=== PATIENT | male | born 1940 | race Caucasian/White ===

== ENCOUNTER 2020-03-23 13:35 | Outpatient (CLI) | payer MEDICARE, SELFPAY ==
[2020-03-23 14:13] LABS: Blood Urea Nitrogen 30 mg/dL (9-20); Calcium 8.8 mg/dL (8.4-10.2); Carbon Dioxide 27 mmol/L (22-30); Chloride 105 mmol/L (98-107); Estimated Glomerular Filt Rate 29; Glucose 169 mg/dL (75-110); Potassium 4.4 mmol/L (3.4-5.0); Sodium 139 mmol/L (137-145)
== END 2020-03-23 13:36 | disposition home or self-care (01) ==
PROVIDERS: PCP Family Medicine; Visit Provider Family Medicine
DX: N28.9 Disorder of kidney and ureter, unspecified (principal)
CPT/HCPCS: 36415; 80048

== ENCOUNTER 2020-04-15 12:14 | Outpatient (CLI) | payer MEDICARE, SELFPAY ==
[2020-04-15 12:37] LABS: Hematocrit 45.4 % (42.0-52.0); Mean Corpuscular Hemoglobin 27.4 pg (26-34); Mean Platelet Volume 9.3 fl (7.4-10.4); Platelet Count Result 222 k/mm3 (150-375); Red Blood Count 5.47 M/mm3 (4.6-6.20); Red Cell Distribution Width 13.9 % (11.5-14.5); White Blood Count 9.2 K/mm3 (4.5-10.0)
[2020-04-15 12:47] LABS: Albumin Level 4.2 g/dL (3.5-5.1); Blood Urea Nitrogen 33 mg/dL (9-20); Calcium 9.4 mg/dL (8.4-10.2); Carbon Dioxide 29 mmol/L (22-30); Chloride 103 mmol/L (98-107); Estimated Glomerular Filt Rate 28; Glucose 186 mg/dL (75-110); Phosphorus 3.2 mg/dL (2.5-4.5); Potassium 3.9 mmol/L (3.4-5.0); Sodium 139 mmol/L (137-145)
[2020-04-15 12:59] LABS: Parathyroid Intact 45.5 pg/mL (7.5-53.5)
[2020-04-15 14:11] LABS: Vitamin D 25 Hydroxy 46.6 ng/mL
[2020-04-15 18:57] LABS: Creatinine Urine > 346.5 mg/dL; Total Protein Urine Random 34 mg/dL
== END 2020-04-15 12:15 | disposition home or self-care (01) ==
PROVIDERS: PCP Family Medicine; Referring Provider Family Medicine; Visit Provider Internal Medicine Nephrology
DX: N18.4 Chronic kidney disease, stage 4 (severe) (principal)
CPT/HCPCS: 36415; 80069; 82306; 82570; 83970; 84156; 85027

== ENCOUNTER 2020-08-21 11:07 | Outpatient (CLI) | payer MEDICARE, SELFPAY ==
[2020-08-21 11:54] LABS: Hematocrit 40.6 % (42.0-52.0); Hemoglobin 13.9 g/dL (14.0-18.0); Mean Corpuscular HGB Conc 34.2 g/dl (32-36); Mean Corpuscular Hemoglobin 27.5 pg (26-34); Mean Corpuscular Volume 80.2 fl (80-100); Mean Platelet Volume 9.3 fl (7.4-10.4); Platelet Count Result 233 k/mm3 (150-375); Red Blood Count 5.06 M/mm3 (4.6-6.20); Red Cell Distribution Width 13.4 % (11.5-14.5); White Blood Count 10.6 K/mm3 (4.5-10.0)
[2020-08-21 12:08] LABS: Albumin Level 4.1 g/dL (3.5-5.1); Anion Gap 9 mmol/L (8-16); Blood Urea Nitrogen 22 mg/dL (9-20); Calcium 9.2 mg/dL (8.4-10.2); Carbon Dioxide 25 mmol/L (22-30); Chloride 104 mmol/L (98-107); Estimated Glomerular Filt Rate 29; Glucose 126 mg/dL (75-110); Phosphorus 3.2 mg/dL (2.5-4.5); Potassium 3.9 mmol/L (3.4-5.0); Sodium 138 mmol/L (137-145)
[2020-08-21 12:19] LABS: Total Protein Urine Random 31 mg/dL
[2020-08-21 12:24] LABS: Parathyroid Intact 80.5 pg/mL (7.5-53.5)
[2020-08-21 13:00] LABS: Vitamin D 25 Hydroxy 48.3 ng/mL
[2020-08-21 13:14] LABS: Hepatitis B Surface Anti Res Negative
== END 2020-08-21 11:08 | disposition home or self-care (01) ==
PROVIDERS: PCP Family Medicine; Visit Provider Internal Medicine Nephrology
DX: N18.4 Chronic kidney disease, stage 4 (severe) (principal)
CPT/HCPCS: 36415; 80069; 82306; 82570; 83970; 84156; 85027; 86706

== ENCOUNTER 2020-11-22 16:16 | Outpatient (CLI) | payer MEDICARE, SELFPAY ==
[2020-11-22 16:48] LABS: Hematocrit 42.8 % (42.0-52.0); Hemoglobin 13.9 g/dL (14.0-18.0); Mean Corpuscular HGB Conc 32.5 g/dl (32-36); Mean Corpuscular Hemoglobin 27.4 pg (26-34); Mean Corpuscular Volume 84.4 fl (80-100); Mean Platelet Volume 9.6 fl (7.4-10.4); Platelet Count Result 210 k/mm3 (150-375); Red Blood Count 5.07 M/mm3 (4.6-6.20); White Blood Count 9.7 K/mm3 (4.5-10.0)
[2020-11-22 17:03] LABS: Albumin Level 3.8 g/dL (3.5-5.1); Anion Gap 6 mmol/L (8-16); Blood Urea Nitrogen 23 mg/dL (9-20); Calcium 8.8 mg/dL (8.4-10.2); Carbon Dioxide 30 mmol/L (22-30); Chloride 103 mmol/L (98-107); Estimated Glomerular Filt Rate 24; Glucose 195 mg/dL (75-110); Sodium 139 mmol/L (137-145)
[2020-11-22 17:15] LABS: Parathyroid Intact 90.3 pg/mL (7.5-53.5)
[2020-11-22 17:23] LABS: Creatinine Urine 205.7 mg/dL; Total Protein Urine Random 26 mg/dL; Ur Ttl Prot Creatinine Ratio 0.13 mg/mg (0-0.20)
== END 2020-11-22 16:17 | disposition home or self-care (01) ==
LOC: ANHLAB 16:20
PROVIDERS: PCP Family Medicine; Visit Provider Internal Medicine Nephrology
DX: N18.4 Chronic kidney disease, stage 4 (severe) (principal)
CPT/HCPCS: 36415; 80069; 82570; 83970; 84156; 85027

== ENCOUNTER 2021-04-05 12:30 | Outpatient (CLI) | payer MEDICARE, SELFPAY ==
[2021-04-05 12:55] LABS: Hematocrit 41.6 % (42.0-52.0); Hemoglobin 13.4 g/dL (14.0-18.0); Mean Corpuscular HGB Conc 32.2 g/dl (32-36); Mean Corpuscular Hemoglobin 26.5 pg (26-34); Mean Corpuscular Volume 82.4 fl (80-100); Mean Platelet Volume 9.6 fl (7.4-10.4); Platelet Count Result 205 k/mm3 (150-375); Red Blood Count 5.05 M/mm3 (4.6-6.20); Red Cell Distribution Width 14.6 % (11.5-14.5); White Blood Count 9.1 K/mm3 (4.5-10.0)
[2021-04-05 13:08] LABS: Alanine Aminotransferase 22 U/L (4-50); Albumin Level 3.8 g/dL (3.5-5.1); Anion Gap 7 mmol/L (8-16); Blood Urea Nitrogen 34 mg/dL (9-20); Calcium 8.7 mg/dL (8.4-10.2); Carbon Dioxide 25 mmol/L (22-30); Chloride 108 mmol/L (98-107); Cholesterol 123 mg/dL (0-200); Estimated Glomerular Filt Rate 24; Glucose 169 mg/dL (75-110); HDL Direct 38 mg/dL; Phosphorus 2.8 mg/dL (2.5-4.5); Sodium 140 mmol/L (137-145); Triglycerides 119 mg/dL (<150)
[2021-04-05 13:17] LABS: Parathyroid Intact 108.4 pg/mL (7.5-53.5)
[2021-04-05 13:19] LABS: LDL Cholesterol Direct 64 mg/dL
[2021-04-05 13:24] LABS: Creatinine Urine 175.7 mg/dL; Total Protein Urine Random 34 mg/dL; Ur Ttl Prot Creatinine Ratio 0.19 mg/mg (0-0.20)
== END 2021-04-05 12:31 | disposition home or self-care (01) ==
PROVIDERS: PCP Family Medicine; Visit Provider Internal Medicine Nephrology
DX: N18.4 Chronic kidney disease, stage 4 (severe) (principal)
CPT/HCPCS: 36415; 80061; 80069; 82570; 83970; 84156; 84460; 85027

== ENCOUNTER 2021-08-23 11:25 | Outpatient (CLI) | payer MEDICARE, SELFPAY ==
[2021-08-23 12:29] LABS: Hematocrit 39.9 % (42.0-52.0); Hemoglobin 12.9 g/dL (14.0-18.0); Mean Corpuscular HGB Conc 32.3 g/dl (32-36); Mean Corpuscular Volume 83.5 fl (80-100); Platelet Count Result 181 k/mm3 (150-375); Red Blood Count 4.78 M/mm3 (4.6-6.20); Red Cell Distribution Width 15.3 % (11.5-14.5); White Blood Count 7.8 K/mm3 (4.5-10.0)
[2021-08-23 12:49] LABS: Albumin Level 3.6 g/dL (3.5-5.1); Anion Gap 8 mmol/L (8-16); Blood Urea Nitrogen 26 mg/dL (9-20); Calcium 9.1 mg/dL (8.4-10.2); Carbon Dioxide 26 mmol/L (22-30); Chloride 108 mmol/L (98-107); Estimated Glomerular Filt Rate 28; Glucose 138 mg/dL (65-110); Potassium 3.6 mmol/L (3.4-5.0); Sodium 142 mmol/L (137-145)
[2021-08-23 12:54] LABS: Parathyroid Intact 61.8 pg/mL (7.5-53.5)
[2021-08-23 13:09] LABS: Creatinine Urine 226.2 mg/dL; Total Protein Urine Random 44 mg/dL; Ur Ttl Prot Creatinine Ratio 0.19 mg/mg (0-0.20)
== END 2021-08-23 11:26 | disposition home or self-care (01) ==
LOC: ANHLAB 11:31
PROVIDERS: PCP Family Medicine; Visit Provider Internal Medicine Nephrology
DX: N18.4 Chronic kidney disease, stage 4 (severe) (principal)
CPT/HCPCS: 36415; 80069; 82570; 83970; 84156; 85027

== ENCOUNTER 2021-10-19 13:45 | Outpatient (CLI) | payer MEDICARE, SELFPAY ==
[2021-10-19 17:33] LABS: Prostate Specific Antigen 2.1 ng/mL (< OR = 4.0)
== END 2021-10-19 13:46 | disposition home or self-care (01) ==
PROVIDERS: PCP Family Medicine; Visit Provider Urology
DX: N40.1 Benign prostatic hyperplasia with lower urinary tract symptoms (principal)
CPT/HCPCS: 36415; 84153

== ENCOUNTER 2022-01-07 13:46 | Outpatient (CLI) | payer MEDICARE, SELFPAY ==
[2022-01-07 14:22] LABS: Hematocrit 42.7 % (42.0-52.0); Hemoglobin 13.5 g/dL (14.0-18.0); Mean Corpuscular HGB Conc 31.6 g/dl (32-36); Mean Corpuscular Hemoglobin 26.2 pg (26-34); Mean Corpuscular Volume 82.9 fl (80-100); Mean Platelet Volume 9.1 fl (7.4-10.4); Platelet Count Result 191 k/mm3 (150-375); Red Blood Count 5.15 M/mm3 (4.6-6.20); Red Cell Distribution Width 14.9 % (11.5-14.5); White Blood Count 8.6 K/mm3 (4.5-10.0)
[2022-01-07 14:32] LABS: Albumin Level 3.7 g/dL (3.5-5.1); Anion Gap 6 mmol/L (8-16); Blood Urea Nitrogen 29 mg/dL (9-20); Calcium 8.7 mg/dL (8.4-10.2); Carbon Dioxide 28 mmol/L (22-30); Chloride 105 mmol/L (98-107); Estimated Glomerular Filt Rate 26; Glucose 182 mg/dL (65-110); Sodium 139 mmol/L (137-145)
[2022-01-07 14:44] LABS: Parathyroid Intact 73.7 pg/mL (7.5-53.5)
== END 2022-01-07 13:47 | disposition home or self-care (01) ==
PROVIDERS: PCP Family Medicine; Visit Provider Internal Medicine Nephrology
DX: N18.4 Chronic kidney disease, stage 4 (severe) (principal)
CPT/HCPCS: 36415; 80069; 83970; 85027

== ENCOUNTER 2022-01-09 16:19 | Outpatient (NON) | payer MEDICARE, SELFPAY ==
[2022-01-10 08:21] LABS: Creatinine Urine 166.2 mg/dL; Total Protein Urine Random 24 mg/dL; Ur Ttl Prot Creatinine Ratio 0.14 mg/mg (0-0.20)
== END 2022-01-09 16:20 | disposition home or self-care (01) ==
PROVIDERS: PCP Family Medicine; Visit Provider Internal Medicine Nephrology
DX: N18.4 Chronic kidney disease, stage 4 (severe) (principal)
CPT/HCPCS: 82570; 84156

== ENCOUNTER 2022-04-02 12:38 | Inpatient (IN) | payer MEDICARE, SELFPAY ==
[2022-04-02] VITALS (22 sets, daily range): BP systolic 81–152; BP diastolic 54–99; PULSE 55–89; RESP 14–23; TEMP 36.4–36.7; O2SAT 95–100; BMI 25.6
--- NOTE | ~2022-04-02 | CT_ITS ---
EXAMINATION: CT brain wo con DATE: 04/02/2022 14:33 INDICATION: dizziness . TECHNIQUE: Computed tomography (CT) of the head was performed without intravenous contrast. The mA wa s adjusted according to patient size. Iterative reconstruction technique was employed. The dose-lengt h product was 605.33 mGy-cm. COMPARISON: None FINDINGS: No acute intracranial hemorrhage or extra-axial fluid collection. No hydrocephalus, mass, or herniation. No acute ischemic infarct. Unremarkable dural venous sinus attenuation. No acute osseous abnormality. The aerated spaces are clear. Moderate atrophy and chronic white matter change. Left basal ganglia calcification. Atherosclerotic i ntracranial calcifications. Bilateral lens replacements. IMPRESSION: No acute intracranial process. Reviewed, dictated and finalized at location K.
--- NOTE | ~2022-04-02 | XR_ITS ---
MODIFIED ESOPHAGRAM HISTORY: Dysphagia. TECHNIQUE: Modified barium esophagram was performed on 04/05/2022. I administered fluoroscopy and perfo rmed the exam with speech pathologist. Patient was seated for lateral fluoroscopic imaging for inges tion of thin liquids, pudding, solids and quantified amounts, followed by thin liquids in uncontrolle d amounts. This was recorded on tape. A single fluoroscopic spot image was also recorded. The DAP for this procedure was 2.507 Gycm2. The amount of fluoroscopy time used during this procedure was 3.8 mi nutes. FINDINGS: Oral stage: Adequate function. Pharyngeal stage: Pharyngeal dysphagia with reduced laryngeal elevation and adduction and reduced ton sonal base retraction. There is vallecular residue. Laryngeal penetration with thin and nectar thick li quids and aspiration of a small amount of thin liquids. Cervical/esophageal stage: Adequate function. IMPRESSION: Residual dysphagia with recurrent laryngeal penetration and small amount of aspiration. Please correlate with speech pathologist findings and specific feeding recommendations. Reviewed, dictated and finalized at location A. IMPRESSION: Residual dysphagia with recurrent laryngeal penetration and small a mount of aspiration. Please correlate with speech pathologist findings and [facility] feeding recommendations.
--- NOTE | ~2022-04-02 | XR_ITS ---
XR chest 1V portable DATE: 04/02/2022 13:44 INDICATION: Altered mental status. Weakness. TECHNIQUE: Portable AP chest on 04/02/2022 at 1341 hours COMPARISON: CT chest two-view chest FINDINGS: There is prominent patchy consolidation throughout the right lung, most prominent in the mi d and lower lung zones, likely due to extensive right lung pneumonia. Minimal infiltrate or atelectasis in the left lower lobe. The left lung otherwise appears clear. No pleural effusion or pulmonary vascular congestion or pneumothorax. Heart size appears within normal limits there is aortic arch calcification and mild aortic unfolding. Diffuse osteopenia. Degenerative spurring of the thoracic spine. Rotator cuff atrophy is suggested bi laterally. IMPRESSION: Extensive patchy consolidation of the right lung suggesting pneumonia Mild infiltrate or atelectasis in the left lower lung Reviewed, dictated and finalized at location A. IMPRESSION: Extensive patchy consolidation of the right lung suggesting pneumon ia Mild infiltrate or atelectasis in the left lower lung
--- NOTE | 2022-04-02 12:56 | ECG_ITS ---
Measurements Intervals [place] Rate: 78 P: ID: 0 QRS: 46 QRSD: 79 T: 50 QT: 412 QTc: 472 Interpretive Statements ATRIAL FIBRILLATION BORDERLINE ST-T WAVE ABNORMALITY- DIFFUSE LEADS BASELINE ARTIFACT- I, II, III, AVR, AVL, AVF, V1-V3 ABNORMAL ECG Electronically Signed On 04-02-2022 17:19:51 CDT by Jose Dawn D.O.
--- NOTE | 2022-04-02 13:00 | ED.NEUROSD ---
HPI - Neuro Symptoms/Deficit General Chief Complaint: Neuro Symptoms/Deficit Stated Complaint: neuro s/sx Time Seen by Provider: 04/02/22 12:49 History of Present Illness HPI Narrative: pt last known well last evening seen by family then today family came to see him at noon and found him laying on end of his bed with legs off the bed they helped him up and he said he was dizzy and weaker then normal. pt also incontinent 2x this week, pt has severe dementia so unclear if took his clothes off last night for bed or got up when today and put them on. so last known well last evening. pt on eliquis for his heart. pt stronger since being here. able to push himself up in the bed denies any injury akhtar/f/uri/nv/d/cp/sob/abd pain and no lt headedness or dizziness now when I ask him on arrival to room Related Data Home Medications Medication Instructions Recorded Confirmed apixaban 2.5 mg tablet (Eliquis) 2.5 mg PO BID 11/11/19 12/20/21 nitroglycerin 0.4 mg sublingual 0.4 mg sublingual Q5M PRN chest 11/11/19 12/20/21 tablet pain tamsulosin 0.4 mg capsule (Flomax) 0.4 mg PO DAILY 11/11/19 12/20/21 Allergies Allergy/AdvReac Type Severity Reaction Status Date / Time levofloxacin Allergy Unknown Rash Verified 04/02/22 13:03 Review of Systems Constitutional: Comments: CONSTITUTIONAL: Denies fever, chills, or sweats. EYES: Denies visual changes, redness, or discharge. ENT: Denies rhinorrhea, congestion, sore throat, or otalgia. CARDIOVASCULAR: Denies chest pain, palpitations, or edema. RESPIRATORY: Denies cough or dyspnea. GASTROINTESTINAL: Denies abdominal pain, nausea, vomiting, or diarrhea. GENITOURINARY: Denies dysuria or hematuria. SKIN: Denies rash or itching. MUSCULOSKELETAL: Denies back pain, joint pain, or myalgia. NEUROLOGIC: Denies headache, numbness, or weakness. has dizziness PSYCHIATRIC: Denies anxiety or depression. [facility] Past Medical History Medical History BMI 27.0-27.9,adult BMI 28.0-28.9,adult Dementia, unspecified, without behavioral disturbance Essential (primary) hypertension Low kidney function Mixed hyperlipidemia Paroxysmal atrial fibrillation Spondylosis of cervical joint with myelopathy Type 2 diabetes mellitus without complications Family History Family History Mother Hypertension Family history of malignant neoplasm Father Cerebrovascular accident Family history of diabetes mellitus in first degree relative Diabetes mellitus Social History Social History Tobacco type: cigarettes Smoking end date: 10/01/11 Alcohol intake: current Exam Const: Other: APPEARANCE: Well appearing, no pain in distress, well-nourished. Head normocephalic atraumtaic. EYES: PERRLA/EOMI, conjunctivae very clear. NOSE: Normal no drainage EARS:TMS clear Bennie Marquez, with good light reflex. THROAT: Pharynx clear, no exudate. NECK: Supple. No adenopathy, no masses. RESPIRATORY: Airway patent, repsirations nonlabored. Clear to auscultation bilaterally, no rales, rhonchi, wheezing. CARDIOVASCULAR: Regular rate and rhythm without murmurs rubs or gallops. ABDOMINAL: Soft, nontender, nondistended, no hepatosplenomegally MUSCULOSKELETAl: Moves all extremities. Strenght/ROM intact, No edema, No calf tenderness. NEURO: Alert to self only at baseline. Cranial nerves II through XII intact. no facial droop speech issues no pronator drift and 5/5 strength sensation and pushing self up in bed no difficulties SKIN:: Warm, dry. Normal Color PSYCHIATRIC: Normal affect/mood, normal interaction with parents. Course Course Emergency Course: family updated good with plan, pt doing better more alert with fluids, hospitaltist aware accepts admissiont at 1554 Vital Signs Vital signs: Vital Signs Temperature 36.7 C 04/02/22 12:40 Pulse Rate 87 04/02/22 12:40 Respirat
[2022-04-02 13:17] LABS: Glucose Point of Care 200 mg/dl (65-105)
[2022-04-02 13:32] LABS: Alveolar/Arterial O2 Gradient 40.2 mmHg; Base Excess ABG -3.8 mEq/l (+/-2.0); Carboxyhemoglobin 1.2 % THb (0-2.0); Fractional Inspired Oxygen 21 %; HCO3 ABG 19.3 mEq/l (22.0-26.0); Methemoglobin ABG 0.4 %THb (0-1.5); Oxygen Content ABG 19.1 %vol (16.0-22.0); Oxygen Saturation ABG 95.3 % (95.0-100.0); Oxyhemoglobin 94.2 % THb (90.0-100.0); PCO2 ABG 30.1 mmHg (35.0-45.0); PO2 ABG 73.5 mmHg (80.0-100.0); Reduced Hemoglobin 4.2 %THb (0-5.0); Total Hemoglobin 14.4 g/dL (12.0-18.0); pH ABG 7.425 (7.350-7.450)
[2022-04-02 13:33] LABS: Device ROOM AIR; Modified Allen's Test Pass; Site Drawn RIGHT RADIAL
[2022-04-02] MEDS: SODIUM CHLORIDE 0.9% IV 1,000 ML 999 ML IV CONT (13:33)
[2022-04-02 13:40] LABS: Basophils Absolute Auto 0.1 K/mm3 (0.0-0.1); Basophils Percent Auto 0.3 % (0.2-1.2); Hematocrit 44.2 % (42.0-52.0); Hemoglobin 14.3 g/dL (14.0-18.0); Immature Granulocyte Absolute 0.22 K/mm3 (0.00-0.031); Immature Granulocyte Percent A 0.9 % (0-0.5); Immature Platelet Fraction Pct 2.4 % (0.9-11.2); Lymphocytes Absolute Auto 0.99 K/mm3 (0.9-3.2); Lymphocytes Percent Auto 3.8 % (18.3-44.2); Mean Corpuscular HGB Conc 32.4 g/dl (32-36); Mean Corpuscular Hemoglobin 26.4 pg (26-34); Mean Corpuscular Volume 81.5 fl (80-100); Mean Platelet Volume 9.8 fl (7.4-10.4); Monocytes Absolute Auto 1.2 K/mm3 (0.1-0.6); Monocytes Percent Auto 4.5 % (2.6-8.5); Neutrophils Absolute Auto 23.4 K/mm3 (1.3-6.7); Neutrophils Percent Auto 90.5 % (45.5-73.1); Platelet Count Result 232 k/mm3 (150-375); Red Blood Count 5.42 M/mm3 (4.6-6.20); Red Cell Distribution Width 14.4 % (11.5-14.5); White Blood Count 25.8 K/mm3 (4.5-10.0)
[2022-04-02 13:44] LABS: Appearance Urine Clear (Clear); Bacteria Urine Trace /hpf; Bilirubin Urine 2+ (Negative); Blood Urine 1+ (Negative); Calcium Oxalate Crystals Urine Present /hpf; Color Urine Amber (Yellow); Glucose Urine UA Trace mg/dL (Negative); Ketones Urine 1+ mg/dL (Negative); Leukocyte Esterase Ur Negative LEU/UL (Negative); Mucus Urine Few /lpf; Nitrate Urine Negative (Negative); Protein Urine 2+ mg/dL (Negative); Specific Grav Ur >= 1.030 (1.001-1.035); Squamous Epithelial Cell Urine Occasional /hpf (Few)
[2022-04-02 13:45] LABS: Add Urine Microscopic? YES
[2022-04-02 13:46] LABS: INR 1.5; Partial Thromboplastin Time 30.3 SECONDS (22.3-36.8); Prothrombin Time 17.1 Seconds (11.1-14.7)
[2022-04-02 13:47] LABS: Ethanol < 10 mg/dL (<10); Lactic Acid Reflex 3.1 mmol/L (0.7-2.0)
[2022-04-02 13:49] LABS: Alanine Aminotransferase 16 U/L (6-50); Albumin Level 2.7 g/dL (3.5-5.1); Alkaline Phosphatase 72 U/L (38-126); Anion Gap 5 mmol/L (8-16); Aspartate Amino Transferase 17 U/L (17-59); Bilirubin,Total 1.8 mg/dL (0.2-1.3); Blood Urea Nitrogen 27 mg/dL (9-20); CRP 2.1 mg/dL (<1.0); Calcium 7.2 mg/dL (8.4-10.2); Carbon Dioxide 22 mmol/L (22-30); Chloride 111 mmol/L (98-107); Estimated CRCL calculation 22 ml/min; Estimated Glomerular Filt Rate 29; Glucose 158 mg/dL (65-110); Magnesium 1.4 mg/dL (1.6-2.3); Potassium 3.5 mmol/L (3.4-5.0); Sodium 138 mmol/L (137-145)
[2022-04-02 14:00] LABS: Amphetamine Screen Urine Negative (Negative); Barbiturate Screen Urine Negative (Negative); Benzodiazepines Screen Urine Negative (Negative); Cannabinoid Screen Urine Negative (Negative); Cocaine Screen Urine Negative (Negative); Methadone Screen Urine Negative (Negative); Opiate Screen Urine Negative (Negative); Phencyclidine Screen Urine Negative (Negative)
[2022-04-02 14:10] LABS: SARS-CoV-2 RNA PCR Negative
[2022-04-02 14:10] LABS: Troponin I 0.012 ng/mL (0.000-0.034)
[2022-04-02] MEDS: MAGNESIUM SULF 2 GM/WATER 50ML 2 GM/50 ML BAG IVPB (14:46)
[2022-04-02] MEDS: cefTRIAXone 2 GM in SODIUM CHLORIDE 0.9% IV 100 ML 200 ML IVPB (15:37)
--- NOTE | 2022-04-02 15:44 | PM.IMHP ---
H&P: HPI History of Present Illness Date/Time: Patient was placed observation status for expected length of stay less than 23 hours for management, will plan to re-evaluate tomorrow for improvement. 04/02/22 15:44 Chief Complaint: Altered Narrative: Mr. Ortiz is a 81-year-old gentleman who was brought to emergency room after being found on his bed more altered than normal. Patient does have underlying dementia but does live at home with his grandson is able to perform most ADLs without any difficulty. Patient's family states they saw him last evening and he was doing well. Patient's daughter states that she went to eat lunch with the patient today and he was noted to be laying on the foot of his bed. Upon initial evaluation emergency room patient was noted to be alert oriented x1 only. Patient was noted to have a significantly elevated white blood cell count and a pneumonia on chest x-ray. Patient was given IV fluids and antibiotics were started and patient's mental status significantly improved. Per patient's family who is at bedside patient had not been complaining of any cough or shortness of breath recently. Patient has not had any fever. Patient had been eating and drinking without any difficulty up until this morning. Patient has a known history Alzheimer's dementia, atrial fibrillation, diabetes mellitus, hypertension, and chronic kidney disease. Patient's baseline creatinine is 2.2-2.3 Review of Systems Review of Systems: I am unable to obtain a full review of systems secondary to patient's clinical condition. [facility] Past Medical History Medical History (Updated 04/02/22 @ 20:58 by Awilda Chacon APRN) BMI 27.0-27.9,adult BMI 28.0-28.9,adult Chronic atrial fibrillation Dementia, unspecified, without behavioral disturbance Essential (primary) hypertension Low kidney function Mixed hyperlipidemia Spondylosis of cervical joint with myelopathy Type 2 diabetes mellitus without complications Family History Family History Mother Hypertension Family history of malignant neoplasm Father Cerebrovascular accident Family history of diabetes mellitus in first degree relative Diabetes mellitus Social History Social History Smoking status: Former smoker Tobacco type: cigarettes Smoking end date: 10/01/11 Alcohol intake: former Substance use: former Substance use type: does not use Spiritual care concerns: No Meds Home Medications and Allergies Home Medications Medication Instructions Recorded Confirmed Type apixaban 2.5 mg tablet (Eliquis) 2.5 mg PO BID 11/11/19 04/02/22 History tamsulosin 0.4 mg capsule (Flomax) 0.4 mg PO DAILY 11/11/19 04/02/22 History metoprolol tartrate 25 mg tablet 25 mg PO DAILY #90 tabs 08/15/21 04/02/22 Rx donepezil 10 mg tablet 10 mg PO DAILY 04/02/22 04/02/22 History memantine 10 mg tablet 1 tablet PO BID 04/02/22 04/02/22 History pantoprazole 40 mg tablet,delayed 40 mg PO DAILY 04/02/22 04/02/22 History release Allergies Allergy/AdvReac Type Severity Reaction Status Date / Time levofloxacin Allergy Unknown Rash Verified 04/02/22 13:03 Vital Signs Vital Signs - 24 hr 04/02/22 12:40 04/02/22 12:54 04/02/22 13:16 Temperature 36.7 C Pulse Rate 87 71 77 Respiratory Rate 16 18 23 H Blood Pressure 105/75 81/54 L Pulse Oximetry 96 95 95 Oxygen Delivery Room Air Room Air 04/02/22 13:31 04/02/22 13:46 04/02/22 14:01 Temperature Pulse Rate 82 76 82 Respiratory Rate 19 20 17 Blood Pressure 104/70 119/76 111/79 Pulse Oximetry 97 100 98 Oxygen Delivery Exam Narrative: Constitutional: Patient is well-nourished in no acute distress. Patient is alert and oriented x1-2 HEENT: Moist mucous membranes. No scleral icterus. No lymphadenopathy. Neck: No carotid bruits noted no JVD noted Lungs: Lung sounds are clear to auscu
[2022-04-02 16:30] LABS: Reflex Lactic Acid Yes or No Add Lactic
--- NOTE | 2022-04-02 17:15 | ADMGEN ---
This patient, Marko Ortiz, was admitted to IMU Room 203-01 at 1714. Patient/family oriented to hospital policies and general routines including ID bracelet, bed and alarms, visiting hours, pain management, procedures, bathroom and other care routines, personal items, smoking policy, room service/diet, and visiting hours. Information on how to activate the Rapid Response Team has been discussed. Patient/Family are encouraged to report perceived risks to care and to ask questions if they do not understand what they are told or what they should do.
[2022-04-02] MEDS: SODIUM CHLORIDE 0.9% IV 1,000 ML 100 ML IV CONT (20:20)
[2022-04-02 20:41] LABS: Magnesium 2.4 mg/dL (1.6-2.3)
[2022-04-02 20:42] LABS: Lactic Acid Reflex 4.2 mmol/L (0.7-2.0)
[2022-04-02] MEDS: SODIUM CHLORIDE 0.9% IV 500 ML IV CONT (21:48)
[2022-04-03] VITALS (14 sets, daily range): BP systolic 105–177; BP diastolic 58–81; PULSE 46–97; RESP 15–18; TEMP 36.3–36.8; O2SAT 96–100
[2022-04-03] MEDS: SODIUM CHLORIDE 0.9% IV 1,000 ML 100 ML IV CONT ×2 (06:27→16:54)
[2022-04-03] MEDS: TAMSULOSIN HCL 0.4 MG CAPSULE PO (08:01)
[2022-04-03] MEDS: PANTOPRAZOLE 40 MG TABLET PO (08:01)
[2022-04-03] MEDS: MEMANTINE 10 MG TABLET PO ×2 (08:01→16:52)
[2022-04-03] MEDS: DONEPEZIL HCL 10 MG TABLET PO (08:01)
[2022-04-03] MEDS: APIXABAN 2.5 MG TABLET PO ×2 (08:01→16:52)
[2022-04-03] MEDS: METOPROLOL TARTRATE 25 MG TABLET PO (08:02)
[2022-04-03 09:55] LABS: Basophils Percent Auto 0.2 % (0.2-1.2); Eosinophils Absolute Auto 0.1 K/mm3 (0-0.3); Eosinophils Percent Auto 0.5 % (0-4.4); Hematocrit 38.2 % (42.0-52.0); Hemoglobin 12.8 g/dL (14.0-18.0); Immature Granulocyte Absolute 0.11 K/mm3 (0.00-0.031); Immature Granulocyte Percent A 0.6 % (0-0.5); Lymphocytes Absolute Auto 1.45 K/mm3 (0.9-3.2); Mean Corpuscular HGB Conc 33.5 g/dl (32-36); Mean Corpuscular Hemoglobin 27.2 pg (26-34); Mean Corpuscular Volume 81.1 fl (80-100); Mean Platelet Volume 9.6 fl (7.4-10.4); Monocytes Percent Auto 5.3 % (2.6-8.5); Neutrophils Absolute Auto 15.5 K/mm3 (1.3-6.7); Neutrophils Percent Auto 85.4 % (45.5-73.1); Platelet Count Result 171 k/mm3 (150-375); Red Blood Count 4.71 M/mm3 (4.6-6.20); Red Cell Distribution Width 14.5 % (11.5-14.5); White Blood Count 18.2 K/mm3 (4.5-10.0)
[2022-04-03 10:06] LABS: Anion Gap 5 mmol/L (8-16); Blood Urea Nitrogen 31 mg/dL (9-20); Carbon Dioxide 22 mmol/L (22-30); Chloride 110 mmol/L (98-107); Estimated CRCL calculation 23 ml/min; Estimated Glomerular Filt Rate 31; Glucose 117 mg/dL (65-110); Magnesium 2.2 mg/dL (1.6-2.3); Potassium 3.6 mmol/L (3.4-5.0); Sodium 137 mmol/L (137-145)
--- NOTE | 2022-04-03 12:56 | PM.IMPN ---
Progress Note: A&P Assessment and Plan (1) Pneumonia: Code(s): J18.9 - Pneumonia, unspecified organism Status: Acute Assessment and Plan: Patient received azithromycin as well as Rocephin emergency room. Patient also received IV fluid bolus. Patient has significantly improved and is mentating at baseline. This point time will continue with current antibiotic regimen and gently hydrate patient. (2) Sepsis: Code(s): A41.9 - Sepsis, unspecified organism Status: Acute Assessment and Plan: Patient did meet sepsis criteria. Blood cultures have been drawn and will await results to see if there is any growth. Will continue with current antibiotic regimen for pneumonia. (3) Hypomagnesemia: Code(s): E83.42 - Hypomagnesemia Status: Acute Assessment and Plan: Patient received 2 g of magnesium IV in the emergency room and repeat magnesium is stable. Will check another magnesium level morning. (4) Chronic atrial fibrillation: Code(s): I48.20 - Chronic atrial fibrillation, unspecified Status: Acute Assessment and Plan: Patient's ventricular rate is well controlled and patient does take Eliquis 2.5 mg b.i.d. at home. Will continue with current regimen. Plan Altered mental status CT head done was negative. Chest x-ray with extensive patchy consolidation of the right lung suggesting pneumonia with mild infiltrate or atelectasis in the left lower lung. Urine with few wbc's as well. UDS is negative. Alcohol level is less than 10. COVID negative Alzheimer dementia Pneumonia admission leukocytosis of 25,000. Chest x-ray with extensive patchy consolidation of the right lung suggestive of pneumonia with mild infiltrate or atelectasis in the left lower lung. Not hypoxic. ABG okay 7.42/30/73/19. Started on azithromycin and Rocephin for community-acquired pneumonia. WBC count improved down to 18,000 today. COVID negative. Clinically improving. No obvious concern for aspiration. Will have speech see for bedside swallow. Sepsis likely related to pneumonia. Pancultured follow cultures Lactic acidosis worsened last night to 4.2 from initial lactic acid of 3. Will recheck again today if lactic acid improved will slow down his IV fluids Hypo magnesemia replace and monitor Chronic Atrial fibrillation rate controlled chronically anticoagulated with Eliquis 2.5 mg b.i.d. Diabetes mellitus Hypertension Chronic kidney disease stage 3 baseline creatinine 2.2-2.3 DVT prophylaxis on Eliquis Code status do not resuscitate Subjective Date/time seen: 04/03/22 12:56 Interval history: HPI:Mr. Ortiz is a 81-year-old gentleman who was brought to emergency room after being found on his bed more altered than normal.? Patient does have underlying dementia but does live at home with his grandson is able to perform most ADLs without any difficulty.? Patient's family states they saw him last evening and he was doing well.? Patient's daughter states that she went to eat lunch with the patient today and he was noted to be laying on the foot of his bed.? Upon initial evaluation emergency room patient was noted to be alert oriented x1 only.? Patient was noted to have a significantly elevated white blood cell count and a pneumonia on chest x-ray.? Patient was given IV fluids and antibiotics were started and patient's mental status significantly improved.? Per patient's family who is at bedside patient had not been complaining of any cough or shortness of breath recently.? Patient has not had any fever.? Patient had been eating and drinking without any difficulty up until this morning. Patient has a known history Alzheimer's dementia, atrial fibrillation, diabetes mellitus, hypertension, and chronic kidney disease.? Patient's baseline creatinine is 2.2-2.3 04/03/2022 no overnight events. Family at bedside. He is a whole lot better today. His more awake and alert and back to his baseline level. Intermitte
[2022-04-03 13:40] LABS: Lactic Acid Reflex 1.4 mmol/L (0.7-2.0)
[2022-04-03] MEDS: cefTRIAXone 1 GM in DEXTROSE 5% IN WATER 50 ML 100 ML IVPB (13:40)
--- NOTE | 2022-04-03 18:46 | PC.NURSE ---
This patient, Marko Ortiz, was transferred to [[id number] ] on 04/03/22 at 1846. Personal belongings sent with patient. Report given to [ KRISTOFER Ramos @ [phone]]. Appropriate documentation sent with patient.
[2022-04-04] VITALS (9 sets, daily range): BP systolic 151–176; BP diastolic 49–89; PULSE 49–81; RESP 16–20; TEMP 36.1–36.6; O2SAT 98–100
--- NOTE | 2022-04-04 05:52 | PC.NURSE ---
PT HAS BEEN RESTLESS ALL NIGHT. 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 HE HAS ALSO PULLED OUT MULTIPLE IVS AND HIS PT ID [email or web address]. PT IS VERY FIDGETY AND FORGETS WHY HE NEEDS THESE ITEMS.
[2022-04-04 06:31] LABS: Basophils Percent Auto 0.2 % (0.2-1.2); Eosinophils Absolute Auto 0.1 K/mm3 (0-0.3); Eosinophils Percent Auto 0.8 % (0-4.4); Hematocrit 40.8 % (42.0-52.0); Hemoglobin 12.9 g/dL (14.0-18.0); Immature Granulocyte Absolute 0.09 K/mm3 (0.00-0.031); Immature Granulocyte Percent A 0.7 % (0-0.5); Lymphocytes Absolute Auto 0.95 K/mm3 (0.9-3.2); Lymphocytes Percent Auto 7.3 % (18.3-44.2); Mean Corpuscular HGB Conc 31.6 g/dl (32-36); Mean Corpuscular Hemoglobin 26.3 pg (26-34); Mean Corpuscular Volume 83.3 fl (80-100); Mean Platelet Volume 9.5 fl (7.4-10.4); Monocytes Absolute Auto 0.8 K/mm3 (0.1-0.6); Monocytes Percent Auto 5.8 % (2.6-8.5); Neutrophils Absolute Auto 11.2 K/mm3 (1.3-6.7); Neutrophils Percent Auto 85.2 % (45.5-73.1); Platelet Count Result 164 k/mm3 (150-375); Red Cell Distribution Width 14.5 % (11.5-14.5); White Blood Count 13.1 K/mm3 (4.5-10.0)
[2022-04-04 06:50] LABS: Alanine Aminotransferase 12 U/L (6-50); Albumin Level 3.2 g/dL (3.5-5.1); Alkaline Phosphatase 71 U/L (38-126); Anion Gap 5 mmol/L (8-16); Aspartate Amino Transferase 17 U/L (17-59); Bilirubin,Total 1.1 mg/dL (0.2-1.3); Blood Urea Nitrogen 32 mg/dL (9-20); Calcium 8.1 mg/dL (8.4-10.2); Carbon Dioxide 22 mmol/L (22-30); Chloride 107 mmol/L (98-107); Estimated CRCL calculation 21 ml/min; Estimated Glomerular Filt Rate 28; Glucose 106 mg/dL (65-110); Magnesium 2.1 mg/dL (1.6-2.3); Potassium 3.7 mmol/L (3.4-5.0); Sodium 134 mmol/L (137-145)
[2022-04-04] MEDS: APIXABAN 2.5 MG TABLET PO ×2 (08:03→16:09)
[2022-04-04] MEDS: MEMANTINE 10 MG TABLET PO ×2 (08:04→16:09)
[2022-04-04] MEDS: PANTOPRAZOLE 40 MG TABLET PO (08:04)
[2022-04-04] MEDS: DONEPEZIL HCL 10 MG TABLET PO (08:04)
[2022-04-04] MEDS: METOPROLOL TARTRATE 25 MG TABLET PO (08:05)
[2022-04-04] MEDS: TAMSULOSIN HCL 0.4 MG CAPSULE PO (08:05)
--- NOTE | 2022-04-04 12:30 | PCSTNOTE ---
Please refer to the Bedside Swallow Evaluation in the EMR. Please note, silent aspiration cannot be ruled out at bedside.
--- NOTE | 2022-04-04 14:33 | PM.IMPN ---
Progress Note: A&P Assessment and Plan (1) Pneumonia: Code(s): J18.9 - Pneumonia, unspecified organism Status: Acute (2) Sepsis: Code(s): A41.9 - Sepsis, unspecified organism Status: Acute (3) Hypomagnesemia: Code(s): E83.42 - Hypomagnesemia Status: Acute (4) Chronic atrial fibrillation: Code(s): I48.20 - Chronic atrial fibrillation, unspecified Status: Acute Plan #Altered mental status CT head done was negative. Chest x-ray with extensive patchy consolidation of the right lung suggesting pneumonia with mild infiltrate or atelectasis in the left lower lung. Urine with few wbc's as well. UDS is negative. Alcohol level is less than 10. COVID negative #Alzheimer dementia #Pneumonia admission leukocytosis of 25,000. Chest x-ray with extensive patchy consolidation of the right lung suggestive of pneumonia with mild infiltrate or atelectasis in the left lower lung. Not hypoxic. ABG okay 7.42/30/73/19. Started on azithromycin and Rocephin for community-acquired pneumonia. WBC count improved down to 18,000 with treatment and continue to improve. COVID negative. Clinically improving. No obvious concern for aspiration. Will have speech see for bedside swallow. #Sepsis likely related to pneumonia. Pancultured follow cultures #Lactic acidosis worsened last night to 4.2 from initial lactic acid of 3. recheck with improvement. Will stop fluids today #Hypo magnesemia replace and monitor #Chronic Atrial fibrillation rate controlled chronically anticoagulated with Eliquis 2.5 mg b.i.d. #Diabetes mellitus #Hypertension #Chronic kidney disease stage 3 baseline creatinine 2.2-2.3. Remains baseline continue to monitor #DVT prophylaxis on Eliquis #Code status do not resuscitate Remove Obrien catheter today Subjective Date/time seen: 04/04/22 14:33 Interval history: HPI:Mr. Ortiz is a 81-year-old gentleman who was brought to emergency room after being found on his bed more altered than normal.? Patient does have underlying dementia but does live at home with his grandson is able to perform most ADLs without any difficulty.? Patient's family states they saw him last evening and he was doing well.? Patient's daughter states that she went to eat lunch with the patient today and he was noted to be laying on the foot of his bed.? Upon initial evaluation emergency room patient was noted to be alert oriented x1 only.? Patient was noted to have a significantly elevated white blood cell count and a pneumonia on chest x-ray.? Patient was given IV fluids and antibiotics were started and patient's mental status significantly improved.? Per patient's family who is at bedside patient had not been complaining of any cough or shortness of breath recently.? Patient has not had any fever.? Patient had been eating and drinking without any difficulty up until this morning. Patient has a known history Alzheimer's dementia, atrial fibrillation, diabetes mellitus, hypertension, and chronic kidney disease.? Patient's baseline creatinine is 2.2-2.3 04/03/2022 no overnight events. Family at bedside. He is a whole lot better today. His more awake and alert and back to his baseline level. Intermittent cough denies any shortness of breath or chest pain 04/04/2022 no overnight events. He feels all right. Denies any shortness of breath. No chest pain intermittent cough Review of Systems Review of Systems: All systems reviewed & are unremarkable except as noted in HPI and below Exam Narrative: Constitutional: Patient is well-nourished in no acute distress. Patient is alert and oriented x3 HEENT: Moist mucous membranes. No scleral icterus. No lymphadenopathy. Neck: No carotid bruits noted no JVD noted Lungs: Lung sounds are clear to auscultation bilaterally. No accessory muscle use. No rhonchi, rales, or wheezes noted. Cardiovascular: Apical pulse is irregularly irregular, S1 variable S2, no S3-S4.
[2022-04-04] MEDS: cefTRIAXone 1 GM in DEXTROSE 5% IN WATER 50 ML 100 ML IVPB (15:14)
--- NOTE | 2022-04-04 22:07 | PC.NURSE ---
PT PULLED OUT IV ACCESS IN HIS LEFT HAND AND RIGHT WRIST/FOREARM. HE WILL ALSO NOT LEAVE MED ASST OR STICKERS ON. PT CONTINUES TO BE RESTLESS AND CONFUSED
[2022-04-05] VITALS (7 sets, daily range): BP systolic 159–160; BP diastolic 72–75; PULSE 51–89; RESP 16–20; TEMP 37.2–37.3; O2SAT 99–100
[2022-04-05 06:17] LABS: Basophils Percent Auto 0.2 % (0.2-1.2); Eosinophils Absolute Auto 0.2 K/mm3 (0-0.3); Eosinophils Percent Auto 1.7 % (0-4.4); Hematocrit 34.3 % (42.0-52.0); Hemoglobin 11.2 g/dL (14.0-18.0); Immature Granulocyte Absolute 0.04 K/mm3 (0.00-0.031); Immature Granulocyte Percent A 0.5 % (0-0.5); Lymphocytes Absolute Auto 1.19 K/mm3 (0.9-3.2); Lymphocytes Percent Auto 13.6 % (18.3-44.2); Mean Corpuscular HGB Conc 32.7 g/dl (32-36); Mean Corpuscular Hemoglobin 26.7 pg (26-34); Mean Corpuscular Volume 81.7 fl (80-100); Mean Platelet Volume 9.7 fl (7.4-10.4); Monocytes Absolute Auto 0.7 K/mm3 (0.1-0.6); Monocytes Percent Auto 7.7 % (2.6-8.5); Neutrophils Absolute Auto 6.7 K/mm3 (1.3-6.7); Neutrophils Percent Auto 76.3 % (45.5-73.1); Platelet Count Result 169 k/mm3 (150-375); Red Cell Distribution Width 14.4 % (11.5-14.5); White Blood Count 8.8 K/mm3 (4.5-10.0)
[2022-04-05 06:38] LABS: Alanine Aminotransferase 12 U/L (6-50); Albumin Level 2.7 g/dL (3.5-5.1); Alkaline Phosphatase 66 U/L (38-126); Anion Gap 6 mmol/L (8-16); Aspartate Amino Transferase 17 U/L (17-59); Bilirubin,Total 1.1 mg/dL (0.2-1.3); Blood Urea Nitrogen 29 mg/dL (9-20); Calcium 7.9 mg/dL (8.4-10.2); Carbon Dioxide 23 mmol/L (22-30); Chloride 107 mmol/L (98-107); Estimated CRCL calculation 25 ml/min; Estimated Glomerular Filt Rate 32; Glucose 107 mg/dL (65-110); Potassium 3.4 mmol/L (3.4-5.0); Sodium 136 mmol/L (137-145)
--- NOTE | 2022-04-05 08:52 | PCOTNOTE ---
Attempted to see patient for OT treatment this AM. Patient off floor for testing. Will continue to attempt.
[2022-04-05] MEDS: TAMSULOSIN HCL 0.4 MG CAPSULE PO (09:43)
[2022-04-05] MEDS: DONEPEZIL HCL 10 MG TABLET PO (09:43)
[2022-04-05] MEDS: APIXABAN 2.5 MG TABLET PO ×2 (09:43→16:35)
[2022-04-05] MEDS: METOPROLOL TARTRATE 25 MG TABLET PO (09:43)
[2022-04-05] MEDS: PANTOPRAZOLE 40 MG TABLET PO (09:43)
[2022-04-05] MEDS: MEMANTINE 10 MG TABLET PO ×2 (09:43→16:35)
--- NOTE | 2022-04-05 09:54 | PCSTNOTE ---
Please refer to the Modified Barium Swallow Evaluation in the EMR.
[2022-04-05] MEDS: cefTRIAXone 1 GM in DEXTROSE 5% IN WATER 50 ML 100 ML IVPB (13:22)
--- NOTE | 2022-04-05 16:35 | PM.IMPN ---
Progress Note: A&P Assessment and Plan (1) Pneumonia: Code(s): J18.9 - Pneumonia, unspecified organism Status: Acute (2) Sepsis: Code(s): A41.9 - Sepsis, unspecified organism Status: Acute (3) Hypomagnesemia: Code(s): E83.42 - Hypomagnesemia Status: Acute (4) Chronic atrial fibrillation: Code(s): I48.20 - Chronic atrial fibrillation, unspecified Status: Acute Assessment and Plan: Chronic kidney disease stage 3 with baseline creatinine 2.2-2.3. Cr remains at baseline. Continue to monitor Plan DVT prophylaxis: on Eliquis Code status: DNA Subjective Date/time seen: 04/05/22 16:35 Interval history: 81yo male with dementia here for AMS. Assuming care. Chart reviewed. He denies any shortness of breath. No chest pain or abdominal pain. No nausea or vomiting. Exam Narrative: AF 98.9 159/72 58 16 99% ra Gen - NARD sitting up in a chair Chest -bibasilar inspiratory crackles. CV -irregular irregular. Abd - Soft, NT/ND, Positive BS Ext -trace pretibial pedal edema Psych - Nml mood and affect Skin - Warm and dry Objective Data Vital Signs Vital Signs: Vital Signs - 24 hr 04/04/22 20:00 04/04/22 20:00 04/04/22 20:00 Temperature 97.7 F Pulse Rate 56 L 56 L 72 Respiratory Rate 20 20 Blood Pressure 156/52 H Pulse Oximetry 99 99 Oxygen Delivery Room Air 04/05/22 00:00 04/05/22 03:37 04/05/22 04:00 Temperature 99.1 F 98.9 F Pulse Rate 67 67 70 Respiratory Rate 20 16 Blood Pressure 160/75 H 159/72 H Pulse Oximetry 100 99 Oxygen Delivery 04/05/22 09:43 04/05/22 09:45 04/05/22 08:00 Temperature Pulse Rate 76 89 Respiratory Rate Blood Pressure Pulse Oximetry Oxygen Delivery Room Air 04/05/22 12:00 04/05/22 16:00 Temperature Pulse Rate 51 L 58 L Respiratory Rate Blood Pressure Pulse Oximetry Oxygen Delivery Intake/Output Intake/Output: Intake & Output 04/02/22 04/03/22 04/04/22 04/05/22 23:59 23:59 23:59 23:59 Intake Total 1900 3530 1140 760 Output Total 675 1500 1300 Balance 1900 2855 -360 -540 Meds/Results Medications: Active Medications Generic Name Dose Route Start Last Admin Trade Name Freq PRN Reason Stop Dose Admin Acetaminophen 650 mg 04/02/22 18:48 Acetaminophen 325 Mg Tablet PO Q6H PRN Mild Pain (1-3) or Fever Apixaban 2.5 mg 04/03/22 09:00 04/05/22 09:43 Apixaban 2.5 Mg Tablet PO 2.5 mg BID SANDRA Administration Donepezil HCl 10 mg 04/03/22 09:00 04/05/22 09:43 Donepezil Hcl 10 Mg Tablet PO 10 mg DAILY SANDRA Administration Azithromycin 500 mg in 250 mls @ 250 mls/hr 04/03/22 14:00 04/05/22 15:01 Zithromax IVPB Infused Q24H SANDRA Infusion Ceftriaxone Sodium 1 gm/ 50 mls @ 100 mls/hr 04/03/22 14:00 04/05/22 13:55 Dextrose IVPB Infused Q24H SANDRA Infusion Memantine 10 mg 04/03/22 09:00 04/05/22 09:43 Memantine 10 Mg Tablet PO 10 mg BID SANDRA Administration Metoprolol Tartrate 25 mg 04/03/22 09:00 04/05/22 09:43 Metoprolol Tartrate 25 Mg Tablet PO 25 mg DAILY SANDRA Administration Ondansetron HCl 4 mg 04/02/22 18:48 Ondansetron Inj 4 Mg/2 Ml Vial IV PUSH Q6H PRN Nausea And Vomiting Pantoprazole Sodium 40 mg 04/03/22 09:00 04/05/22 09:43 Pantoprazole 40 Mg Tablet PO 40 mg DAILY SANDRA Administration Tamsulosin HCl 0.4 mg 04/03/22 09:00 04/05/22 09:43 Tamsulosin Hcl 0.4 Mg Capsule PO 0.4 mg DAILY SANDRA Administration Radiology Results: ITS Impressions Chest X-Ray 04/02/22 14:15 IMPRESSION: Extensive patchy consolidation of the right lung suggesting pneumonia Mild infiltrate or atelectasis in the left lower lung Head CT 04/02/22 14:34 IMPRESSION: No acute intracranial process. Modified Barium Swallow 04/05/22 11:02 IMPRESSION: Residual dysphagia with recurrent laryngeal penetration and small amount
--- NOTE | 2022-04-05 16:43 | PM.DS ---
DS: Admitting Diagnosis Discharge Date 04/05/22 Admitting Diagnosis Altered mental status DS: Discharge Diagnosis Discharge Diagnosis (1) Pneumonia: Code(s): J18.9 - Pneumonia, unspecified organism Status: Acute (2) Sepsis: Code(s): A41.9 - Sepsis, unspecified organism Status: Acute (3) Hypomagnesemia: Code(s): E83.42 - Hypomagnesemia Status: Acute (4) Chronic atrial fibrillation: Code(s): I48.20 - Chronic atrial fibrillation, unspecified Status: Acute DS: Summary Hospital Course Reason for hospitalization: 81yo male with dementia here for AMS. Please see H&P for details Hospital Course: Patient has underlying dementia. He was brought to the emergency room because of altered mental status. It was felt he had sepsis on admission with elevated white count and elevated lactic acid. CT of the brain showed no acute findings. Chest x-ray showed extensive patchy consolidation right lung with mild infiltrate or atelectasis in left lower lung. Urine drug screen was negative. Alcohol level less than 10. COVID negative. [place] count [place] [address]. ABG 7.4 on room air. He was started on Rocephin and azithromycin. His white count normalized. Urine culture negative. Blood cultures are no growth to date. Speech therapy did see the patient for bedside swallow evaluation. Patient did cough with food and a modified barium swallow was recommended. Modified barium swallow recommended regular consistency diet with mildly thickened level 2 liquids. Creatinine remained stable within his baseline and at time of discharge creatinine was 2.0. Patient worked with therapy. He has been ambulating with steps and in the room. Spoke with family who felt comfortable taking the patient home. Family states there are multiple family members to assist the patient and did not have any concerns about bringing patient home today. Patient overall did well and was able to be discharged home on 04/05/2022. Status at Discharge Cognitive/behavioral status at discharge: Stable Time Spent with Patient Time attestation: Total time spent providing and/or coordinating discharge services: 34 minutes Time spent: Greater than 30 minutes Exam Narrative: AF ? 98.9 159/72 58 16 99% ra Gen - NARD sitting up in a chair Chest -bibasilar inspiratory crackles. CV -irregular irregular. Abd - Soft, NT/ND, Positive BS Ext -trace pretibial pedal edema Psych - Nml mood and affect Skin - Warm and dry DS: Data Data Completed and Pending Labs on day of discharge: Labs from last 24 hours 04/05/22 04/05/22 05:38 05:38 WBC 8.8 RBC 4.20 L Hgb 11.2 L Hct 34.3 L MCV 81.7 MCH 26.7 MCHC 32.7 RDW 14.4 Plt Count 169 MPV 9.7 Immature Gran % (Auto) 0.5 Neut % (Auto) 76.3 H Lymph % (Auto) 13.6 L [place] % (Auto) 7.7 Eos % (Auto) 1.7 Baso % (Auto) 0.2 Lymph # (Auto) 1.19 [place] # (Auto) 0.7 H Eos # (Auto) 0.2 Baso # (Auto) 0.0 Abs Immat Gran (auto) 0.04 H Absolute Neuts (auto) 6.7 Absolute Nucleated RBC 0.0 Nucleated RBC % 0.0 Sodium 136 L Potassium 3.4 Chloride 107 Carbon Dioxide 23 Anion Gap 6 L BUN 29 H Creatinine 2.00 H Estim Creat Clear Calc 25 Estimated GFR 32 L Glucose 107 Calcium 7.9 L Magnesium 2.0 Total Bilirubin 1.1 AST 17 ALT 12 Alkaline Phosphatase 66 Total Protein 5.0 L Albumin 2.7 L Preliminary micro results at discharge 04/02/22 13:20 Blood Culture - Preliminary Blood 04/02/22 13:20 Blood Culture - Preliminary Blood Discharge Plan Discharge Attending physician on discharge: Jonatan Jaffe Discharging Clinician: Jonatan Jaffe Anticipated Discharge Date/Time: 04/05/22 16:52 Patient Disposition: Home, Self-Care Activity: as tolerated Diet: other - see discharge instructions Discharge Instructions: Continue heart healthy diet with le
--- NOTE | 2022-04-10 10:46 | PC.NURSE ---
blood cx are negative. Dr. Alannah colon.
== END 2022-04-05 18:00 | disposition home or self-care (01) | DRG 871 ==
LOC: ANHED 15:55 → ANHIMU 17:17 → ANH2MED 04-05 16:54 → ANHIMU 04-06 13:49
PROVIDERS: Internal Medicine; Nurse Practitioner Adult Health; Admitting Provider Internal Medicine; Emergency Provider Emergency Medicine; PCP Family Medicine; Visit Provider Internal Medicine
DX: A41.9 Sepsis, unspecified organism (principal); J18.9 Pneumonia, unspecified organism; I48.20 Chronic atrial fibrillation, unspecified; E87.2 Acidosis; E83.42 Hypomagnesemia; Z20.822 Contact with and (suspected) exposure to COVID-19; E78.2 Mixed hyperlipidemia; I12.9 Hypertensive chronic kidney disease with stage 1 through stage 4 chronic kidney disease, or unspecified chronic kidney disease; E11.22 Type 2 diabetes mellitus with diabetic chronic kidney disease; N18.30 Chronic kidney disease, stage 3 unspecified; M47.892 Other spondylosis, cervical region; E86.0 Dehydration; G30.9 Alzheimer's disease, unspecified; F02.80 Dementia in other diseases classified elsewhere, unspecified severity, without behavioral disturbance, psychotic disturbance, mood disturbance, and anxiety; Z87.891 Personal history of nicotine dependence
CPT/HCPCS: 36415; 36600; 51702; 70450; 71045; 80048; 80053; 80307; 81001; 82375; 82805; 82948; 83050; 83605; 83735; 84443; 84484; 85025; 85055; 85610; 85730; 86140; 87040; 87086; 92610; 92611; 93005; 96361; 96365; 96366; 96367; 96368; 97110; 97116; 97161; 97165; 99285; A9270; C9803; G0378; J0456; J0696; J3475; J7030; J7040; U0003; U0005

== ENCOUNTER 2022-04-10 17:53 | Outpatient (CLI) | payer MEDICARE, SELFPAY ==
--- NOTE | ~2022-04-10 | XR_ITS ---
XR abdomen/kub 1V 04/10/2022 18:12 INDICATION: Abdominal pain TECHNIQUE: KUB COMPARISON: None FINDINGS: Bowel gas pattern is normal. There is retained barium from recent barium swallow examinatio n. Multiple colonic diverticula noted. There are cholecystectomy clips. There is no evidence of free air, mass, organomegaly, ascites or obstruction. No abnormal calculi are seen. The bones appear int act. IMPRESSION: 1: No acute abdominal abnormality identified. Reviewed, dictated and finalized at location A.
== END 2022-04-10 17:54 | disposition home or self-care (01) ==
PROVIDERS: PCP Family Medicine; Visit Provider Nurse Practitioner Family
DX: M54.9 Dorsalgia, unspecified (principal); R31.9 Hematuria, unspecified
CPT/HCPCS: 74018

== ENCOUNTER 2022-04-27 15:05 | Outpatient (CLI) | payer MEDICARE, SELFPAY ==
--- NOTE | ~2022-04-27 | XR_ITS ---
XR chest 2V 04/27/2022 15:28 Indication: Follow-up pneumonia. Type 2 diabetes. Procedure: PA and lateral views of the chest Comparison: 04/02/2022 Findings: There is improvement of asymmetric right-sided airspace disease, consistent with resolving pneumonia. Heart size normal. Left lung clear. No pleural effusion or pneumothorax. No acute osseous abnormality. Impression: 1: Improving right-sided pneumonia. Reviewed, dictated and finalized at location A. Impression: 1: Improving right-sided pneumonia.
== END 2022-04-27 15:06 | disposition home or self-care (01) ==
PROVIDERS: PCP Family Medicine; Visit Provider Family Medicine
DX: J18.9 Pneumonia, unspecified organism (principal)
CPT/HCPCS: 71046

== ENCOUNTER 2022-08-11 12:02 | Outpatient (CLI) | payer MEDICARE, SELFPAY ==
[2022-08-11 12:44] LABS: Hematocrit 41.2 % (42.0-52.0); Hemoglobin 12.9 g/dL (14.0-18.0); Mean Corpuscular HGB Conc 31.3 g/dl (32-36); Mean Corpuscular Hemoglobin 26.6 pg (26-34); Mean Corpuscular Volume 84.9 fl (80-100); Platelet Count Result 183 k/mm3 (150-375); Red Blood Count 4.85 M/mm3 (4.6-6.20); Red Cell Distribution Width 16.1 % (11.5-14.5); White Blood Count 7.7 K/mm3 (4.5-10.0)
[2022-08-11 12:55] LABS: Creatinine Urine 163.8 mg/dL; Total Protein Urine Random 27 mg/dL; Ur Ttl Prot Creatinine Ratio 0.16 mg/mg (0-0.20)
[2022-08-11 12:58] LABS: Albumin Level 3.9 g/dL (3.5-5.1); Anion Gap 14 mmol/L (8-16); Blood Urea Nitrogen 25 mg/dL (9-20); Calcium 8.7 mg/dL (8.4-10.2); Carbon Dioxide 26 mmol/L (22-30); Chloride 102 mmol/L (98-107); Estimated Glomerular Filt Rate 25; Glucose 109 mg/dL (65-110); Phosphorus 3.1 mg/dL (2.5-4.5); Potassium 3.8 mmol/L (3.4-5.0); Sodium 142 mmol/L (137-145)
[2022-08-11 13:06] LABS: Parathyroid Intact 72.1 pg/mL (7.5-53.5)
[2022-08-11 13:38] LABS: Vitamin D 25 Hydroxy 54.3 ng/mL
== END 2022-08-11 12:03 | disposition home or self-care (01) ==
LOC: ANHLAB 12:05
PROVIDERS: PCP Family Medicine; Visit Provider Internal Medicine Nephrology
DX: N18.4 Chronic kidney disease, stage 4 (severe) (principal); E21.1 Secondary hyperparathyroidism, not elsewhere classified
CPT/HCPCS: 36415; 80069; 82306; 82570; 83970; 84156; 85027

== ENCOUNTER 2022-12-06 13:41 | Outpatient (CLI) | payer MEDICARE, SELFPAY ==
[2022-12-06 14:40] LABS: Hematocrit 40.8 % (42.0-52.0); Hemoglobin 12.7 g/dL (14.0-18.0); Mean Corpuscular HGB Conc 31.1 g/dl (32-36); Mean Corpuscular Hemoglobin 25.4 pg (26-34); Mean Corpuscular Volume 81.6 fl (80-100); Mean Platelet Volume 9.7 fl (7.4-10.4); Platelet Count Result 173 k/mm3 (150-375); Red Cell Distribution Width 15.3 % (11.5-14.5); White Blood Count 7.6 K/mm3 (4.5-10.0)
[2022-12-06 14:51] LABS: Albumin Level 3.7 g/dL (3.5-5.1); Anion Gap 7 mmol/L (8-16); Blood Urea Nitrogen 30 mg/dL (9-20); Calcium 8.5 mg/dL (8.4-10.2); Carbon Dioxide 25 mmol/L (22-30); Chloride 106 mmol/L (98-107); Estimated Glomerular Filt Rate 27; Glucose 141 mg/dL (65-110); Phosphorus 2.9 mg/dL (2.5-4.5); Potassium 4.2 mmol/L (3.4-5.0); Sodium 138 mmol/L (137-145)
[2022-12-06 15:00] LABS: Parathyroid Intact 95.9 pg/mL (7.5-53.5)
[2022-12-06 15:01] LABS: Total Protein Urine Random 20 mg/dL; Ur Ttl Prot Creatinine Ratio 0.19 mg/mg (0-0.20)
== END 2022-12-06 13:42 | disposition home or self-care (01) ==
LOC: ANHLAB 13:44
PROVIDERS: PCP Family Medicine; Visit Provider Internal Medicine Nephrology
DX: N18.4 Chronic kidney disease, stage 4 (severe) (principal)
CPT/HCPCS: 36415; 80069; 82570; 83970; 84156; 85027

== ENCOUNTER 2023-06-09 10:44 | Outpatient (CLI) | payer MEDICARE, SELFPAY ==
[2023-06-09 11:27] LABS: Hematocrit 45.6 % (42.0-52.0); Hemoglobin 14.8 g/dL (14.0-18.0); Mean Corpuscular HGB Conc 32.5 g/dl (32-36); Mean Corpuscular Hemoglobin 27.3 pg (26-34); Mean Corpuscular Volume 84.1 fl (80-100); Mean Platelet Volume 9.6 fl (7.4-10.4); Platelet Count Result 183 k/mm3 (150-375); Red Blood Count 5.42 M/mm3 (4.6-6.20); White Blood Count 9.4 K/mm3 (4.5-10.0)
[2023-06-09 11:44] LABS: Anion Gap 5 mmol/L (8-16); Blood Urea Nitrogen 29 mg/dL (9-20); Calcium 8.8 mg/dL (8.4-10.2); Carbon Dioxide 31 mmol/L (22-30); Chloride 105 mmol/L (98-107); Estimated Glomerular Filt Rate 26; Glucose 106 mg/dL (65-110); Potassium 3.7 mmol/L (3.4-5.0); Sodium 141 mmol/L (137-145)
[2023-06-09 12:41] LABS: Hemoglobin A1C 6.2 % (<5.7)
== END 2023-06-09 10:45 | disposition home or self-care (01) ==
PROVIDERS: PCP Family Medicine; Visit Provider Family Medicine
DX: N28.9 Disorder of kidney and ureter, unspecified (principal); E11.9 Type 2 diabetes mellitus without complications
CPT/HCPCS: 36415; 80048; 83036; 85027

== ENCOUNTER 2024-01-14 13:28 | Outpatient (CLI) | payer MEDICARE, SELFPAY ==
[2024-01-14 14:57] LABS: Hematocrit 41.7 % (42.0-52.0); Hemoglobin 12.4 g/dL (14.0-18.0); Mean Corpuscular HGB Conc 29.7 g/dl (32-36); Mean Corpuscular Hemoglobin 23.7 pg (26-34); Mean Corpuscular Volume 79.6 fl (80-100); Mean Platelet Volume 9.7 fl (7.4-10.4); Platelet Count Result 229 k/mm3 (150-375); Red Blood Count 5.24 M/mm3 (4.6-6.20); Red Cell Distribution Width 15.9 % (11.5-14.5); White Blood Count 8.1 K/mm3 (4.5-10.0)
[2024-01-14 15:40] LABS: Alanine Aminotransferase 15 U/L (6-50); Alkaline Phosphatase 99 U/L (38-126); Anion Gap 7 mmol/L (4-12); Aspartate Amino Transferase 19 U/L (17-59); Bilirubin,Total 1.2 mg/dL (0.2-1.3); Blood Urea Nitrogen 35 mg/dL (9-20); Calcium 9.4 mg/dL (8.4-10.2); Carbon Dioxide 26 mmol/L (22-30); Chloride 107 mmol/L (98-107); Estimated Glomerular Filt Rate 26; Glucose 183 mg/dL (65-110); Magnesium 2.2 mg/dL (1.6-2.3); Potassium 4.1 mmol/L (3.4-5.0); Sodium 140 mmol/L (137-145)
[2024-01-14 16:06] LABS: Hemoglobin A1C 7.2 % (<5.7)
== END 2024-01-14 13:29 | disposition home or self-care (01) ==
LOC: ANHLAB 13:37
PROVIDERS: PCP Family Medicine; Visit Provider Family Medicine
DX: E11.9 Type 2 diabetes mellitus without complications (principal); E83.42 Hypomagnesemia; E78.2 Mixed hyperlipidemia; I12.9 Hypertensive chronic kidney disease with stage 1 through stage 4 chronic kidney disease, or unspecified chronic kidney disease; N18.4 Chronic kidney disease, stage 4 (severe)
CPT/HCPCS: 36415; 80048; 80076; 83036; 83735; 84443; 85027

== ENCOUNTER 2024-07-17 16:51 | Inpatient (IN) | payer MEDICARE, SELFPAY ==
--- NOTE | ~2024-07-17 | XR_ITS ---
XR chest 2V 07/18/2024 10:27 Indication: Shortness of breath Procedure: 2 view chest Comparison: Comparison to multiple prior studies sequentially, with oldest reviewed study dated 04/27. Findings: Cardiomegaly. Bibasilar atelectasis. Small pleural effusions. No focal pneumonia or edema. No pneumothorax. There are cholecystectomy clips. Impression: 1: Small pleural effusions with bibasilar atelectasis. Reviewed, dictated and finalized at location B. Impression: 1: Small pleural effusions with bibasilar atelectasis.
--- NOTE | ~2024-07-17 | XR_ITS ---
EXAMINATION: XR chest 2V DATE: 07/17/2024 17:25 INDICATION: Shortness of breath and wheezing. TECHNIQUE: Frontal and lateral views of the chest were obtained. COMPARISON: Chest 2 view 04/27/2022 FINDINGS: There are small pleural effusions. There is mild atelectasis at the lung bases. No pneumoth orax. Cardiomegaly is noted. There is mild chronic anterior wedging of T11 and T12 vertebral bodies. IMPRESSION: 1. Small pleural effusions. 2. Cardiomegaly. Reviewed, dictated and finalized at location A.
[2024-07-17 16:57] VITALS: BP 134/94; PULSE 77; RESP 19; TEMP 36.4; O2SAT 98
--- NOTE | 2024-07-17 16:57 | ECG_ITS ---
Test Date: 2024-07-17 17:00:33 Measurements Intervals [place] Rate: 70 P: 0 DE: 0 QRS: 59 QRSD: 82 T: 71 QT: 390 QTc: 423 Interpretive Statements ATRIAL FIBRILLATION MODERATE ST DEPRESSION [0.05+ mV ST DEPRESSION] No previous ECG available for comparison Electronically Signed On 07-18-2024 13:31:49 CDT by Marya Dhillon M.D.
[2024-07-17 17:58] LABS: Influenza A QL RT-PCR Negative (Negative); Influenza B QL RT-PCR Negative (Negative); RSV RNA, RT-PCR Negative (Negative); SARS-CoV-2 RNA PCR Negative (Negative)
[2024-07-17 18:00] LABS: Basophils Percent Auto 0.3 % (0.2-1.2); Eosinophils Absolute Auto 0.1 K/mm3 (0-0.3); Eosinophils Percent Auto 1.3 % (0-4.4); Hematocrit 25.7 % (42.0-52.0); Hemoglobin 7.4 g/dL (14.0-18.0); Immature Granulocyte Absolute 0.03 K/mm3 (0.00-0.031); Immature Granulocyte Percent A 0.3 % (0-0.5); Lymphocytes Absolute Auto 1.26 K/mm3 (0.9-3.2); Lymphocytes Percent Auto 12.7 % (18.3-44.2); Mean Corpuscular HGB Conc 28.8 g/dl (32-36); Mean Corpuscular Hemoglobin 21.9 pg (26-34); Mean Platelet Volume 9.5 fl (7.4-10.4); Monocytes Absolute Auto 0.7 K/mm3 (0.1-0.6); Monocytes Percent Auto 6.6 % (2.6-8.5); Neutrophils Absolute Auto 7.8 K/mm3 (1.3-6.7); Neutrophils Percent Auto 78.8 % (45.5-73.1); Platelet Count Result 240 k/mm3 (150-375); Red Blood Count 3.38 M/mm3 (4.6-6.20); Red Cell Distribution Width 16.8 % (11.5-14.5); White Blood Count 9.9 K/mm3 (4.5-10.0)
[2024-07-17 18:09] LABS: Alanine Aminotransferase 12 U/L (6-50); Albumin Level 3.8 g/dL (3.5-5.1); Alkaline Phosphatase 85 U/L (38-126); Anion Gap 13 mmol/L (4-12); Aspartate Amino Transferase 20 U/L (17-59); Bilirubin,Total 1.1 mg/dL (0.2-1.3); Blood Urea Nitrogen 40 mg/dL (9-20); Calcium 8.8 mg/dL (8.4-10.2); Carbon Dioxide 21 mmol/L (22-30); Chloride 109 mmol/L (98-107); Estimated Glomerular Filt Rate 21; Glucose 155 mg/dL (65-110); Sodium 143 mmol/L (137-145)
[2024-07-17 18:32] VITALS: BP 153/95; PULSE 75; RESP 14; O2SAT 98
[2024-07-17 18:32] LABS: Hypochromasia 1+; Ovalocytes 1+; Platelet Estimate Adequate (Adequate); Schistocytes None Seen
[2024-07-17 19:01] VITALS: BP 148/95; PULSE 73; RESP 18; O2SAT 96
[2024-07-17 20:01] VITALS: BP 136/120; PULSE 77; RESP 25; O2SAT 97
[2024-07-17 20:17] VITALS: BP 142/96; PULSE 75; RESP 17; O2SAT 99
--- NOTE | 2024-07-17 20:20 | ED.SOB ---
HPI - SOB/Dyspnea General Chief Complaint: Shortness of Breath/Dyspnea Stated Complaint: dyspnea Time Seen by Provider: 07/17/24 19:06 History of Present Illness HPI Narrative: Patient is an 84-year-old male who presents ER with shortness of breath. He has dementia and cannot provide a history so his family is providing it for him. He has had mild cough. No fevers or chills. He has had poor appetite over the last few months. He is on a blood thinner but no reports of dark black stools. He does not see a senior business development manager and is managed by his PCP. He has not had with repeat injections. Related Data Home Medications Medication Instructions Recorded Confirmed cholecalciferol (vitamin D3) 25 25 mcg PO DAILY 11/07/23 07/18/24 mcg (1,000 unit) capsule tamsulosin 0.4 mg capsule 0.4 mg PO HS 06/12/24 07/18/24 memantine 10 mg tablet 10 mg PO BID 07/18/24 07/18/24 Allergies Allergy/AdvReac Type Severity Reaction Status Date / Time No Known Allergies Allergy Verified 07/17/24 16:54 Review of Systems Review of Systems: ROS unobtainable: Yes unobtainable due to mental status PMFSH Past Medical History Medical History (Updated 07/18/24 @ 00:59 by Jorje Beasley MD) Cataract Chronic atrial fibrillation Dementia, unspecified, without behavioral disturbance Dysphagia Essential (primary) hypertension Low kidney function Mixed hyperlipidemia 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 Type 2 diabetes mellitus without complications Surgical History Surgical History H/O hernia repair Hx of cholecystectomy Family History Family History Mother Hypertension Family history of malignant neoplasm Arthritis H/O gallbladder cancer Father Cerebrovascular accident Family history of diabetes mellitus in first degree relative Diabetes mellitus Arthritis Pacemaker Sibling Arthritis Sibling Arthritis Social History Social History Smoking status: Former smoker Tobacco type: cigarettes Second hand tobacco smoke exposure: No Smoking end date: 10/01/11 Alcohol intake: never Substance use: never Substance use type: does not use Do You Feel Safe in your Home?: Yes Lack of Transportation: No Lack of Food: Never True Current Housing: I Have Housing Concerned About Future Housing: No Difficulty Paying Gas/Electric Bills: No Difficulty Paying for Meds: No Currently Unemployed: No Education: Grade School Difficulty w/ Childcare or Family Care: No Living arrangements: with family Additional living arrangements comments: grandson Occupation/Education: retired 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 HEAD: Normocephalic, atraumatic. ENT: Mucous membranes moist. NECK: Supple. CHEST: Clear to auscultation. No respiratory distress. HEART: irregularly irregular rate and rhythm. Normal peripheral pulses. ABDOMEN: Soft, nontender, nondistended. Pale stool that is Hemoccult negative. EXTREMITIES: Normal range of motion. No edema. SKIN: Warm, dry, no rash. NEURO: Alert and oriented x1. PSYCH: Normal mood and affect. Course Course Emergency Course: No evidence of bleeding. Admit for transfusion and possible iron infusion. Accepted by the hospitalist service. Family where treatment plan and diagnosis. Vital Signs Vital signs: Vital Signs Temperature 97.6 F 07/17/24 16:57 Pulse Rate 77 07/17/24 16:57 Respiratory Rate 19 07/17/24 16:57 Blood Pressure 134/94 H 07/17/24 16:57 Pulse Oximetry 98 07/17/24 16:57 Temperature 98.5 F 07/18/24 00:19 Pulse
[2024-07-17 20:29] LABS: Iron 25 ug/dL (49-181)
[2024-07-17 20:39] LABS: Percent Iron Saturation 6 % (20-50)
[2024-07-17 20:42] LABS: Transferrin 280 mg/dL (206-381)
[2024-07-17 21:01] VITALS: BP 158/95; PULSE 73; RESP 16
--- NOTE | 2024-07-17 21:38 | PM.IMHP ---
H&P: HPI History of Present Illness Date/Time: 07/17/24 21:38 Chief Complaint: sob Narrative: This is an 84-year-old male with past medical history significant for advanced dementia, was brought to the emergency room due to shortness of breath. Preliminary workup was significant for CBC with a hemoglobin of 7. history has been obtained mainly from daughter who is at bedside as patient has advanced dementia unable to give any history. The chest x-ray showed small pleural effusions. Patient has been placed in observation. EXAMINATION: XR chest 2V DATE: 07/17/2024 17:25 INDICATION: Shortness of breath and wheezing. TECHNIQUE: Frontal and lateral views of the chest were obtained. COMPARISON: Chest 2 view 04/27/2022 FINDINGS: There are small pleural effusions. There is mild atelectasis at the lung bases. No pneumothorax. Cardiomegaly is noted. There is mild chronic anterior wedging of T11 and T12 vertebral bodies. IMPRESSION: 1. Small pleural effusions. 2. Cardiomegaly. 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 Type 2 diabetes mellitus without complications Surgical History Surgical History H/O hernia repair Hx of cholecystectomy Family History Family History Mother Hypertension Family history of malignant neoplasm Arthritis H/O gallbladder cancer Father Cerebrovascular accident Family history of diabetes mellitus in first degree relative Diabetes mellitus Arthritis Pacemaker Sibling Arthritis Sibling Arthritis Social History Social History Smoking status: Former smoker Tobacco type: cigarettes Second hand tobacco smoke exposure: No Smoking end date: 10/01/11 Alcohol intake: never Substance use: never Substance use type: does not use Do You Feel Safe in your Home?: Yes Lack of Transportation: No Lack of Food: Never True Current Housing: I Have Housing Concerned About Future Housing: No Difficulty Paying Gas/Electric Bills: No Difficulty Paying for Meds: No Currently Unemployed: No Education: Grade School Difficulty w/ Childcare or Family Care: No Living arrangements: with family Additional living arrangements comments: grandson Occupation/Education: retired 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 Gender identity (if verbalized by the patient): Male Spiritual care concerns: No Meds Home Medications and Allergies Home Medications Medication Instructions Recorded Confirmed Type cholecalciferol (vitamin D3) 25 25 mcg PO DAILY 11/07/23 07/18/24 History mcg (1,000 unit) capsule rivaroxaban 20 mg tablet (Xarelto) 20 mg PO DAILY #90 tabs 01/01/24 07/18/24 Rx pantoprazole 40 mg tablet,delayed 40 mg PO DAILY #90 tabs 04/21/24 07/18/24 Rx release tamsulosin 0.4 mg capsule 0.4 mg PO HS 06/12/24 07/18/24 History memantine 10 mg tablet 10 mg PO BID 07/18/24 07/18/24 History Allergies Allergy/AdvReac Type Severity Reaction Status Date / Time No Known Allergies Allergy Verified 07/18/24 07:43 Vital Signs Vital Signs - 24 hr 07/17/24 16:57 Temperature 97.6 F Pulse Rate 77 Respiratory Rate 19 Blood Pressure 134/94 H Pulse Oximetry 98 Exam Narrative: Patient laying in a stretcher Const: General: comfortable, no acute distress, well developed, alert, awake and average body habitus Nutritional Appea
[2024-07-17 21:42] LABS: Folic Acid 11.9 ng/mL (2.76->20)
--- NOTE | 2024-07-17 23:08 | PC.NURSE ---
PT. orientation is only to person, moved to room 330 to be closer to the nursing station.
[2024-07-18] VITALS (8 sets, daily range): BP systolic 144–180; BP diastolic 67–105; PULSE 60–100; RESP 18–20; TEMP 36.3–37.1; O2SAT 91–100; BMI 27.3
--- NOTE | 2024-07-18 | ECHO_ITS ---
Patient Info Name: Marko Ortiz Age: 84 years : 1940 Gender: Male Ht: 66 in Wt: 169 lbs BSA: 1.91 m2 HR: 100 bpm BP: 148 / 105 mmHg Heart Rhythm: Indeterminant Exam Date: 07/18/2024 3:13 PM Exam Location: Echo Lab Patient Status: Outpatient Admit Date: 07/17/2024 Staff Ordering Physician: Gem Serrano APRN Wood Getter: Mago Phelps RDCS Attending Provider: Ruth Holguin MD Referring Physician: Maggie VANG; Exam Type: CA echo doppler color flow Study Info Indications - sob, chf Complete two-dimensional, color flow and Doppler transthoracic echocardiogram is performed. Summary 1. Complete two-dimensional, color flow and Doppler transthoracic echocardiogram is performed. 2. Left ventricular chamber dimension is normal. 3. Left ventricular systolic function is normal, estimated at 55-60%. 4. There is mildly increased left ventricular wall thickness. 5. The basal inferior wall, mid inferior wall, basal anteroseptal, and mid anteroseptal are hypokinetic. 6. The left ventricular diastolic function is indeterminate. 7. Right ventricular chamber dimension is mildly enlarged. 8. Left atrial chamber dimension is severely enlarged. 9. Right atrial chamber dimension is severely enlarged. 10. There is mild to moderate aortic valve regurgitation. 11. The mitral valve has thickened leaflets and anterior prolapse. 12. There is severe mitral valve regurgitation. 13. Severe pulmonary hypertension, estimated pulmonary arterial systolic pressure is 81 mmHg. 14. There is moderate to severe tricuspid valve regurgitation. 15. There is mild pulmonic regurgitation. Left Ventricle Left ventricular chamber dimension is normal. Left ventricular systolic function is normal, estimated at 55-60%. There is mildly increased left ventricular wall thickness. The left ventricular diastolic function is indeterminate. The basal inferior wall, mid inferior wall, basal anteroseptal, and mid anteroseptal are hypokinetic. All other forman appear normal. Right Ventricle Right ventricular chamber dimension is mildly enlarged. Right ventricular systolic function is normal. Left Atria Left atrial chamber dimension is severely enlarged. Right Atria Right atrial chamber dimension is severely enlarged. Atrial Septum Intact interatrial septum visualized by color flow imaging. Aortic Valve The aortic valve is trileaflet. There is mild aortic valve sclerosis. There is no aortic valve stenosis. There is mild to moderate aortic valve regurgitation. Pulmonic Valve The pulmonic valve is normal. There is no pulmonic valve stenosis. There is mild pulmonic regurgitation. Mitral Valve The mitral valve has thickened leaflets and anterior prolapse. There is no mitral valve stenosis. There is severe mitral valve regurgitation. Tricuspid Valve The tricuspid valve leaflets are normal. There is no significant tricuspid valve stenosis. There is moderate to severe tricuspid valve regurgitation. Severe pulmonary hypertension, estimated pulmonary arterial systolic pressure is 81 mmHg. Pericardium/Pleural The pericardium appears normal. There is trivial pericardial effusion. Inferior Vena Cava Dilated inferior vena cava with <50% collapse upon inspiration consistent with elevated right atrial pressure, 10 mmHg. Aorta The aortic root size at the sinus of Valsalva is normal. Left Ventricular Outflow Tract Name Value Normal
--- NOTE | 2024-07-18 00:09 | ADMGEN ---
This patient, Marko Ortiz, was admitted to [facility] Surg Room 330-01. Patient/family oriented to hospital policies and general routines including ID bracelet, bed and alarms, visiting hours, pain management, procedures, bathroom and other care routines, personal items, smoking policy, room service/diet, and visiting hours. Information on how to activate the Rapid Response Team has been discussed. Patient/Family are encouraged to report perceived risks to care and to ask questions if they do not understand what they are told or what they should do.
[2024-07-18] MEDS: SODIUM CHLORIDE 0.9% IV 250 ML 30 ML IV CONT (00:24)
[2024-07-18] MEDS: TUBING, BLOOD PLUM PUMP TUBING 1 EACH XX (00:24)
[2024-07-18] MEDS: HYDROcodone/acetaminophen (*CRX) 5-325 MG TABLET 1 TAB PO (01:15)
[2024-07-18 08:27] LABS: Hematocrit 27.1 % (42.0-52.0); Hemoglobin 8.2 g/dL (14.0-18.0)
--- NOTE | 2024-07-18 09:27 | PM.IMPN ---
Progress Note: A&P Assessment and Plan (1) Iron deficiency anemia: Code(s): D50.9 - Iron deficiency anemia, unspecified Status: Acute Assessment and Plan: 07/18 1u RBC IV iron 200 mg ordered Occult stool pending Started on 300 mg Iron PO (2) Essential (primary) hypertension: Code(s): I10 - Essential (primary) hypertension Status: Acute Assessment and Plan: Hold due to symptomatic anemia (3) Chronic atrial fibrillation: Code(s): I48.20 - Chronic atrial fibrillation, unspecified Status: Acute Assessment and Plan: Holding Xarelto until occult stool sample results result (4) Chronic kidney disease, stage 4 (severe): Code(s): N18.4 - Chronic kidney disease, stage 4 (severe) Status: Acute Assessment and Plan: Avoid nephrotoxic medications (5) Dementia, unspecified, without behavioral disturbance: Code(s): F03.90 - Unspecified dementia, unspecified severity, without behavioral disturbance, psychotic disturbance, mood disturbance, and anxiety Status: Acute Assessment and Plan: Continue home medication Plan 84-year-old male with past medical history significant for advanced dementia, was brought to the emergency room due to shortness of breath had to have to have iron deficiency anemia. Patient given a 1 unit RBCs and IV iron infusion. Will start on p.o. iron. Guaiac stool pending. Time Spent With Patient Time with patient: Greater than 35 minutes Subjective Date/time seen: 07/18/24 09:27 Interval history: 84-year-old male with past medical history significant for advanced dementia, was brought to the emergency room due to shortness of breath with anemia. Patient was given 1 unit RBCs this morning with repeat hemoglobin of 8.2 Iron level is low at 25, saturation is 6%, vitamin-B and folate WDL IV iron ordered Review of Systems Review of Systems: ROS unobtainable: Yes unobtainable due to medical condition (advanced dementia) Constitutional: Constitutional: Reports weakness ENT: Reports as per HPI Cardiovascular: Cardiovascular: Reports no additional cardiovascular complaints Respiratory: Respiratory: Reports no additional respiratory complaints Gastrointestinal: Gastrointestinal: Reports no additional gastrointestinal complaints Genitourinary: Genitourinary: Reports no additional male genitourinary complaints Psychiatric: Psychiatric: Reports no additional psychiatric complaints Exam Const: General: comfortable, no acute distress, well developed, alert, awake and average body habitus Nutritional Appearance: average body habitus Orientation/consciousness: patient oriented x3 HENMT: Head: normal to inspection, normocephalic and atraumatic Ears: hearing grossly normal bilaterally Face/Nose/Sinus: normal facial exam Face and sinus: normal facial exam Eyes: General: appearance normal, both eyes and all related structures Pupils: Equal, round and reactive pupils present EOM: EOMs intact bilaterally Neck: Neck: full ROM, no lymphadenopathy and no JVD Thyroid: thyroid normal Lymphatic: no lymphadenopathy noted Resp: Effort & Inspection: normal respiratory effort and able to speak in complete sentences Auscultation: clear to auscultation bilaterally Cardio: Jugular venous distension: no JVD Rate: regular rate Rhythm: regular rhythm Heart sounds: S1 normal heart sound present and S2 normal heart sound present : General: Yes deferred Skin: Rashes: no rashes Wounds: no wounds Neuro: General: patient oriented x3 and CN's II-XI intact bilaterally Cranial nerves: Yes CN's II-XII intact bilaterally and Yes Equal, round and reactive pupils present Cognition (Neuro): normal cognition Speech: normal speech Gait exam (Neuro): Normal gait present Motor exam (neuro): 5/5 motor strength present throughout Extrem: General: normal to inspection, full ROM, no joint enlargement and no pedal inocente
--- NOTE | 2024-07-18 10:19 | PC.NURSE ---
pt taken by to receive CXR @1018 07/18/24.
--- NOTE | 2024-07-18 10:28 | PC.NURSE ---
pt returned from CXR @2523 07/18/24.
[2024-07-18] MEDS: IRON SUCROSE COMPLEX 200 MG in SODIUM CHLORIDE 0.9% IV 100 ML 220 MG IVPB (10:37)
[2024-07-18] MEDS: MEMANTINE 10 MG TABLET PO (16:43)
[2024-07-18] MEDS: SENNA/DOCUSATE SODIUM TABLET 1 TAB PO (16:43)
[2024-07-18] MEDS: POLYSACCHARIDE IRON COMPLEX 150 MG CAPSULE 300 MG PO (16:44)
[2024-07-18] MEDS: TAMSULOSIN HCL 0.4 MG CAPSULE PO (21:28)
[2024-07-19 05:56] VITALS: BP 150/87; PULSE 70; RESP 24; TEMP 37.3; O2SAT 99
[2024-07-19 06:46] LABS: Basophils Percent Auto 0.2 % (0.2-1.2); Eosinophils Absolute Auto 0.1 K/mm3 (0-0.3); Eosinophils Percent Auto 1.1 % (0-4.4); Hematocrit 28.2 % (42.0-52.0); Hemoglobin 8.4 g/dL (14.0-18.0); Immature Granulocyte Absolute 0.09 K/mm3 (0.00-0.031); Immature Granulocyte Percent A 0.9 % (0-0.5); Mean Corpuscular HGB Conc 29.8 g/dl (32-36); Mean Corpuscular Hemoglobin 22.9 pg (26-34); Mean Corpuscular Volume 76.8 fl (80-100); Mean Platelet Volume 9.7 fl (7.4-10.4); Monocytes Absolute Auto 0.8 K/mm3 (0.1-0.6); Monocytes Percent Auto 8.3 % (2.6-8.5); Neutrophils Absolute Auto 7.6 K/mm3 (1.3-6.7); Neutrophils Percent Auto 75.5 % (45.5-73.1); Nucleated Red Blood Cells Perc 0.2 % (0.0-0.2); Platelet Count Result 237 k/mm3 (150-375); Red Blood Count 3.67 M/mm3 (4.6-6.20); Red Cell Distribution Width 17.3 % (11.5-14.5)
[2024-07-19 07:06] LABS: Anion Gap 8 mmol/L (4-12); Blood Urea Nitrogen 42 mg/dL (9-20); Calcium 8.8 mg/dL (8.4-10.2); Carbon Dioxide 21 mmol/L (22-30); Chloride 109 mmol/L (98-107); Estimated CRCL calculation 18 ml/min; Estimated Glomerular Filt Rate 24; Glucose 108 mg/dL (65-110); Potassium 3.8 mmol/L (3.4-5.0); Sodium 138 mmol/L (137-145)
--- NOTE | 2024-07-19 07:26 | PM.IMPN ---
Progress Note: A&P Assessment and Plan (1) Hypochromic microcytic anemia: Code(s): D50.9 - Iron deficiency anemia, unspecified Status: Acute Assessment and Plan: 07/18 1u RBC Transfuse for hemoglobin below 7 or symptomatic No need for transfusion at this time IV iron 200 mg given Occult stool pending Started on 300 mg Iron PO (2) Essential (primary) hypertension: Code(s): I10 - Essential (primary) hypertension Status: Acute Assessment and Plan: Hold due to symptomatic anemia (3) Chronic atrial fibrillation: Code(s): I48.20 - Chronic atrial fibrillation, unspecified Status: Acute Assessment and Plan: rate controlled continue to monitor Holding Xarelto until occult stool sample results result (4) Chronic kidney disease, stage 4 (severe): Code(s): N18.4 - Chronic kidney disease, stage 4 (severe) Status: Acute Assessment and Plan: continue to monitor Avoid nephrotoxic medications (5) Dementia, unspecified, without behavioral disturbance: Code(s): F03.90 - Unspecified dementia, unspecified severity, without behavioral disturbance, psychotic disturbance, mood disturbance, and anxiety Status: Acute Assessment and Plan: advanced Continue home medication Plan 84-year-old male with past medical history significant for advanced dementia, was brought to the emergency room due to shortness of breath had to have to have iron deficiency anemia. Patient given a 1 unit RBCs and IV iron infusion. Will start on p.o. iron. Guaiac stool pending. Subjective Date/time seen: 07/19/24 07:26 Interval history: 84-year-old male with past medical history significant for advanced dementia, was brought to the emergency room due to shortness of breath with anemia. Iron level is low at 25, saturation is 6%, vitamin-B and folate WDL Patient started on oral iron replacement. A.m. hemoglobin stable. Patient restrained overnight Review of Systems Review of Systems: ROS unobtainable: Yes unobtainable due to medical condition (advanced dementia) Constitutional: Constitutional: Reports weakness ENT: Reports as per HPI Cardiovascular: Cardiovascular: Reports no additional cardiovascular complaints Respiratory: Respiratory: Reports no additional respiratory complaints Gastrointestinal: Gastrointestinal: Reports no additional gastrointestinal complaints Genitourinary: Genitourinary: Reports no additional male genitourinary complaints Neurologic: Reports weakness Psychiatric: Psychiatric: Reports no additional psychiatric complaints Exam Narrative: Patient laying in a stretcher Const: General: comfortable, no acute distress, well developed, alert, awake and average body habitus Nutritional Appearance: average body habitus Orientation/consciousness: patient oriented x3 Other: generalized pallor HENMT: Head: normal to inspection, normocephalic and atraumatic Ears: hearing grossly normal bilaterally Face/Nose/Sinus: normal facial exam Face and sinus: normal facial exam Eyes: General: appearance normal, both eyes and all related structures Pupils: Equal, round and reactive pupils present EOM: EOMs intact bilaterally Neck: Neck: full ROM, no lymphadenopathy and no JVD Thyroid: thyroid normal Lymphatic: no lymphadenopathy noted Resp: Effort & Inspection: normal respiratory effort and able to speak in complete sentences Auscultation: clear to auscultation bilaterally Cardio: Jugular venous distension: no JVD Rate: regular rate Rhythm: regular rhythm Heart sounds: S1 normal heart sound present and S2 normal heart sound present : General: Yes deferred Skin: Rashes: no rashes Wounds: no wounds Neuro: General: patient oriented x3 and CN's II-XI intact bilaterally Cranial nerves: Yes CN's II-XII intact bilaterally and Yes Equal, round and reactive pupils present Cognition (Neuro): normal cognition Spe
[2024-07-19 07:35] LABS: Platelet Estimate Adequate (Adequate); Schistocytes None Seen
[2024-07-19 07:37] LABS: Anisocytosis 1+; Hypochromasia 1+
[2024-07-19 07:38] LABS: Microcytosis 1+ (NORMAL)
[2024-07-19] MEDS: POLYSACCHARIDE IRON COMPLEX 150 MG CAPSULE 300 MG PO ×2 (07:57→12:03)
[2024-07-19] MEDS: SENNA/DOCUSATE SODIUM TABLET 1 TAB PO (07:59)
[2024-07-19] MEDS: MEMANTINE 10 MG TABLET PO (07:59)
[2024-07-19] MEDS: PANTOPRAZOLE 40 MG TABLET PO (07:59)
[2024-07-19 11:25] VITALS: BP 145/65; PULSE 75
[2024-07-19 11:30] VITALS: BP 98/81; PULSE 78
[2024-07-19 11:35] VITALS: BP 126/66; PULSE 82
--- NOTE | 2024-07-19 11:39 | PM.DS ---
DS: Admitting Diagnosis Discharge Date 07/19/2024 Admitting Diagnosis Symptomatic iron deficiency anemia with no signs of acute bleeding DS: Discharge Diagnosis Discharge Diagnosis (1) Hypochromic microcytic anemia: Code(s): D50.9 - Iron deficiency anemia, unspecified Status: Acute Assessment and Plan: 07/18 1u RBC Transfuse for hemoglobin below 7 or symptomatic No need for transfusion at this time IV iron 200 mg given Occult stool pending Started on 300 mg Iron PO x3 doses Patient will need to take a multivitamin with iron daily (2) Essential (primary) hypertension: Code(s): I10 - Essential (primary) hypertension Status: Acute Assessment and Plan: Anemia symptoms resolved okay to resume home meds (3) Chronic atrial fibrillation: Code(s): I48.20 - Chronic atrial fibrillation, unspecified Status: Acute Assessment and Plan: rate controlled continue to monitor No signs of acute bleeding, hemoglobin stable okay to resume Xarelto (4) Chronic kidney disease, stage 4 (severe): Code(s): N18.4 - Chronic kidney disease, stage 4 (severe) Status: Acute Assessment and Plan: continue to monitor Avoid nephrotoxic medications (5) Dementia, unspecified, without behavioral disturbance: Code(s): F03.90 - Unspecified dementia, unspecified severity, without behavioral disturbance, psychotic disturbance, mood disturbance, and anxiety Status: Acute Assessment and Plan: advanced Continue home medication Plan 84-year-old male with past medical history significant for advanced dementia, was brought to the emergency room due to shortness of breath had to have to have iron deficiency anemia. Patient given a 1 unit RBCs and IV iron infusion x 1. Patient's a.m. hemoglobin was stable, orthostatics were negative, patient has no acute signs of bleeding. DS: Summary Hospital Course Reason for hospitalization: Symptomatic iron deficiency anemia with no signs of acute bleeding Hospital Course: 84-year-old male with past medical history significant for advanced dementia, was brought to the emergency room due to shortness of breath. Preliminary workup was significant for CBC with a hemoglobin of 7. history has been obtained mainly from daughter who is at bedside as patient has advanced dementia unable to give any history. The chest x-ray showed small pleural effusions. Patient has been placed in observation. Patient was found to have symptomatic iron deficiency anemia with no acute signs of bleeding. Patient was given 1 unit of RBCs on 07/18/2024 with adequate hemoglobin response. Patient was started on IV iron x1 and given iron replacements b.i.d. while in hospital. Patient will go home on a multivitamin with iron. Patient had chest x-ray that showed a very small pleural effusion, repeat chest x-ray was stable. Patient does not have any trouble breathing. Family educated about coughing deep breathing and increased protein intake per patient. Follow-up in 1 month with primary care provider for repeat chest x-ray to monitor. Hospital course was uneventful patient and family wanted go home. Status at Discharge Functional status at discharge: uses cane/walker Time Spent with Patient Time attestation: Total time spent providing and/or coordinating discharge services: Exam Narrative: Awake in bed Const: General: comfortable, no acute distress, well developed, alert, awake and average body habitus Nutritional Appearance: average body habitus Orientation/consciousness: patient oriented x3 HENMT: Head: normal to inspection, normocephalic and atraumatic Ears: hearing grossly normal bilaterally Face/Nose/Sinus: normal facial exam Face and sinus: normal facial exam Eyes: General: appearance normal, both eyes and all related structures Pupils: Equal, round and reactive pupils present EOM: EOMs intact bilaterally Neck: Neck
[2024-07-19] MEDS: INFLUENZA VACCINE HIGH DOSE (>64) 180 MCG/0.5 ML SYRINGE IM (12:28)
== END 2024-07-19 12:40 | disposition home or self-care (01) | DRG 812 ==
LOC: ANHED 19:18 → ANH3MEDSUR 23:14
PROVIDERS: Student in an Organized Health Care Education/Training Program; Admitting Provider Internal Medicine; Emergency Provider Emergency Medicine; PCP Family Medicine; Visit Provider Nurse Practitioner Gerontology
DX: D50.9 Iron deficiency anemia, unspecified (principal); I48.20 Chronic atrial fibrillation, unspecified; M47.12 Other spondylosis with myelopathy, cervical region; N18.4 Chronic kidney disease, stage 4 (severe); E11.22 Type 2 diabetes mellitus with diabetic chronic kidney disease; I12.9 Hypertensive chronic kidney disease with stage 1 through stage 4 chronic kidney disease, or unspecified chronic kidney disease; Z20.822 Contact with and (suspected) exposure to COVID-19; F03.90 Unspecified dementia, unspecified severity, without behavioral disturbance, psychotic disturbance, mood disturbance, and anxiety; E78.2 Mixed hyperlipidemia; R54 Age-related physical debility; Z23 Encounter for immunization; Z90.49 Acquired absence of other specified parts of digestive tract; Z87.891 Personal history of nicotine dependence
CPT/HCPCS: 36415; 36430; 71046; 80048; 80053; 82607; 82728; 82746; 83540; 83550; 84443; 84466; 85014; 85018; 85025; 86850; 86900; 86901; 86923; 87637; 90471; 90662; 93005; 93306; 96361; 96365; 99285; A9270; G0008; G0378; J1756; J7050; P9016

== ENCOUNTER 2024-08-23 11:38 | Outpatient (CLI) | payer MEDICARE, SELFPAY ==
[2024-08-23 11:57] LABS: Hematocrit 39.4 % (42.0-52.0); Hemoglobin 11.7 g/dL (14.0-18.0); Mean Corpuscular HGB Conc 29.7 g/dl (32-36); Mean Corpuscular Hemoglobin 23.7 pg (26-34); Mean Corpuscular Volume 79.8 fl (80-100); Mean Platelet Volume 9.7 fl (7.4-10.4); Platelet Count Result 252 k/mm3 (150-375); Red Blood Count 4.94 M/mm3 (4.6-6.20); Red Cell Distribution Width 19.8 % (11.5-14.5); White Blood Count 7.9 K/mm3 (4.5-10.0)
[2024-08-23 12:07] LABS: Anion Gap 8 mmol/L (4-12); Blood Urea Nitrogen 53 mg/dL (9-20); Calcium 9.4 mg/dL (8.4-10.2); Carbon Dioxide 23 mmol/L (22-30); Chloride 111 mmol/L (98-107); Estimated Glomerular Filt Rate 29; Glucose 190 mg/dL (65-110); Potassium 4.2 mmol/L (3.4-5.0); Sodium 142 mmol/L (137-145)
== END 2024-08-23 11:39 | disposition home or self-care (01) ==
LOC: ANHLAB 11:41
PROVIDERS: PCP Family Medicine; Visit Provider Physician Assistant Medical
DX: D50.9 Iron deficiency anemia, unspecified (principal); D64.9 Anemia, unspecified
CPT/HCPCS: 36415; 80048; 85027

== ENCOUNTER 2024-11-29 11:33 | Outpatient (CLI) | payer MEDICARE, SELFPAY ==
[2024-11-29 12:11] LABS: Hematocrit 32.4 % (42.0-52.0); Hemoglobin 9.6 g/dL (14.0-18.0); Mean Corpuscular HGB Conc 29.6 g/dl (32-36); Mean Corpuscular Hemoglobin 22.3 pg (26-34); Mean Corpuscular Volume 75.3 fl (80-100); Mean Platelet Volume 9.2 fl (7.4-10.4); Platelet Count Result 233 k/mm3 (150-375); White Blood Count 8.5 K/mm3 (4.5-10.0)
[2024-11-29 12:26] LABS: Anion Gap 9 mmol/L (4-12); Blood Urea Nitrogen 33 mg/dL (9-20); Carbon Dioxide 23 mmol/L (22-30); Chloride 108 mmol/L (98-107); Estimated Glomerular Filt Rate 28; Glucose 192 mg/dL (65-110); Potassium 4.3 mmol/L (3.4-5.0); Sodium 140 mmol/L (137-145)
== END 2024-11-29 11:34 | disposition home or self-care (01) ==
PROVIDERS: PCP Family Medicine; Visit Provider Family Medicine
DX: E11.22 Type 2 diabetes mellitus with diabetic chronic kidney disease (principal); I12.9 Hypertensive chronic kidney disease with stage 1 through stage 4 chronic kidney disease, or unspecified chronic kidney disease; N18.4 Chronic kidney disease, stage 4 (severe)
CPT/HCPCS: 36415; 80048; 83036; 84443; 85027

== ENCOUNTER 2025-01-01 17:45 | Outpatient (CLI) | payer MEDICARE, SELFPAY ==
--- NOTE | ~2025-01-01 | XR_ITS ---
EXAMINATION: XR chest 2V Exam Date/Time: 01/01/2025 17:53 CDT HISTORY: J90 - Pleural effusion, not elsewhere classified Comparison: 07/18/2024. RESULT: Lines, tubes, and devices: None. Lungs and pleura: No focal consolidation, pleural effusion, or pneumothorax. Hemidiaphragm flattenin g. Minimal streaky bibasilar scar/atelectasis. Cardiomediastinal silhouette: Stable. Other: No acute osseous or upper abdominal finding. IMPRESSION: No acute cardiopulmonary process. No definite pleural effusion, pleural blunting is likely related to emphysematous change and pleural parenchymal scarring Reviewed, dictated and finalized at location K. IMPRESSION: No acute cardiopulmonary process. No definite pleural effusion, pleural bluntin g is likely related to emphysematous change and pleural parenchymal scarring
--- OUTSIDE RECORDS SUMMARY | 2025-01-01 17:44 | XMS_ITS | CONTINUITY OF CARE DOCUMENT ---
Author Name celia yang Address Unknown Organization [facility] Address [address] [place] [address] Phone [phone] Care Team Providers Care Football Coach Name Role Phone Leonidas PURDY, Mago Unavailable [phone] COCO PURDY, [place] Unavailable COCO PURDY, [place] Unavailable INSURANCE PROVIDERS Payer name Policy type / Coverage type [place] red alliance party ID [facility] Other [id number] [facility] Other [id number]
--- OUTSIDE RECORDS SUMMARY | 2025-01-01 17:44 | XMS_ITS | Continuity of Care Document ---
Author Organization [facility] Address [address] [place] [address] Phone Care Team Providers Care Hedge Fund Accountant Name Role Phone Shikha Najera Unavailable Unavailable Advance Directives Directive Yes / No Effective Date File Name No Information Encounters Encounter Description Practice Location Reason(s) For Visit Diagnoses Date Provider Providers Copied on Encounter [facility], [address], [place], [place], [id number], [place] tel:[phone] [facility] No Information 8-200 5 Dania Trivedi. [address] , [address], [place], [address], [place]. tel:[phone] Referring Provider: Kyle Howell MD , [address] [place], [address]. tel:[phone] Family History Family Member Type Diagnosis Age At Onset No Information Payers Payer name Insurance type Covered democrat ID Authoriza tilaci(s) [facility] CI [id number] Social History Type Description Quantity Date Captured Comments Sex Male Smoking Status No Information Chief Complaint And Reason For Visit No Information Reason For Referral Reason For Referral No Information History Of Present Illness Encounter Date Complaint History Of Prese nt Illness No Information Functional Status Date Functional Assessmen t No Information Instructions Date Instruction Additional Infor mation No Information Assessments Type Assessment Date No Information Patient Care Teams Name Effective Dates (start - stop) Status Members No Information
--- OUTSIDE RECORDS SUMMARY | 2025-01-01 17:44 | XMS_ITS | Clinical Summary ---
Author Organization [facility] Address [address] [place] [address] Care Team Providers Care Car Shakeout Operator Name Role Phone Unavailable Primary Care Provider Unavailabl e Source Comments [facility],non-owned Affiliates and Associated Physician Practices is amultiple site organization consisting of ambulatory clinics and hospital sitesin [place], [place], [place] and [place]. This disclosure is being madepursuant to the Care Everywhere program and may not contain all information available regarding this patient. Last updated 18.[facility] wiseri Social History Tobacco Use Types Packs/Day Years Used Date Smoking Tobacco: Never Assessed Sex and Gender Information Value Date Recorded Sex Assigned at Not on file Gender Identity Not on file Sexual Orientation Not on file Plan of Treatment Health Maintenance Due Date Last Done Comments MEDICARE AWV 12 MONTHS 1942 DTAP/TDAP/TD VACCINES (1 - Tdap) 1961 PNEUMOCOCCAL VACCINE 50+ (1 of 1 - PCV) 1992 ZOSTER VACCINE (1 of 2) 1992 Respiratory Syncytial Virus (RSV) Vaccine Pt: or over 60 yrs (1 - 1-dose 75+ series) 2017 COVID-19 VACCINE (2023-2 5 season) 2024 INFLUENZA VACCINE (#1) 2024 DEPRESSION SCREENING 10/01/2024 HEPATITIS B VACCINE Aged Out No longe r eligible based on patient's age to complete this topic HIB VACCINE Aged Out No longer eligi ble based on patient's age to complete this topic HPV VACCINE Aged Out No longer eligi ble based on patient's age to complete this topic MENINGOCOCCAL (Group B) VACC INE SHARED DECISION-MAKING Aged Out No longer eligibl e based on patient's age to complete this topic MENINGOCOCCAL GROUPS A/C/Y/W VACCINE Aged Out No longer eligible b ased on patient's [place] [address]
--- OUTSIDE RECORDS SUMMARY | 2025-01-01 17:44 | XMS_ITS | Encounter Summary ---
Author Organization [facility] Address [address] [place] [address] Care Team Providers Care Starch Treating Assistant Name Role Phone Kyle Howell MD Primary Care Provider [phone] Encounter Details Date Type Department Care Team (Late st Contact Info) Description 10/04/2016 Orders Only [facility] ProviderLencho MD [address] [place] [address] Social History Tobacco Use Types Packs/Day Years Used Date Smoking Tobacco: Never Assessed Sex and Gender Information Value Date Recorded Sex Assigned at Not on file Legal Sex Male 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 Historical Provider [facility] OSIRIS BERGER Final Result documented in this encounter Visit Diagnoses Not on filedocumented in this encounter Care Teams Starch Treating Assistant Relationship Specialty Start Date End Date Kyle Howell MD PCP - General 12/29/16 documented as of this encounter
--- OUTSIDE RECORDS SUMMARY | 2025-01-01 17:44 | XMS_ITS | Encounter Summary ---
Author Organization [facility] Address [address] [place] [address] Care Team Providers Care Workday Director Name Role Phone Unavailable Primary Care Provider Unavailabl e Encounter Details Date Type Department Care Team (Late st Contact Info) Description 11/09/2023 Lab Requisition [facility] - DermPath Lab [address] [place] [id number] Kyle Howell MD [address] [place] [address] Social History Tobacco Use Types Packs/Day Years Used Date Smoking Tobacco: Never Assessed Sex and Gender Information Value Date Recorded Sex Assigned at Not on file Gender Identity Not on file Sexual Orientation Not on file documented as of this encounter Plan of Treatment Not on file documented as of this encounter Procedures Procedure Name Priority Date/Time Associated Diagnosis Comments DERMATOPATHOLOGY Routine 11/07/2023 3:33 AM PARIMUTUEL TICKET CHECKER documented in this encounter Results * DERMATOPATHOLOGY (11/07/2023 3:33 AM PARIMUTUEL TICKET CHECKER) Case Report Dermatopathology Report Case: [id number] Authorizing Provider: Kyle Howell MD Collected: 11/07/2023 03:33 AM Ordering Location: [facility] DermPath Lab Received: 11/09/2023 08:39 AM Pathologist: Addie Murphy MD Specimen: Skin, right mid back 4 12:58 PM PARIMUTUEL TICKET CHECKER DERMATOPATHOLOGY LABORATORY Final Diagnosis Specimen A. SKIN, right mid back: BENIGN VERRUCOUS KERATOSIS (L82.1) EPIDERMAL NECROSIS SUGGESTIVE OF EXCORIATION (L98.499) PRESENT AT MARGIN 4 12:58 PM PARIMUTUEL TICKET CHECKER DERMATOPATHOLOGY LABORATORY Clinical History Changing Lesion. Check margins. 12:58 PM [facility] DERMATOPATHOLOGY LABORATORY Gross Description Specimen A: Received is one formalin filled container labeled with the patient's name and designated right mid back. The specimen consists of a shave biopsy measuring 8x5x3 mm. Jar 0. 12:58 PM [facility] DERMATOPATHOLOGY LABORATORY Microscopic Description Specimen A. SKIN, right mid back: Sections show hyperkeratosis, papillomatosis, hypergranulosis, and acanthosis. These histological findings can be seen in a verruca vulgaris or a seborrheic keratosis. The epidermis is focally necrotic and covered with a scale-crust. There is fibrin at the base. This lesion is present at the margin of the specimen. 12:58 PM [facility] DERMATOPATHOLOGY LABORATORY Disclaimer An external and internal positive and negative controls are appropriate for the histochemical, immunohistochemical and immunofluorescence stain(s) in this case (if any), except where stated explicitly. The performance characteristics of the stain(s) cited in this report were developed and its performance characteristic determined by the Dermatopathology Laboratory at [facility], directed by Dr. Pedro Borden. These tests need not be, and therefore are not, approved by the [place] Food and Drug Administration. The tests are used for clinical purposes. Billing Codes Specimen Charges Stain Charges 49995 1 12:58 PM [facility] DERMATOPATHOLOGY LABORATORY Embedded Images 12:58 PM [facility] DERMATOPATHOLOGY LABORATORY Pathology/Cytolo gy TISSUE SPECIMEN FROM SKIN / Unknown 11/07/2023 3:33 AM PARIMUTUEL TICKET CHECKER 11/09/2023 8:39 AM PARIMUTUEL TICKET CHECKER Kyle Howell MD LAB - PATHOLOGY/CYTO LOGY ORDERABLES DERMATOPATHOLOGY LABORATORY [facility] - Department of Dermatology [address] [place] [address], [facility] [phone] documented in this encounter Visit Diagnoses Not on filedocumented in this encounter
--- OUTSIDE RECORDS SUMMARY | 2025-01-01 17:44 | XMS_ITS | Referral Summary ---
Author Organization [facility] [address] Address [address] [place] [address] Care Team Providers Care Bundles Hanger Name Role Phone Kyle Howell MD Primary Care Provider Allergies Active Allergy Reactions Criticality Noted Date Comments Levofloxacin Unknown 02/27/[address] (PROTONIX) 40 mg EC tablet take 1 tablet by oral route every day 0 0 7 Active tamsulosin (FLOMAX) 0.4 mg capsule,extende d release 24hr take 1 capsule by oral route every day 1/2 hour following the same meal each day 0 0 7 Active donepezil (ARICEPT) 10 mg tablet Take 10 mg by mouth daily. 0 7 Active memantine (NAMENDA) 10 mg tabletIndicatio ns:Moderate to Severe Alzheimer's Type Dementia Take 10 mg by mouth 2 (two) times a day Active metoprolol XL (TOPROL-XL) 50 mg extended release tablet Take 1 tablet (50 mg total) by mouth daily 90 tablet 3 3 Active apixaban (Eliquis) 2.5 mg tablet Take 1 tablet by mouth twice daily 180 tablet 2 3 Active Active Problems Problem Noted Date Diagnosed Date Chronic atrial fibrillation 09/21/2020 Paroxysmal atrial fibrillation 10/05/2017 SHANTAL (obstructive sleep apnea) 10/05/2017 Anticoagulation management encounter 10/05/2017 Myalgia 10/05/2017 Obesity due to excess calories without serious c omorbidity 10/05/2017 Dietary counseling 10/05/2017 Exercise counseling 10/05/2017 History of duodenal ulcer 12/06/2016 Overview (02/23/2017): History of duodenal ulcer History of cardiac catheterization 12/06/2016 Overview (02/23/2017): Status post cardiac catheterization Jaw pain 10/27/2016 Overview (01/05/2017): Jaw pain Abnormal cardiovascular stress test 10/27/2016 Overview (01/05/2017): Abnormal stress test Dyspnea on exertion 10/27/2016 Overview (01/05/2017): Dyspnea on exertion Social History Tobacco Use Types Packs/Day Years Used Date Smoking Tobacco: Former Smokeless Tobacco: Never Tobacco Cessation:Counseling Given: Not Answered Alcohol Use Standard Drinks/Week Comments Yes 0 (1 standard drink = 0.6 oz pur e alcohol) Personal Safety Answer Date Recorded Getting School Help Needed Not on file 11/30 Sex and Gender Information Value Date Recorded Sex Assigned at Not on file Legal Sex Male 4:21 AM SECURITY PROJECT MANAGER Gender Identity Not on file Sexual Orientation Not on file Last Filed Vital Signs Vital Sign Reading Time Taken Comments Blood Pressure 126/72 11/14/2022 3:01 PM SECURITY PROJECT MANAGER Pulse 52 11/14/2022 3:01 PM SECURITY PROJECT MANAGER Temperature - - Respiratory Rate - - Oxygen Saturation 97% 11/14/2022 3:01 PM SECURITY PROJECT MANAGER Inhaled Oxygen Concentration - - Weight 69.9 kg (154 lb) 11/14/2022 3:01 PM SECURITY PROJECT MANAGER Height 166.4 cm (5' 5.5 ) 11/14/2022 3:01 PM SECURITY PROJECT MANAGER Body Mass Index 25.24 11/14/2022 3:01 PM SECURITY PROJECT MANAGER Plan of Treatment [place] [id number] [address] MEDICARE [address]ILROAD [facility] Care Teams Bundles Hanger Relationship Specialty Start Date End Date Kyle Howell MD PCP - General 12/29/16
--- OUTSIDE RECORDS SUMMARY | 2025-01-01 17:44 | XMS_ITS | Clinical Summary ---
Author Organization [facility] [place] [address] Address [address] [place] [address] Care Team Providers Care Cloth Reeler Name Role Phone Kyle Howell MD Primary Care Provider [phone] Allergies Active Allergy Reactions Criticality Noted Date [...] exertion 10/27/2016 Overview (01/05/2017): Dyspnea on exertion Medical History Medical History Date Comments Paroxysmal atrial fibrillation (HCC) 10/05/2017 SHANTAL (obstructive sleep apnea) 10/05/2017 Myalgia 10/05/2017 Obesity due to excess calories without serious c omorbidity 10/05/2017 Dietary counseling 10/05/2017 Exercise counseling 10/05/2017 Social History Tobacco Use Types Packs/Day Years [...] on file Legal Sex Male 4:21 AM IDENTIFICATION TECHNICIAN Gender Identity Not on file Sexual Orientation Not on file Obstetrics History Last Filed Vital Signs Vital Sign Reading Time Taken Comments Blood Pressure 126/72 11/14/2022 3:01 PM IDENTIFICATION TECHNICIAN Pulse 52 11/14/2022 3:01 PM IDENTIFICATION TECHNICIAN Temperature - - Respiratory Rate - - Oxygen Saturation 97% 11/14/2022 3:01 PM IDENTIFICATION TECHNICIAN Inhaled Oxygen Concentration - - Weight 69.9 kg (154 lb) 11/14/2022 3:01 PM IDENTIFICATION TECHNICIAN Height 166.4 cm (5' 5.5 ) 11/14/2022 3:01 PM IDENTIFICATION TECHNICIAN Body Mass Index 25.24 11/14/2022 3:01 PM IDENTIFICATION TECHNICIAN Plan of Treatment Health Maintenance Due Date Last Done Comments Depression Screening 1942 Fall Risk Assessment 1942 DTaP/Tdap/Td Vaccine (1 - Tdap) 1953 Hepatitis B Screening 1960 Abdominal Aortic Aneurysm (A AA) Screen 2007 Well Visit 65+ 2007 Pneumococcal vaccine 65+ (2 of 2 - PPSV23) 07/27/2012 06/01/2012 Zoster Vaccine (2 of 3) 08/07/2015 06/12/2015 Influenza Vaccine (#1) 2024 2, 07/25/2021, 07/10/2019, Additional history exists Insurance MEDICARE RAILROAD [facility] MEDICARE RAILROAD [facility] Care Teams Cloth Reeler Relationship Specialty Start Date End Date Kyle Howell MD PCP - General 12/29/16
--- OUTSIDE RECORDS SUMMARY | 2025-01-01 17:44 | XMS_ITS | Clinical Summary ---
Author Organization [facility] Address [address] [place] [address] Phone Care Team Providers Care Service Worker Name Role Phone Kyle Howell MD Primary Care Provider [phone] Allergies Active Allergy Reactions Criticality Noted Date Comments Levofloxacin Medications Medication Sig Dispensed Refills Start Date End Date Status cholecalciferol (VITAMIN D-3) 2000 units capsule 1 daily 0 11/14/2018 Active donepezil (ARICEPT) 10 MG tablet 1 daioluy 0 11/14/2018 Active memantine (NAMENDA) 10 MG tablet 1 bid 0 11/14/2018 Active tamsulosin (FLOMAX) 0.4 MG 24 hr capsule 1 qhs 0 11/14/2018 Acti ve apixaban (ELIQUIS) 2.5 MG tablet Take 1 tablet (2.5 mg total) by mouth 2 (two) times a day. 60 tablet 3 01/02/2019 Active metoprolol tartrate (LOPRESSOR) 25 MG tablet Take 12.5 mg by mouth 2 (two) times a day. Active mirtazapine (REMERON) 15 MG tablet Take 15 mg by mouth every night. Active pantoprazole (PROTONIX) 40 MG EC tablet TAKE 1 TABLET BY MOUTH ONCE DAILY IN THE MORNING 09/14/2019 Active lisinopril (PRINIVIL) 5 MG tablet Take 1 tablet (5 mg total) by mouth 1 (one) time each day 30 tablet 11 01/18/2022 Active Active Problems Problem Noted Date Diagnosed Date Chronic kidney disease, Stage IV (severe) 2018 Diabetes mellitus without me ntion of complication, type II or unspecified type, not stated as uncontrolled 12/27/2018 Essential hypertension 12/27/2018 Benign prostatic hyperplasia 12/27/2018 Obstructive sleep apnea syndrome 10/05/2017 Paroxysmal atrial fibrillation 10/05/2017 H/O: duodenal ulcer 12/06/2016 Overview (05/29/2019): Overview: History of duodenal ulcer Immunizations Name Administration Dates Next Due Fluzone High-Dose 07/25/2020 Influenza TIV (IM) 07/15/2022,07/25/2021, 019 Moderna Sars-cov-2 Vaccination 11/19/2020 Pneumococcal Conjugate 06/01/2012 Social History Tobacco Use Types Packs/Day Years Used Date Smoking Tobacco: Former Smokeless Tobacco: Never Alcohol Use Standard Drinks/Week Comments Yes 0 (1 standard drink = 0.6 oz pur e alcohol) occasional Sex and Gender Information Value Date Recorded Sex Assigned at Not on file Gender Identity Not on file Sexual Orientation Not on file Last Filed Vital Signs Vital Sign Reading Time Taken Comments Blood Pressure 128/80 08/28/2022 10:28 AM TELETYPE OPERATOR Pulse 60 08/28/2022 10:28 AM TELETYPE OPERATOR Temperature 35.7 C (96.2 F) 08/28/2022 10:28 AM TELETYPE OPERATOR Respiratory Rate - - Oxygen Saturation - - Inhaled Oxygen Concentration - - Weight 73.9 kg (163 lb) 08/28/2022 10:28 AM TELETYPE OPERATOR Height 165.1 cm (5' 5 ) 08/28/2022 10:28 AM TELETYPE OPERATOR Body Mass Index 27.12 08/28/2022 10:28 AM TELETYPE OPERATOR Plan of Treatment Health Maintenance Due Date Last Done Comments Pneumococcal PPSV23/PCV13 65 + Years / High and Highest Risk (1 of 4 - PCV) 1948 Pneumococcal PPSV23/PCV13 65 + Years / Low and Medium Risk (1 of 4 - PCV) 2007 COVID-19 Vaccine (2 - season) 2024 Influenza Vaccine (#1) 2024 , 07/25/2021, 07/10/2019 Care Teams Service Worker Relationship Specialty Start Date End Date Kyle Howell MD [address] [place] [address] PCP - General Family Medicine 12/30/18
--- OUTSIDE RECORDS SUMMARY | 2025-01-01 17:46 | XMS_ITS | CONTINUITY OF CARE DOCUMENT ---
Author Name celia yang Address Unknown Organization [facility] Address [address] [place] [address] Phone [phone] Care Team Providers Care Horses Or Mules Teamster Name Role Phone Leonidas PURDY, Mago Unavailable COCO PURDY, [place] Unavailable [phone] COCO PURDY, [place] Unavailable INSURANCE PROVIDERS Payer name Policy type / Coverage type Gallant red republican ID [facility] Other [id number] [facility] Other [id number]
--- OUTSIDE RECORDS SUMMARY | 2025-01-01 17:46 | XMS_ITS | Continuity of Care Document ---
Author Organization [facility] Address [address] [place] [address] Phone Care Team Providers Care Ranch Hand Livestock Name Role Phone Shikha Najera Unavailable Unavailable Advance Directives Directive Yes / No Effective Date File Name No Information Encounters Encounter Description Practice Location Reason(s) For Visit Diagnoses Date Provider Providers Copied on Encounter [facility], [address], [place], [place], [id number], [place] tel:[phone] SEC [facility] No Information [address] Dan[address] Trivedi. [address] , [address], [place], [address], [place]. tel:[phone] Referring Provider: Kyle Howell MD , [address] [place], [address]. tel:[phone] Family History Family Member Type Diagnosis Age At Onset No Information Payers Payer name Insurance type Covered democrat ID Authoriza tilaci(s) [facility] CI [id number] Social History Type Description Quantity Date Captured [...]
[2025-01-01 18:15] LABS: Basophils Percent Auto 0.3 % (0.2-1.2); Eosinophils Absolute Auto 0.2 K/mm3 (0-0.3); Eosinophils Percent Auto 2.5 % (0-4.4); Hematocrit 30.5 % (42.0-52.0); Hemoglobin 8.7 g/dL (14.0-18.0); Immature Granulocyte Absolute 0.03 K/mm3 (0.00-0.031); Immature Granulocyte Percent A 0.3 % (0-0.5); Lymphocytes Absolute Auto 1.23 K/mm3 (0.9-3.2); Lymphocytes Percent Auto 13.2 % (18.3-44.2); Mean Corpuscular HGB Conc 28.5 g/dl (32-36); Mean Corpuscular Hemoglobin 21.1 pg (26-34); Mean Platelet Volume 10.2 fl (7.4-10.4); Neutrophils Absolute Auto 6.8 K/mm3 (1.3-6.7); Neutrophils Percent Auto 72.7 % (45.5-73.1); Nucleated Red Blood Cells Perc 0.2 % (0.0-0.2); Platelet Count Result 239 k/mm3 (150-375); Red Blood Count 4.12 M/mm3 (4.6-6.20); Red Cell Distribution Width 18.2 % (11.5-14.5); White Blood Count 9.3 K/mm3 (4.5-10.0)
[2025-01-01 18:27] LABS: Anion Gap 13 mmol/L (4-12); Blood Urea Nitrogen 57 mg/dL (9-20); Calcium 8.9 mg/dL (8.4-10.2); Carbon Dioxide 20 mmol/L (22-30); Chloride 110 mmol/L (98-107); Estimated Glomerular Filt Rate 29; Glucose 189 mg/dL (65-110); Potassium 4.1 mmol/L (3.4-5.0); Sodium 143 mmol/L (137-145)
[2025-01-01 18:36] LABS: Band Neutrophils Percent 0 % (0-6)
[2025-01-01 18:37] LABS: Anisocytosis 1+; Burr Cells 1+; Hypochromasia 1+; Ovalocytes 1+; Platelet Estimate Adequate (Adequate); Poikilocytosis 1+; Schistocytes None Seen
== END 2025-01-01 17:46 | disposition home or self-care (01) ==
PROVIDERS: PCP Family Medicine; Visit Provider Family Medicine
DX: I10 Essential (primary) hypertension (principal); I48.20 Chronic atrial fibrillation, unspecified; J90 Pleural effusion, not elsewhere classified; R05.9 Cough, unspecified
CPT/HCPCS: 36415; 71046; 80048; 85025

== ENCOUNTER 2025-01-04 18:27 | Emergency (ER) | payer MEDICARE, SELFPAY ==
--- NOTE | ~2025-01-04 | XR_ITS ---
Portable chest x-ray Comparison: 01/01/2025 Clinical History: Dyspnea, cough Findings: Small right pleural effusion present. Left lung clear. Cardiomediastinal silhouette is st able. Bones and soft tissues are unremarkable. Impression: Small right pleural effusion. Reviewed, dictated and finalized at [facility]. Impression: Small right pleural effusion.
--- OUTSIDE RECORDS SUMMARY | 2025-01-04 18:29 | XMS_ITS | Referral Summary ---
Author Organization [facility] [address] Address [address] [place] [address] Care Team Providers Care Shell Sieve Operator Name Role Phone Kyle Howell MD Primary Care Provider [phone] Allergies Active Allergy Reactions Criticality Noted Date [...] on file Legal Sex Male 4:21 AM ORBITREAD OPERATOR Gender Identity Not on file Sexual Orientation Not on file Last Filed Vital Signs Vital Sign Reading Time Taken Comments Blood Pressure 126/72 11/14/2022 3:01 PM ORBITREAD OPERATOR Pulse 52 11/14/2022 3:01 PM ORBITREAD OPERATOR Temperature - - Respiratory Rate - - Oxygen Saturation 97% 11/14/2022 3:01 PM ORBITREAD OPERATOR Inhaled Oxygen Concentration - - Weight 69.9 kg (154 lb) 11/14/2022 3:01 PM ORBITREAD OPERATOR Height 166.4 cm (5' 5.5 ) 11/14/2022 3:01 PM ORBITREAD OPERATOR Body Mass Index 25.24 11/14/2022 3:01 PM ORBITREAD OPERATOR Plan of Treatment [place] [id number] [address] [address] MED[address] [facility] Care Teams Shell Sieve Operator Relationship Specialty Start Date End Date Kyle Howell MD PCP - General 12/29/16
--- OUTSIDE RECORDS SUMMARY | 2025-01-04 18:29 | XMS_ITS | Clinical Summary ---
Author Organization [facility] Address [address] [place] [address] Care Team Providers Care Environmental Emergencies Planner Name Role Phone Unavailable Primary Care Provider Unavailabl e Source Comments [facility],non-owned Affiliates and Associated Physician Practices is amultiple site organization consisting of ambulatory clinics and hospital sitesin [place], [place], [place] and [place]. This disclosure is being madepursuant to the Care Everywhere program and may not contain all information available regarding this patient. Last updated 18.[facility] [place] Social History Tobacco Use Types Packs/Day Years [...] [place] [address]
--- OUTSIDE RECORDS SUMMARY | 2025-01-04 18:29 | XMS_ITS | Clinical Summary ---
Author Organization [facility] [address] Address [address] [place] [address] Care Team Providers Care Catastrophe Claims Supervisor Name Role Phone Kyle Howell MD Primary Care Provider [phone] Allergies Active Allergy Reactions Criticality Noted Date [...] on file Legal Sex Male 4:21 AM CLIENT SUPPORT COORDINATOR Gender Identity Not on file Sexual Orientation Not on file Obstetrics History Last Filed Vital Signs Vital Sign Reading Time Taken Comments Blood Pressure 126/72 11/14/2022 3:01 PM CLIENT SUPPORT COORDINATOR Pulse 52 11/14/2022 3:01 PM CLIENT SUPPORT COORDINATOR Temperature - - Respiratory Rate - - Oxygen Saturation 97% 11/14/2022 3:01 PM CLIENT SUPPORT COORDINATOR Inhaled Oxygen Concentration - - Weight 69.9 kg (154 lb) 11/14/2022 3:01 PM CLIENT SUPPORT COORDINATOR Height 166.4 cm (5' 5.5 ) 11/14/2022 3:01 PM CLIENT SUPPORT COORDINATOR Body Mass Index 25.24 11/14/2022 3:01 PM CLIENT SUPPORT COORDINATOR Plan of Treatment Health Maintenance Due Date [...] 07/10/2019, Additional history exists Insurance MEDICARE RAILROAD [facility] MEDICARE RAILROAD [facility] Care Teams Catastrophe Claims Supervisor Relationship Specialty Start Date End Date Kyle Howell MD PCP - General 12/29/16
--- OUTSIDE RECORDS SUMMARY | 2025-01-04 18:29 | XMS_ITS | Encounter Summary ---
Author Organization [facility] Address [address] [place] [address] Care Team Providers Care Supervisor Multifocal Lens Name Role Phone Unavailable Primary Care Provider Unavailabl e Encounter Details Date Type Department Care Team (Late st Contact Info) Description 11/09/2023 Lab Requisition [facility] - DermPath Lab [address] [place] [id number] Kyle Howell MD [address] [place] [address] Social History Tobacco Use Types [...] Diagnosis Comments DERMATOPATHOLOGY Routine 11/07/2023 3:33 AM DEBEADER documented in this encounter Results * DERMATOPATHOLOGY (11/07/2023 3:33 AM DEBEADER) Case Report Dermatopathology Report Case: [id number] Authorizing Provider: Kyle Howell MD Collected: 11/07/2023 03:33 AM Ordering Location: [facility] DermPath Lab Received: 11/09/2023 08:39 AM Pathologist: Addie Murphy MD Specimen: Skin, right mid back 4 12:58 PM DEBEADER DERMATOPATHOLOGY LABORATORY Final Diagnosis Specimen A. SKIN, right mid back: BENIGN VERRUCOUS KERATOSIS (L82.1) EPIDERMAL NECROSIS SUGGESTIVE OF EXCORIATION (L98.499) PRESENT AT MARGIN 4 12:58 PM [facility] DERMATOPATHOLOGY LABORATORY Clinical History Changing Lesion. Check margins. 12:58 PM [facility] DERMATOPATHOLOGY LABORATORY Gross Description Specimen A: Received is one formalin filled container labeled with the patient's name and designated right mid back. The specimen consists of a shave biopsy measuring 8x5x3 mm. Jar 0. 12:58 PM [facility] DERMATOPATHOLOGY LABORATORY Microscopic Description Specimen A. SKIN, right mid back: Sections show hyperkeratosis, papillomatosis, hypergranulosis, and acanthosis. These histological findings can be seen in a verruca vulgaris or a seborrheic keratosis. The epidermis is focally necrotic and covered with a scale-crust. There is fibrin at the base. This lesion is present at the margin of the specimen. 12:58 PM [facility] DERMATOPATHOLOGY LABORATORY Disclaimer An external and internal positive and negative controls are appropriate for the histochemical, immunohistochemical and immunofluorescence stain(s) in this case (if any), except where stated explicitly. The performance characteristics of the stain(s) cited in this report were developed and its performance characteristic determined by the Dermatopathology Laboratory at [facility], directed by Dr. Pedro Borden. These tests need not be, and therefore are not, approved by the [place] Food and Drug Administration. The tests are used for clinical purposes. Billing Codes Specimen Charges Stain Charges 34072 1 12:58 PM [facility] DERMATOPATHOLOGY LABORATORY Embedded Images 12:58 PM [facility] DERMATOPATHOLOGY LABORATORY Pathology/Cytolo gy TISSUE SPECIMEN FROM SKIN / Unknown 11/07/2023 3:33 AM DEBEADER 11/09/2023 8:39 AM DEBEADER Kyle Howell MD LAB - PATHOLOGY/CYTO LOGY ORDERABLES DERMATOPATHOLOGY LABORATORY [facility] - Department of Dermatology [address] [place] [address], [facility] [phone] documented in this encounter Visit Diagnoses Not on filedocumented in this encounter
--- OUTSIDE RECORDS SUMMARY | 2025-01-04 18:29 | XMS_ITS | CONTINUITY OF CARE DOCUMENT ---
Author Name celia yang Address Unknown Organization [facility] Address [address] [place] [address] Phone [phone] Care Team Providers Care Operator Command Support Systems Name Role Phone Leonidas PURDY, Mago Unavailable [phone] COCO PURDY, [place] Unavailable [phone] COCO PURDY, [place] Unavailable [phone] INSURANCE PROVIDERS Payer name Policy type / Coverage type [place] red democrat ID [facility] Other [id number] [facility] Other [id number]
--- OUTSIDE RECORDS SUMMARY | 2025-01-04 18:29 | XMS_ITS | Clinical Summary ---
Author Organization [facility] Address [address] [place] [address] Phone Care Team Providers Care Game Moderator Name Role Phone Kyle Howell MD Primary Care Provider [phone] Allergies Active Allergy Reactions Criticality Noted Date [...] Comments Blood Pressure 128/80 08/28/2022 10:28 AM CASINO DUTY MANAGER Pulse 60 08/28/2022 10:28 AM CASINO DUTY MANAGER Temperature 35.7 C (96.2 F) 08/28/2022 10:28 AM CASINO DUTY MANAGER Respiratory Rate - - Oxygen Saturation - - Inhaled Oxygen Concentration - - Weight 73.9 kg (163 lb) 08/28/2022 10:28 AM CASINO DUTY MANAGER Height 165.1 cm (5' 5 ) 08/28/2022 10:28 AM CASINO DUTY MANAGER Body Mass Index 27.12 08/28/2022 10:28 AM CASINO DUTY MANAGER Plan of Treatment Health Maintenance Due Date Last Done Comments Pneumococcal PPSV23/PCV13 65 + Years / High and Highest Risk (1 of 4 - PCV) 1948 Pneumococcal PPSV23/PCV13 65 + Years / Low and Medium Risk (1 of 4 - PCV) 2007 COVID-19 Vaccine (2 - season) 2024 Influenza Vaccine (Season Ended) 2025 07/15/2022, 07/25/2021, 07/10/2019 Care Teams Game Moderator Relationship Specialty Start Date End Date Kyle Howell MD [address] [place] [address] PCP - General Family Medicine 12/30/18
--- OUTSIDE RECORDS SUMMARY | 2025-01-04 18:29 | XMS_ITS | Continuity of Care Document ---
Author Organization [facility] Address [address] [place] [address] Phone Care Team Providers Care Card Lacer Name Role Phone Shikha Najera Unavailable Unavailable Advance Directives Directive Yes / No Effective Date File Name No Information Encounters Encounter Description Practice Location Reason(s) For Visit Diagnoses Date Provider Providers Copied on Encounter [facility], [address], [place], [place], [id number], [place] tel:[phone] SEC [facility] No Information 8-[address] Dania Trivedi. [address] , [address], [place], [address], [place]. tel:[phone] Referring Provider: Kyle Howell MD , [address] [place], [address]. tel:[phone] Family History Family Member Type Diagnosis Age At Onset No Information Payers Payer name Insurance type Covered constitution party ID Authoriza tilaci(s) [facility] CI [id number] Social History Type Description Quantity Date Captured [...]
--- OUTSIDE RECORDS SUMMARY | 2025-01-04 18:29 | XMS_ITS | Encounter Summary ---
Author Organization [facility] Address [address] [place] [address] Care Team Providers Care Conservation Worker Name Role Phone Kyle Howell MD Primary Care Provider [phone] Encounter Details Date Type Department Care Team (Late st Contact Info) Description 10/04/2016 Orders Only [facility] ProviderLencho MD [address] [place] [address] Social History Tobacco Use Types Packs/Day Years Used Date Smoking Tobacco: Never Assessed Sex and Gender Information Value Date Recorded Sex Assigned at Not on file Legal Sex Male 4:21 AM ORAL AND MAXILLOFACIAL SURGERY RESIDENT Gender Identity Not on file Sexual Orientation [...] on filedocumented in this encounter Care Teams Conservation Worker Relationship Specialty Start Date End Date Kyle Howell MD PCP - General 12/29/16 documented as of this encounter
[2025-01-04 18:39] VITALS: BP 173/99; PULSE 62; RESP 16; TEMP 36.7; O2SAT 95
--- NOTE | 2025-01-04 18:47 | ED.EPISTAXIS ---
HPI - Epistaxis General Chief complaint: Epistaxis <DAX Valencia Last Filed: 01/05/25 00:55> Stated complaint: epistaxis <DAX Valencia Last Filed: 01/05/25 00:55> Time Seen by Provider: 01/04/25 18:34 <DAX Valencia Last Filed: 01/05/25 00:55> Source: patient <DAX Valencia Last Filed: 01/05/25 00:55> Mode of arrival: ambulatory <DAX Valencia Last Filed: 01/05/25 00:55> Limitations: no limitations <DAX Valencia Last Filed: 01/05/25 00:55> History of Present Illness HPI Narrative: This is an 84-year-old male with dementia who presents to the ED for chief complaint of epistaxis beginning around 10:00 a.m. this morning. Patient's family states that he was with another family member this morning with a noticed the bleeding. States they have tried to clamp the nose with minimal relief. States that this is happened several times over the past couple of months. He has had to have rhino rockets before but patient's family is concerned that he will pull out he rhino rocket with the dementia. Patient cannot provide any meaningful history due to dementia. <DAX Valencia Last Filed: 01/05/25 00:55> Related Data Home medications: Home Medications ?Medication ?Instructions ?Recorded ?Confirmed ?Last Taken ?Type cholecalciferol (vitamin D3) 25 25 mcg PO DAILY 11/07/23 07/22/24 Unknown History mcg (1,000 unit) capsule <DAX Valencia Last Filed: 01/05/25 00:55> Allergies/adverse reactions: Allergies Allergy/AdvReac Type Severity Reaction Status Date / Time No Known Allergies Allergy Verified 12/11/24 13:14 <DAX Valencia Last Filed: 01/05/25 00:55> Review of Systems Review of Systems: ROS unobtainable: Yes unobtainable due to mental status <Juan Vidal PA-C - Last Filed: 01/05/25 00:55> FOR[facility]LY [facility] Past Medical History Medical History: Medical History (Updated 01/05/25 @ 00:40 by Juan Vidal PA-C) Senile debility Cataract Dysphagia Chronic atrial fibrillation Dementia, unspecified, without behavioral disturbance Essential (primary) hypertension Low kidney function Mixed hyperlipidemia Spondylosis of cervical joint with myelopathy Type 2 diabetes mellitus without complications <Juan Vidal PA-C - Last Filed: 01/05/25 00:55> Surgical History Surgical History: Surgical History H/O hernia repair Hx of cholecystectomy <Juan Vidal PA-C - Last Filed: 01/05/25 00:55> Family History Family History: Family History Mother Hypertension Family history of malignant neoplasm Arthritis H/O gallbladder cancer Father Cerebrovascular accident Family history of diabetes mellitus in first degree relative Diabetes mellitus Arthritis Pacemaker Sibling Arthritis Sibling Arthritis <Juan Vidal PA-C - Last Filed: 01/05/25 00:55> Social History Social History: Social History Smoking status: Former smoker Tobacco type: cigarettes Second hand tobacco smoke exposure: No Smoking end date: 10/01/11 Alcohol intake: never Substance use: never Substance use type: does not use Do You Feel Safe in your Home?: Yes Lack of Transportation: No Lack of Food: Never True Current Housing: I Have Housing Concerned About Future Housing: No Difficulty Paying Gas/Electric Bills: No Difficulty Paying for Meds: No Currently Unemployed: No Education: Grade School Difficulty w/ Childcare or Family Care: No Living arrangements: with family Additional living arrangements comments: grandson Occupation/Education: retired 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 HEAD: Normocephalic, atraumatic. EYES: PERRLA and EOMI. ENT: Mild oozing red blood from right ear. No bleeding from left ear. Scant amount of red blood in the posterior pharynx. . Mucous membranes moist. NECK: Supple. No adenopathy or masses. CHEST: No respiratory distress. Clear to auscultation. No wheezes rales or rhonchi HEART: Regular rate and rhythm. No murmur heard. Normal peripheral pulses. ABDOMEN: Soft, nontender, nondistended, normal active bowel sounds. MSK: Normal range of motion. No edema. SKIN: Warm, dry, no rash. NEURO: Alert and oriented x2, at baseline. No focal deficits. PSYCH: Normal mood and affect. <Juan Vidal PA-C - Last Filed: 01/05/25 00:55> Course IMPORT EXPORT CLERK/PA Physician Supervision PA discussed the unusual initial coags with me. We discussed that sometimes this is a lab error from underfilling the tube. Patient has no other abnormalities. Still abnormal on repeat. Epistaxis has been well controlled, does nto qualify for reversal of DOAC regardless. No ability to obtain Xa level. I am informed a discussion was had and patient / family feel comfortable following up outpatient and were given return precautions. In this way I was available for consult while patient in the ED but did not personally examine them. <Rosario Malin MD - Last Filed: 01/05/25 21:37> Vital Signs Vital signs: Vital Signs Temperature 98.1 F 01/04/25 18:39 Pulse Rate 62 01/04/25 18:39 Respiratory Rate 16 01/04/25 18:39 Blood Pressure 173/99 H 01/04/25 18:39 Pulse Oximetry 95 01/04/25 18:39 Oxygen Delivery Room Air 01/04/25 18:39 Temperature 98.1 F 01/04/25 18:39 Pulse Rate 78 01/05/25 00:58 Respiratory Rate 16 01/05/25 00:58 Blood Pressure 159/81 H 01/05/25 00:58 Pulse Oximetry 96 01/05/25 00:58 Oxygen Delivery Room Air 01/04/25 18:39 <Juan Vidal PA-C - Last Filed: 01/05/25 00:55> Vital Signs Temperature 98.1 F 01/04/25 18:39 Pulse Rate 62 01/04/25 18:39 Respiratory Rate 16 01/04/25 18:39 Blood Pressure 173/99 H 01/04/25 18:39 Pulse Oximetry 95 01/04/25 18:39 Oxygen Delivery Room Air 01/04/25 18:39 Temperature 98.1 F 01/04/25 18:39 Pulse Rate 78 01/05/25 00:58 Respiratory Rate 16 01/05/25 00:58 Blood Pressure 159/81 H 01/05/25 00:58 Pulse Oximetry 96 01/05/25 00:58 Oxygen Delivery Room Air 01/04/25 18:39 <Rosario Malin MD - Last Filed: 01/05/25 21:37> Procedures Epistaxis Control right: Epistaxis Control Date: 01/04/25 <Juan Vidal PA-C - Last Filed: 01/05/25 00:55> Epistaxis Control Time: 19:46 <Juan Vidal PA-C - Last Filed: 01/05/25 00:55> Nose Prepped With: lidocaine and oxymetazoline <Juan Vidal PA-C - Last Filed: 01/05/25 00:55> Direct Inspection: anterior source identified <Juan Vidal PA-C - Last Filed: 01/05/25 00:55> Clots Removed by: blowing nose <Juan Vidal PA-C - Last Filed: 01/05/25 00:55> Cautery Used: none <Juan Vidal PA-C - Last Filed: 01/05/25 00:55> Device Inserted: hemostatic balloon <DAX Valencia Last Filed: 01/05/25 00:55> Device Size: 5 <DAX Valencia Last Filed: 01/05/25 00:55> Patient Tolerated Procedure: well <DAX Valencia Last Filed: 01/05/25 00:55> MDM - Epistaxis MDM Narrative Medical decision making narrative: This is a 82-year-old male who presents to the ED for chief complaint of epistaxis while on Xarelto. Vitals are showing elevated blood pressure but otherwise normal. On exam he does have bruising epistaxis of the right nare. Seems to be anterior on exam. Ordered dose of 1 g of TXA for topical use, however nursing staff administered IV push prior to me being able to communicate this with his nurse. Attempted cautery with silver nitrate as I was able to visualize a potential anterior location of bleed, however this was unsuccessful. He was then given lidocaine epi soaked anterior nasal packing with good effect of hemostasis. Lab work is coming back remarkable for a INR of 5.0 and elevated PT and PTT as well. This would be very regular on Xarelto and patient has not been on any warfarin so the coags were repeated and INR is now elevated to 6.0. CBCs showing stable anemia with hemoglobin at 8.7. White count is elevated at 14.7, however I with probably attributes this to the recent initiation of steroid pack with PCP for outpatient management of COPD exacerbation. Extended the lab workup with these abnormal coags. Does not appear to be in acute liver failure. LDH is elevated. Fibrinogen is normal. Discussed the findings with patient and family. Family feel comfortable with discharge at this time as the bleeding is controlled he is stable. They would like to follow-up with PCP tomorrow as well as ENT for rhino rocket removal. He will be discharged with Augmentin prescription for bacterial prophylaxis with the rhino rocket. Pt will be discharged in stable condition. Return precautions given and supportive measures discussed. Family is understanding and agreeable with plan for discharge and follow-up with PCP. <Juan Vidal PA-C - Last Filed: 01/05/25 00:55> Lab Data Result diagrams: 01/04/25 19:11 01/04/25 21:02 <Juan Vidal PA-C - Last Filed: 01/05/25 00:55> Labs: Lab Results 01/04/25 01/04/25 01/04/25 Range/Units 19:11 21:02 22:23 WBC 14.7 H (4.5-10.0) K/mm3 RBC 4.15 L (4.6-6.20) M/mm3 Hgb 8.7 L (14.0-18.0) g/dL Hct 33.2 L (42.0-52.0) % MCV 80.0 D (80-100) fl MCH 21.0 L (26-34) pg MCHC 26.2 L (32-36) g/dl RDW 18.3 H (11.5-14.5) % Plt Count 287 (150-375) k/mm3 MPV 10.8 H (7.4-10.4) fl Immature Gran % (Auto) 0.6 H (0-0.5) % Neut % (Auto) 83.9 H (45.5-73.1) % Lymph % (Auto) 7.4 L (18.3-44.2) % [place] % (Auto) 7.8 (2.6-8.5) % Eos % (Auto) 0.1 (0-4.4) % Baso % (Auto) 0.2 (0.2-1.2) % Lymph # (Auto) 1.09 (0.9-3.2) K/mm3 [place] # (Auto) 1.2 H (0.1-0.6) K/mm3 Eos # (Auto) 0.0 (0-0.3) K/mm3 Baso # (Auto) 0.0 (0.0-0.1) K/mm3 Abs Immat Gran (auto) 0.09 H (0.00-0.031) K/mm3 Absolute Neuts (auto) 12.3 H (1.3-6.7) K/mm3 Absolute Nucleated RBC 0.180 H (0.0-0.012) K/mm3 Band Neutrophils % Not Reportable Nucleated RBC % 1.2 H (0.0-0.2) % Platelet Estimate Adequate (Adequate) Hypochromasia 1+ Anisocytosis 1+ Ovalocytes 1+ Schistocytes None seen Absolute Retic 0.10 (0.02-0.10) 10^6/uL Percent Retic 2.55 (0.7-4.3) % Immature Retic Fraction 35.6 H (3.0-15.9) % Retic Hgb Content 16.4 L (28.2-36.6) pg Haptoglobin Pending PT 46.3 H 53.3 H (11.1-14.7) Seconds INR 5.0 6.0 H* APTT 49.3 H 50.1 H (22.3-36.8) Seconds Fibrinogen 220 (215-510) mg/dl D-Dimer 1.71 H (<0.48) ug/mL Sodium 141 (137-145) mmol/L Potassium 4.2 (3.4-5.0) mmol/L Chloride 106 (98-107) mmol/L Carbon Dioxide 20 L (22-30) mmol/L Anion Gap 15 H (4-12) mmol/L BUN 65 H (9-20) mg/dL Creatinine 2.23 H (0.7-1.3) mg/dL Estim Creat Clear Calc 22 ml/min Estimated GFR 28 L (59 - ) Glucose 249 H (65-110) mg/dL Calcium 9.0 (8.4-10.2) mg/dL Iron 27 L (49-181) ug/dL TIBC 426 (265-497) ug/dL % Saturation 6 L (20-50) % Transferrin 297 (206-381) mg/dL Ferritin 21.80 (11.1-264) ng/mL Total Bilirubin 1.5 H (0.2-1.3) mg/dL AST 34 (17-59) U/L ALT 50 (6-50) U/L Alkaline Phosphatase 110 (38-126) U/L Lactate Dehydrogenase 459 H (120-246) U/L Total Protein 7.0 (6.3-8.2) g/dL Albumin 4.1 (3.5-5.1) g/dL Vitamin B12 657.0 (239-931) pg/mL Folate > 20.0 H (2.76->20) ng/mL <Juan Vidal PA-C - Last Filed: 01/05/25 00:55> Lab Results 01/04/25 01/04/25 01/04/25 Range/Units 19:11 21:02 22:23 WBC 14.7 H (4.5-10.0) K/mm3 RBC 4.15 L (4.6-6.20) M/mm3 Hgb 8.7 L (14.0-18.0) g/dL Hct 33.2 L (42.0-52.0) % MCV 80.0 D (80-100) fl MCH 21.0 L (26-34) pg MCHC 26.2 L (32-36) g/dl RDW 18.3 H (11.5-14.5) % Plt Count 287 (150-375) k/mm3 MPV 10.8 H (7.4-10.4) fl Immature Gran % (Auto) 0.6 H (0-0.5) % Neut % (Auto) 83.9 H (45.5-73.1) % Lymph % (Auto) 7.4 L (18.3-44.2) % [place] % (Auto) 7.8 (2.6-8.5) % Eos % (Auto) 0.1 (0-4.4) % Baso % (Auto) 0.2 (0.2-1.2) % Lymph # (Auto) 1.09 (0.9-3.2) K/mm3 [place] # (Auto) 1.2 H (0.1-0.6) K/mm3 Eos # (Auto) 0.0 (0-0.3) K/mm3 Baso # (Auto) 0.0 (0.0-0.1) K/mm3 Abs Immat Gran (auto) 0.09 H (0.00-0.031) K/mm3 Absolute Neuts (auto) 12.3 H (1.3-6.7) K/mm3 Absolute Nucleated RBC 0.180 H (0.0-0.012) K/mm3 Band Neutrophils % Not Reportable Nucleated RBC % 1.2 H (0.0-0.2) % Platelet Estimate Adequate (Adequate) Hypochromasia 1+ Anisocytosis 1+ Ovalocytes 1+ Schistocytes None seen Absolute Retic 0.10 (0.02-0.10) 10^6/uL Percent Retic 2.55 (0.7-4.3) % Immature Retic Fraction 35.6 H (3.0-15.9) % Retic Hgb Content 16.4 L (28.2-36.6) pg Haptoglobin Pending PT 46.3 H 53.3 H (11.1-14.7) Seconds INR 5.0 6.0 H* APTT 49.3 H 50.1 H (22.3-36.8) Seconds Fibrinogen 220 (215-510) mg/dl D-Dimer 1.71 H (<0.48) ug/mL Sodium 141 (137-145) mmol/L Potassium 4.2 (3.4-5.0) mmol/L Chloride 106 (98-107) mmol/L Carbon Dioxide 20 L (22-30) mmol/L Anion Gap 15 H (4-12) mmol/L BUN 65 H (9-20) mg/dL Creatinine 2.23 H (0.7-1.3) mg/dL Estim Creat Clear Calc 22 ml/min Estimated GFR 28 L (59 - ) Glucose 249 H (65-110) mg/dL Calcium 9.0 (8.4-10.2) mg/dL Iron 27 L (49-181) ug/dL TIBC 426 (265-497) ug/dL % Saturation 6 L (20-50) % Transferrin 297 (206-381) mg/dL Ferritin 21.80 (11.1-264) ng/mL Total Bilirubin 1.5 H (0.2-1.3) mg/dL AST 34 (17-59) U/L ALT 50 (6-50) U/L Alkaline Phosphatase 110 (38-126) U/L Lactate Dehydrogenase 459 H (120-246) U/L Total Protein 7.0 (6.3-8.2) g/dL Albumin 4.1 (3.5-5.1) g/dL Vitamin B12 657.0 (239-931) pg/mL Folate > 20.0 H (2.76->20) ng/mL <Rosario Malin MD - Last Filed: 01/05/25 21:37> Discharge Plan Discharge Clinical Impression: Acute anterior epistaxis <Juan Vidal PA-C - Last Filed: 01/05/25 00:55> Patient Disposition: Home <Juan Vidal PA-C - Last Filed: 01/05/25 00:55> Condition: Stable <Juan Vidal PA-C - Last Filed: 01/05/25 00:55> Instructions: Antibiotic Form <Juan Vidal PA-C - Last Filed: 01/05/25 00:55> Additional Instructions: Exam today showed anterior nose bleed. This was stopped with a rhino rocket. Please follow-up closely with PCP regarding the abnormal INR levels today. Please also follow-up with ENT for rhino rocket removal If you have any new or worsening symptoms please return to the ER for further evaluation. <Juan Vidal PA-C - Last Filed: 01/05/25 00:55> Patient Language: Honduran <Juan Vidal PA-C - Last Filed: 01/05/25 00:55> Prescriptions: New amoxicillin-pot clavulanate 875-125 mg tablet 1 tablet PO Q12H Qty: 10 0RF No Action cholecalciferol (vitamin D3) 25 mcg (1,000 unit) capsule 25 mcg PO DAILY Xarelto 20 mg tablet 20 mg PO DAILY Qty: 90 3RF Rx Instructions: must administer with evening meal pantoprazole 40 mg tablet,delayed release (DR/EC) 40 mg PO DAILY Qty: 90 1RF memantine 10 mg tablet See Rx Instructions .ROUTE .COMPLEX Qty: 60 4RF Dose Instruction: Take 1 tablet by mouth twice daily Rx Instructions: Take 1 tablet by mouth twice daily azithromycin 250 mg tablet See Rx Instructions PO .COMPLEX 5 Days Qty: 6 0RF Rx Instructions: take 500 mg today (day 1), then 250 mg for 4 days (days 2-5) PO prednisone 10 mg tablet 30 mg PO DAILY 5 Days Qty: 15 0RF <Juan Vidal PA-C - Last Filed: 01/05/25 00:55> Follow-up/Referrals: Raffy Gibson MD [Physician] - Kyle Howell MD [Primary Care Provider] - <Juan Vidal PA-C - Last Filed: 01/05/25 00:55> Time of Disposition: 00:41 <Juan Vidal PA-C - Last Filed: 01/05/25 00:55> 00:41 <Rosario Malin MD - Last Filed: 01/05/25 21:37>
[2025-01-04] MEDS: TRANEXAMIC ACID 1,000 MG/10 ML AMPUL 1000 MG IV PUSH (19:08)
[2025-01-04 19:12] VITALS: BP 173/92
[2025-01-04 19:24] LABS: Basophils Percent Auto 0.2 % (0.2-1.2); Eosinophils Percent Auto 0.1 % (0-4.4); Hematocrit 33.2 % (42.0-52.0); Hemoglobin 8.7 g/dL (14.0-18.0); Immature Granulocyte Absolute 0.09 K/mm3 (0.00-0.031); Immature Granulocyte Percent A 0.6 % (0-0.5); Lymphocytes Absolute Auto 1.09 K/mm3 (0.9-3.2); Lymphocytes Percent Auto 7.4 % (18.3-44.2); Mean Corpuscular HGB Conc 26.2 g/dl (32-36); Mean Platelet Volume 10.8 fl (7.4-10.4); Monocytes Absolute Auto 1.2 K/mm3 (0.1-0.6); Monocytes Percent Auto 7.8 % (2.6-8.5); Neutrophils Absolute Auto 12.3 K/mm3 (1.3-6.7); Neutrophils Percent Auto 83.9 % (45.5-73.1); Nucleated Red Blood Cells Perc 1.2 % (0.0-0.2); Platelet Count Result 287 k/mm3 (150-375); Red Blood Count 4.15 M/mm3 (4.6-6.20); Red Cell Distribution Width 18.3 % (11.5-14.5); White Blood Count 14.7 K/mm3 (4.5-10.0)
--- OUTSIDE RECORDS SUMMARY | 2025-01-04 19:24 | XMS_ITS | Encounter Summary ---
Author Organization [facility] Address [address] [place] [address] Care Team Providers Care Insurance Operations Rep Name Role Phone Kyle Howell MD Primary Care Provider [phone] Encounter Details Date Type Department Care Team (Late st Contact Info) Description 10/04/2016 Orders Only [facility] ProviderLencho MD [address] [place] [address] Social History Tobacco Use Types Packs/Day Years Used Date Smoking Tobacco: Never Assessed Sex and Gender Information Value Date Recorded Sex Assigned at Not on file Legal Sex 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
--- OUTSIDE RECORDS SUMMARY | 2025-01-04 19:24 | XMS_ITS | Clinical Summary ---
Author Organization [facility] Address [address] [place] [address] Care Team Providers Care Secondary Education Professor Name Role Phone Unavailable Primary Care Provider Unavailabl e Source Comments [facility],non-owned Affiliates and Associated Physician Practices is amultiple site organization consisting of ambulatory clinics and hospital sitesin [place], [place], [place] and [place]. This disclosure is being madepursuant to the Care Everywhere program and may not contain all information available regarding this patient. Last updated 18.[facility] Survata Social History Tobacco Use Types Packs/Day Years [...] age to [place] [address]
--- OUTSIDE RECORDS SUMMARY | 2025-01-04 19:24 | XMS_ITS | CONTINUITY OF CARE DOCUMENT ---
Author Name celia yang Address Unknown Organization [facility] Address [address] [address] Phone [phone] Care Team Providers Care Stock Analyst Name Role Phone Leonidas PURDY, Mago Unavailable COCO PURDY, [place] F Unavailable COCO PURDY, [place] Unavailable INSURANCE PROVIDERS Payer name Policy type / Coverage type [place] red green party ID [facility] Other [id number] [facility] Other [id number]
--- OUTSIDE RECORDS SUMMARY | 2025-01-04 19:24 | XMS_ITS | Encounter Summary ---
Author Organization [facility] Address [address] [place] [address] Care Team Providers Care General Manager [employer] Name Role Phone Unavailable Primary Care Provider Unavailabl e Encounter Details Date Type Department Care Team (Late st Contact Info) Description 11/09/2023 Lab Requisition [facility] - DermPath Lab [address] [place] [id number] Kyle Howell MD [address] [place] [address] Social History Tobacco Use Types [...] Diagnosis Comments DERMATOPATHOLOGY Routine 11/07/2023 3:33 AM DISTRIBUTION TECHNICIAN documented in this encounter Results * DERMATOPATHOLOGY (11/07/2023 3:33 AM DISTRIBUTION TECHNICIAN) Case Report Dermatopathology Report Case: [id number] Authorizing Provider: Kyle Howell MD Collected: 11/07/2023 03:33 AM Ordering Location: [facility] DermPath Lab Received: 11/09/2023 08:39 AM Pathologist: Addie Murphy MD Specimen: Skin, right mid back 4 12:58 PM DISTRIBUTION TECHNICIAN DERMATOPATHOLOGY LABORATORY Final Diagnosis Specimen A. SKIN, right mid back: BENIGN VERRUCOUS KERATOSIS (L82.1) EPIDERMAL NECROSIS SUGGESTIVE OF EXCORIATION (L98.499) PRESENT AT MARGIN 4 12:58 PM DISTRIBUTION TECHNICIAN DERMATOPATHOLOGY LABORATORY Clinical History Changing Lesion. Check margins. 12:58 PM [facility] DERMATOPATHOLOGY LABORATORY Gross Description Specimen A: Received is one formalin filled container labeled with the patient's name and designated right mid back. The specimen consists of a shave biopsy measuring 8x5x3 mm. Jar 0. 12:58 PM [facility] DERMATOPATHOLOGY LABORATORY Microscopic Description Specimen A. SKIN, right mid back: Sections show hyperkeratosis, papillomatosis, hypergranulosis, and acanthosis. These histological findings can be seen in a verruca vulgaris or a seborrheic keratosis. The epidermis is focally necrotic and covered with a scale-crust. There is fibrin at the base. This lesion is present at the margin of the specimen. 12:58 PM [facility] DERMATOPATHOLOGY LABORATORY Disclaimer An external and internal positive and negative controls are appropriate for the histochemical, immunohistochemical and immunofluorescence stain(s) in this case (if any), except where stated explicitly. The performance characteristics of the stain(s) cited in this report were developed and its performance characteristic determined by the Dermatopathology Laboratory at [facility], directed by Dr. Pedro Borden. These tests need not be, and therefore are not, approved by the [place] Food and Drug Administration. The tests are used for clinical purposes. Billing Codes Specimen Charges Stain Charges 13681 1 12:58 PM [facility] DERMATOPATHOLOGY LABORATORY Embedded Images 12:58 PM [facility] DERMATOPATHOLOGY LABORATORY Pathology/Cytolo gy TISSUE SPECIMEN FROM SKIN / Unknown 11/07/2023 3:33 AM DISTRIBUTION TECHNICIAN 11/09/2023 8:39 AM DISTRIBUTION TECHNICIAN Kyle Howell MD LAB - PATHOLOGY/CYTO LOGY ORDERABLES DERMATOPATHOLOGY LABORATORY [facility] - Department of Dermatology [address] [place] [address], [facility] [phone] documented in this encounter Visit Diagnoses Not on filedocumented in this encounter
--- OUTSIDE RECORDS SUMMARY | 2025-01-04 19:24 | XMS_ITS | Continuity of Care Document ---
Author Organization [facility] Address [address] [place] [address] Phone Care Team Providers Care Bowling Ball Molder Name Role Phone Shikha Najera Unavailable Unavailable Advance Directives Directive Yes / No Effective Date File Name No Information Encounters Encounter Description Practice Location Reason(s) For Visit Diagnoses Date Provider Providers Copied on Encounter [facility], [address], [place], [place], [id number], [place] tel:[phone] [facility] No Information 8-200 5 Dania Trivedi. [address] , [address], [place], [address], [place]. tel:[phone] Referring Provider: Kyle Howell MD , [address] [place], [address]. tel:[phone] Family History Family Member Type Diagnosis Age At Onset No Information Payers Payer name Insurance type Covered alliance party ID Authoriza tilaci(s) [facility] CI [id number] Social History Type Description Quantity Date Captured [...]
--- OUTSIDE RECORDS SUMMARY | 2025-01-04 19:25 | XMS_ITS | Clinical Summary ---
Author Organization [facility] Address [address] [place] [address] Phone Care Team Providers Care Popcorn Machine Operator Name Role Phone Kyle Howell MD Primary Care Provider [phone] Allergies Active Allergy Reactions Criticality Noted Date [...] Comments Blood Pressure 128/80 08/28/2022 10:28 AM LOAN SERVICES PROFESSIONAL Pulse 60 08/28/2022 10:28 AM LOAN SERVICES PROFESSIONAL Temperature 35.7 C (96.2 F) 08/28/2022 10:28 AM LOAN SERVICES PROFESSIONAL Respiratory Rate - - Oxygen Saturation - - Inhaled Oxygen Concentration - - Weight 73.9 kg (163 lb) 08/28/2022 10:28 AM LOAN SERVICES PROFESSIONAL Height 165.1 cm (5' 5 ) 08/28/2022 10:28 AM LOAN SERVICES PROFESSIONAL Body Mass Index 27.12 08/28/2022 10:28 AM LOAN SERVICES PROFESSIONAL Plan of Treatment Health Maintenance Due Date Last Done Comments Pneumococcal PPSV23/PCV13 65 + Years / High and Highest Risk (1 of 4 - PCV) 1946 Pneumococcal PPSV23/PCV13 65 + Years / Low and Medium Risk (1 of 4 - PCV) 2007 COVID-19 Vaccine (2 - season) 2024 Influenza Vaccine (Season Ended) 2025 07/15/2022, 07/25/2021, 07/10/2019 Care Teams Popcorn Machine Operator Relationship Specialty Start Date End Date Kyle Howell MD [address] [place] [address] PCP - General Family Medicine 12/30/18
--- OUTSIDE RECORDS SUMMARY | 2025-01-04 19:25 | XMS_ITS | Clinical Summary ---
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 Gender Identity Not on file Sexual Orientation Not on file Obstetrics History Last Filed Vital Signs Vital Sign Reading Time Taken Comments Blood Pressure 126/72 11/14/2022 3:01 PM MACHINE MOVER Pulse 52 11/14/2022 3:01 PM MACHINE MOVER Temperature - - Respiratory Rate - - Oxygen Saturation 97% 11/14/2022 3:01 PM MACHINE MOVER Inhaled Oxygen Concentration - - Weight 69.9 kg (154 lb) 11/14/2022 3:01 PM MACHINE MOVER Height 166.4 cm (5' 5.5 ) 11/14/2022 3:01 PM MACHINE MOVER Body Mass Index 25.24 11/14/2022 3:01 PM MACHINE MOVER Plan of Treatment Health Maintenance Due Date [...] history exists Insurance MEDICARE RAILROAD [facility] MEDICARE RAILROAD [facility] Care Teams Dock Boss Relationship Specialty Start Date End Date Kyle Howell MD PCP - General 12/29/16
--- OUTSIDE RECORDS SUMMARY | 2025-01-04 19:25 | XMS_ITS | Referral Summary ---
Author Organization [facility] [address] Address [address] [place] [address] Care Team Providers Care Premix Concrete Batcher Name Role Phone Kyle Howell MD Primary Care Provider [phone] Allergies Active Allergy Reactions Criticality Noted Date [...] on file Legal Sex Male 4:21 AM ECONOMIC DEVELOPMENT MANAGER Gender Identity Not on file Sexual Orientation Not on file Last Filed Vital Signs Vital Sign Reading Time Taken Comments Blood Pressure 126/72 11/14/2022 3:01 PM ECONOMIC DEVELOPMENT MANAGER Pulse 52 11/14/2022 3:01 PM ECONOMIC DEVELOPMENT MANAGER Temperature - - Respiratory Rate - - Oxygen Saturation 97% 11/14/2022 3:01 PM ECONOMIC DEVELOPMENT MANAGER Inhaled Oxygen Concentration - - Weight 69.9 kg (154 lb) 11/14/2022 3:01 PM ECONOMIC DEVELOPMENT MANAGER Height 166.4 cm (5' 5.5 ) 11/14/2022 3:01 PM ECONOMIC DEVELOPMENT MANAGER Body Mass Index 25.24 11/14/2022 3:01 PM ECONOMIC DEVELOPMENT MANAGER Plan of Treatment [place] [id number] [place] [address] MEDICARE RAILROAD [facility] Care Teams Premix Concrete Batcher Relationship Specialty Start Date End Date Kyle Howell MD PCP - General 12/29/16
[2025-01-04 19:30] VITALS: BP 159/81; PULSE 77; RESP 18; O2SAT 100
[2025-01-04 19:34] LABS: Anisocytosis 1+; Hypochromasia 1+; Platelet Estimate Adequate (Adequate)
[2025-01-04 19:35] LABS: Ovalocytes 1+
[2025-01-04 19:36] LABS: Schistocytes None Seen
--- NOTE | 2025-01-04 19:46 | PC.NURSE ---
EDP at bedside to attempt to stop nose bleed.
[2025-01-04 20:31] VITALS: BP 156/83
[2025-01-04] MEDS: OXYMETAZOLINE HCL 0.05% NAS 15 ML BTL (*BKC) 1 SPRAY NASAL (21:00)
[2025-01-04] MEDS: LIDO 1%/EPINEPHRINE 1:100,000 20 ML VIAL 10 ML INFILTRATE (21:00)
[2025-01-04] MEDS: SILVER NITRATE (*SP) STICK 1 EACH TOPICAL (21:01)
[2025-01-04 21:03] VITALS: O2SAT 100
[2025-01-04 21:27] LABS: Partial Thromboplastin Time 49.3 Seconds (22.3-36.8)
[2025-01-04 21:38] LABS: Prothrombin Time 46.3 Seconds (11.1-14.7)
[2025-01-04 22:46] LABS: Partial Thromboplastin Time 50.1 Seconds (22.3-36.8); Prothrombin Time 53.3 Seconds (11.1-14.7)
[2025-01-04 23:58] LABS: Immature Reticulocyte Fraction 35.6 % (3.0-15.9); Reticulocyte Hemoglobin Conten 16.4 pg (28.2-36.6); Reticulocyte Percent 2.55 % (0.7-4.3)
[2025-01-05 00:04] LABS: Fibrinogen 220 mg/dl (215-510)
[2025-01-05 00:10] LABS: D Dimer 1.71 ug/mL (<0.48)
[2025-01-05 00:30] LABS: Lactate Dehydrogenase 459 U/L (120-246)
[2025-01-05 00:33] LABS: Alanine Aminotransferase 50 U/L (6-50); Albumin Level 4.1 g/dL (3.5-5.1); Alkaline Phosphatase 110 U/L (38-126); Anion Gap 15 mmol/L (4-12); Aspartate Amino Transferase 34 U/L (17-59); Bilirubin,Total 1.5 mg/dL (0.2-1.3); Blood Urea Nitrogen 65 mg/dL (9-20); Carbon Dioxide 20 mmol/L (22-30); Chloride 106 mmol/L (98-107); Estimated CRCL calculation 22 ml/min; Estimated Glomerular Filt Rate 28; Glucose 249 mg/dL (65-110); Potassium 4.2 mmol/L (3.4-5.0); Sodium 141 mmol/L (137-145)
[2025-01-05 00:34] LABS: Iron 27 ug/dL (49-181)
[2025-01-05 00:42] LABS: Transferrin 297 mg/dL (206-381)
[2025-01-05 00:43] LABS: Percent Iron Saturation 6 % (20-50)
[2025-01-05 00:58] VITALS: BP 159/81; PULSE 78; RESP 16; O2SAT 96
[2025-01-05 01:41] LABS: Folic Acid > 20.0 ng/mL (2.76->20)
[2025-01-06 02:58] LABS: Haptoglobin 23 mg/dL (43-212)
== END 2025-01-05 01:01 | disposition home or self-care (01) ==
PROVIDERS: Emergency Provider Physician Assistant; PCP Family Medicine
DX: R04.0 Epistaxis (principal); I48.20 Chronic atrial fibrillation, unspecified; F03.90 Unspecified dementia, unspecified severity, without behavioral disturbance, psychotic disturbance, mood disturbance, and anxiety; I10 Essential (primary) hypertension; E78.2 Mixed hyperlipidemia; E11.9 Type 2 diabetes mellitus without complications; Z87.891 Personal history of nicotine dependence
CPT/HCPCS: 30901; 36415; 71045; 80053; 82607; 82728; 82746; 83010; 83540; 83550; 83615; 84466; 85025; 85046; 85380; 85384; 85610; 85730; 99283; A9270; J2004

== ENCOUNTER 2025-01-08 18:01 | Emergency (ER) | payer MEDICARE, SELFPAY ==
[2025-01-08 18:05] VITALS: BP 152/89; PULSE 104; RESP 16; TEMP 36.3; O2SAT 95
--- OUTSIDE RECORDS SUMMARY | 2025-01-08 18:05 | XMS_ITS | Encounter Summary ---
Author Organization [facility] Address [address] [place] [address] Care Team Providers Care Computer Software Engineer Name Role Phone Unavailable Primary Care Provider Unavailabl e Encounter Details Date Type Department Care Team (Late st Contact Info) Description 11/09/2023 Lab Requisition [facility] - DermPath Lab [address] [place] [id number] Kyle Howell MD [address] [place] [address] Social History Tobacco Use Types [...] Diagnosis Comments DERMATOPATHOLOGY Routine 11/07/2023 3:33 AM AUTOMATIC CASTING MACHINE OPERATOR documented in this encounter Results * DERMATOPATHOLOGY (11/07/2023 3:33 AM AUTOMATIC CASTING MACHINE OPERATOR) Case Report Dermatopathology Report Case: [id number] Authorizing Provider: Kyle Howell MD Collected: 11/07/2023 03:33 AM Ordering Location: [facility] DermPath Lab Received: 11/09/2023 08:39 AM Pathologist: Addie Murphy MD Specimen: Skin, right mid back 4 12:58 PM AUTOMATIC CASTING MACHINE OPERATOR DERMATOPATHOLOGY LABORATORY Final Diagnosis Specimen A. SKIN, right mid back: BENIGN VERRUCOUS KERATOSIS (L82.1) EPIDERMAL NECROSIS SUGGESTIVE OF EXCORIATION (L98.499) PRESENT AT MARGIN 4 12:58 PM AUTOMATIC CASTING MACHINE OPERATOR DERMATOPATHOLOGY LABORATORY Clinical History Changing Lesion. Check [...] characteristic determined by the Dermatopathology Laboratory at [facility], directed by Dr. Pedro Borden. These tests need not be, and therefore are not, approved by the [place] Food and Drug Administration. The tests are used for clinical purposes. Billing Codes Specimen Charges Stain Charges 86576 1 12:58 PM [facility] DERMATOPATHOLOGY LABORATORY Embedded Images 12:58 PM [facility] DERMATOPATHOLOGY LABORATORY Pathology/Cytolo gy TISSUE SPECIMEN FROM SKIN / Unknown 11/07/2023 3:33 AM AUTOMATIC CASTING MACHINE OPERATOR 11/09/2023 8:39 AM AUTOMATIC CASTING MACHINE OPERATOR Kyle Howell MD LAB - PATHOLOGY/CYTO LOGY ORDERABLES DERMATOPATHOLOGY LABORATORY [facility] - Department of Dermatology [address] [place] [address], [facility] [phone] documented in this encounter Visit Diagnoses Not on filedocumented in this encounter
--- OUTSIDE RECORDS SUMMARY | 2025-01-08 18:05 | XMS_ITS | Clinical Summary ---
Author Organization [facility] [address] Address [address] [place] [address] Care Team Providers Care Zoning Technician Name Role Phone Kyle Howell MD Primary [...] exertion 10/27/2016 Overview (01/05/2017): Dyspnea on exertion Encounters Date Type Department Care Team Description 01/05/2025 11:29 AM CDT - 01/05/2025 3:54 PM CDT Emergency [facility] Emergency Department [address] [place] [address] Jorje Diaz, DO Discharge Disposition: Left without being seen from Last 3 Months Medical History Medical History Date Comments Paroxysmal [...] e alcohol) Personal Safety Answer Date Recorded Have you ever been in or are you currently in a harmful physical or emotional relationship or is someone making you feel afraid or unsafe? Denies 01/05/2025 Sex and Gender Information Value Date Recorded Sex Assigned at Not on file Legal Sex Male 4:21 AM MORTGAGE UNDERWRITER Gender Identity Not on file Sexual Orientation Not on file Obstetrics History Last Filed Vital Signs Vital Sign Reading Time Taken Comments Blood Pressure 91/67 01/05/2025 12:08 PM CDT Pulse 85 01/05/2025 12:08 PM CDT Temperature 36.4 C (97.5 F) 01/05/2025 12:08 PM CDT Respiratory Rate 18 01/05/2025 12:08 PM CDT Oxygen Saturation 100% 01/05/2025 12:08 PM CDT Inhaled Oxygen Concentration - - Weight 69.9 kg (154 lb) 11/14/2022 3:01 PM MORTGAGE UNDERWRITER Height 166.4 cm (5' 5.5 ) 11/14/2022 3:01 PM MORTGAGE UNDERWRITER Body Mass Index 25.24 11/14/2022 3:01 PM MORTGAGE UNDERWRITER Plan of Treatment Health Maintenance Due Date Last Done Comments Depression Screening 1942 Fall Risk Assessment 1942 DTaP/Tdap/Td Vaccine (1 - Tdap) 1953 Hepatitis B Screening 1960 Abdominal Aortic Aneurysm (A AA) Screen 2007 Well Visit 65+ 2007 Pneumococcal vaccine 65+ (2 of 2 - PPSV23) 07/27/2012 06/01/2012 Zoster Vaccine (2 of 3) 08/07/2015 06/12/2015 Influenza Vaccine (Season Ended) 2025 07/15/2022, 07/25/2021, 07/10/2019, Additional history exists Procedures Procedure Name Priority Date/Time Associated Diagnosis Comments BLOOD SMEAR REVIEW STAT 01/05/2025 12 :15 PM CDT EGFR STAT 01/05/2025 12:15 PM CDT DIFFERENTIAL AUTO STAT 01/05/2025 12: 15 PM CDT PROTIME-INR Routine 01/05/2025 12:15 PM CDT COMPREHENSIVE METABOLIC PANEL STAT 01/05/2025 12:15 PM CDT CBC WITH AUTO DIFFERENTIAL STAT 01/05/2025 12:15 PM CDT from Last 3 Months Results * (ABNORMAL) Blood smear review (01/05/2025 12:15 PM CDT) RBC morphology Present(A) Comment:Testing performed by : [facility], [address] [place] [address]., [address] Hypochromasia 8-15/HPF(A) DAVID Comment:Testing performed by : [facility], [address] [place] [address]., [address] Microcytes 3-7/HPF(A) DAVID Comment:Testing performed by : [facility], [address] [place] [address], [place]., [address] Elliptocytes 3-7/HPF(A) DAVID Comment:Testing performed by : [facility], [address] [place] [address], [place]., [address] Echinocytes 3-7/HPF(A) DAVID Comment:Testing performed by : [facility], [address] [place] [address]., [address] Platelet estimate Adequate DAVID Comment:Testing performed by : [address] [address] Blood 01/05/2025 12:1 5 PM CDT 01/05/2025 12:46 PM CDT Jorje Diaz DO LAB BLOOD ORDERABLES Final Result DAVID [address] [facility] Department [place] [address] * (ABNORMAL) eGFR (01/05/2025 12:15 PM CDT) eGFR 25(L) >=60 mL/min/1. 73 m2 Comment: Interpretive Data Reference Interval Normal >/= 90 mL/min/1.73m2 Mildly decreased* 60 - 89 mL/min/1.73m2 Mildly to moderately decreased 45 - 59 mL/min/1.73m2 Moderately to severely decreased 30 - 44 mL/min/1.73m2 Severely decreased 15 - 29 mL/min/1.73m2 Kidney Failure < 15 mL/min/1.73m2 *Relative to young adult level Estimated glomerular filtration rate is determined by the 2020 CKD-EPI equation recommended by the National Kidney Foundation (A Unifying Approach to GFR Estimation: Recommendations of the NKF-ASK Task Force on Reassessing the Inclusion of Race in Diagnosing Kidney Disease, JASN 2020). The CKD-EPI equation should not be used for patients with unstable renal function and has not been validated in children and those over 70. Current interpretive data was last reviewed 2021. Testing performed by: [address] [address] Blood 01/05/2025 12:1 5 PM CDT 01/05/2025 12:46 PM CDT us Jorje Diaz DO LAB BLOOD ORDERABLES Final Result DAVID [address] [facility] Department [place] [address] * (ABNORMAL) Differential, auto (01/05/2025 12:15 PM CDT) Neutrophil abs 10.58(H) 1.50 - 6.50 K/cumm Comment:Testing performed by : [address] [address] Imm gran abs 0.10 0.00 - 0.10 K/cumm DAVID Comment:Testing performed by : [address] [address] Lymphocyte abs 1.67 0.80 - 3.30 K/cumm DAVID Comment:Testing performed by : [address] [address] Monocyte abs 1.33(H) 0.20 - 0.80 K/cumm DAVID Comment:Testing performed by : [address] [address] Eosinophil abs 0.01 0.00 - 0.50 K/cumm DAVID Comment:Testing performed by : [address] [address] Basophil abs 0.02 0.00 - 0.10 K/cumm DAVID Comment:Testing performed by : [address] [address] Neutrophil pct 77.2 % DAVID Comment: Interpretive Data Percent cell count reference ranges are not reported, since discordance with absolute values may lead to misinterpretation of CBC data. Current Interpretive Data was last revised on 2018. Testing performed by: [address] [address] Imm gran pct 0.7 % [facility] Comment: Interpretive Data Percent cell count reference ranges are not reported, since discordance with absolute values may lead to misinterpretation of CBC data. Current Interpretive Data was last revised on 2018. Testing performed by: [address] [address] Lymphocyte pct 12.2 % [facility] Comment: Interpretive Data Percent cell count reference ranges are not reported, since discordance with absolute values may lead to misinterpretation of CBC data. Current Interpretive Data was last revised on 2018. Testing performed by: [address] [address] Monocyte pct 9.7 % [facility] Comment: Interpretive Data Percent cell count reference ranges are not reported, since discordance with absolute values may lead to misinterpretation of CBC data. Current Interpretive Data was last revised on 2018. Testing performed by: [address] [address] Eosinophil pct 0.1 % [facility] Comment: Interpretive Data Percent cell count reference ranges are not reported, since discordance with absolute values may lead to misinterpretation of CBC data. Current Interpretive Data was last revised on 2018. Testing performed by: [address] [address] Basophil pct 0.1 % [facility] Comment: Interpretive Data Percent cell count reference ranges are not reported, since discordance with absolute values may lead to misinterpretation of CBC data. Current Interpretive Data was last revised on 2018. Testing performed by: [address] [address] Blood 01/05/2025 12:1 5 PM CDT 01/05/2025 12:46 PM CDT Jorje Diaz DO LAB BLOOD ORDERABLES Final Result DAVID [address] [facility] Department [place] [address] * (ABNORMAL) CBC with auto differential (01/05/2025 12:15 PM CDT) [facility] WBC 13.71(H) 3.80 - 9.90 K/cumm Comment:Testing performed by : [address] [address] Hgb 7.1(L) 13.0 - 17.5 g/dL DAVID Comment:Testing performed by : [address] [address] Hct 24.8(L) 38.9 - 50.3 % DAVID Comment:Testing performed by : [address] [address] Plt 275 150 - 400 K/cumm DAVID Comment:Testing performed by : [address] [address] MPV 10.9 9.1 - 12.3 fL DAVID Comment:Testing performed by : [address] [address] RBC 3.39(L) 4.30 - 5.80 M/cumm DAVID Comment:Testing performed by : [address] [address] MCV 73.2(L) 81.3 - 96.4 fL DAVID Comment:Testing performed by : [address] [address] MCH 20.9(L) 27.1 - 33.3 pg DAVID Comment:Testing performed by : [address] [address] MCHC 28.6(L) 32.3 - 35.7 g/dL DAVID Comment:Testing performed by : [address] [address] RDW CV 17.8(H) 11.1 - 14.9 % DAVID Comment:Testing performed by : [address] [address] RDW SD 47.5 35.7 - 48.1 fL DAVID Comment:Testing performed by : [address] [address] NRBC abs 0.37(H) 0.00 - 0.01 K/cumm DAVID DIAZ Comment:Testing performed by : [address] [address] Blood 01/05/2025 12:1 5 PM CDT 01/05/2025 12:46 PM CDT Jorje Diaz LAB BLOOD ORDERABLES Final Result Performing Organization Address [facility] de Phone Number DAVID [address] [facility] [place] [address] * (ABNORMAL) Protime-INR (01/05/2025 12:15 PM CDT) PT 44.2(H) 12.0 - 14.6 sec Comment: Ref Range High Testing performed by: [address] [address] INR 4.8(H) 0.9 - 1.2 DAVID Comment: Ref Range High Interpretive data Oral anticoagulant therapeutic ranges: Venous thromboembolism prophylaxis or treatment: 2.0-3.0 CARDIOLOGY Standard range: 2.0-3.0 High-intensity range: 2.5-3.5 Refer to indication-specific guidelines for appropriate target ranges for prosthetic heart valve replacement. Current interpretive data was last revised on 2019. Testing performed by: [address] [address] Blood 01/05/2025 12:1 5 PM CDT 01/05/2025 12:46 PM CDT Jorje Diaz DO LAB BLOOD ORDERABLES Final Result Performing Organization Address [facility] Co de Phone Number [facility] [address] [facility] [place] [place] [address] * (ABNORMAL) Comprehensive metabolic panel (01/05/2025 12:15 PM CDT) Sodium 141 135 - 145 mmol/L Comment:Testing performed by : [address] [address] Potassium, pl 4.6 3.3 - 4.9 mmol/L DAVID Comment:Testing performed by : [address], [place]., [address] Chloride 108 97 - 110 mmol/L DAVID Comment:Testing performed by : [address], [place]., [address] CO2 20(L) 22 - 32 mmol/L DAVID Comment:Testing performed by : [address] [address] Anion gap 13 2 - 15 mmol/L DAVID Comment:Testing performed by : [address], [place]., [address] BUN 74(H) 6 - 25 mg/dL DAVID Comment:Testing performed by : [address] [address] Creatinine 2.50(H) 0.80 - 1.30 mg/dL [facility] Comment:Testing performed by : [address] [address] Glucose 168 70 - 199 mg/dL [facility] Comment: Interpretive Data Fasting glucose >/= 126 mg/dl is diagnostic for diabetes. Fasting is defined as no caloric intake for at least 8 hours. Fasting glucose between 100 mg/dl to 125 mg/dl is diagnostic of prediabetes. In a patient with classic symptoms of hyperglycemia or hyperglycemic crisis, a random glucose >/= 200 mg/dl is diagnostic for diabetes. In the absence of unequivocal hyperglycemia, results should be confirmed by repeat testing. The classification and Diagnosis of Diabetes Diabetes Care 202; 46: S19-S40. Current interpretive data was last revised 2022. Testing performed by: [address] [address] Calcium 8.6 8.5 - 10.3 mg/dL [facility] Comment:Testing performed by : [address] [address] Bilirubin, total 1.0 0.1 - 1.2 mg/dL DAVID Comment:Testing performed by : [facility], [address] [place] [address]., [address] Protein, pl 5.8(L) 6.5 - 8.5 g/dL DAVID Comment:Testing performed by : [address] [address] Albumin 3.3(L) 3.5 - 5.0 g/dL DAVID Comment:Testing performed by : [address] [address] Alk phos 91 40 - 130 Units/L DAVID Comment:Testing performed by : [address] [address] ALT 33 7 - 55 Units/L DAVID Comment:Testing performed by : [address] [address] AST 19 10 - 50 Units/L DAVID Comment:Testing performed by : [address] [address] Blood 01/05/2025 12:1 5 PM CDT 01/05/2025 12:46 PM CDT Jorje Diaz DO LAB BLOOD ORDERABLES Final Result DAVID [address] [facility] Department [place] [address] from Last 3 Months Insurance MEDICARE RAILROAD MEDICARE RAILROAD [facility] MEDICARE SUPPLEMENT Care Teams Zoning Technician Relationship Specialty Start Date End Date Kyle Howell MD PCP - General 12/29/16
--- OUTSIDE RECORDS SUMMARY | 2025-01-08 18:05 | XMS_ITS | Clinical Summary ---
Author Organization [facility] Address [address] [place] [address] Care Team Providers Care Line Up Worker Name Role Phone Unavailable Primary Care Provider Unavailabl e Source Comments [facility],non-owned Affiliates and Associated Physician Practices is amultiple site organization consisting of ambulatory clinics and hospital sitesin [place], [place], [place] and [place]. This disclosure is being madepursuant to the Care Everywhere program and may not contain all information available regarding this patient. Last updated 18.[facility] [place] Social History Tobacco Use Types Packs/Day Years [...] 2017 COVID-19 VACCINE (2023-2 5 season) 2024 DEPRESSION SCREENING 10/01/2024 INFLUENZA VACCINE (Season Ended) 2025 HEPATITIS B VACCINE Aged Out No longe [...] age to [place] [address]
--- OUTSIDE RECORDS SUMMARY | 2025-01-08 18:05 | XMS_ITS | CONTINUITY OF CARE DOCUMENT ---
Author Name celia yang Address Unknown Organization [facility] Address [address] [place] [address] Phone [phone] Care Team Providers Care Pickle Water Pump Operator Name Role Phone Leonidas PURDY, Mago Unavailable [place] PUR[place], [place] Unavailable COCO PURDY, [place] Unavailable INSURANCE PROVIDERS Payer name Policy type / Coverage type Brea red democrat ID [facility] Other [id number] [facility] Other [id number]
--- OUTSIDE RECORDS SUMMARY | 2025-01-08 18:05 | XMS_ITS | Encounter Summary ---
Author Organization [facility] Address [address] [facility] [facility] [address] [place] [address] Care Team Providers Care Hospice Executive Director Name Role Phone Kyle Howell MD Primary Care Provider [phone] Encounter Details Date Type Department Care Team (Late st Contact Info) Description 10/04/2016 Orders Only [facility] ProviderLencho MD [address] [place] [address] Social History Tobacco Use Types Packs/Day Years Used Date Smoking Tobacco: Never Assessed Sex and Gender Information Value Date Recorded Sex Assigned at Not on file Legal Sex Male 4:21 AM CORRECTIONAL FOOD SERVICE SUPERVISOR Gender Identity Not on file Sexual Orientation [...] on filedocumented in this encounter Care Teams Hospice Executive Director Relationship Specialty Start Date End Date Kyle Howell MD PCP - General 12/29/16 documented as of this encounter
--- OUTSIDE RECORDS SUMMARY | 2025-01-08 18:05 | XMS_ITS | Continuity of Care Document ---
Author Organization [facility] Address [address] [place] [address] Phone Care Team Providers Care Mandrel Maker Name Role Phone Shikha Najera Unavailable Unavailable Advance Directives Directive Yes / No Effective Date File Name No Information Encounters Encounter Description Practice Location Reason(s) For Visit Diagnoses Date Provider Providers Copied on Encounter [facility], [address], [place], [place], [id number], [place] tel:[phone] [facility] No Information [phone] Dania Trivedi. [address] , [address], [place], [address], [place]. tel:[phone] Referring Provider: Kyle Howell MD , [address] [place], [address]. tel:[phone] Family History Family Member Type Diagnosis Age At Onset No Information Payers Payer name Insurance type Covered constitution party ID Authoriza tilaci(s) [facility] CI [id number] Social History Type Description Quantity Date Captured [...]
--- OUTSIDE RECORDS SUMMARY | 2025-01-08 18:05 | XMS_ITS | Clinical Summary ---
Author Organization [facility] Address [address] [place] [address] Phone Care Team Providers Care Ceramic Research Engineer Name Role Phone Kyle Howell MD Primary Care Provider [phone] Allergies Active Allergy Reactions Criticality Noted Date Comments Levofloxacin Medications cholecalciferol (VITAMIN D-3) 2000 units capsule 1 daily 0 11/14/2018 Active donepezil (ARICEPT) 10 MG tablet 1 daioluy 0 11/14/2018 Active memantine (NAMENDA) 10 MG tablet 1 bid 0 11/14/2018 Active tamsulosin (FLOMAX) 0.4 MG 24 hr capsule 1 qhs 0 11/14/2018 Activ e apixaban (ELIQUIS) 2.5 MG tablet Take 1 [...] (05/29/2019): Overview: History of duodenal ulcer Immunizations Immunization Administration Dates Next Due Fluzone High-Dose 07/25/2020 [...] at Not on file Legal Sex Male 7:52 PM MST Gender Identity Not on file Sexual Orientation Not on file Last Filed Vital Signs Vital Sign Reading Time Taken Comments Blood Pressure 128/80 08/28/2022 10:28 AM CAR CHECKER Pulse 60 08/28/2022 10:28 AM CAR CHECKER Temperature 35.7 C (96.2 F) 08/28/2022 10:28 AM CAR CHECKER Respiratory Rate - - Oxygen Saturation - - Inhaled Oxygen Concentration - - Weight 73.9 kg (163 lb) 08/28/2022 10:28 AM CAR CHECKER Height 165.1 cm (5' 5 ) 08/28/2022 10:28 AM CAR CHECKER Body Mass Index 27.12 08/28/2022 10:28 AM CAR CHECKER Plan of Treatment Health Maintenance Due Date Last Done Comments Pneumococcal PPSV23/PCV13 65 + Years / Low and Medium Risk (1 of 4 - PCV) 1992 COVID-19 Vaccine (2 - season) 2024 Influenza Vaccine (Season Ended) 2025 07/15/2022, 07/25/2021, 07/10/2019 [facility] Care Teams Ceramic Research Engineer Relationship Specialty Start Date End Date Kyle Howell MD [address] [place] [address] PCP - General Family Medicine 12/30/18
--- OUTSIDE RECORDS SUMMARY | 2025-01-08 18:05 | XMS_ITS | Referral Summary ---
Author Organization [facility] [place] [address] Address [address] [place] [address] Care Team Providers Care Antisqueak Applier Name Role Phone Kyle Howell MD Primary Care Provider [phone] Encounters Date Type Department Care Team Description 01/05/2025 11:29 AM CDT - 01/05/2025 3:54 PM CDT Emergency [facility] [address] [place] [address] Jorje Diaz, Discharge Disposition: Left without being seen from Last 3 Months Allergies Active Allergy Reactions Criticality Noted Date [...] on file Legal Sex Male 4:21 AM ELECTROPHYSIOLOGY NURSE PRACTITIONER Gender Identity Not on file Sexual Orientation [...] 69.9 kg (154 lb) 11/14/2022 3:01 PM ELECTROPHYSIOLOGY NURSE PRACTITIONER Height 166.4 cm (5' 5.5 ) 11/14/2022 3:01 PM ELECTROPHYSIOLOGY NURSE PRACTITIONER Body Mass Index 25.24 11/14/2022 3:01 PM ELECTROPHYSIOLOGY NURSE PRACTITIONER Plan of Treatment Not on file Procedures Procedure Name Priority Date/Time Associated Diagnosis [...] RBC morphology Present(A) Comment:Testing performed by : [address] [address] Hypochromasia 8-15/HPF(A) DAVID Comment:Testing performed by : [address] [address] Microcytes 3-7/HPF(A) DAVID Comment:Testing performed by : [address] [address] Elliptocytes 3-7/HPF(A) DAVID Comment:Testing performed by : [address] [address] Echinocytes 3-7/HPF(A) DAVID Comment:Testing performed by : [address] [address] Platelet estimate Adequate DAVID Comment:Testing performed by : [address] [address] Blood 01/05/2025 12:1 5 PM CDT 01/05/2025 12:46 PM CDT Jorje Agapito Diaz DO LAB BLOOD ORDERABLES Final Result Performing Organization Address [facility] Co de Phone Number DAVID [address] [address] * (ABNORMAL) eGFR (01/05/2025 12:15 PM CDT) Pathologist [facility] eGFR 25(L) >=60 mL/min/1. 73 m2 Comment: [...] was last reviewed 2021. Testing performed by: [facility], [address] [place] [address]., [address] Blood 01/05/2025 12:1 5 PM CDT 01/05/2025 12:46 PM CDT Jorje Diaz DO LAB BLOOD ORDERABLES Final Result Performing Organization Address [facility] Co de Phone Number DAVID [address] [place] [address] * (ABNORMAL) Differential, auto (01/05/2025 12:15 PM CDT) Pathologist [facility] Neutrophil abs 10.58(H) 1.50 - 6.50 K/cumm Comment:Testing performed by : [address] [address] Imm gran abs 0.10 0.00 - 0.10 K/cumm [facility] Comment:Testing performed by : [address], [place]., [address] Lymphocyte abs 1.67 0.80 - 3.30 K/cumm [facility] Comment:Testing performed by : [address], [place]., [address] Monocyte abs 1.33(H) 0.20 - 0.80 K/cumm [facility] Comment:Testing performed by : [address] [address] Eosinophil abs 0.01 0.00 - 0.50 K/cumm [facility] Comment:Testing performed by : [address] [address] Basophil abs 0.02 0.00 - 0.10 K/cumm [facility] Comment:Testing performed by : [address] [address] Neutrophil pct 77.2 % [facility] Comment: Interpretive Data Percent cell count reference ranges are not reported, since discordance with absolute values may lead to misinterpretation of CBC data. Current Interpretive Data was last revised on 2018. Testing performed by: [address] [address] Imm gran pct 0.7 % [facility] Comment: Interpretive Data Percent cell count reference ranges are not reported, since discordance with absolute values may lead to misinterpretation of CBC data. Current Interpretive Data was last revised on 2018. Testing performed by: [address] [address] Lymphocyte pct 12.2 % [facility] Comment: Interpretive Data Percent cell count reference ranges are not reported, since discordance with absolute values may lead to misinterpretation of CBC data. Current Interpretive Data was last revised on 2018. Testing performed by: [address] [address] Monocyte pct 9.7 % [facility] Comment: Interpretive Data Percent cell count reference ranges are not reported, since discordance with absolute values may lead to misinterpretation of CBC data. Current Interpretive Data was last revised on 2018. Testing performed by: [address] [address] Eosinophil pct 0.1 % DAVID Comment: Interpretive Data Percent cell count reference ranges are not reported, since discordance with absolute values may lead to misinterpretation of CBC data. Current Interpretive Data was last revised on 2018. Testing performed by: [address] [address] Basophil pct 0.1 % DAVID Comment: Interpretive Data Percent cell count reference ranges are not reported, since discordance with absolute values may lead to misinterpretation of CBC data. Current Interpretive Data was last revised on 2018. Testing performed by: [address] [address] Blood 01/05/2025 12:1 5 PM CDT 01/05/2025 12:46 PM CDT us Jorje Diaz DO LAB BLOOD ORDERABLES Final Result DAVID [address] [facility] Department of Laboratories [place], [place] [id number] * (ABNORMAL) CBC with auto differential (01/05/2025 12:15 PM CDT) WBC 13.71(H) 3.80 - 9.90 K/cumm Comment:Testing performed by : [address] [address] Hgb 7.1(L) 13.0 - 17.5 g/dL DAVID DIAZ Comment:Testing performed by : [address] [address] Hct 24.8(L) 38.9 - 50.3 % DAVID DIAZ Comment:Testing performed by : [address] [address] Plt 275 150 - 400 K/cumm DAVID DIAZ Comment:Testing performed by : [address] [address] MPV 10.9 9.1 - 12.3 fL DAVID Comment:Testing performed by : [address] [address] RBC 3.39(L) 4.30 - 5.80 M/cumm DAVID DIAZ Comment:Testing performed by : [address] [address] MCV 73.2(L) 81.3 - 96.4 fL DAVID Comment:Testing performed by : [address] [address] MCH 20.9(L) 27.1 - 33.3 pg DAVID Comment:Testing performed by : [address] [address] MCHC 28.6(L) 32.3 - 35.7 g/dL DAVID Comment:Testing performed by : [address] [address] RDW CV 17.8(H) 11.1 - 14.9 % DAVID Comment:Testing performed by : [address] [address] RDW SD 47.5 35.7 - 48.1 fL DAVID Comment:Testing performed by : [address] [address] NRBC abs 0.37(H) 0.00 - 0.01 K/cumm DAVID Comment:Testing performed by : [address] [address] Blood 01/05/2025 12:1 5 PM CDT 01/05/2025 12:46 PM CDT us Jorje Diaz DO LAB BLOOD ORDERABLES Final Result [place] [address] [facility] Department [place] [address] * (ABNORMAL) Protime-INR (01/05/2025 12:15 PM CDT) PT 44.2(H) 12.0 - 14.6 sec Comment: Ref Range High Testing performed by: [address] [address] INR 4.8(H) 0.9 - 1.2 DAVID Comment: Ref Range High Interpretive data Oral anticoagulant therapeutic ranges: Venous thromboembolism prophylaxis or treatment: 2.0-3.0 CARDIOLOGY Standard range: 2.0-3.0 High-intensity range: 2.5-3.5 Refer to indication-specific guidelines for appropriate target ranges for prosthetic heart valve replacement. Current interpretive data was last revised on 2019. Testing performed by: [address] [address] Blood 01/05/2025 12:1 5 PM CDT 01/05/2025 12:46 PM CDT Jorje Diaz DO LAB BLOOD ORDERABLES Final Result DAVID [address] [facility] Department [place] [address] * (ABNORMAL) Comprehensive metabolic panel (01/05/2025 12:15 PM CDT) Pathologist [facility] Sodium 141 135 - 145 mmol/L Comment:Testing performed by : [address] [address] Potassium, pl 4.6 3.3 - 4.9 mmol/L DAVID Comment:Testing performed by : [address] [address] Chloride 108 97 - 110 mmol/L DAVID Comment:Testing performed by : [address] [address] CO2 20(L) 22 - 32 mmol/L DAVID Comment:Testing performed by : [address] [address] Anion gap 13 2 - 15 mmol/L DAVID Comment:Testing performed by : [address] [address] BUN 74(H) 6 - 25 mg/dL DAVID Comment:Testing performed by : [address] [address] Creatinine 2.50(H) 0.80 - 1.30 mg/dL DAVID Comment:Testing performed by : [address] [address] Glucose 168 70 - 199 mg/dL DAVID Comment: Interpretive Data Fasting glucose >/= 126 [...] classification and Diagnosis of Diabetes Diabetes Care 2021; 46: S19-S40. Current interpretive data was last revised 2022. Testing performed by: [address] [address] Calcium 8.6 8.5 - 10.3 mg/dL DAVID Comment:Testing performed by : [address] [address] Bilirubin, total 1.0 0.1 - 1.2 mg/dL DAVID Comment:Testing performed by : [address] [address] Protein, pl 5.8(L) 6.5 - 8.5 g/dL DAVID Comment:Testing performed by : [address] [address] Albumin 3.3(L) 3.5 - 5.0 g/dL [facility] performed by : [address] [address] Alk phos 91 40 - 130 Units/L DAVID Comment:Testing performed by : [address] [address] ALT 33 7 - 55 Units/L DAVID Comment:Testing performed by : [address] [address] AST 19 10 - 50 Units/L DAVID DIAZ Comment:Testing performed by : [facility], [address] [place] [address], [place]., [address] Blood 01/05/2025 12:1 5 PM CDT 01/05/2025 12:46 PM CDT us Jorje Diaz DO LAB BLOOD ORDERABLES Final Result DAVID [address] [facility] Department [place] [address] from Last 3 Months Insurance MEDICARE RAILROAD MEDICARE RAILROAD BLUE CROSS MEDICARE SUPPLEMENT Care Teams Antisqueak Applier Relationship Specialty Start Date End Date Kyle Howell MD PCP - General 12/29/16
--- NOTE | 2025-01-08 18:18 | ED_ITS ---
HPI - General Adult General Chief complaint: Skin/Abscess/Foreign Body <Karla Robin PA-C - Last Filed: 01/08/25 18:22> Stated complaint: Patient ate cold pack beads-has Dementia <Karla Robin PA-C - Last Filed: 01/08/25 18:22> Time Seen by Provider: 01/08/25 18:10 <Karla Robin PA-C - Last Filed: 01/08/25 18:22> Focused HPI: Patient is an 84-year-old male, with past medical history of dementia, who presents the ED with family with report for foreign body ingestion. Patient had been given a therapy gel bead ice pack by family. Family noted that the patient ate the gel beads within the past hour. Attempted to contact poison Control, were unable to receive an answer. Prompted here for further evaluation. Patient has no acute complaints. GENERAL: Elderly, well-nourished, and in no acute distress. HEAD: Normocephalic, atraumatic. CHEST: Clear to auscultation. ?No respiratory distress. HEART: Regular rate with irregular rhythm.? ABD: Soft, nontender, normoactive BS NEURO: ?Alert and oriented x3. Patient screened in triage and initial orders placed.? ?Additional care and d isposition to be based upon?diagnostic testing and treatment. <Karla Robin PA-C - Last Filed: 01/08/25 18:22> Source: patient <DAX Gonzalez Last Filed: 01/08/25 18:22> Mode of arrival: ambulatory <DAX Gonzalez Last Filed: 01/08/25 18:22> Limitations: no limitations <DAX Gonzalez Last Filed: 01/08/25 18:22> History of Present Illness HPI narrative: Agree with the above triage note. Patient is denying abdominal pain, nausea or vomiting. Patient says family at bedside states he is in his normal state of health. <DAX Ramos Last Filed: 01/08/25 19:35> Related Data Home medications: Home Medications ?Medication ?Instructions ?Recorded ?Confirmed ?Last Taken ?Type cholecalciferol (vitamin D3) 25 25 mcg PO DAILY 11/07/23 01/08/25 Unknown History mcg (1,000 unit) capsule <Karla Robin PA-C - Last Filed: 01/08/25 18:22> Allergies/adverse reactions: Allergies Allergy/AdvReac Type Severity Reaction Status Date / Time No Known Allergies Allergy Verified 01/08/25 18:14 <Karla Robin PA-C - Last Filed: 01/08/25 18:22> Review of Systems Review of Systems: All systems reviewed & are unremarkable except as noted in HPI and below <Joyce Holland PA-C - Last Filed: 01/08/25 19:35> [facility] Past Medical History Medical History: Medical History Senile debility Cataract Dysphagia Chronic atrial fibrillation Dementia, unspecified, without behavioral disturbance Essential (primary) hypertension Low kidney function Mixed hyperlipidemia Spondylosis of cervical joint with myelopathy Type 2 diabetes mellitus without complications <Karla Robin PA-C - Last Filed: 01/08/25 18:22> Surgical History Surgical History: Surgical History H/O hernia repair Hx of cholecystectomy <Karla Robin PA-C - Last Filed: 01/08/25 18:22> Family History Family History: Family History Mother Hypertension Family history of malignant neoplasm Arthritis H/O gallbladder cancer Father Cerebrovascular accident Family history of diabetes mellitus in first degree relative Diabetes mellitus Arthritis Pacemaker Sibling Arthritis Sibling Arthritis <Karla Robin PA-C - Last Filed: 01/08/25 18:22> Social History Social History: Social History Smoking status: Former smoker Tobacco type: cigarettes Second hand tobacco smoke exposure: No Smoking end date: 10/01/11 Alcohol intake: never Substance use: never Substance use type: does not use Do You Feel Safe in your Home?: Yes Lack of Transportation: No Lack of Food: Never True Current Housing: I Have Housing Concerned About Future Housing: No Difficulty Paying Gas/Electric Bills: No Difficulty Paying for Meds: No Currently Unemployed: No Education: Grade School Difficulty w/ Childcare or Family Care: No Living arrangements: with family Additional living arrangements comments: grandson Occupation/Education: retired 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 HEAD: Normocephalic, atraumatic. EYES: EOMI. ENT: Nares clear, no rhinorrhea or epistaxis. Mucous membranes moist. NECK: Supple. CHEST: Clear to auscultation. No respiratory distress. HEART: Regular rate and rhythm. No murmur heard. Normal peripheral pulses. ABDOMEN: Soft, nontender, nondistended, normal active bowel sounds. No rebound, guarding or rigidity. No CVA tenderness EXTREMITIES: Normal range of motion. No edema. SKIN: Warm, dry, no rash. NEURO: No focal deficits. Alert and oriented x2 <DAX Ramos Last Filed: 01/08/25 19:35> Course Vital Signs Vital signs: Vital Signs Temperature 97.3 F L 01/08/25 18:05 Pulse Rate 104 H 01/08/25 18:05 Respiratory Rate 16 01/08/25 18:05 Blood Pressure 152/89 H 01/08/25 18:05 Pulse Oximetry 95 01/08/25 18:05 Oxygen Delivery Room Air 01/08/25 18:05 Temperature 97.3 F L 01/08/25 18:05 Pulse Rate 104 H 01/08/25 18:05 Respiratory Rate 16 01/08/25 18:05 Blood Pressure 152/89 H 01/08/25 18:05 Pulse Oximetry 95 01/08/25 18:05 Oxygen Delivery Room Air 01/08/25 18:05 <DAX Gonzalez Last Filed: 01/08/25 18:22> Vital Signs Temperature 97.3 F L 01/08/25 18:05 Pulse Rate 104 H 01/08/25 18:05 Respiratory Rate 16 01/08/25 18:05 Blood Pressure 152/89 H 01/08/25 18:05 Pulse Oximetry 95 01/08/25 18:05 Oxygen Delivery Room Air 01/08/25 18:05 Temperature 97.3 F L 01/08/25 18:05 Pulse Rate 104 H 01/08/25 18:05 Respiratory Rate 16 01/08/25 18:05 Blood Pressure 152/89 H 01/08/25 18:05 Pulse Oximetry 95 01/08/25 18:05 Oxygen Delivery Room Air 01/08/25 18:05 <DAX Ramos Last Filed: 01/08/25 19:35> Medical Decision Making MDM Narrative Medical decision making narrative: MSE by CRISTELA in triage. <DAX Gonzalez Last Filed: 01/08/25 18:22> MSE by CRISTELA in triage. 84-year-old male presents emergency department with family at bedside after ingestion of foreign body that occurred prior to arrival. Patient ate the blue gel beads out of a therapy bead pack. Family brought the patient to the ED for advice minute. The patient is asymptomatic and denies abdominal pain, vomiting, nausea. Patient's family at bedside states he is in his normal state of health a normal mental status. Poison Control was contacted and reported the beats are not harmful and should pass without difficulty, no further intervention advised. Patient and family are updated on results and plan of care. They were given strict ED return precautions. All questions answered. Discharged stable condition. <DAX Ramos Last Filed: 01/08/25 19:35> Vital Signs Vital Signs: Vital Signs Temperature 97.3 F L 01/08/25 18:05 Pulse Rate 104 H 01/08/25 18:05 Respiratory Rate 16 01/08/25 18:05 Blood Pressure 152/89 H 01/08/25 18:05 Pulse Oximetry 95 01/08/25 18:05 Oxygen Delivery Room Air 01/08/25 18:05 Temperature 97.3 F L 01/08/25 18:05 Pulse Rate 104 H 01/08/25 18:05 Respiratory Rate 16 01/08/25 18:05 Blood Pressure 152/89 H 01/08/25 18:05 Pulse Oximetry 95 01/08/25 18:05 Oxygen Delivery Room Air 01/08/25 18:05 <DAX Gonzalez Last Filed: 01/08/25 18:22> Vital Signs Temperature 97.3 F L 01/08/25 18:05 Pulse Rate 104 H 01/08/25 18:05 Respiratory Rate 16 01/08/25 18:05 Blood Pressure 152/89 H 01/08/25 18:05 Pulse Oximetry 95 01/08/25 18:05 Oxygen Delivery Room Air 01/08/25 18:05 Temperature 97.3 F L 01/08/25 18:05 Pulse Rate 104 H 01/08/25 18:05 Respiratory Rate 16 01/08/25 18:05 Blood Pressure 152/89 H 01/08/25 18:05 Pulse Oximetry 95 01/08/25 18:05 Oxygen Delivery Room Air 01/08/25 18:05 <DAX Ramos Last Filed: 01/08/25 19:35> Discharge Plan Discharge Clinical Impression: Foreign body ingestion Qualifiers: Encounter type: initial encounter Qualified Code(s): T18.9XXA - Foreign body of alimentary tract, part unspecified, initial encounter <DAX Gonzalez Last Filed: 01/08/25 18:22> Patient Disposition: Home <DAX Gonzalez Last Filed: 01/08/25 18:22> Condition: Stable <DAX Gonzalez Last Filed: 01/08/25 18:22> Instructions: Antibiotic Form, Foreign Body Ingestion (ED) <DAX Gonzalez Last Filed: 01/08/25 18:22> Additional Instructions: You were evaluated in the emergency department after ingestion of foreign body. Poison Control is contacted. There is no further intervention advised and you should pass the peds without difficulty. If you develop abdominal pain, vomiting, altered mental status or other concerning symptoms please report to the ED immediately. <DAX Gonzalez Last Filed: 01/08/25 18:22> Patient Language: Rwandan <Karla Robin PA-C - Last Filed: 01/08/25 18:22> Prescriptions: No Action cholecalciferol (vitamin D3) 25 mcg (1,000 unit) capsule 25 mcg PO DAILY aspirin 81 mg tablet,delayed release (DR/EC) 81 mg PO DAILY Qty: 90 0RF amoxicillin-pot clavulanate 875-125 mg tablet 1 tablet PO Q12H Qty: 10 0RF pantoprazole 40 mg tablet,delayed release (DR/EC) 40 mg PO DAILY Qty: 90 1RF memantine 10 mg tablet See Rx Instructions .ROUTE .COMPLEX Qty: 60 4RF Dose Instruction: Take 1 tablet by mouth twice daily Rx Instructions: Take 1 tablet by mouth twice daily <Karla Robin PA-C - Last Filed: 01/08/25 18:22> Follow-up/Referrals: Kyle Howell MD [Primary Care Provider] - <Karla Robin PA-C - Last Filed: 01/08/25 18:22>
--- NOTE | 2025-01-08 18:22 | PC.NURSE ---
Contacted poison control. They state the beads are not harmful and should pass without difficulty.
--- OUTSIDE RECORDS SUMMARY | 2025-01-08 19:18 | XMS_ITS | CONTINUITY OF CARE DOCUMENT ---
Author Name celia yang Address Unknown Organization [facility] Address [address] [place] [address] Phone [phone] Care Team Providers Care Monologist Name Role Phone Leonidas PURDY, Mago Unavailable COCO PURDY, [place] F Unavailable COCO PURDY, [place] F Unavailable INSURANCE PROVIDERS Payer name Policy type / Coverage type Marvell red libertarian ID [facility] Other [id number] [facility] Other [id number]
--- OUTSIDE RECORDS SUMMARY | 2025-01-08 19:18 | XMS_ITS | Encounter Summary ---
Author Organization [facility] Address [address] [place] [place] [address] Care Team Providers Care Cash Person Name Role Phone Unavailable Primary Care Provider Unavailabl e Encounter Details Date Type Department Care Team (Late st Contact Info) Description 11/09/2023 Lab Requisition [facility] - DermPath Lab [address] [place] [id number] Kyle Howell MD [address] [place] [address] Social History Tobacco Use Types [...] Diagnosis Comments DERMATOPATHOLOGY Routine 11/07/2023 3:33 AM NUCLEAR STATION OPERATOR documented in this encounter Results * DERMATOPATHOLOGY (11/07/2023 3:33 AM NUCLEAR STATION OPERATOR) Case Report Dermatopathology Report Case: [id number] Authorizing Provider: Kyle Howell MD Collected: 11/07/2023 03:33 AM Ordering Location: [facility] DermPath Lab Received: 11/09/2023 08:39 AM Pathologist: Addie Murphy MD Specimen: Skin, right mid back 4 12:58 PM NUCLEAR STATION OPERATOR DERMATOPATHOLOGY LABORATORY Final Diagnosis Specimen A. SKIN, right mid back: BENIGN VERRUCOUS KERATOSIS (L82.1) EPIDERMAL NECROSIS SUGGESTIVE OF EXCORIATION (L98.499) PRESENT AT MARGIN 4 12:58 PM NUCLEAR STATION OPERATOR DERMATOPATHOLOGY LABORATORY Clinical History Changing Lesion. Check margins. 12:58 PM [facility] DERMATOPATHOLOGY LABORATORY Gross Description Specimen A: Received is one formalin filled container labeled with the patient's name and designated right mid back. The specimen consists of a shave biopsy measuring 8x5x3 mm. Jar 0. 12:58 PM [facility] DERMATOPATHOLOGY LABORATORY Microscopic Description Specimen A. SKIN, right mid back: Sections show hyperkeratosis, papillomatosis, hypergranulosis, and acanthosis. These histological findings can be seen in a verruca vulgaris or a seborrheic keratosis. The epidermis is focally necrotic and covered with a scale-crust. There is fibrin at the base. This lesion is present at the margin of the specimen. 12:58 PM [facility] DERMATOPATHOLOGY LABORATORY Disclaimer An external and internal positive and negative controls are appropriate for the histochemical, immunohistochemical and immunofluorescence stain(s) in this case (if any), except where stated explicitly. The performance characteristics of the stain(s) cited in this report were developed and its performance characteristic determined by the Dermatopathology Laboratory at [facility], directed by Dr. Pedro Borden. These tests need not be, and therefore are not, approved by the [place] Food and Drug Administration. The tests are used for clinical purposes. Billing Codes Specimen Charges Stain Charges 76276 1 12:58 PM [facility] DERMATOPATHOLOGY LABORATORY Embedded Images 12:58 PM [facility] DERMATOPATHOLOGY LABORATORY Pathology/Cytolo gy TISSUE SPECIMEN FROM SKIN / Unknown 11/07/2023 3:33 AM NUCLEAR STATION OPERATOR 11/09/2023 8:39 AM NUCLEAR STATION OPERATOR Kyle Howell MD LAB - PATHOLOGY/CYTO LOGY ORDERABLES DERMATOPATHOLOGY LABORATORY [facility] - Department of Dermatology [address] [place] [address], [facility] [phone] documented in this encounter Visit Diagnoses Not on filedocumented in this encounter
--- OUTSIDE RECORDS SUMMARY | 2025-01-08 19:18 | XMS_ITS | Clinical Summary ---
Author Organization [facility] No[facility] johnson Address [address] [place] [address] Phone Care Team Providers Care Cotton Weigher Operator Name Role Phone Kyle Howell MD Primary Care Provider [phone] Allergies Active Allergy Reactions Criticality Noted Date [...] Comments Blood Pressure 128/80 08/28/2022 10:28 AM ACCOUNT EXECUTIVE TRAINEE Pulse 60 08/28/2022 10:28 AM ACCOUNT EXECUTIVE TRAINEE Temperature 35.7 C (96.2 F) 08/28/2022 10:28 AM ACCOUNT EXECUTIVE TRAINEE Respiratory Rate - - Oxygen Saturation - - Inhaled Oxygen Concentration - - Weight 73.9 kg (163 lb) 08/28/2022 10:28 AM ACCOUNT EXECUTIVE TRAINEE Height 165.1 cm (5' 5 ) 08/28/2022 10:28 AM ACCOUNT EXECUTIVE TRAINEE Body Mass Index 27.12 08/28/2022 10:28 AM ACCOUNT EXECUTIVE TRAINEE Plan of Treatment Health Maintenance Due Date Last Done Comments Pneumococcal PPSV23/PCV13 65 + Years / Low and Medium Risk (1 of 4 - PCV) 1992 COVID-19 Vaccine (2 - season) 2024 Influenza Vaccine (Season Ended) 2025 07/15/2022, 07/25/2021, 07/10/2019 [facility] Care Teams Cotton Weigher Operator Relationship Specialty Start Date End Date Kyle Howell MD [address] [place] [address] PCP - General Family Medicine 12/30/18
--- OUTSIDE RECORDS SUMMARY | 2025-01-08 19:18 | XMS_ITS | Encounter Summary ---
Author Organization [facility] Address [address] [facility] [address] [place] [address] Care Team Providers Care Cigar Packer And Grader Name Role Phone Kyle Howell MD Primary Care Provider [phone] Encounter Details Date Type Department Care Team (Late st Contact Info) Description 10/04/2016 Orders Only [facility] ProviderLencho MD [address] [place] [address] Social History Tobacco Use Types Packs/Day Years Used Date Smoking Tobacco: Never Assessed Sex and Gender Information Value Date Recorded Sex Assigned at Not on file Legal Sex Male 4:21 AM WINTER INTERN Gender Identity Not on file Sexual Orientation [...] on filedocumented in this encounter Care Teams Cigar Packer And Grader Relationship Specialty Start Date End Date Kyle Howell MD PCP - General 12/29/16 documented as of this encounter
--- OUTSIDE RECORDS SUMMARY | 2025-01-08 19:18 | XMS_ITS | Clinical Summary ---
Author Organization [facility] [address] Address [address] [place] [address] Care Team Providers Care Salary Manager Name Role Phone Kyle Howell MD Primary [...] CDT - 01/05/2025 3:54 PM CDT Emergency 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 Gender Identity Not on file Sexual Orientation [...] 69.9 kg (154 lb) 11/14/2022 3:01 PM CONSTRUCTION SAFETY CONSULTANT Height 166.4 cm (5' 5.5 ) 11/14/2022 3:01 PM CONSTRUCTION SAFETY CONSULTANT Body Mass Index 25.24 11/14/2022 3:01 PM CONSTRUCTION SAFETY CONSULTANT Plan of Treatment Health Maintenance Due Date [...] RBC morphology Present(A) Comment:Testing performed by : [facility], [address] [place] [address]., [address] Hypochromasia 8-15/HPF(A) DAVID Comment:Testing performed by : [facility], [address] [place] [address]., [address] Microcytes 3-7/HPF(A) DAVID Comment:Testing performed by : [facility], [address] [place] [address], [place]., [address] Elliptocytes 3-7/HPF(A) DAVID Comment:Testing performed by : [facility], [address] [place] [address], [place]., [address] Echinocytes 3-7/HPF(A) DAVID Comment:Testing performed by : [facility], [address] [place] [address]., [address] Platelet estimate Adequate DAVID Comment:Testing performed by : [address] [address] Blood 01/05/2025 12:1 5 PM CDT 01/05/2025 12:46 PM CDT Jorje Diaz DO LAB BLOOD ORDERABLES Final Result DAVID [address] [facility] Department [place] [address] * (ABNORMAL) eGFR (01/05/2025 12:15 [...] was last reviewed 2021. Testing performed by: [address] [address] Blood 01/05/2025 12:1 5 PM CDT 01/05/2025 12:46 PM CDT us Jorje Diaz DO LAB BLOOD ORDERABLES Final Result DAVID [address] [facility] Department [place] [address] * (ABNORMAL) Differential, auto (01/05/2025 12:15 PM CDT) Neutrophil abs 10.58(H) 1.50 - 6.50 K/cumm Comment:Testing performed by : [address] [address] Imm gran abs 0.10 0.00 - 0.10 K/cumm DAVID Comment:Testing performed by : [address] [address] Lymphocyte abs 1.67 0.80 - 3.30 K/cumm DAVID Comment:Testing performed by : [address] [address] Monocyte abs 1.33(H) 0.20 - 0.80 K/cumm DAVID Comment:Testing performed by : [address] [address] Eosinophil abs 0.01 0.00 - 0.50 K/cumm DAVID Comment:Testing performed by : [address] [address] Basophil abs 0.02 0.00 - 0.10 K/cumm DAVID Comment:Testing performed by : [address] [address] Neutrophil pct 77.2 % DAVID Comment: Interpretive Data Percent cell count reference ranges are not reported, since discordance with absolute values may lead to misinterpretation of CBC data. Current Interpretive Data was last revised on 2018. Testing performed by: [address] [address] Imm gran pct 0.7 % [facility] Comment: Interpretive Data Percent cell count reference ranges are not reported, since discordance with absolute values may lead to misinterpretation of CBC data. Current Interpretive Data was last revised on 2018. Testing performed by: [address] [address] Lymphocyte pct 12.2 % [facility] Comment: Interpretive Data Percent cell count reference ranges are not reported, since discordance with absolute values may lead to misinterpretation of CBC data. Current Interpretive Data was last revised on 2018. Testing performed by: [address] [address] Monocyte pct 9.7 % [facility] Comment: Interpretive Data Percent cell count reference ranges are not reported, since discordance with absolute values may lead to misinterpretation of CBC data. Current Interpretive Data was last revised on 2018. Testing performed by: [address] [address] Eosinophil pct 0.1 % [facility] Comment: Interpretive Data Percent cell count reference ranges are not reported, since discordance with absolute values may lead to misinterpretation of CBC data. Current Interpretive Data was last revised on 2018. Testing performed by: [address] [address] Basophil pct 0.1 % [facility] Comment: Interpretive Data Percent cell count reference ranges are not reported, since discordance with absolute values may lead to misinterpretation of CBC data. Current Interpretive Data was last revised on 2018. Testing performed by: [address] [address] Blood 01/05/2025 12:1 5 PM CDT 01/05/2025 12:46 PM CDT Jorje Diaz DO LAB BLOOD ORDERABLES Final Result DAVID [address] [facility] Department [place] [address] * (ABNORMAL) CBC with auto differential (01/05/2025 12:15 PM CDT) [facility] WBC 13.71(H) 3.80 - 9.90 K/cumm Comment:Testing performed by : [address] [address] Hgb 7.1(L) 13.0 - 17.5 g/dL DAVID Comment:Testing performed by : [address] [address] Hct 24.8(L) 38.9 - 50.3 % DAVID Comment:Testing performed by : [address] [address] Plt 275 150 - 400 K/cumm DAVID Comment:Testing performed by : [address] [address] MPV 10.9 9.1 - 12.3 fL DAVID Comment:Testing performed by : [address] [address] RBC 3.39(L) 4.30 - 5.80 M/cumm DAVID Comment:Testing performed by : [address] [address] MCV 73.2(L) 81.3 - 96.4 fL DAVID Comment:Testing performed by : [address] [address] MCH 20.9(L) 27.1 - 33.3 pg DAVID Comment:Testing performed by : [address] [address] MCHC 28.6(L) 32.3 - 35.7 g/dL DAVID Comment:Testing performed by : [address] [address] RDW CV 17.8(H) 11.1 - 14.9 % DAVID Comment:Testing performed by : [address] [address] RDW SD 47.5 35.7 - 48.1 fL DAVID Comment:Testing performed by : [address] [address] NRBC abs 0.37(H) 0.00 - 0.01 K/cumm DAVID DIAZ Comment:Testing performed by : [address] [address] Blood 01/05/2025 12:1 5 PM CDT 01/05/2025 12:46 PM CDT Jorje Diaz LAB BLOOD ORDERABLES Final Result Performing Organization Address [facility] de Phone Number DAVID [address] [facility] [place] [address] * (ABNORMAL) Protime-INR (01/05/2025 12:15 PM CDT) PT 44.2(H) 12.0 - 14.6 sec Comment: Ref Range High Testing performed by: [address] [address] INR 4.8(H) 0.9 - 1.2 DAVID Comment: Ref Range High Interpretive data Oral anticoagulant therapeutic ranges: Venous thromboembolism prophylaxis or treatment: 2.0-3.0 CARDIOLOGY Standard range: 2.0-3.0 High-intensity range: 2.5-3.5 Refer to indication-specific guidelines for appropriate target ranges for prosthetic heart valve replacement. Current interpretive data was last revised on 2019. Testing performed by: [address] [address] Blood 01/05/2025 12:1 5 PM CDT 01/05/2025 12:46 PM CDT Jorje Diaz DO LAB BLOOD ORDERABLES Final Result Performing Organization Address City/[facility] Co de Phone Number [facility] [address] [facility] [place] [address] * (ABNORMAL) Comprehensive metabolic panel (01/05/2025 12:15 PM CDT) Sodium 141 135 - 145 mmol/L Comment:Testing performed by : [address] [address] Potassium, pl 4.6 3.3 - 4.9 mmol/L DAVID Comment:Testing performed by : [address], [place]., [address] Chloride 108 97 - 110 mmol/L DAVDI Comment:Testing performed by : [address], [place]., [address] CO2 20(L) 22 - 32 mmol/L DAVID Comment:Testing performed by : [address] [address] Anion gap 13 2 - 15 mmol/L DAVID Comment:Testing performed by : [address], [place]., [address] BUN 74(H) 6 - 25 mg/dL DAVID Comment:Testing performed by : [address] [address] Creatinine 2.50(H) 0.80 - 1.30 mg/dL [facility] Comment:Testing performed by : [address] [address] Glucose 168 70 - 199 mg/dL [facility] Comment: Interpretive Data Fasting glucose >/= 126 [...] last revised 2022. Testing performed by: [address] [address] Calcium 8.6 8.5 - 10.3 mg/dL [facility] Comment:Testing performed by : [address] [address] Bilirubin, total 1.0 0.1 - 1.2 mg/dL DAVID Comment:Testing performed by : [facility], [address] [place] [address]., [address] Protein, pl 5.8(L) 6.5 - 8.5 g/dL DAVID Comment:Testing performed by : [address] [address] Albumin 3.3(L) 3.5 - 5.0 g/dL DAVID Comment:Testing performed by : [address] [address] Alk phos 91 40 - 130 Units/L DAVID Comment:Testing performed by : [address] [address] ALT 33 7 - 55 Units/L DAVID Comment:Testing performed by : [address] [address] AST 19 10 - 50 Units/L DAVID Comment:Testing performed by : [address] [address] Blood 01/05/2025 12:1 5 PM CDT 01/05/2025 12:46 PM CDT Jorje Diaz DO LAB BLOOD ORDERABLES Final Result DAVID [address] [facility] Department [place] [address] from Last 3 Months Insurance MEDICARE RAILROAD MEDICARE RAILROAD [facility] MEDICARE SUPPLEMENT Care Teams Salary Manager Relationship Specialty Start Date End Date Kyle Howell MD PCP - General 12/29/16
--- OUTSIDE RECORDS SUMMARY | 2025-01-08 19:18 | XMS_ITS | Continuity of Care Document ---
Author Organization [facility] Address [address] [place] [address] Phone Care Team Providers Care Marketer Name Role Phone Shikha Najera Unavailable Unavailable Advance Directives Directive Yes / No Effective Date File Name No Information Encounters Encounter Description Practice Location Reason(s) For Visit Diagnoses Date Provider Providers Copied on Encounter [facility], [address], [place], [place], [id number], [place] tel:[phone] [facility] No Information 8-200 5 Dania Trivedi. [address] , [address], [place], [address], [place]. tel:[phone] Referring Provider: Kyle Howell MD , [address] [place], [address]. tel:[phone] Family History Family Member Type Diagnosis Age At Onset No Information Payers Payer name Insurance type Covered alliance party ID Authoriza tilaci(s) [facility] CI [id number] Social History Type Description Quantity Date Captured [...]
--- OUTSIDE RECORDS SUMMARY | 2025-01-08 19:18 | XMS_ITS | Referral Summary ---
Author Organization [facility] [address] Address [address] [place] [address] Care Team Providers Care Equipment Monitor Phototypesetting Name Role Phone Kyle Howell MD Primary Care Provider [phone] Encounters Date Type Department Care Team Description 01/05/2025 11:29 AM CDT - 01/05/2025 3:[address] 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 Gender Identity Not on file Sexual Orientation [...] 69.9 kg (154 lb) 11/14/2022 3:01 PM TEA LEAF READER Height 166.4 cm (5' 5.5 ) 11/14/2022 3:01 PM TEA LEAF READER Body Mass Index 25.24 11/14/2022 3:01 PM TEA LEAF READER Plan of Treatment Not on file Procedures [...] RBC morphology Present(A) Comment:Testing performed by : [address] [address] Hypochromasia 8-15/HPF(A) DAVID Comment:Testing performed by : [address] [address] Microcytes 3-7/HPF(A) DAVID Comment:Testing performed by : [address] [address] Elliptocytes 3-7/HPF(A) DAVID Comment:Testing performed by : [address] [address] Echinocytes 3-7/HPF(A) DAVID Comment:Testing performed by : [address] [address] Platelet estimate Adequate DAVID Comment:Testing performed by : [address] [address] Blood 01/05/2025 12:1 5 PM CDT 01/05/2025 12:46 PM CDT Jorje Agapito Diaz DO LAB BLOOD ORDERABLES Final Result Performing Organization Address [facility] Co de Phone Number DAVID [address] [address] * (ABNORMAL) eGFR (01/05/2025 12:15 PM CDT) Pathologist [facility] eGFR 25(L) >=60 mL/min/1. 73 m2 Comment: [...] was last reviewed 2021. Testing performed by: [facility], [address] [place] [address]., [address] Blood 01/05/2025 12:1 5 PM CDT 01/05/2025 12:46 PM CDT Jorje Diaz DO LAB BLOOD ORDERABLES Final Result Performing Organization Address [facility] Co de Phone Number DAVID [address] [place] [address] * (ABNORMAL) Differential, auto (01/05/2025 12:15 PM CDT) Pathologist [facility] Neutrophil abs 10.58(H) 1.50 - 6.50 K/cumm Comment:Testing performed by : [address] [address] Imm gran abs 0.10 0.00 - 0.10 K/cumm [facility] Comment:Testing performed by : [address], [place]., [address] Lymphocyte abs 1.67 0.80 - 3.30 K/cumm [facility] Comment:Testing performed by : [address], [place]., [address] Monocyte abs 1.33(H) 0.20 - 0.80 K/cumm [facility] Comment:Testing performed by : [address] [address] Eosinophil abs 0.01 0.00 - 0.50 K/cumm [facility] Comment:Testing performed by : [address] [address] Basophil abs 0.02 0.00 - 0.10 K/cumm [facility] Comment:Testing performed by : [address] [address] Neutrophil pct 77.2 % [facility] Comment: Interpretive Data Percent cell count reference ranges are not reported, since discordance with absolute values may lead to misinterpretation of CBC data. Current Interpretive Data was last revised on 2018. Testing performed by: [address] [address] Imm gran pct 0.7 % [facility] Comment: Interpretive Data Percent cell count reference ranges are not reported, since discordance with absolute values may lead to misinterpretation of CBC data. Current Interpretive Data was last revised on 2018. Testing performed by: [address] [address] Lymphocyte pct 12.2 % [facility] Comment: Interpretive Data Percent cell count reference ranges are not reported, since discordance with absolute values may lead to misinterpretation of CBC data. Current Interpretive Data was last revised on 2018. Testing performed by: [address] [address] Monocyte pct 9.7 % [facility] Comment: Interpretive Data Percent cell count reference ranges are not reported, since discordance with absolute values may lead to misinterpretation of CBC data. Current Interpretive Data was last revised on 2018. Testing performed by: [address] [address] Eosinophil pct 0.1 % DAVID Comment: Interpretive Data Percent cell count reference ranges are not reported, since discordance with absolute values may lead to misinterpretation of CBC data. Current Interpretive Data was last revised on 2018. Testing performed by: [address] [address] Basophil pct 0.1 % DAVID Comment: Interpretive Data Percent cell count reference ranges are not reported, since discordance with absolute values may lead to misinterpretation of CBC data. Current Interpretive Data was last revised on 2018. Testing performed by: [address] [address] Blood 01/05/2025 12:1 5 PM CDT 01/05/2025 12:46 PM CDT us Jorje Diaz DO LAB BLOOD ORDERABLES Final Result DAVID [address] [facility] Department of Laboratories [place], [place] [id number] * (ABNORMAL) CBC with auto differential (01/05/2025 12:15 PM CDT) WBC 13.71(H) 3.80 - 9.90 K/cumm Comment:Testing performed by : [address] [address] Hgb 7.1(L) 13.0 - 17.5 g/dL DAVID DIAZ Comment:Testing performed by : [address] [address] Hct 24.8(L) 38.9 - 50.3 % DAVID DIAZ Comment:Testing performed by : [address] [address] Plt 275 150 - 400 K/cumm DAVID DIAZ Comment:Testing performed by : [address] [address] MPV 10.9 9.1 - 12.3 fL DAVID Comment:Testing performed by : [address] [address] RBC 3.39(L) 4.30 - 5.80 M/cumm DAVID DIAZ Comment:Testing performed by : [address] [address] MCV 73.2(L) 81.3 - 96.4 fL DAVID Comment:Testing performed by : [address] [address] MCH 20.9(L) 27.1 - 33.3 pg DAVID Comment:Testing performed by : [address] [address] MCHC 28.6(L) 32.3 - 35.7 g/dL DAVID Comment:Testing performed by : [address] [address] RDW CV 17.8(H) 11.1 - 14.9 % DAVID Comment:Testing performed by : [address] [address] RDW SD 47.5 35.7 - 48.1 fL DAVID Comment:Testing performed by : [address] [address] NRBC abs 0.37(H) 0.00 - 0.01 K/cumm DAVID Comment:Testing performed by : [address] [address] Blood 01/05/2025 12:1 5 PM CDT 01/05/2025 12:46 PM CDT us Jorje Diaz DO LAB BLOOD ORDERABLES Final Result LEER[facility]A [address] [facility] [place] [address] * (ABNORMAL) Protime-INR (01/05/2025 12:15 PM CDT) PT 44.2(H) 12.0 - 14.6 sec Comment: Ref Range High Testing performed by: [address] [address] INR 4.8(H) 0.9 - 1.2 DAVID Comment: Ref Range High Interpretive data Oral anticoagulant therapeutic ranges: Venous thromboembolism prophylaxis or treatment: 2.0-3.0 CARDIOLOGY Standard range: 2.0-3.0 High-intensity range: 2.5-3.5 Refer to indication-specific guidelines for appropriate target ranges for prosthetic heart valve replacement. Current interpretive data was last revised on 2019. Testing performed by: [address] [address] Blood 01/05/2025 12:1 5 PM CDT 01/05/2025 12:46 PM CDT Jorje Diaz DO LAB BLOOD ORDERABLES Final Result DAVID [address] [facility] [place] [address] * (ABNORMAL) Comprehensive metabolic panel (01/05/2025 12:15 PM CDT) Pathologist [facility] Sodium 141 135 - 145 mmol/L Comment:Testing performed by : [address] [address] Potassium, pl 4.6 3.3 - 4.9 mmol/L DAVID Comment:Testing performed by : [address] [address] Chloride 108 97 - 110 mmol/L DAVID Comment:Testing performed by : [address] [address] CO2 20(L) 22 - 32 mmol/L DAVID Comment:Testing performed by : [address] [address] Anion gap 13 2 - 15 mmol/L DAVID Comment:Testing performed by : [address] [address] BUN 74(H) 6 - 25 mg/dL DAVID Comment:Testing performed by : [address] [address] Creatinine 2.50(H) 0.80 - 1.30 mg/dL DAVID Comment:Testing performed by : [address] [address] Glucose 168 70 - 199 mg/dL DAVID [...] was last revised 2022. Testing performed by: [address] [address] Calcium 8.6 8.5 - 10.3 mg/dL DAVID Comment:Testing performed by : [address] [address] Bilirubin, total 1.0 0.1 - 1.2 mg/dL ADVID Comment:Testing performed by : [address] [address] Protein, pl 5.8(L) 6.5 - 8.5 g/dL DAVID Comment:Testing performed by : [address] [address] Albumin 3.3(L) 3.5 - 5.0 g/dL [facility] Comment:Testing performed by : [address] [address] Alk phos 91 40 - 130 Units/L DAVID Comment:Testing performed by : [address] [address] ALT 33 7 - 55 Units/L DAVID Comment:Testing performed by : [address] [address] AST 19 10 - 50 Units/L DAVID DIAZ Comment:Testing performed by : [facility], [address] [place] [address], [place]., [address] Blood 01/05/2025 12:1 5 PM CDT 01/05/2025 12:46 PM CDT us Jorje Diaz DO LAB BLOOD ORDERABLES Final Result DAVID [address] [facility] [place] [address] from Last 3 Months Insurance MEDICARE [place] [address] [employer] MEDICARE SUPPLEMENT Care Teams Equipment Monitor Phototypesetting Relationship Specialty Start Date End Date Kyle Howell MD PCP - General 12/29/16
--- OUTSIDE RECORDS SUMMARY | 2025-01-08 19:18 | XMS_ITS | Clinical Summary ---
Author Organization [facility] Address [address] [place] [address] Care Team Providers Care Accounts Receivable Collector Name Role Phone Unavailable Primary Care Provider Unavailabl e Source Comments [facility],non-owned Affiliates and Associated Physician Practices is amultiple site organization consisting of ambulatory clinics and hospital sitesin [place], [place], [place] and [place]. This disclosure is being madepursuant to the Care Everywhere program and may not contain all information available regarding this patient. Last updated 18.[facility] [employer] Social History Tobacco Use Types Packs/Day Years [...] age [place] [address]
== END 2025-01-08 19:41 | disposition home or self-care (01) ==
PROVIDERS: Emergency Provider Physician Assistant; PCP Family Medicine
DX: T18.9XXA Foreign body of alimentary tract, part unspecified, initial encounter (principal); F03.90 Unspecified dementia, unspecified severity, without behavioral disturbance, psychotic disturbance, mood disturbance, and anxiety; I48.20 Chronic atrial fibrillation, unspecified; I10 Essential (primary) hypertension; E78.2 Mixed hyperlipidemia; E11.9 Type 2 diabetes mellitus without complications; Z90.49 Acquired absence of other specified parts of digestive tract; Z87.891 Personal history of nicotine dependence; Z79.82 Long term (current) use of aspirin; W44.9XXA Unspecified foreign body entering into or through a natural orifice, initial encounter
CPT/HCPCS: 99281

== ENCOUNTER 2025-01-19 15:24 | Inpatient (IN) | payer MEDICARE, SELFPAY ==
--- NOTE | ~2025-01-19 | XR_ITS ---
XR chest 1V portable 01/20/2025 09:14 Indication: Shortness of breath Procedure: AP portable chest Comparison: 01/19/2025 Findings: Heart size upper normal or mildly enlarged. There is bilateral perihilar-visual infiltrates which have progressed. Possible small right effusion. No pneumothorax. Impression: 1: Bilateral perihilar and interstitial infiltrates, right greater than left, most likely edema versu s atypical pneumonia. Reviewed, dictated and finalized at location A. Impression: 1: Bilateral perihilar and interstitial infiltrates, right greater than left, m ost likely edema versus atypical pneumonia.
--- NOTE | ~2025-01-19 | CT_ITS ---
EXAMINATION: CTA chest PE abdomen pel DATE: 01/19/2025 18:37 INDICATION: shortness of breath TECHNIQUE: Computed tomography angiography (CTA) of the chest was performed with 100 mL Omnipaque-350 intravenous contrast timed to evaluate the pulmonary arteries, followed by portal venous phase imagi ng of the abdomen and pelvis. Coronal maximum intensity projection 3D-reconstructions were created by the technologist. The dose-length product (DLP) was 1415.52 mGy-cm. Automated exposure control and i terative reconstruction technique were employed. COMPARISON: CT chest 01/19/2017; CT abdomen pelvis 05/30/2015. FINDINGS: Exam limited by motion artifact and beam hardening from arm down positioning. CHEST: Lung parenchyma and airways: Mild septal thickening. Patchy centrilobular nodular and consolidative o pacities in the right lung. Patent airways. Pleura: Moderate volume simple density right pleural fluid collection. Thoracic inlet, axillae and chest wall: No thyroid or soft tissue mass. Thoracic aorta: No significant dilation. No dissection. Mediastinum: Calcified lymph nodes. Dilated central pulmonary arteries as can be seen with pulmonary hypertension. Heart and pericardium: Cardiomegaly. Pronounced right atrial enlargement. Coronary artery calcifications: Mild. Thoracic bones: No acute osseous finding. Pulmonary arteries: Study quality: Adequate. No pulmonary emboli detected. ABDOMEN/PELVIS: Significant motion artifact in the abdomen. Liver: Normal. Biliary/Gallbladder: Gallbladder is absent. No bile duct dilation. Pancreas: No mass or duct dilation. Spleen: Normal. Adrenals:No mass. Kidneys: No suspicious mass, obstructing stone, or hydronephrosis. GI tract: No small or large bowel dilation. Normal appendix. Diverticulosis without diverticulitis. Mesentery/Peritoneum: No ascites, mass, or free air. Retroperitoneum: No mass. Atherosclerotic calcifications of intra-abdominal arterial vessels. Pelvis: Moderate bladder wall edema. Prostatomegaly.. Soft Tissues: Moderate body wall edema Abdominopelvic bones: No acute osseous finding. IMPRESSION: No CT evidence of acute pulmonary embolus. Pulmonary opacities in the right lung concerning for infection. Moderate simple right pleural effusion. Mild pulmonary edema. Cardiomegaly with right atrial enlargement. Cystitis. Moderate body wall edema. Reviewed, dictated and finalized at location K.
--- NOTE | ~2025-01-19 | US_ITS ---
EXAMINATION: US venous doppler UE RT DATE: 01/19/2025 19:49 INDICATION: swelling . TECHNIQUE: Grayscale ultrasound images without and with compression and Doppler ultrasound images of the right upper extremity veins were obtained. COMPARISON: None. FINDINGS: The visualized portions of the right internal jugular vein, subclavian vein, axillary vein, brachial veins, basilic vein, cephalic vein, radial vein, and ulnar vein are patent. IMPRESSION: No right upper extremity deep venous thrombosis. Reviewed, dictated and finalized at location K.
--- NOTE | ~2025-01-19 | XR_ITS ---
EXAMINATION: XR hand RT min 3V DATE: 01/19/2025 16:54 INDICATION: Right hand swelling TECHNIQUE: Posteroanterior, oblique and lateral views of the right hand were obtained. COMPARISON: None. FINDINGS: No fracture. Polyarticular osteoarthritis, severe at the lingula radial articulation of the wrist jus nt, moderate severity at the triscaphe, second and third metacarpophalangeal joints with slight volar subluxation, at the first interphalangeal and second-fourth distal interphalangeal joints. Mild oste oarthritis at the midcarpal, triscaphe and metacarpal phalangeal and interphalangeal joints. No erosi ons. Diffuse soft tissue swelling most prominent at the base of the digits and at the dorsal aspect o f the metacarpophalangeal joints. IMPRESSION: 1. 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 No acute osseous abnormality. A typical predominance at the wrist and second and third metacarpophalangeal joints resupply possibilit y of secondary osteoarthritis in the setting of calcium pyrophosphate deposition (CPPD) disease. Reviewed, dictated and finalized at location A. IMPRESSION: 1. 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 No acute osseous abnormality. Atypical predominance at the wrist and second and third me tacarpophalangeal joints resupply possibility of secondary osteoarthritis in th e setting of calcium pyrophosphate deposition (CPPD) disease.
--- NOTE | ~2025-01-19 | XR_ITS ---
XR chest 2V Ordering provider: Kirstie Castillo APRN History: 84 years Male with . low oxygen saturation . Comparison: January 04, 2025 FINDINGS: MEDIASTINUM: The cardiac silhouette is moderately enlarged. Congestive sang. LUNGS: No effusions or pneumothorax. Right lung base atelectatic changes versus pneumonia is noted wi th opacification in the posterior costophrenic angle.. OTHER: No free air under the diaphragm. Degenerative changes of the spine. IMPRESSION: Right basilar atelectasis versus pneumonia more prominent in the posterior costophrenic angle area. Reviewed, dictated and finalized at location A. IMPRESSION: Right basilar atelectasis versus pneumonia more prominent in the posterior cost ophrenic angle area.
[2025-01-19 15:55] VITALS: BP 135/83; PULSE 50; RESP 18; TEMP 36.8; O2SAT 98
--- NOTE | 2025-01-19 16:02 | ECG_ITS ---
Test Date: 2025-01-19 16:33:52 Measurements Intervals [place] Rate: 70 P: 0 AL: 0 QRS: 51 QRSD: 76 T: 78 QT: 404 QTc: 437 Interpretive Statements ATRIAL FIBRILLATION WITH VENTRICULAR PREMATURE COMPLEXES BORDERLINE R WAVE PROGRESSION, ANTERIOR LEADS BORDERLINE ST-T WAVE ABNORMALITY- INF/HIGH LAT LEADS BASELINE ARTIFACT- I, III, AVL ABNORMAL ECG Compared to ECG 07/17/2024 17:00:33 NO SIGNIFICANT CHANGE Electronically Signed On 01-19-2025 16:36:37 CDT by Jose Dawn D.O.
--- NOTE | 2025-01-19 16:03 | ED.RECABL ---
HPI - Recheck/Abnormal Lab/Rx General Chief Complaint: Recheck/Abnormal Lab/Rx <Kirstie Castillo APRN - Last Filed: 01/19/25 19:47> Stated Complaint: Sent for low O2 by PMD, arm/eye swelling <Kirstie Castillo APRN - Last Filed: 01/19/25 19:47> Time Seen by Provider: 01/19/25 16:00 <Kirstie Castillo APRN - Last Filed: 01/19/25 19:47> Focused HPI: Patient is an 84-year-old male presents to the ER with right hand swelling and decreased oxygen saturation. His daughter reports she brought him to the doctor earlier today because of the right hand swelling. She has also noticed some swelling underneath his eyes. Patient's daughter reports when they got to the doctor's office they could not detect a pulse oximeter reading higher than 82%. His daughter reports they advised them to go directly to the ER. Patient's daughter reports he has a history of dementia and he used to be on a blood thinner due to atrial fibrillation but was taken off because of a bloody nose. GENERAL: Well-appearing, well-nourished, and in no acute distress. HEAD: Normocephalic, atraumatic. CHEST: Clear to auscultation. ?No respiratory distress. HEART: Regular rate and rhythm.? NEURO: ?Alert and oriented x3. * D. dimer ordered d/t pt's history of atrial fibrillation and not taking blood thinners. Patient screened in triage and initial orders placed.? ?Additional care and disposition to be based upon?diagnostic testing and treatment. <Kirstie Castillo APRN - Last Filed: 01/19/25 19:47> Source: patient, family, RN notes reviewed and old records reviewed <Lorenza Bejarano MD - Last Filed: 01/19/25 21:56> Limitations: dementia <Lorenza Bejarano MD - Last Filed: 01/19/25 21:56> History of Present Illness HPI narrative: This is a 84 year old male who presents for evaluation of swelling and low oxygen saturation. He is present with his daughter who is assisting with history. They report that patient had been dealing with nose bleeds and he was assessed by ENT last week. He has not had any bleeding in 9 days. He went to see his doctor today because they noticed swelling under his eyes 4 days and his right arm was swollen. He has been in and out of the ER for past couple of weeks getting blood drawn and IVS. She reports that the clinic reported his oxygen saturation was 82 % on room air so he was sent to ER. His oxygen saturation is 98% here at [facility]. They report patient has not seemed to be more tired, weak or short of breath than usual. He was able to walk into clinic today without any issues. Family denies any bleeding, melena <Lorenza Bejarano MD - Last Filed: 01/19/25 21:56> Related Data Home Medications: Home Medications ?Medication ?Instructions ?Recorded ?Confirmed ?Last Taken ?Type cholecalciferol (vitamin D3) 25 25 mcg PO DAILY 11/07/23 01/08/25 Unknown History mcg (1,000 unit) capsule <Kirstie Castillo APRN - Last Filed: 01/19/25 19:47> Allergies/Adverse Reactions: Allergies Allergy/AdvReac Type Severity Reaction Status Date / Time No Known Allergies Allergy Verified 01/19/25 09:54 <Kirstie Castillo APRN - Last Filed: 01/19/25 19:47> [facility] Past Medical History Medical History: Medical History Senile debility Cataract Dysphagia Chronic atrial fibrillation Dementia, unspecified, without behavioral disturbance Essential (primary) hypertension Low kidney function Mixed hyperlipidemia Spondylosis of cervical joint with myelopathy Type 2 diabetes mellitus without complications <Kirstie Castillo APRN - Last Filed: 01/19/25 19:47> Surgical History Surgical History: Surgical History H/O hernia repair Hx of cholecystectomy <Kirstie Castillo APRN - Last Filed: 01/19/25 19:47> Family History Family History: Family History Mother Hypertension Family history of malignant neoplasm Arthritis H/O gallbladder cancer Father Cerebrovascular accident Family history of diabetes mellitus in first degree relative Diabetes mellitus Arthritis Pacemaker Sibling Arthritis Sibling Arthritis <Kirstie Castillo, FARM MANAGEMENT ADVISER - Last Filed: 01/19/25 19:47> Social History Social History: Social History Smoking status: Former smoker Tobacco type: cigarettes Second hand tobacco smoke exposure: No Smoking end date: 10/01/11 Alcohol intake: never Substance use: never Substance use type: does not use Do You Feel Safe in your Home?: Yes Lack of Transportation: No Lack of Food: Never True Current Housing: I Have Housing Concerned About Future Housing: No Difficulty Paying Gas/Electric Bills: No Difficulty Paying for Meds: No Currently Unemployed: No Education: Grade School Difficulty w/ Childcare or Family Care: No Living arrangements: with family Additional living arrangements comments: grandson Occupation/Education: retired 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 Gender identity (if verbalized by the patient): Male Spiritual care concerns: No <Kirstie Castillo, FARM MANAGEMENT ADVISER - Last Filed: 01/19/25 19:47> Exam Const: General: no acute distress and alert <Lorenza Bejarano MD - Last Filed: 01/19/25 21:56> HENMT: Head: normal to inspection <Lorenza Bejarano MD - Last Filed: 01/19/25 21:56> Eyes: EOM: EOMs intact bilaterally <Lorenza Bejarano MD - Last Filed: 01/19/25 21:56> Chest: Chest palpation & inspection: normal inspection of the chest <Lroenza Bejarano MD - Last Filed: 01/19/25 21:56> Resp: Effort & Inspection: normal respiratory effort <Lorenza Bejarano MD - Last Filed: 01/19/25 21:56> Auscultation: clear to auscultation bilaterally <Lorenza Bejarano MD - Last Filed: 01/19/25 21:56> Cardio: Rate: regular rate <Lorenza Bejarano MD - Last Filed: 01/19/25 21:56> Rhythm: regular rhythm <Lorenza Bejarano MD - Last Filed: 01/19/25 21:56> Heart sounds: Murmur heart sound present <Lorenza Bejarano MD - Last Filed: 01/19/25 21:56> GI: GI Palp: Yes Soft to palpation, No Tenderness to palpation present (GI), No Guarding due to palpation present (GI) and No Rigid due to palpation <Lorenza Bejarano MD - Last Filed: 01/19/25 21:56> Auscultation: normal bowel sounds <Lorenza Bejarano MD - Last Filed: 01/19/25 21:56> Skin: General skin exam: pallor <Lorenza Bejarano MD - Last Filed: 01/19/25 21:56> Neuro: General: moves all extremities <Lorenza Bejarano MD - Last Filed: 01/19/25 21:56> Extrem: General: edema (bilateral arm with dependent edema. mild leg edema) <Lorenza Bejarano MD - Last Filed: 01/19/25 21:56> Psych: Mental Status: mental status grossly normal <Lorenza Bejarano MD - Last Filed: 01/19/25 21:56> Affect: normal affect <Lorenza Bejarano MD - Last Filed: 01/19/25 21:56> Attitude: cooperative <Lorenza Bejarano MD - Last Filed: 01/19/25 21:56> Course Reevaluation(s) Reevaluation #1: Patient presents with possible hypoxia with anasarca. He had labs, EKG . labs show chronic kidney disease with stable creatinine. HE has chronic anemia but hemoglobin has dropped to 6.6 today. He does not seem to have acute bleeding. CT was ordered from triage due to elevate d dimer. No PE. US ordered to asses right arm swelling. I have ordered 1 unit PRBC. I have discussed with Dr. Buckner who will admit patient pending US and speaking with hospitalist. <Lorenza Bejarano MD - Last Filed: 01/19/25 21:56> Date: 01/19/25 <Lorenza Bejarano MD - Last Filed: 01/19/25 21:56> Time: 19:08 <Lorenza Bejarano MD - Last Filed: 01/19/25 21:56> Vital Signs Vital signs: Vital Signs Temperature 98.2 F 01/19/25 15:55 Pulse Rate 50 L 01/19/25 15:55 Respiratory Rate 18 01/19/25 15:55 Blood Pressure 135/83 01/19/25 15:55 Pulse Oximetry 98 01/19/25 15:55 Oxygen Delivery Room Air 01/19/25 15:55 Temperature 97.9 F 01/19/25 21:15 Pulse Rate 82 01/19/25 21:15 Respiratory Rate 15 01/19/25 21:15 Blood Pressure 139/85 01/19/25 21:15 Pulse Oximetry 96 01/19/25 21:15 Oxygen Delivery Room Air 01/19/25 15:55 <Kirstie Castillo, FARM MANAGEMENT ADVISER - Last Filed: 01/19/25 19:47> Vital Signs Temperature 98.2 F 01/19/25 15:55 Pulse Rate 50 L 01/19/25 15:55 Respiratory Rate 18 01/19/25 15:55 Blood Pressure 135/83 01/19/25 15:55 Pulse Oximetry 98 01/19/25 15:55 Oxygen Delivery Room Air 01/19/25 15:55 Temperature 97.9 F 01/19/25 21:15 Pulse Rate 82 01/19/25 21:15 Respiratory Rate 15 01/19/25 21:15 Blood Pressure 139/85 01/19/25 21:15 Pulse Oximetry 96 01/19/25 21:15 Oxygen Delivery Room Air 01/19/25 15:55 <Lorenza Bejarano MD - Last Filed: 01/19/25 21:56> MDM - Recheck/Abnormal Lab/Rx Medical Records Attestation: I reviewed the patient's medical records. <Lorenza Bejarano MD - Last Filed: 01/19/25 21:56> Lab Data Attestation: I reviewed the patient's lab results. <Lorenza Bejarano MD - Last Filed: 01/19/25 21:56> Result diagrams: 01/19/25 16:38 01/19/25 16:38 <Kirstie Castillo, FARM MANAGEMENT ADVISER - Last Filed: 01/19/25 19:47> Labs: Lab Results 01/19/25 01/19/25 Range/Units 16:38 19:35 WBC 7.6 (4.5-10.0) K/mm3 RBC 3.37 L (4.6-6.20) M/mm3 Hgb 6.6 L* (14.0-18.0) g/dL Hct 24.2 L (42.0-52.0) % MCV 71.8 L (80-100) fl MCH 19.6 L (26-34) pg MCHC 27.3 L (32-36) g/dl RDW 18.0 H (11.5-14.5) % Plt Count 194 (150-375) k/mm3 MPV 9.5 (7.4-10.4) fl Immature Gran % (Auto) 0.5 (0-0.5) % Neut % (Auto) 73.7 H (45.5-73.1) % Lymph % (Auto) 14.7 L (18.3-44.2) % Converse % (Auto) 9.2 H (2.6-8.5) % Eos % (Auto) 1.6 (0-4.4) % Baso % (Auto) 0.3 (0.2-1.2) % Lymph # (Auto) 1.12 (0.9-3.2) K/mm3 Converse # (Auto) 0.7 H (0.1-0.6) K/mm3 Eos # (Auto) 0.1 (0-0.3) K/mm3 Baso # (Auto) 0.0 (0.0-0.1) K/mm3 Abs Immat Gran (auto) 0.04 H (0.00-0.031) K/mm3 Absolute Neuts (auto) 5.6 (1.3-6.7) K/mm3 Absolute Nucleated RBC 0.070 H (0.0-0.012) K/mm3 Band Neutrophils % Not Reportable Nucleated RBC % 0.9 H (0.0-0.2) % Platelet Estimate Adequate (Adequate) Polychromasia 1+ Hypochromasia 2+ Anisocytosis 1+ Target Cells 1+ Ovalocytes 1+ Mireille Cells 1+ Schistocytes Rare PT 17.3 H (11.1-14.7) Seconds INR 1.4 APTT 33.2 (22.3-36.8) Seconds D-Dimer 1.32 H (<0.48) ug/mL Sodium 139 (137-145) mmol/L Potassium 4.4 (3.4-5.0) mmol/L Chloride 107 (98-107) mmol/L Carbon Dioxide 20 L (22-30) mmol/L Anion Gap 12 (4-12) mmol/L BUN 45 H D (9-20) mg/dL Creatinine 2.15 H (0.7-1.3) mg/dL Estim Creat Clear Calc 24 ml/min Estimated GFR 30 L (59 - ) Glucose 212 H (65-110) mg/dL Lactic Acid 1.3 (0.7-2.0) mmol/L Calcium 8.4 (8.4-10.2) mg/dL Total Bilirubin 1.2 (0.2-1.3) mg/dL AST 23 (17-59) U/L ALT 19 (6-50) U/L Alkaline Phosphatase 99 (38-126) U/L Troponin I 0.020 (0.000-0.034) ng/mL NT-Pro-B Natriuret Pep 6850 H (19.9-100) pg/mL Total Protein 6.0 L (6.3-8.2) g/dL Albumin 3.5 (3.5-5.1) g/dL Blood Type A Positive Antibody Screen Negative Crossmatch See Detail <Kirstie Castillo, FARM MANAGEMENT ADVISER - Last Filed: 01/19/25 19:47> Lab Results 01/19/25 01/19/25 Range/Units 16:38 19:35 WBC 7.6 (4.5-10.0) K/mm3 RBC 3.37 L (4.6-6.20) M/mm3 Hgb 6.6 L* (14.0-18.0) g/dL Hct 24.2 L (42.0-52.0) % MCV 71.8 L (80-100) fl MCH 19.6 L (26-34) pg MCHC 27.3 L (32-36) g/dl RDW 18.0 H (11.5-14.5) % Plt Count 194 (150-375) k/mm3 MPV 9.5 (7.4-10.4) fl Immature Gran % (Auto) 0.5 (0-0.5) % Neut % (Auto) 73.7 H (45.5-73.1) % Lymph % (Auto) 14.7 L (18.3-44.2) % Converse % (Auto) 9.2 H (2.6-8.5) % Eos % (Auto) 1.6 (0-4.4) % Baso % (Auto) 0.3 (0.2-1.2) % Lymph # (Auto) 1.12 (0.9-3.2) K/mm3 Converse # (Auto) 0.7 H (0.1-0.6) K/mm3 Eos # (Auto) 0.1 (0-0.3) K/mm3 Baso # (Auto) 0.0 (0.0-0.1) K/mm3 Abs Immat Gran (auto) 0.04 H (0.00-0.031) K/mm3 Absolute Neuts (auto) 5.6 (1.3-6.7) K/mm3 Absolute Nucleated RBC 0.070 H (0.0-0.012) K/mm3 Band Neutrophils % Not Reportable Nucleated RBC % 0.9 H (0.0-0.2) % Platelet Estimate Adequate (Adequate) Polychromasia 1+ Hypochromasia 2+ Anisocytosis 1+ Target Cells 1+ Ovalocytes 1+ Mireille Cells 1+ Schistocytes Rare PT 17.3 H (11.1-14.7) Seconds INR 1.4 APTT 33.2 (22.3-36.8) Seconds D-Dimer 1.32 H (<0.48) ug/mL Sodium 139 (137-145) mmol/L Potassium 4.4 (3.4-5.0) mmol/L Chloride 107 (98-107) mmol/L Carbon Dioxide 20 L (22-30) mmol/L Anion Gap 12 (4-12) mmol/L BUN 45 H D (9-20) mg/dL Creatinine 2.15 H (0.7-1.3) mg/dL Estim Creat Clear Calc 24 ml/min Estimated GFR 30 L (59 - ) Glucose 212 H (65-110) mg/dL Lactic Acid 1.3 (0.7-2.0) mmol/L Calcium 8.4 (8.4-10.2) mg/dL Total Bilirubin 1.2 (0.2-1.3) mg/dL AST 23 (17-59) U/L ALT 19 (6-50) U/L Alkaline Phosphatase 99 (38-126) U/L Troponin I 0.020 (0.000-0.034) ng/mL NT-Pro-B Natriuret Pep 6850 H (19.9-100) pg/mL Total Protein 6.0 L (6.3-8.2) g/dL Albumin 3.5 (3.5-5.1) g/dL Blood Type A Positive Antibody Screen Negative Crossmatch See Detail <Lorenza Bejarano MD - Last Filed: 01/19/25 21:56> Imaging Data Radiologist's impression: ITS Impressions Chest X-Ray 01/19/25 16:57 IMPRESSION: Right basilar atelectasis versus pneumonia more prominent in the posterior costophrenic angle area. Hand X-Ray 01/19/25 16:57 IMPRESSION: 1. 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 No acute osseous abnormality. Atypical predominance at the wrist and second and third metacarpophalangeal joints resupply possibility of secondary osteoarthritis in the setting of calcium pyrophosphate deposition (CPPD) disease. Chest/Abdomen/Pelvis CTA 01/19/25 18:46 IMPRESSION: No CT evidence of acute pulmonary embolus. Pulmonary opacities in the right lung concerning for infection. Moderate simple right pleural effusion. Mild pulmonary edema. Cardiomegaly with right atrial enlargement. Cystitis. Moderate body wall edema. Venous Doppler Study 01/19/25 20:00 IMPRESSION: No right upper extremity deep venous thrombosis. <Lorenza Bejarano MD - Last Filed: 01/19/25 21:56> ECG Data EKG #1: Attestation: I personally reviewed and interpreted this ECG as follows: <Lorenza Bejarano MD - Last Filed: 01/19/25 21:56> ECG completion date: 01/19/25 <Lorenza Bejarano MD - Last Filed: 01/19/25 21:56> ECG completion time: 16:33 <Lorenza Bejarano MD - Last Filed: 01/19/25 21:56> EKG Interpretation: normal rate (70) and atrial fibrillation <Lorenza Bejarano MD - Last Filed: 01/19/25 21:56> Critical Care Time Critical Care Time Critical Care Time: Yes <Lorenza Bejarano MD - Last Filed: 01/19/25 21:56> Total Critical Care Time: 35 <Lorenza Bejarano MD - Last Filed: 01/19/25 21:56> Discharge Plan Discharge Clinical Impression: Anemia, Anasarca <Kirstie Castillo APRN - Last Filed: 01/19/25 19:47> Patient Disposition: Still a Patient <Kirstie Castillo APRN - Last Filed: 01/19/25 19:47> Condition: Guarded Prognosis <Kirstie Castillo APRN - Last Filed: 01/19/25 19:47>
[2025-01-19 16:45] LABS: Basophils Percent Auto 0.3 % (0.2-1.2); Eosinophils Absolute Auto 0.1 K/mm3 (0-0.3); Eosinophils Percent Auto 1.6 % (0-4.4); Hematocrit 24.2 % (42.0-52.0); Immature Granulocyte Absolute 0.04 K/mm3 (0.00-0.031); Immature Granulocyte Percent A 0.5 % (0-0.5); Lymphocytes Absolute Auto 1.12 K/mm3 (0.9-3.2); Lymphocytes Percent Auto 14.7 % (18.3-44.2); Mean Corpuscular HGB Conc 27.3 g/dl (32-36); Mean Corpuscular Hemoglobin 19.6 pg (26-34); Mean Corpuscular Volume 71.8 fl (80-100); Mean Platelet Volume 9.5 fl (7.4-10.4); Monocytes Absolute Auto 0.7 K/mm3 (0.1-0.6); Monocytes Percent Auto 9.2 % (2.6-8.5); Neutrophils Absolute Auto 5.6 K/mm3 (1.3-6.7); Neutrophils Percent Auto 73.7 % (45.5-73.1); Nucleated Red Blood Cells Perc 0.9 % (0.0-0.2); Platelet Count Result 194 k/mm3 (150-375); Red Blood Count 3.37 M/mm3 (4.6-6.20); White Blood Count 7.6 K/mm3 (4.5-10.0)
[2025-01-19 16:47] LABS: Hemoglobin 6.6 g/dL (14.0-18.0)
[2025-01-19 16:54] LABS: Lactic Acid Reflex 1.3 mmol/L (0.7-2.0)
[2025-01-19 16:55] LABS: Alanine Aminotransferase 19 U/L (6-50); Albumin Level 3.5 g/dL (3.5-5.1); Alkaline Phosphatase 99 U/L (38-126); Anion Gap 12 mmol/L (4-12); Aspartate Amino Transferase 23 U/L (17-59); Bilirubin,Total 1.2 mg/dL (0.2-1.3); Blood Urea Nitrogen 45 mg/dL (9-20); Calcium 8.4 mg/dL (8.4-10.2); Carbon Dioxide 20 mmol/L (22-30); Chloride 107 mmol/L (98-107); Estimated CRCL calculation 24 ml/min; Estimated Glomerular Filt Rate 30; Glucose 212 mg/dL (65-110); Potassium 4.4 mmol/L (3.4-5.0); Sodium 139 mmol/L (137-145)
[2025-01-19 16:57] LABS: INR 1.4; Partial Thromboplastin Time 33.2 Seconds (22.3-36.8); Prothrombin Time 17.3 Seconds (11.1-14.7)
[2025-01-19 17:06] LABS: Platelet Estimate Adequate (Adequate)
[2025-01-19 17:07] LABS: Anisocytosis 1+; Burr Cells 1+; Hypochromasia 2+; NT Pro B Type Natriuretic Pept 6850 pg/mL (19.9-100); Ovalocytes 1+; Polychromasia 1+; Schistocytes Rare; Target Cells 1+
[2025-01-19 17:09] LABS: D Dimer 1.32 ug/mL (<0.48)
--- OUTSIDE RECORDS SUMMARY | 2025-01-19 17:22 | XMS_ITS | Referral Summary ---
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 Gender Identity Not on file Sexual Orientation [...] 69.9 kg (154 lb) 11/14/2022 3:01 PM SQL SS[employer] DEVELOPER Height 166.4 cm (5' 5.5 ) 11/14/2022 3:01 PM SQL SSRS DEVELOPER Body Mass Index 25.24 11/14/2022 3:01 PM SQL SSRS 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 Plan of Treatment Not on file Procedures [...] RBC morphology Present(A) Comment:Testing performed by : [address] [address] Hypochromasia 8-15/HPF(A) DAVID Comment:Testing performed by : [address] [address] Microcytes 3-7/HPF(A) DAVID Comment:Testing performed by : [address] [address] Elliptocytes 3-7/HPF(A) DAVID Comment:Testing performed by : [address] [address] Echinocytes 3-7/HPF(A) DAVID Comment:Testing performed by : [address] [address] Platelet estimate Adequate DAVID Comment:Testing performed by : [address] [address] Blood 01/05/2025 12:1 5 PM CDT 01/05/2025 12:46 PM CDT Jorje Agapito Diaz DO LAB BLOOD ORDERABLES Final Result Performing Organization Address [facility] Co de Phone Number DAVID [address] [address] * (ABNORMAL) eGFR (01/05/2025 12:15 PM CDT) Pathologist [facility] eGFR 25(L) >=60 mL/min/1. 73 m2 Comment: [...] was last reviewed 2021. Testing performed by: [facility], [address] [place] [address]., [address] Blood 01/05/2025 12:1 5 PM CDT 01/05/2025 12:46 PM CDT Jorje Diaz DO LAB BLOOD ORDERABLES Final Result Performing Organization Address [facility] Co de Phone Number DAVID [address] [place] [address] * (ABNORMAL) Differential, auto (01/05/2025 12:15 PM CDT) Pathologist [facility] Neutrophil abs 10.58(H) 1.50 - 6.50 K/cumm Comment:Testing performed by : [address] [address] Imm gran abs 0.10 0.00 - 0.10 K/cumm [facility] Comment:Testing performed by : [address], [place]., [address] Lymphocyte abs 1.67 0.80 - 3.30 K/cumm [facility] Comment:Testing performed by : [address], [place]., [address] Monocyte abs 1.33(H) 0.20 - 0.80 K/cumm [facility] Comment:Testing performed by : [address] [address] Eosinophil abs 0.01 0.00 - 0.50 K/cumm [facility] Comment:Testing performed by : [address] [address] Basophil abs 0.02 0.00 - 0.10 K/cumm [facility] Comment:Testing performed by : [address] [address] Neutrophil pct 77.2 % [facility] Comment: Interpretive Data Percent cell count reference ranges are not reported, since discordance with absolute values may lead to misinterpretation of CBC data. Current Interpretive Data was last revised on 2018. Testing performed by: [address] [address] Imm gran pct 0.7 % [facility] Comment: Interpretive Data Percent cell count reference ranges are not reported, since discordance with absolute values may lead to misinterpretation of CBC data. Current Interpretive Data was last revised on 2018. Testing performed by: [address] [address] Lymphocyte pct 12.2 % [facility] Comment: Interpretive Data Percent cell count reference ranges are not reported, since discordance with absolute values may lead to misinterpretation of CBC data. Current Interpretive Data was last revised on 2018. Testing performed by: [address] [address] Monocyte pct 9.7 % [facility] Comment: Interpretive Data Percent cell count reference ranges are not reported, since discordance with absolute values may lead to misinterpretation of CBC data. Current Interpretive Data was last revised on 2018. Testing performed by: [address] [address] Eosinophil pct 0.1 % DAVID Comment: Interpretive Data Percent cell count reference ranges are not reported, since discordance with absolute values may lead to misinterpretation of CBC data. Current Interpretive Data was last revised on 2018. Testing performed by: [address] [address] Basophil pct 0.1 % DAVID Comment: Interpretive Data Percent cell count reference ranges are not reported, since discordance with absolute values may lead to misinterpretation of CBC data. Current Interpretive Data was last revised on 2018. Testing performed by: [address] [address] Blood 01/05/2025 12:1 5 PM CDT 01/05/2025 12:46 PM CDT us Jorje Diaz DO LAB BLOOD ORDERABLES Final Result DAVID [address] [facility] Department of Laboratories [place], [place] [id number] * (ABNORMAL) CBC with auto differential (01/05/2025 12:15 PM CDT) WBC 13.71(H) 3.80 - 9.90 K/cumm Comment:Testing performed by : [address] [address] Hgb 7.1(L) 13.0 - 17.5 g/dL DAVID DIAZ Comment:Testing performed by : [address] [address] Hct 24.8(L) 38.9 - 50.3 % DAVID DIAZ Comment:Testing performed by : [address] [address] Plt 275 150 - 400 K/cumm DAVID DIAZ Comment:Testing performed by : [address] [address] MPV 10.9 9.1 - 12.3 fL DAVID Comment:Testing performed by : [address] [address] RBC 3.39(L) 4.30 - 5.80 M/cumm DAVID DIAZ Comment:Testing performed by : [address] [address] MCV 73.2(L) 81.3 - 96.4 fL DAVID Comment:Testing performed by : [address] [address] MCH 20.9(L) 27.1 - 33.3 pg DAVID Comment:Testing performed by : [address] [address] MCHC 28.6(L) 32.3 - 35.7 g/dL DAVID Comment:Testing performed by : [address] [address] RDW CV 17.8(H) 11.1 - 14.9 % DAVID Comment:Testing performed by : [address] [address] RDW SD 47.5 35.7 - 48.1 fL DAVID Comment:Testing performed by : [address] [address] NRBC abs 0.37(H) 0.00 - 0.01 K/cumm DAVID Comment:Testing performed by : [address] [address] Blood 01/05/2025 12:1 5 PM CDT 01/05/2025 12:46 PM CDT us Jorje Diaz DO LAB BLOOD ORDERABLES Final Result [facility] [address] [facility] [place] [address] * (ABNORMAL) Protime-INR (01/05/2025 12:15 PM CDT) PT 44.2(H) 12.0 - 14.6 sec Comment: Ref Range High Testing performed by: [address] [address] INR 4.8(H) 0.9 - 1.2 DAVID Comment: Ref Range High Interpretive data Oral anticoagulant therapeutic ranges: Venous thromboembolism prophylaxis or treatment: 2.0-3.0 CARDIOLOGY Standard range: 2.0-3.0 High-intensity range: 2.5-3.5 Refer to indication-specific guidelines for appropriate target ranges for prosthetic heart valve replacement. Current interpretive data was last revised on 2019. Testing performed by: [address] [address] Blood 01/05/2025 12:1 5 PM CDT 01/05/2025 12:46 PM CDT Jorje Diaz DO LAB BLOOD ORDERABLES Final Result DAVID [address] [facility] Department [place] [address] * (ABNORMAL) Comprehensive metabolic panel (01/05/2025 12:15 PM CDT) Pathologist [facility] Sodium 141 135 - 145 mmol/L Comment:Testing performed by : [address] [address] Potassium, pl 4.6 3.3 - 4.9 mmol/L DAVID Comment:Testing performed by : [address] [address] Chloride 108 97 - 110 mmol/L DAVID Comment:Testing performed by : [address] [address] CO2 20(L) 22 - 32 mmol/L DAVID Comment:Testing performed by : [address] [address] Anion gap 13 2 - 15 mmol/L DAVID Comment:Testing performed by : [address] [address] BUN 74(H) 6 - 25 mg/dL DAVID Comment:Testing performed by : [address] [address] Creatinine 2.50(H) 0.80 - 1.30 mg/dL DAVID Comment:Testing performed by : [address] [address] Glucose 168 70 - 199 mg/dL DAVID [...] was last revised 2022. Testing performed by: [address] [address] Calcium 8.6 8.5 - 10.3 mg/dL DAVID Comment:Testing performed by : [address] [address] Bilirubin, total 1.0 0.1 - 1.2 mg/dL DAVID Comment:Testing performed by : [address] [address] Protein, pl 5.8(L) 6.5 - 8.5 g/dL DAVID Comment:Testing performed by : [address] [address] Albumin 3.3(L) 3.5 - 5.0 g/dL [facility] Comment:Testing performed by : [address] [address] Alk phos 91 40 - 130 Units/L DAVID Comment:Testing performed by : [address] [address] ALT 33 7 - 55 Units/L DAVID Comment:Testing performed by : [address] [address] AST 19 10 - 50 Units/L DAVID DIAZ Comment:Testing performed by : [facility], [address] [place] [address], [place]., [address] Blood 01/05/2025 12:1 5 PM CDT 01/05/2025 12:46 PM CDT us Jorje Diaz DO LAB BLOOD ORDERABLES Final Result DAVID [address] [facility] [place] [address] from Last 3 Months Insurance MEDICARE RAILROAD MEDICARE RAILROAD BLUE CROSS MEDICARE SUPPLEMENT Care Teams Title I Teacher Relationship Specialty Start Date End Date Kyle Howell MD PCP - General 12/29/16
--- OUTSIDE RECORDS SUMMARY | 2025-01-19 17:22 | XMS_ITS | Encounter Summary ---
Author Organization [facility] Address [address] [place] [address] Care Team Providers Care Application Support Engineer Name Role Phone Kyle Howell MD Primary Care Provider [phone] Encounter Details Date Type Department Care Team (Late st Contact Info) Description 10/04/2016 Orders Only [facility] ProviderLencho MD [address] [place] [address] Social History Tobacco Use Types Packs/Day Years Used Date Smoking Tobacco: Never Assessed Sex and Gender Information Value Date Recorded Sex Assigned at Not on file Legal Sex 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
--- OUTSIDE RECORDS SUMMARY | 2025-01-19 17:22 | XMS_ITS | Continuity of Care Document ---
Author Organization [facility] Address [address] [place] [address] Phone Care Team Providers Care Hand Inspector Name Role Phone Shikha Najera Unavailable Unavailable Advance Directives Directive Yes / No Effective Date File Name No Information Encounters Encounter Description Practice Location Reason(s) For Visit Diagnoses Date Provider Providers Copied on Encounter [facility], [address], [place], [place], [id number], [place] tel:[phone] [facility] No Information 8-200 5 Dania Trivedi. [address] , [address], [place], [address], [place]. tel:[phone] Referring Provider: Kyle Howell MD , [address] [place], [address]. tel:[phone] Family History Family Member Type Diagnosis Age At Onset No Information Payers Payer name Insurance type Covered green party ID Authoriza tilaci(s) [facility] CI [id number] Social History Type Description Quantity Date Captured [...]
--- OUTSIDE RECORDS SUMMARY | 2025-01-19 17:22 | XMS_ITS | Encounter Summary ---
Author Organization [facility] Address [address] [place] [address] Care Team Providers Care Integrated Circuit Ic Layout Designer Name Role Phone Unavailable Primary Care Provider Unavailabl e Encounter Details Date Type Department Care Team (Late st Contact Info) Description 11/09/2023 Lab Requisition [facility] - DermPath Lab [address] [place] [address] Kyle Howell MD [address] [place] [address] Social History Tobacco Use Types Packs/Day Years Used Date Smoking Tobacco: Never Assessed Sex and Gender Information Value Date Recorded Sex Assigned at Not on file Legal Sex Male 8:21 AM BLUE PRINTS TRIMMER Gender Identity Not on file Sexual Orientation Not on file documented as of this encounter Plan of Treatment Not on file documented as of this encounter Procedures Procedure Name Priority Date/Time Associated Diagnosis Comments DERMATOPATHOLOGY Routine 11/07/2023 3:33 AM BLUE PRINTS TRIMMER documented in this encounter Results * DERMATOPATHOLOGY (11/07/2023 3:33 AM BLUE PRINTS TRIMMER) Case Report Dermatopathology Report Case: [id number] Authorizing Provider: Kyle Howell MD Collected: 11/07/2023 03:33 AM Ordering Location: [facility] DermPath Lab Received: 11/09/2023 08:39 AM Pathologist: Addie Murphy MD Specimen: Skin, right mid back 12:58 PM BLUE PRINTS TRIMMER DERMATOPATHOLOGY LABORATORY Final Diagnosis Specimen A. SKIN, right mid back: BENIGN VERRUCOUS KERATOSIS (L82.1) EPIDERMAL NECROSIS SUGGESTIVE OF EXCORIATION (L98.499) PRESENT AT MARGIN 12:58 PM BLUE PRINTS TRIMMER DERMATOPATHOLOGY LABORATORY Clinical History Changing Lesion. Check margins. 12:58 PM [facility] DERMATOPATHOLOGY LABORATORY Gross Description Specimen A: Received is one formalin filled container labeled with the patient's name and designated right mid back. The specimen consists of a shave biopsy measuring 8x5x3 mm. Jar 0. 12:58 PM [facility] DERMATOPATHOLOGY LABORATORY Microscopic Description Specimen A. SKIN, right mid back: Sections show hyperkeratosis, papillomatosis, hypergranulosis, and acanthosis. These histological findings can be seen in a verruca vulgaris or a seborrheic keratosis. The epidermis is focally necrotic and covered with a scale-crust. There is fibrin at the base. This lesion is present at the margin of the specimen. 12:58 PM [facility] DERMATOPATHOLOGY LABORATORY Disclaimer An external and internal positive and negative controls are appropriate for the histochemical, immunohistochemical and immunofluorescence stain(s) in this case (if any), except where stated explicitly. The performance characteristics of the stain(s) cited in this report were developed and its performance characteristic determined by the Dermatopathology Laboratory at [facility], directed by Dr. Pedro Borden. These tests need not be, and therefore are not, approved by the [place] Food and Drug Administration. The tests are used for clinical purposes. Billing Codes Specimen Charges Stain Charges 21239 1 12:58 PM [facility] DERMATOPATHOLOGY LABORATORY Embedded Images 12:58 PM [facility] DERMATOPATHOLOGY LABORATORY Pathology/Cytolo gy TISSUE SPECIMEN FROM SKIN / Unknown 11/07/2023 3:33 AM BLUE PRINTS TRIMMER 11/09/2023 8:39 AM BLUE PRINTS TRIMMER us Kyledov Howell MD LAB - PATHOLOGY/CYTOLOGY ALL CARL Final Result DERMATOPATHOLOGY LABORATORY [facility] - Department of Dermatology [address], [address] [phone] documented in this encounter Visit Diagnoses Not on filedocumented in this encounter
--- OUTSIDE RECORDS SUMMARY | 2025-01-19 17:22 | XMS_ITS | Clinical Summary ---
Author Organization [facility] Address [address] [place] [address] Phone Care Team Providers Care Counseling Center Manager Name Role Phone Kyle Howell MD Primary Care Provider [phone] Allergies Active Allergy Reactions Criticality Noted Date [...] Comments Blood Pressure 128/80 08/28/2022 10:28 AM OPERATIONS TECHNICIAN Pulse 60 08/28/2022 10:28 AM OPERATIONS TECHNICIAN Temperature 35.7 C (96.2 F) 08/28/2022 10:28 AM OPERATIONS TECHNICIAN Respiratory Rate - - Oxygen Saturation - - Inhaled Oxygen Concentration - - Weight 73.9 kg (163 lb) 08/28/2022 10:28 AM OPERATIONS TECHNICIAN Height 165.1 cm (5' 5 ) 08/28/2022 10:28 AM OPERATIONS TECHNICIAN Body Mass Index 27.12 08/28/2022 10:28 AM OPERATIONS TECHNICIAN Plan of Treatment Health Maintenance Due Date Last Done Comments Pneumococcal PPSV23/PCV13 65 + Years / Low and Medium Risk (1 of 4 - PCV) 1992 COVID-19 Vaccine (2 - season) 2024 Influenza Vaccine (Season Ended) 2025 07/15/2022, 07/25/2021, 07/10/2019 Insurance MEDICARE [facility] Care Teams Counseling Center Manager Relationship Specialty Start Date End Date Kyle Howell MD [address] [place] [address] PCP - General Family Medicine 12/30/18
--- OUTSIDE RECORDS SUMMARY | 2025-01-19 17:22 | XMS_ITS | Clinical Summary ---
Author Organization [facility] Address [address] [place] [address] Care Team Providers Care Circular Sawyer Helper Name Role Phone Unavailable Primary Care Provider Unavailabl e Source Comments [facility],non-owned Affiliates and Associated Physician Practices is amultiple site organization consisting of ambulatory clinics and hospital sitesin [place], [place], [place] and [place]. This disclosure is being madepursuant to the Care Everywhere program and may not contain all information available regarding this patient. Last updated 18.[facility] [employer] Social History Tobacco Use Types Packs/Day Years Used Date Smoking Tobacco: Never Assessed Sex and Gender Information Value Date Recorded Sex Assigned at Not on file Legal Sex Male 8:21 AM MORTGAGE ADVISOR Gender Identity Not on file Sexual Orientation [...] - 1-dose 75+ series) 2017 COVID-19 VACCINE ( - 2023-2 5 season) 2024 DEPRESSION SCREENING 10/01/2024 INFLUENZA [...] on patient's age to complete this topic Insurance MEDICARE [facility] Address: [address] [place] [address]
--- OUTSIDE RECORDS SUMMARY | 2025-01-19 17:22 | XMS_ITS | Clinical Summary ---
Author Organization [facility] [address] Address [address] [place] [address] Care Team Providers Care Senior Net Software Developer Name Role Phone Kyle Howell MD Primary Care Provider [phone] Allergies Active Allergy Reactions Criticality Noted Date [...] CDT - 01/05/2025 3:54 PM CDT Emergency [facility] Emergency Department [address] [place] [address] Jorje Diaz, DO Discharge Disposition: Left without [...] on file Legal Sex Male 4:21 AM SAWYER CORK SLABS Gender Identity Not on file Sexual Orientation [...] 69.9 kg (154 lb) 11/14/2022 3:01 PM SAWYER CORK SLABS Height 166.4 cm (5' 5.5 ) 11/14/2022 3:01 PM SAWYER CORK SLABS Body Mass Index 25.24 11/14/2022 3:01 PM SAWYER CORK SLABS Plan of Treatment Health Maintenance Due Date [...] RBC morphology Present(A) Comment:Testing performed by : [facility], [address] [place] [address]., [address] Hypochromasia 8-15/HPF(A) DAVID Comment:Testing performed by : [facility], [address] [place] [address]., [address] Microcytes 3-7/HPF(A) DAVID Comment:Testing performed by : [facility], [address] [place] [address], [place]., [address] Elliptocytes 3-7/HPF(A) DAVID Comment:Testing performed by : [facility], [address] [place] [address], [place]., [address] Echinocytes 3-7/HPF(A) DAVID Comment:Testing performed by : [facility], [address] [place] [address]., [address] Platelet estimate Adequate DAVID Comment:Testing performed by : [address] [address] Blood 01/05/2025 12:1 5 PM CDT 01/05/2025 12:46 PM CDT Jorje Diaz DO LAB BLOOD ORDERABLES Final Result DAVID [address] [facility] [place] [address] * (ABNORMAL) eGFR (01/05/2025 12:15 [...] was last reviewed 2021. Testing performed by: [address] [address] Blood 01/05/2025 12:1 5 PM CDT 01/05/2025 12:46 PM CDT us Jorje Diaz DO LAB BLOOD ORDERABLES Final Result DAVID [address] [facility] [place] [address] * (ABNORMAL) Differential, auto (01/05/2025 12:15 PM CDT) Neutrophil abs 10.58(H) 1.50 - 6.50 K/cumm Comment:Testing performed by : [address] [address] Imm gran abs 0.10 0.00 - 0.10 K/cumm DAVID Comment:Testing performed by : [address] [address] Lymphocyte abs 1.67 0.80 - 3.30 K/cumm DAVID Comment:Testing performed by : [address] [address] Monocyte abs 1.33(H) 0.20 - 0.80 K/cumm DAVID Comment:Testing performed by : [address] [address] Eosinophil abs 0.01 0.00 - 0.50 K/cumm DAVID Comment:Testing performed by : [address] [address] Basophil abs 0.02 0.00 - 0.10 K/cumm DAVID Comment:Testing performed by : [address] [address] Neutrophil pct 77.2 % DAVID Comment: Interpretive Data Percent cell count reference ranges are not reported, since discordance with absolute values may lead to misinterpretation of CBC data. Current Interpretive Data was last revised on 2018. Testing performed by: [address] [address] Imm gran pct 0.7 % [facility] Comment: Interpretive Data Percent cell count reference ranges are not reported, since discordance with absolute values may lead to misinterpretation of CBC data. Current Interpretive Data was last revised on 2018. Testing performed by: [address] [address] Lymphocyte pct 12.2 % [facility] Comment: Interpretive Data Percent cell count reference ranges are not reported, since discordance with absolute values may lead to misinterpretation of CBC data. Current Interpretive Data was last revised on 2018. Testing performed by: [address] [address] Monocyte pct 9.7 % [facility] Comment: Interpretive Data Percent cell count reference ranges are not reported, since discordance with absolute values may lead to misinterpretation of CBC data. Current Interpretive Data was last revised on 2018. Testing performed by: [address] [address] Eosinophil pct 0.1 % [facility] Comment: Interpretive Data Percent cell count reference ranges are not reported, since discordance with absolute values may lead to misinterpretation of CBC data. Current Interpretive Data was last revised on 2018. Testing performed by: [address] [address] Basophil pct 0.1 % [facility] Comment: Interpretive Data Percent cell count reference ranges are not reported, since discordance with absolute values may lead to misinterpretation of CBC data. Current Interpretive Data was last revised on 2018. Testing performed by: [address] [address] Blood 01/05/2025 12:1 5 PM CDT 01/05/2025 12:46 PM CDT Jroje Diaz DO LAB BLOOD ORDERABLES Final Result DAIVD [address] [facility] [place] [address] * (ABNORMAL) CBC with auto differential (01/05/2025 12:15 PM CDT) [facility] WBC 13.71(H) 3.80 - 9.90 K/cumm Comment:Testing performed by : [address] [address] Hgb 7.1(L) 13.0 - 17.5 g/dL DAVID Comment:Testing performed by : [address] [address] Hct 24.8(L) 38.9 - 50.3 % DAVID Comment:Testing performed by : [address] [address] Plt 275 150 - 400 K/cumm DAVID Comment:Testing performed by : [address] [address] MPV 10.9 9.1 - 12.3 fL DAVID Comment:Testing performed by : [address] [address] RBC 3.39(L) 4.30 - 5.80 M/cumm DAVID Comment:Testing performed by : [address] [address] MCV 73.2(L) 81.3 - 96.4 fL DAVID Comment:Testing performed by : [address] [address] MCH 20.9(L) 27.1 - 33.3 pg DAVID Comment:Testing performed by : [address] [address] MCHC 28.6(L) 32.3 - 35.7 g/dL DAVID Comment:Testing performed by : [address] [address] RDW CV 17.8(H) 11.1 - 14.9 % DAVID Comment:Testing performed by : [address] [address] RDW SD 47.5 35.7 - 48.1 fL DAVID Comment:Testing performed by : [address] [address] NRBC abs 0.37(H) 0.00 - 0.01 K/cumm DAVID DIAZ Comment:Testing performed by : [address] [address] Blood 01/05/2025 12:1 5 PM CDT 01/05/2025 12:46 PM CDT Jorje Diaz LAB BLOOD ORDERABLES Final Result Performing Organization Address [facility] de Phone Number DAVID [address] [facility] [place] [address] * (ABNORMAL) Protime-INR (01/05/2025 12:15 PM CDT) PT 44.2(H) 12.0 - 14.6 sec Comment: Ref Range High Testing performed by: [address] [address] INR 4.8(H) 0.9 - 1.2 DAVID Comment: Ref Range High Interpretive data Oral anticoagulant therapeutic ranges: Venous thromboembolism prophylaxis or treatment: 2.0-3.0 CARDIOLOGY Standard range: 2.0-3.0 High-intensity range: 2.5-3.5 Refer to indication-specific guidelines for appropriate target ranges for prosthetic heart valve replacement. Current interpretive data was last revised on 2019. Testing performed by: [address] [address] Blood 01/05/2025 12:1 5 PM CDT 01/05/2025 12:46 PM CDT Jorje Diaz DO LAB BLOOD ORDERABLES Final Result Performing Organization Address City/[facility] Co de Phone Number [facility] [address] [facility] [place] [address] * (ABNORMAL) Comprehensive metabolic panel (01/05/2025 12:15 PM CDT) Sodium 141 135 - 145 mmol/L Comment:Testing performed by : [address] [address] Potassium, pl 4.6 3.3 - 4.9 mmol/L DAVID Comment:Testing performed by : [address], [place]., [address] Chloride 108 97 - 110 mmol/L DAVID Comment:Testing performed by : [address], [place]., [address] CO2 20(L) 22 - 32 mmol/L DAVID Comment:Testing performed by : [address] [address] Anion gap 13 2 - 15 mmol/L DAVID Comment:Testing performed by : [address], [place]., [address] BUN 74(H) 6 - 25 mg/dL DAVID Comment:Testing performed by : [address] [address] Creatinine 2.50(H) 0.80 - 1.30 mg/dL [facility] Comment:Testing performed by : [address] [address] Glucose 168 70 - 199 mg/dL [facility] Comment: Interpretive Data Fasting glucose >/= 126 [...] was last revised 2022. Testing performed by: [address] [address] Calcium 8.6 8.5 - 10.3 mg/dL [facility] Comment:Testing performed by : [address] [address] Bilirubin, total 1.0 0.1 - 1.2 mg/dL DAVID Comment:Testing performed by : [facility], [address] [place] [address]., [address] Protein, pl 5.8(L) 6.5 - 8.5 g/dL DAVID Comment:Testing performed by : [address] [address] Albumin 3.3(L) 3.5 - 5.0 g/dL DAVID Comment:Testing performed by : [address] [address] Alk phos 91 40 - 130 Units/L DAVID Comment:Testing performed by : [address] [address] ALT 33 7 - 55 Units/L DAVID Comment:Testing performed by : [address] [address] AST 19 10 - 50 Units/L DAVID Comment:Testing performed by : [address] [address] Blood 01/05/2025 12:1 5 PM CDT 01/05/2025 12:46 PM CDT Jorje Diaz DO LAB BLOOD ORDERABLES Final Result DAVID [address] [facility] [place] [address] from Last 3 Months Insurance MEDICARE [employer]RO[employer] MEDICARE [employer] [facility] MEDICARE SUPPLEMENT Care Teams Senior Net Software Developer Relationship Specialty Start Date End Date Kyle Howell MD PCP - General 12/29/16
--- OUTSIDE RECORDS SUMMARY | 2025-01-19 17:22 | XMS_ITS | CONTINUITY OF CARE DOCUMENT ---
Author Name celia yagn Address Unknown Organization [facility] Address [address] [place] [address] Phone [phone] Care Team Providers Care Airport Guide Name Role Phone Leonidas PURDY, Mago Unavailable COCO PURDY, [place] Unavailable COCO PURDY, [place] Unavailable [phone] INSURANCE PROVIDERS Payer name Policy type / Coverage type [place] red alliance party ID [facility] Other [id number] [facility] Other [id number]
[2025-01-19 18:10] VITALS: BP 110/63; PULSE 72; RESP 16; O2SAT 100
--- OUTSIDE RECORDS SUMMARY | 2025-01-19 19:07 | XMS_ITS | Continuity of Care Document ---
Author Organization [facility] Address [address] [place] [address] Phone Care Team Providers Care Imaging Services Director Name Role Phone Shikha Najera Unavailable Unavailable Advance Directives Directive Yes / No Effective Date File Name No Information Encounters Encounter Description Practice Location Reason(s) For Visit Diagnoses Date Provider Providers Copied on Encounter [facility], [address], [place], [place], [address], [place] tel:[phone] [facility] No Information 8-200 5 Dania Trivedi. [address] , [address], [place], [address], [place]. tel:[phone] Referring Provider: Kyle Howell MD , [address] [place], [address]. tel:[phone] Family History Family Member Type Diagnosis Age At Onset No Information Payers Payer name Insurance type Covered libertarian ID Authoriza tilaci(s) [facility] CI [id number] Social History Type Description Quantity Date Captured [...]
--- OUTSIDE RECORDS SUMMARY | 2025-01-19 19:07 | XMS_ITS | Clinical Summary ---
Author Organization [facility] Address [address] [place] [address] Care Team Providers Care Logistics Clerk Name Role Phone Unavailable Primary Care Provider Unavailabl e Source Comments [facility],non-owned Affiliates and Associated Physician Practices is amultiple site organization consisting of ambulatory clinics and hospital sitesin [place], [place], [place] and [place]. This disclosure is being madepursuant to the Care Everywhere program and may not contain all information available regarding this patient. Last updated 18.[facility] [employer] Social History Tobacco Use Types Packs/Day Years Used Date Smoking Tobacco: Never Assessed Sex and Gender Information Value Date Recorded Sex Assigned at Not on file Legal Sex Male 8:21 AM TUBE WRAPPER Gender Identity Not on file Sexual Orientation [...] age to complete this topic Insurance MEDICARE [facility]
--- OUTSIDE RECORDS SUMMARY | 2025-01-19 19:07 | XMS_ITS | Encounter Summary ---
Author Organization [facility] Address [address] [place] [address] Care Team Providers Care Co Chairman Name Role Phone Unavailable Primary Care Provider Unavailabl e Encounter Details Date Type Department Care Team (Late st Contact Info) Description 11/09/2023 Lab Requisition [facility] [address] [place] [address] Kyle Howell MD [address] [place] [address] Social History Tobacco Use Types Packs/Day Years Used Date Smoking Tobacco: Never Assessed Sex and Gender Information Value Date Recorded Sex Assigned at Not on file Legal Sex Male 8:21 AM WET FINISHER Gender Identity Not on file Sexual Orientation Not on file documented as of this encounter Plan of Treatment Not on file documented as of this encounter Procedures Procedure Name Priority Date/Time Associated Diagnosis Comments DERMATOPATHOLOGY Routine 11/07/2023 3:33 AM WET FINISHER documented in this encounter Results * DERMATOPATHOLOGY (11/07/2023 3:33 AM WET FINISHER) Case Report Dermatopathology Report Case: [id number] Authorizing Provider: Kyle Howell MD Collected: 11/07/2023 03:33 AM Ordering Location: [facility] Received: 11/09/2023 08:39 AM Pathologist: Addie Murphy MD Specimen: Skin, right mid back 12:58 PM WET FINISHER DERMATOPATHOLOGY LABORATORY Final Diagnosis Specimen A. SKIN, right mid back: BENIGN VERRUCOUS KERATOSIS (L82.1) EPIDERMAL NECROSIS SUGGESTIVE OF EXCORIATION (L98.499) PRESENT AT MARGIN 12:58 PM WET FINISHER DERMATOPATHOLOGY LABORATORY Clinical History Changing Lesion. Check margins. 12:58 PM [facility] DERMATOPATHOLOGY LABORATORY Gross Description Specimen A: Received is one formalin filled container labeled with the patient's name and designated right mid back. The specimen consists of a shave biopsy measuring 8x5x3 mm. Jar 0. 12:58 PM [facility] DERMATOPATHOLOGY LABORATORY Microscopic Description Specimen A. SKIN, right mid back: Sections show hyperkeratosis, papillomatosis, hypergranulosis, and acanthosis. These histological findings can be seen in a verruca vulgaris or a seborrheic keratosis. The epidermis is focally necrotic and covered with a scale-crust. There is fibrin at the base. This lesion is present at the margin of the specimen. 12:58 PM [facility] DERMATOPATHOLOGY LABORATORY Disclaimer An external and internal positive and negative controls are appropriate for the histochemical, immunohistochemical and immunofluorescence stain(s) in this case (if any), except where stated explicitly. The performance characteristics of the stain(s) cited in this report were developed and its performance characteristic determined by the Dermatopathology Laboratory at [facility], directed by Dr. Pedro Borden. These tests need not be, and therefore are not, approved by the [place] Food and Drug Administration. The tests are used for clinical purposes. Billing Codes Specimen Charges Stain Charges 88246 1 12:58 PM [facility] DERMATOPATHOLOGY LABORATORY Embedded Images 12:58 PM [facility] DERMATOPATHOLOGY LABORATORY Pathology/Cytolo gy TISSUE SPECIMEN FROM SKIN / Unknown 11/07/2023 3:33 AM WET FINISHER 11/09/2023 8:39 AM WET FINISHER us Kyledov Howell MD LAB - PATHOLOGY/CYTOLOGY ALL CARL Final Result DERMATOPATHOLOGY LABORATORY [facility] - Department of Dermatology [address], [address] Floor [address] [phone] documented in this encounter Visit Diagnoses Not on filedocumented in this encounter
--- OUTSIDE RECORDS SUMMARY | 2025-01-19 19:07 | XMS_ITS | Clinical Summary ---
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 Gender Identity Not on file Sexual Orientation [...] 69.9 kg (154 lb) 11/14/2022 3:01 PM EXPORT CLERK Height 166.4 cm (5' 5.5 ) 11/14/2022 3:01 PM EXPORT CLERK Body Mass Index 25.24 11/14/2022 3:01 PM EXPORT CLERK Plan of Treatment Health Maintenance Due Date [...] RBC morphology Present(A) Comment:Testing performed by : [facility], [address] [place] [address]., [address] Hypochromasia 8-15/HPF(A) DAVID Comment:Testing performed by : [facility], [address] [place] [address]., [address] Microcytes 3-7/HPF(A) DAVID Comment:Testing performed by : [facility], [address] [place] [address], [place]., [address] Elliptocytes 3-7/HPF(A) DAVID Comment:Testing performed by : [facility], [address] [place] [address], [place]., [address] Echinocytes 3-7/HPF(A) DAVID Comment:Testing performed by : [facility], [address] [place] [address]., [address] Platelet estimate Adequate DAVID Comment:Testing performed by : [address] [address] Blood 01/05/2025 12:1 5 PM CDT 01/05/2025 12:46 PM CDT Jorje Diaz DO LAB BLOOD ORDERABLES Final Result DAVID [address] [facility] Department [place] [address] * (ABNORMAL) eGFR (01/05/2025 12:15 [...] was last reviewed 2021. Testing performed by: [address] [address] Blood 01/05/2025 12:1 5 PM CDT 01/05/2025 12:46 PM CDT us Jorje Diaz DO LAB BLOOD ORDERABLES Final Result DAVID [address] [facility] Department [place] [address] * (ABNORMAL) Differential, auto (01/05/2025 12:15 PM CDT) Neutrophil abs 10.58(H) 1.50 - 6.50 K/cumm Comment:Testing performed by : [address] [address] Imm gran abs 0.10 0.00 - 0.10 K/cumm DAVID Comment:Testing performed by : [address] [address] Lymphocyte abs 1.67 0.80 - 3.30 K/cumm DAVID Comment:Testing performed by : [address] [address] Monocyte abs 1.33(H) 0.20 - 0.80 K/cumm DAVID Comment:Testing performed by : [address] [address] Eosinophil abs 0.01 0.00 - 0.50 K/cumm DAVID Comment:Testing performed by : [address] [address] Basophil abs 0.02 0.00 - 0.10 K/cumm DAVID Comment:Testing performed by : [address] [address] Neutrophil pct 77.2 % DAVID Comment: Interpretive Data Percent cell count reference ranges are not reported, since discordance with absolute values may lead to misinterpretation of CBC data. Current Interpretive Data was last revised on 2018. Testing performed by: [address] [address] Imm gran pct 0.7 % [facility] Comment: Interpretive Data Percent cell count reference ranges are not reported, since discordance with absolute values may lead to misinterpretation of CBC data. Current Interpretive Data was last revised on 2018. Testing performed by: [address] [address] Lymphocyte pct 12.2 % [facility] Comment: Interpretive Data Percent cell count reference ranges are not reported, since discordance with absolute values may lead to misinterpretation of CBC data. Current Interpretive Data was last revised on 2018. Testing performed by: [address] [address] Monocyte pct 9.7 % [facility] Comment: Interpretive Data Percent cell count reference ranges are not reported, since discordance with absolute values may lead to misinterpretation of CBC data. Current Interpretive Data was last revised on 2018. Testing performed by: [address] [address] Eosinophil pct 0.1 % [facility] Comment: Interpretive Data Percent cell count reference ranges are not reported, since discordance with absolute values may lead to misinterpretation of CBC data. Current Interpretive Data was last revised on 2018. Testing performed by: [address] [address] Basophil pct 0.1 % [facility] Comment: Interpretive Data Percent cell count reference ranges are not reported, since discordance with absolute values may lead to misinterpretation of CBC data. Current Interpretive Data was last revised on 2018. Testing performed by: [address] [address] Blood 01/05/2025 12:1 5 PM CDT 01/05/2025 12:46 PM CDT Jorje Diaz DO LAB BLOOD ORDERABLES Final Result DAVID [address] [facility] Department [place] [address] * (ABNORMAL) CBC with auto differential (01/05/2025 12:15 PM CDT) [facility] WBC 13.71(H) 3.80 - 9.90 K/cumm Comment:Testing performed by : [address] [address] Hgb 7.1(L) 13.0 - 17.5 g/dL DAVID Comment:Testing performed by : [address] [address] Hct 24.8(L) 38.9 - 50.3 % DAVID Comment:Testing performed by : [address] [address] Plt 275 150 - 400 K/cumm DAVID Comment:Testing performed by : [address] [address] MPV 10.9 9.1 - 12.3 fL DAVID Comment:Testing performed by : [address] [address] RBC 3.39(L) 4.30 - 5.80 M/cumm DAVID Comment:Testing performed by : [address] [address] MCV 73.2(L) 81.3 - 96.4 fL DAVID Comment:Testing performed by : [address] [address] MCH 20.9(L) 27.1 - 33.3 pg DAVID Comment:Testing performed by : [address] [address] MCHC 28.6(L) 32.3 - 35.7 g/dL DAVID Comment:Testing performed by : [address] [address] RDW CV 17.8(H) 11.1 - 14.9 % DAVID Comment:Testing performed by : [address] [address] RDW SD 47.5 35.7 - 48.1 fL DAVID Comment:Testing performed by : [address] [address] NRBC abs 0.37(H) 0.00 - 0.01 K/cumm DAVID DIAZ Comment:Testing performed by : [address] [address] Blood 01/05/2025 12:1 5 PM CDT 01/05/2025 12:46 PM CDT Jorje Diaz LAB BLOOD ORDERABLES Final Result Performing Organization Address [facility] de Phone Number DAVID [address] [facility] [place] [address] * (ABNORMAL) Protime-INR (01/05/2025 12:15 PM CDT) PT 44.2(H) 12.0 - 14.6 sec Comment: Ref Range High Testing performed by: [address] [address] INR 4.8(H) 0.9 - 1.2 DAVID Comment: Ref Range High Interpretive data Oral anticoagulant therapeutic ranges: Venous thromboembolism prophylaxis or treatment: 2.0-3.0 CARDIOLOGY Standard range: 2.0-3.0 High-intensity range: 2.5-3.5 Refer to indication-specific guidelines for appropriate target ranges for prosthetic heart valve replacement. Current interpretive data was last revised on 2019. Testing performed by: [address] [address] Blood 01/05/2025 12:1 5 PM CDT 01/05/2025 12:46 PM CDT Jorje Diaz DO LAB BLOOD ORDERABLES Final Result Performing Organization Address City/[facility] Co de Phone Number [facility] [address] [facility] [place] [address] * (ABNORMAL) Comprehensive metabolic panel (01/05/2025 12:15 PM CDT) Sodium 141 135 - 145 mmol/L Comment:Testing performed by : [address] [address] Potassium, pl 4.6 3.3 - 4.9 mmol/L DAVID Comment:Testing performed by : [address], [place]., [address] Chloride 108 97 - 110 mmol/L DAVID Comment:Testing performed by : [address], [place]., [address] CO2 20(L) 22 - 32 mmol/L DAVID Comment:Testing performed by : [address] [address] Anion gap 13 2 - 15 mmol/L DAVID Comment:Testing performed by : [address], [place]., [address] BUN 74(H) 6 - 25 mg/dL DAVID Comment:Testing performed by : [address] [address] Creatinine 2.50(H) 0.80 - 1.30 mg/dL [facility] Comment:Testing performed by : [address] [address] Glucose 168 70 - 199 mg/dL [facility] Comment: Interpretive Data Fasting glucose >/= 126 [...] was last revised 2022. Testing performed by: [address] [address] Calcium 8.6 8.5 - 10.3 mg/dL [facility] Comment:Testing performed by : [address] [address] Bilirubin, total 1.0 0.1 - 1.2 mg/dL DAVID Comment:Testing performed by : [facility], [address] [place] [address]., [address] Protein, pl 5.8(L) 6.5 - 8.5 g/dL DAVID Comment:Testing performed by : [address] [address] Albumin 3.3(L) 3.5 - 5.0 g/dL DAVID Comment:Testing performed by : [address] [address] Alk phos 91 40 - 130 Units/L DAVID Comment:Testing performed by : [address] [address] ALT 33 7 - 55 Units/L DAVID Comment:Testing performed by : [address] [address] AST 19 10 - 50 Units/L DAVID Comment:Testing performed by : [address] [address] Blood 01/05/2025 12:1 5 PM CDT 01/05/2025 12:46 PM CDT Jorje Diaz DO LAB BLOOD ORDERABLES Final Result DAVID [address] [facility] Department [place] [address] from Last 3 Months Insurance MEDICARE RAILROAD MEDICARE RAILROAD [facility] MEDICARE SUPPLEMENT Care Teams Survey Data Technician Relationship Specialty Start Date End Date Kyle Howell MD PCP - General 12/29/16
--- OUTSIDE RECORDS SUMMARY | 2025-01-19 19:07 | XMS_ITS | Clinical Summary ---
Author Organization [facility] Address [address] [place] [address] Phone Care Team Providers Care Back Strip Machine Operator Name Role Phone Kyle Howell MD Primary Care Provider [phone] Allergies Active Allergy Reactions Criticality Noted Date [...] Comments Blood Pressure 128/80 08/28/2022 10:28 AM STOCKKEEPER Pulse 60 08/28/2022 10:28 AM STOCKKEEPER Temperature 35.7 C (96.2 F) 08/28/2022 10:28 AM STOCKKEEPER Respiratory Rate - - Oxygen Saturation - - Inhaled Oxygen Concentration - - Weight 73.9 kg (163 lb) 08/28/2022 10:28 AM STOCKKEEPER Height 165.1 cm (5' 5 ) 08/28/2022 10:28 AM STOCKKEEPER Body Mass Index 27.12 08/28/2022 10:28 AM STOCKKEEPER Plan of Treatment Health Maintenance Due Date Last Done Comments Pneumococcal PPSV23/PCV13 65 + Years / Low and Medium Risk (1 of 4 - PCV) 1992 COVID-19 Vaccine (2 - season) 2024 Influenza Vaccine (Season Ended) 2025 07/15/2022, 07/25/2021, 07/10/2019 Insurance MEDICARE RAILFORMERLY [facility] Care Teams Back Strip Machine Operator Relationship Specialty Start Date End Date Kyle Howell MD [address] [place] [address] PCP - General Family Medicine 12/30/18
--- OUTSIDE RECORDS SUMMARY | 2025-01-19 19:07 | XMS_ITS | Referral Summary ---
Author Organization [facility] [address] Address [address] [place] [address] Care Team Providers Care Metal Bonding Assembler Name Role Phone Kyle Howell MD Primary Care Provider [phone] Encounters Date Type Department Care Team Description 01/05/2025 11:29 AM CDT - 01/05/2025 3:[address] 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 Gender Identity Not on file Sexual [...] 69.9 kg (154 lb) 11/14/2022 3:01 PM CONTACT ACID PLANT OPERATOR Height 166.4 cm (5' 5.5 ) 11/14/2022 3:01 PM CONTACT ACID PLANT OPERATOR Body Mass Index 25.24 11/14/2022 3:01 PM CONTACT ACID PLANT OPERATOR Plan of Treatment Not on file Procedures [...] RBC morphology Present(A) Comment:Testing performed by : [address] [address] Hypochromasia 8-15/HPF(A) DAVID Comment:Testing performed by : [address] [address] Microcytes 3-7/HPF(A) DAVID Comment:Testing performed by : [address] [address] Elliptocytes 3-7/HPF(A) DAVID Comment:Testing performed by : [address] [address] Echinocytes 3-7/HPF(A) DAVID Comment:Testing performed by : [address] [address] Platelet estimate Adequate DAVID Comment:Testing performed by : [address] [address] Blood 01/05/2025 12:1 5 PM CDT 01/05/2025 12:46 PM CDT Jorje Agapito Diaz DO LAB BLOOD ORDERABLES Final Result Performing Organization Address [facility] Co de Phone Number DAVID [address] [address] * (ABNORMAL) eGFR (01/05/2025 12:15 PM CDT) Pathologist [facility] eGFR 25(L) >=60 mL/min/1. 73 m2 Comment: [...] was last reviewed 2021. Testing performed by: [facility], [address] [place] [address]., [address] Blood 01/05/2025 12:1 5 PM CDT 01/05/2025 12:46 PM CDT Jorje Diaz DO LAB BLOOD ORDERABLES Final Result Performing Organization Address [facility] Co de Phone Number DAVID [address] [place] [address] * (ABNORMAL) Differential, auto (01/05/2025 12:15 PM CDT) Pathologist [facility] Neutrophil abs 10.58(H) 1.50 - 6.50 K/cumm Comment:Testing performed by : [address] [address] Imm gran abs 0.10 0.00 - 0.10 K/cumm [facility] Comment:Testing performed by : [address], [place]., [address] Lymphocyte abs 1.67 0.80 - 3.30 K/cumm [facility] Comment:Testing performed by : [address], [place]., [address] Monocyte abs 1.33(H) 0.20 - 0.80 K/cumm [facility] Comment:Testing performed by : [address] [address] Eosinophil abs 0.01 0.00 - 0.50 K/cumm [facility] Comment:Testing performed by : [address] [address] Basophil abs 0.02 0.00 - 0.10 K/cumm [facility] Comment:Testing performed by : [address] [address] Neutrophil pct 77.2 % [facility] Comment: Interpretive Data Percent cell count reference ranges are not reported, since discordance with absolute values may lead to misinterpretation of CBC data. Current Interpretive Data was last revised on 2018. Testing performed by: [address] [address] Imm gran pct 0.7 % [facility] Comment: Interpretive Data Percent cell count reference ranges are not reported, since discordance with absolute values may lead to misinterpretation of CBC data. Current Interpretive Data was last revised on 2018. Testing performed by: [address] [address] Lymphocyte pct 12.2 % [facility] Comment: Interpretive Data Percent cell count reference ranges are not reported, since discordance with absolute values may lead to misinterpretation of CBC data. Current Interpretive Data was last revised on 2018. Testing performed by: [address] [address] Monocyte pct 9.7 % [facility] Comment: Interpretive Data Percent cell count reference ranges are not reported, since discordance with absolute values may lead to misinterpretation of CBC data. Current Interpretive Data was last revised on 2018. Testing performed by: [address] [address] Eosinophil pct 0.1 % DAVID Comment: Interpretive Data Percent cell count reference ranges are not reported, since discordance with absolute values may lead to misinterpretation of CBC data. Current Interpretive Data was last revised on 2018. Testing performed by: [address] [address] Basophil pct 0.1 % DAVID Comment: Interpretive Data Percent cell count reference ranges are not reported, since discordance with absolute values may lead to misinterpretation of CBC data. Current Interpretive Data was last revised on 2018. Testing performed by: [address] [address] Blood 01/05/2025 12:1 5 PM CDT 01/05/2025 12:46 PM CDT us Jorje Diaz DO LAB BLOOD ORDERABLES Final Result DAVID [address] [facility] Department of Laboratories [place], [place] [id number] * (ABNORMAL) CBC with auto differential (01/05/2025 12:15 PM CDT) WBC 13.71(H) 3.80 - 9.90 K/cumm Comment:Testing performed by : [address] [address] Hgb 7.1(L) 13.0 - 17.5 g/dL DAVID DIAZ Comment:Testing performed by : [address] [address] Hct 24.8(L) 38.9 - 50.3 % DAVID DIAZ Comment:Testing performed by : [address] [address] Plt 275 150 - 400 K/cumm DAVID DIAZ Comment:Testing performed by : [address] [address] MPV 10.9 9.1 - 12.3 fL DAVID Comment:Testing performed by : [address] [address] RBC 3.39(L) 4.30 - 5.80 M/cumm DAVID DIAZ Comment:Testing performed by : [address] [address] MCV 73.2(L) 81.3 - 96.4 fL DAVID Comment:Testing performed by : [address] [address] MCH 20.9(L) 27.1 - 33.3 pg DAVID Comment:Testing performed by : [address] [address] MCHC 28.6(L) 32.3 - 35.7 g/dL DAVID Comment:Testing performed by : [address] [address] RDW CV 17.8(H) 11.1 - 14.9 % DAVID Comment:Testing performed by : [address] [address] RDW SD 47.5 35.7 - 48.1 fL DAVID Comment:Testing performed by : [address] [address] NRBC abs 0.37(H) 0.00 - 0.01 K/cumm DAVID Comment:Testing performed by : [address] [address] Blood 01/05/2025 12:1 5 PM CDT 01/05/2025 12:46 PM CDT us Jorje Diaz DO LAB BLOOD ORDERABLES Final Result [facility] [address] [facility] Department [place] [address] * (ABNORMAL) Protime-INR (01/05/2025 12:15 PM CDT) PT 44.2(H) 12.0 - 14.6 sec Comment: Ref Range High Testing performed by: [address] [address] INR 4.8(H) 0.9 - 1.2 DAVID Comment: Ref Range High Interpretive data Oral anticoagulant therapeutic ranges: Venous thromboembolism prophylaxis or treatment: 2.0-3.0 CARDIOLOGY Standard range: 2.0-3.0 High-intensity range: 2.5-3.5 Refer to indication-specific guidelines for appropriate target ranges for prosthetic heart valve replacement. Current interpretive data was last revised on 2019. Testing performed by: [address] [address] Blood 01/05/2025 12:1 5 PM CDT 01/05/2025 12:46 PM CDT Jorje Diaz DO LAB BLOOD ORDERABLES Final Result DAVID [address] [facility] Department [place] [address] * (ABNORMAL) Comprehensive metabolic panel (01/05/2025 12:15 PM CDT) Pathologist [facility] Sodium 141 135 - 145 mmol/L Comment:Testing performed by : [address] [address] Potassium, pl 4.6 3.3 - 4.9 mmol/L DAVID Comment:Testing performed by : [address] [address] Chloride 108 97 - 110 mmol/L DAVID Comment:Testing performed by : [address] [address] CO2 20(L) 22 - 32 mmol/L DAVID Comment:Testing performed by : [address] [address] Anion gap 13 2 - 15 mmol/L DAVID Comment:Testing performed by : [address] [address] BUN 74(H) 6 - 25 mg/dL DAVID Comment:Testing performed by : [address] [address] Creatinine 2.50(H) 0.80 - 1.30 mg/dL DAVID Comment:Testing performed by : [address] [address] Glucose 168 70 - 199 mg/dL DAVID [...] was last revised 2022. Testing performed by: [address] [address] Calcium 8.6 8.5 - 10.3 mg/dL DAVID Comment:Testing performed by : [address] [address] Bilirubin, total 1.0 0.1 - 1.2 mg/dL DAVID Comment:Testing performed by : [address] [address] Protein, pl 5.8(L) 6.5 - 8.5 g/dL DAVID Comment:Testing performed by : [address] [address] Albumin 3.3(L) 3.5 - 5.0 g/dL [facility] Comment:Testing performed by : [address] [address] Alk phos 91 40 - 130 Units/L DAVID Comment:Testing performed by : [address] [address] ALT 33 7 - 55 Units/L DAVID Comment:Testing performed by : [address] [address] AST 19 10 - 50 Units/L DAVID DIAZ Comment:Testing performed by : [facility], [address] [place] [address], [place]., [address] Blood 01/05/2025 12:1 5 PM CDT 01/05/2025 12:46 PM CDT us Jorje Diaz DO LAB BLOOD ORDERABLES Final Result DAVID [address] [facility] Department [place] [address] from Last 3 Months Insurance MEDICARE RAILRO[place] [address] [employer] MEDICARE SUPPLEMENT Care Teams Metal Bonding Assembler Relationship Specialty Start Date End Date Kyle Howell MD PCP - General 12/29/16
--- OUTSIDE RECORDS SUMMARY | 2025-01-19 19:07 | XMS_ITS | Encounter Summary ---
Author Organization [facility] Address [address] [place] [id number] Care Team Providers Care Mems Integration Engineer Name Role Phone Kyle Howell MD Primary Care Provider [phone] Encounter Details Date Type Department Care Team (Late st Contact Info) Description 10/04/2016 Orders Only [facility] ProviderLencho MD [address] [place] [id number] Social History Tobacco Use Types Packs/Day Years Used Date Smoking Tobacco: Never Assessed Sex and Gender Information Value Date Recorded Sex Assigned at Not on file Legal Sex Male 4:21 AM [employer] Gender Identity Not on file Sexual Orientation [...] on filedocumented in this encounter Care Teams Mems Integration Engineer Relationship Specialty Start Date End Date Kyle Howell MD PCP - General 12/29/16 documented as of this encounter
--- NOTE | 2025-01-19 19:30 | PC.NURSE ---
Received report from KRISTOFER Middleton for cont. of care. Pt AOX2, lying on stretcher respirations even and unlabored. Pt urine incontinent, brief changed and clean gown applied.
[2025-01-19 19:37] VITALS: BP 150/49; PULSE 74; RESP 19; TEMP 36.7; O2SAT 92
[2025-01-19 20:20] VITALS: RESP 20
[2025-01-19 21:15] VITALS: BP 139/85; PULSE 82; PULSE 85; RESP 14; RESP 15; TEMP 36.6; TEMP 36.8; O2SAT 100; O2SAT 96
--- NOTE | 2025-01-19 21:57 | PM.IMHP ---
H&P: HPI History of Present Illness Date/Time: 01/19/25 21:57 Chief Complaint: Decreased oxygen saturation Narrative: 84-year-old male brought in by his 2 daughters. They are active in his care and the patient currently lives with his grandson and granddaughter. He has a history of severe dementia hypertension, hyperlipidemia, atrial fibrillation, [id number] diabetes mellitus. Patient was taken to his doctor's visit today and reportedly they could not get a pulse oximeter reading so he was brought to [facility] on 01/19/2025. Here he had adequate SpO2 greater than 92%. He did not appear short of breath. Daughters report he has had some congestion and a cough but no sputum production and no shortness of breath. Denies fever. Patient has chronic anemia. He was previously on Eliquis but was taken off due to anemia and he also had refractory nose bleeds. He has started baby aspirin in the past few weeks. Hemoglobin on arrival 6.6 and 1 unit PRBC was started. Family denies any overt bleeding or dark stool. D-dimer elevated at 1.32, chest abdomen pelvis CTA ordered which was negative for acute PE. Positive for moderate simple right pleural effusion and patchy opacities in the right lung. Review of Systems Review of Systems: All systems reviewed & are unremarkable except as noted in HPI and below (HPI) [facility] Past Medical History Medical History Senile debility Cataract Dysphagia Chronic atrial fibrillation Dementia, unspecified, without behavioral disturbance Essential (primary) hypertension Low kidney function Mixed hyperlipidemia Spondylosis of cervical joint with myelopathy Type 2 diabetes mellitus without complications Surgical History Surgical History H/O hernia repair Hx of cholecystectomy Family History Family History Mother Hypertension Family history of malignant neoplasm Arthritis H/O gallbladder cancer Father Cerebrovascular accident Family history of diabetes mellitus in first degree relative Diabetes mellitus Arthritis Pacemaker Sibling Arthritis Sibling Arthritis Social History Social History Smoking status: Former smoker Tobacco type: cigarettes and cigars Second hand tobacco smoke exposure: No Smoking end date: 10/01/11 Alcohol intake: unknown Substance use: never Substance use type: does not use Do You Feel Safe in your Home?: Yes Lack of Transportation: No Lack of Food: Never True Current Housing: I Have Housing Concerned About Future Housing: No Difficulty Paying Gas/Electric Bills: No Difficulty Paying for Meds: No Currently Unemployed: No Education: Grade School Difficulty w/ Childcare or Family Care: No Living arrangements: with family Additional living arrangements comments: grandson Occupation/Education: retired 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 Gender identity (if verbalized by the patient): Male Spiritual care concerns: No Meds Home Medications and Allergies Home Medications ?Medication ?Instructions ?Recorded ?Confirmed ?Type cholecalciferol (vitamin D3) 25 25 mcg PO DAILY 11/07/23 01/08/25 History mcg (1,000 unit) capsule pantoprazole 40 mg tablet,delayed 40 mg PO DAILY #90 tabs 07/20/24 01/20/25 Rx release memantine 10 mg tablet See Rx Instructions .Route 11/24/24 01/20/25 Rx .COMPLEX #60 tabs aspirin 81 mg tablet,delayed 81 mg PO DAILY #90 tabs 01/08/25 01/20/25 Rx release Allergies Allergy/AdvReac Type Severity Reaction Status Date / Time No Known Allergies Allergy Verified 01/19/25 09:54 Vital Signs Vital Signs - 24 hr 01/19/25 15:55 01/19/25 18:10 01/19/25 19:37 Temperature 98.2 F 98.1 F Pulse Rate 50 L 72 74 Respiratory Rate 18 16 19 Blood Pressure 135/83 110/63 150/49 H Pulse Oximetry 98 100 92 Oxygen Delivery Room Air 01/19/25 20:20 01/19/25 21:15 01/19/25 21:15 Temperature 97.9 F 98.2 F Pulse Rate 82 85 Respiratory Rate 20 15 14 Blood Pressure 139/85 139/85 Pulse Oximetry 96 100 Oxygen Delivery Exam Const: General: comfortable and no acute distress Other: A&O x1. Pleasantly confused HENMT: Mouth: Yes moist mucous membranes Eyes: Pupils: Equal, round and reactive pupils present Neck: Neck: supple Resp: Other: Limited participation. Diminished lung sounds right lung field. Scant rhonchi Cardio: Rate: regular rate Rhythm: regular rhythm GI: GI Palp: Yes Soft to palpation and No Tenderness to palpation present (GI) Extrem: General: edema (1+ pitting edema) H&P: Results Labs Labs: Short CBC 01/19/25 Range/Units 16:38 WBC 7.6 (4.5-10.0) K/mm3 Hgb 6.6 L* (14.0-18.0) g/dL Hct 24.2 L (42.0-52.0) % Plt Count 194 (150-375) k/mm3 BMP 01/19/25 16:38 Sodium 139 Potassium 4.4 Chloride 107 Carbon Dioxide 20 L BUN 45 H D Creatinine 2.15 H Glucose 212 H Calcium 8.4 Cardiac Enzymes 01/19/25 Range/Units 16:38 Troponin I 0.020 (0.000-0.034) ng/mL Liver Function 01/19/25 Range/Units 16:38 Total Bilirubin 1.2 (0.2-1.3) mg/dL AST 23 (17-59) U/L ALT 19 (6-50) U/L Alkaline Phosphatase 99 (38-126) U/L Albumin 3.5 (3.5-5.1) g/dL Assessment and Plan Assessment and plan (1) Chronic kidney disease, stage 4 (severe): Code(s): N18.4 - Chronic kidney disease, stage 4 (severe) Status: Acute (2) Iron deficiency anemia: Qualifiers: Iron deficiency anemia type: unspecified iron deficiency Qualified Code(s): D50.9 - Iron deficiency anemia, unspecified Code(s): D50.9 - Iron deficiency anemia, unspecified Status: Acute (3) Pleural effusion: Code(s): J90 - Pleural effusion, not elsewhere classified Status: Acute (4) Pneumonia: Qualifiers: Aspiration pneumonia type: unspecified Laterality: unspecified laterality Lung location: unspecified part of lung Pneumonia type: aspiration pneumonia Qualified Code(s): J69.0 - Pneumonitis due to inhalation of food and vomit Code(s): J18.9 - Pneumonia, unspecified organism Status: Acute (5) Dementia, unspecified, without behavioral disturbance: Code(s): F03.90 - Unspecified dementia, unspecified severity, without behavioral disturbance, psychotic disturbance, mood disturbance, and anxiety Status: Acute Plan 84-year-old male brought in by his 2 daughters. They are active in his care and the patient currently lives with his grandson and granddaughter. He has a history of severe dementia hypertension, hyperlipidemia, atrial fibrillation, [id number] diabetes mellitus, iron deficiency anemia Patient was taken to his doctor's visit today and reportedly they could not get a pulse oximeter reading so he was brought to [facility] on 01/19/2025. Here he had adequate SpO2 greater than 92%. He did not appear short of breath. Daughters report he has had some congestion and a cough but no sputum production and no shortness of breath. Denies fever. Patient has chronic anemia. He was previously on Eliquis but was taken off due to anemia and he also had refractory nose bleeds. He has started baby aspirin in the past few weeks. Hemoglobin on arrival 6.6 and 1 unit PRBC was started. Family denies any overt bleeding or dark stool. D-dimer elevated at 1.32, chest abdomen pelvis CTA ordered which was negative for acute PE. Positive for moderate simple right pleural effusion and patchy opacities in the right lung. ----- Transfusing 1 unit PRBC. Hemodynamically stable. Trend serial hemoglobins. In a recent admission patient found to have iron deficiency and was given instructions to take iron pill. Daughter stopped iron pill because afraid of constipation. Will start iron pill. Patient has cough with congestion. Given ceftriaxone and azithromycin for suspected pneumonia. History of AFib. Was taken off Eliquis and started aspirin. Will hold aspirin for now but can restarted if hemoglobin remains stable. ----- Patient wishes to be DNR. Lives at home with granddaughter and grandson. Daughters are active in his care. Accu-Ramila frost HS. Saline lock IV. PT OT. Heart healthy diet.
[2025-01-20] VITALS (14 sets, daily range): BP systolic 106–160; BP diastolic 71–90; PULSE 55–95; RESP 18–24; TEMP 36.6–36.8; O2SAT 95–100
[2025-01-20 01:39] LABS: Hematocrit 26.4 % (42.0-52.0); Hemoglobin 7.7 g/dL (14.0-18.0)
--- NOTE | 2025-01-20 01:41 | ADMGEN ---
This patient, Marko Ortiz, was admitted to [facility] Surg Room 304-01. Patient/family oriented to hospital policies and general routines including ID bracelet, bed and alarms, visiting hours, pain management, procedures, bathroom and other care routines, personal items, smoking policy, room service/diet, and visiting hours. Information on how to activate the Rapid Response Team has been discussed. Patient/Family are encouraged to report perceived risks to care and to ask questions if they do not understand what they are told or what they should do.
[2025-01-20] MEDS: SODIUM CHLORIDE 0.9% IV 250 ML 30 ML IV CONT (04:12)
[2025-01-20 06:05] LABS: Hematocrit 29.1 % (42.0-52.0); Hemoglobin 8.8 g/dL (14.0-18.0)
[2025-01-20] MEDS: AZITHROMYCIN 500 MG/NS 250 ML 500 MG/250 ML BAG 250 MG IVPB (06:18)
--- NOTE | 2025-01-20 07:58 | P.PNIM_ITS ---
Progress Note: A&P Assessment and Plan (1) Iron deficiency anemia: Qualifiers: Iron deficiency anemia type: unspecified iron deficiency Qualified Code(s): D50.9 - Iron deficiency anemia, unspecified Code(s): D50.9 - Iron deficiency anemia, unspecified Status: Acute Assessment and Plan: Improved this a.m. no signs of acute bleeding 1 unit PRBC 01/19 H&H q.6 Continue iron He was previously on Eliquis but was taken off due to anemia and he also had refractory nose bleeds. (2) Pleural effusion: Code(s): J90 - Pleural effusion, not elsewhere classified Status: Acute Assessment and Plan: Seen on CT Repeat chest x ray-stable (3) Pneumonia: Qualifiers: Aspiration pneumonia type: unspecified Laterality: unspecified laterality Lung location: unspecified part of lung Pneumonia type: aspiration pneumonia Qualified Code(s): J69.0 - Pneumonitis due to inhalation of food and vomit Code(s): J18.9 - Pneumonia, unspecified organism Status: Acute Assessment and Plan: Azithromycin and Rocephin Incentive spirometer (4) Dementia, unspecified, without behavioral disturbance: Code(s): F03.90 - Unspecified dementia, unspecified severity, without behavioral disturbance, psychotic disturbance, mood disturbance, and anxiety Status: Acute Assessment and Plan: Continue Namenda (5) Chronic kidney disease, stage 4 (severe): Code(s): N18.4 - Chronic kidney disease, stage 4 (severe) Status: Acute Assessment and Plan: Stable Creatinine on admission is 2.15 (6) Afib: Code(s): I48.91 - Unspecified atrial fibrillation Status: Acute Assessment and Plan: Was taken off Eliquis and started aspirin. Will hold aspirin for now but can restarted if hemoglobin remains stable tomorrow. 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 Time Spent With Patient Time with patient: Greater than 35 minutes Subjective Date/time seen: 01/20/25 07:58 Interval history: 84-year-old male past medical history of severe dementia hypertension, hyperlipidemia, atrial fibrillation, and [id number] diabetes mellitus presents the hospital hypoxia. Hemoglobin is a.m. is 8.8. After 1 unit RBCs, patient states that he feels better than he did yesterday emergency room. Review of Systems Review of Systems: All systems reviewed & are unremarkable except as noted in HPI and below (HPI) Exam Narrative: General: well appearing, appears stated age. HEENT: normocephalic, atraumatic. Mucous membranes moist. EOMI, PERRLA, bilateral sclera anicteric, no conjunctival injection. Neck supple without JVD, lymphadenopathy, or bruit. Respiratory: clear to ascultation bilaterally. No rales/rhonic/wheezes. Cardiovascular: Regular rate and rhythm, normal S1-S2 upon ascultation. No murmurs, rubs, or clicks. PMI is nondisplaced, capillary refill less than 3 second. Abdomen: Soft, round, no pulsatile masses, nondistended and nontender. No rebound, no guarding. No CVA tenderness, no hepatosplenomegaly. Bowel sounds present to all four quadrants. No high pitch or tinkling sounds, resonant to percussion. Extremities: No cyanosis, clubbing, or edema present. Pulses are palpable 2/2. Active ROM to all four extremities. Neuro: Alert and orientated x 4. PERRLA. Cranial nerves 2-12 intact without focal deficit. Skin: Warm, dry, and intact, without rash, erythema, or lesion. Psych: pleasant, cooperative, normal speech, normal affect, no hallucinations, no dysarthia . Objective Data Vital Signs Vital Signs: Vital Signs - 24 hr 01/19/25 15:55 01/19/25 18:10 01/19/25 19:37 Temperature 98.2 F 98.1 F Pulse Rate 50 L 72 74 Respiratory Rate 18 16 19 Blood Pressure 135/83 110/63 150/49 H Pulse Oximetry 98 100 92 Oxygen Delivery Room Air 01/19/25 20:20 01/19/25 21:15 01/19/25 21:15 Temperature 97.9 F 98.2 F Pulse Rate 82 85 Respiratory Rate 20 15 14 Blood Pressure 139/85 139/85 Pulse Oximetry 96 100 Oxygen Delivery 01/20/25 00:53 01/20/25 01:14 01/20/25 01:30 Temperature 98.3 F 98.3 F 98.2 F Pulse Rate 62 62 84 Respiratory Rate 18 18 18 Blood Pressure 149/86 H 149/86 H 129/90 Pulse Oximetry 97 97 98 Oxygen Delivery 01/20/25 02:28 01/20/25 02:31 01/20/25 03:31 Temperature 98.0 F 97.8 F 97.8 F Pulse Rate 78 76 76 Respiratory Rate 22 H 18 18 Blood Pressure 160/85 H 137/75 137/76 Pulse Oximetry 100 96 96 Oxygen Delivery 01/20/25 06:00 Temperature 98.1 F Pulse Rate 79 Respiratory Rate 24 H Blood Pressure 154/71 H Pulse Oximetry 99 Oxygen Delivery Intake/Output Intake/Output: Intake & Output 01/17/25 01/18/25 01/19/25 01/20/25 23:59 23:59 23:59 23:59 Intake Total 350 550 Balance 350 550 Meds/Results Medications: Active Medications Generic Name Dose Route Start Last Admin Trade Name Freq PRN Reason Stop Dose Admin Acetaminophen 650 mg 01/19/25 21:04 Acetaminophen 325 Mg Tablet PO Q4H PRN Mild Pain (1-3) or Fever Ferrous Sulfate 325 mg 01/20/25 09:00 Ferrous Sulfate [address] PO DAILY [facility] Memantine 10 mg 01/20/25 09:00 Memantine 10 Mg Tablet PO Q12HR [facility] Multi-Ingred Cream/Lotion/Oil/Oint 1 applic 01/20/25 09:00 Eucerin Cream 120 Gm Jar TOPICAL DAILY [facility] Pantoprazole Sodium 40 mg 01/20/25 09:00 Pantoprazole 40 Mg Tablet PO DAILY [facility] Radiology Results: ITS Impressions Chest X-Ray 01/19/25 16:57 IMPRESSION: Right basilar atelectasis versus pneumonia more prominent in the posterior costophrenic angle area. Hand X-Ray 01/19/25 16:57 IMPRESSION: 1. 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 No acute osseous abnormality. Atypical predominance at the wrist and second and third metacarpophalangeal joints resupply possibility of secondary osteoarthritis in the setting of calcium pyrophosphate deposition (CPPD) disease. Chest/Abdomen/Pelvis CTA 01/19/25 18:46 IMPRESSION: No CT evidence of acute pulmonary embolus. Pulmonary opacities in the right lung concerning for infection. Moderate simple right pleural effusion. Mild pulmonary edema. Cardiomegaly with right atrial enlargement. Cystitis. Moderate body wall edema. Venous Doppler Study 01/19/25 20:00 IMPRESSION: No right upper extremity deep venous thrombosis. Labs Labs: Laboratory Results - last 24 hr 01/19/25 01/19/25 01/20/25 16:38 19:35 01:06 WBC 7.6 RBC 3.37 L Hgb 6.6 L* 7.7 L Hct 24.2 L 26.4 L MCV 71.8 L MCH 19.6 L MCHC 27.3 L RDW 18.0 H Plt Count 194 MPV 9.5 Immature Gran % (Auto) 0.5 Neut % (Auto) 73.7 H Lymph % (Auto) 14.7 L [place] % (Auto) 9.2 H Eos % (Auto) 1.6 Baso % (Auto) 0.3 Lymph # (Auto) 1.12 [place] # (Auto) 0.7 H Eos # (Auto) 0.1 Baso # (Auto) 0.0 Abs Immat Gran (auto) 0.04 H Absolute Neuts (auto) 5.6 Absolute Nucleated RBC 0.070 H Band Neutrophils % Not Reportable Nucleated RBC % 0.9 H Platelet Estimate Adequate Polychromasia 1+ Hypochromasia 2+ Anisocytosis 1+ Target Cells 1+ Ovalocytes 1+ [place] Cells 1+ Schistocytes Rare PT 17.3 H INR 1.4 APTT 33.2 D-Dimer 1.32 H Sodium 139 Potassium 4.4 Chloride 107 Carbon Dioxide 20 L Anion Gap 12 BUN 45 H D Creatinine 2.15 H Estim Creat Clear Calc 24 Estimated GFR 30 L Glucose 212 H Lactic Acid 1.3 Calcium 8.4 Total Bilirubin 1.2 AST 23 ALT 19 Alkaline Phosphatase 99 Troponin I 0.020 NT-Pro-B Natriuret Pep 6850 H Total Protein 6.0 L Albumin 3.5 Blood Type A Positive Antibody Screen Negative Crossmatch See Detail 01/20/25 05:25 WBC RBC Hgb 8.8 L Hct 29.1 L MCV MCH MCHC RDW Plt Count MPV Immature Gran % (Auto) Neut % (Auto) Lymph % (Auto) [place] % (Auto) Eos % (Auto) Baso % (Auto) Lymph # (Auto) [place] # (Auto) Eos # (Auto) Baso # (Auto) Abs Immat Gran (auto) Absolute Neuts (auto) Absolute Nucleated RBC Band Neutrophils % Nucleated RBC % Platelet Estimate Polychromasia Hypochromasia Anisocytosis Target Cells Ovalocytes [place] Cells Schistocytes PT INR APTT D-Dimer Sodium Potassium Chloride Carbon Dioxide Anion Gap BUN Creatinine Estim Creat Clear Calc Estimated GFR Glucose Lactic Acid Calcium Total Bilirubin AST ALT Alkaline Phosphatase Troponin I NT-Pro-B Natriuret Pep Total Protein Albumin Blood Type Antibody Screen Crossmatch Hospitalist MIPS Advance Care Plan I have confirmed that the patient's Advanced Care Plan is present, code status is documented, or surrogate decision maker is listed in patient medical record.: Yes Medication Reconciliation I have utilized all available resources to obtain, update and review the patients current medications (includes all prescriptions, OTC, herbals, cannabis, and nutritional supplements).: Yes
[2025-01-20 08:20] LABS: Anion Gap 10 mmol/L (4-12); Blood Urea Nitrogen 45 mg/dL (9-20); Calcium 8.5 mg/dL (8.4-10.2); Carbon Dioxide 20 mmol/L (22-30); Chloride 108 mmol/L (98-107); Estimated CRCL calculation 24 ml/min; Estimated Glomerular Filt Rate 30; Glucose 190 mg/dL (65-110); Potassium 4.3 mmol/L (3.4-5.0); Sodium 138 mmol/L (137-145)
[2025-01-20] MEDS: PANTOPRAZOLE 40 MG TABLET PO (08:58)
[2025-01-20] MEDS: MEMANTINE 10 MG TABLET PO ×2 (08:58→22:04)
[2025-01-20] MEDS: FERROUS SULFATE 325 MG TABLET DR PO (08:58)
[2025-01-20] MEDS: EUCERIN CREAM 120 GM JAR 1 APPLIC TOPICAL (08:59)
[2025-01-20 11:29] LABS: Basophils Percent Auto 0.3 % (0.2-1.2); Eosinophils Absolute Auto 0.1 K/mm3 (0-0.3); Hematocrit 29.8 % (42.0-52.0); Hemoglobin 8.6 g/dL (14.0-18.0); Immature Granulocyte Absolute 0.03 K/mm3 (0.00-0.031); Immature Granulocyte Percent A 0.4 % (0-0.5); Lymphocytes Absolute Auto 0.92 K/mm3 (0.9-3.2); Lymphocytes Percent Auto 11.5 % (18.3-44.2); Mean Corpuscular HGB Conc 28.9 g/dl (32-36); Mean Corpuscular Hemoglobin 21.6 pg (26-34); Mean Corpuscular Volume 74.7 fl (80-100); Monocytes Absolute Auto 0.7 K/mm3 (0.1-0.6); Monocytes Percent Auto 9.3 % (2.6-8.5); Neutrophils Absolute Auto 6.2 K/mm3 (1.3-6.7); Neutrophils Percent Auto 77.5 % (45.5-73.1); Nucleated Red Blood Cells Perc 1.5 % (0.0-0.2); Platelet Count Result 194 k/mm3 (150-375); Red Blood Count 3.99 M/mm3 (4.6-6.20); Red Cell Distribution Width 19.2 % (11.5-14.5)
[2025-01-20 12:41] LABS: Anisocytosis 2+; Hypochromasia 1+; Ovalocytes 1+; Platelet Estimate Adequate (Adequate); Schistocytes None Seen
[2025-01-20 12:42] LABS: Glucose Point of Care 235 mg/dl (65-105)
[2025-01-20] MEDS: IPRATROPIUM 0.5 MG/ALBUTEROL SULFATE 2.5 MG AMPUL.NEB 3 ML INHALATION ×2 (14:06→20:04)
[2025-01-20 17:01] LABS: Glucose Point of Care 240 mg/dl (65-105)
[2025-01-20] MEDS: INSULIN ASPART (*BKC) 100 UNITS/ML SUB-Q (17:59)
[2025-01-20 19:15] LABS: Hematocrit 29.6 % (42.0-52.0); Hemoglobin 8.7 g/dL (14.0-18.0)
[2025-01-21] VITALS (8 sets, daily range): BP systolic 119–131; BP diastolic 62–82; PULSE 53–103; RESP 20; TEMP 36.1–36.8; O2SAT 93–97
[2025-01-21] MEDS: IPRATROPIUM 0.5 MG/ALBUTEROL SULFATE 2.5 MG AMPUL.NEB 3 ML INHALATION ×3 (01:47→14:27)
[2025-01-21 06:33] LABS: Basophils Percent Auto 0.5 % (0.2-1.2); Eosinophils Absolute Auto 0.1 K/mm3 (0-0.3); Eosinophils Percent Auto 1.4 % (0-4.4); Hematocrit 27.9 % (42.0-52.0); Hemoglobin 8.1 g/dL (14.0-18.0); Immature Granulocyte Absolute 0.05 K/mm3 (0.00-0.031); Immature Granulocyte Percent A 0.6 % (0-0.5); Lymphocytes Absolute Auto 1.29 K/mm3 (0.9-3.2); Mean Corpuscular Hemoglobin 21.3 pg (26-34); Mean Corpuscular Volume 73.4 fl (80-100); Mean Platelet Volume 10.2 fl (7.4-10.4); Monocytes Absolute Auto 0.8 K/mm3 (0.1-0.6); Monocytes Percent Auto 8.7 % (2.6-8.5); Neutrophils Absolute Auto 6.4 K/mm3 (1.3-6.7); Neutrophils Percent Auto 73.8 % (45.5-73.1); Nucleated Red Blood Cells Perc 0.5 % (0.0-0.2); Platelet Count Result 185 k/mm3 (150-375); White Blood Count 8.6 K/mm3 (4.5-10.0)
[2025-01-21 06:37] LABS: Glucose Point of Care 183 mg/dl (65-105)
[2025-01-21 06:46] LABS: Anion Gap 10 mmol/L (4-12); Blood Urea Nitrogen 41 mg/dL (9-20); Calcium 8.5 mg/dL (8.4-10.2); Carbon Dioxide 20 mmol/L (22-30); Chloride 109 mmol/L (98-107); Estimated CRCL calculation 23 ml/min; Estimated Glomerular Filt Rate 28; Glucose 140 mg/dL (65-110); Potassium 4.1 mmol/L (3.4-5.0); Sodium 139 mmol/L (137-145)
[2025-01-21 07:29] LABS: Anisocytosis 1+; Crenated RBC 1+; Hypochromasia 1+; Ovalocytes 1+; Platelet Estimate Adequate (Adequate); Schistocytes None Seen; Target Cells 1+; Tear Drop Cells 1+
[2025-01-21 08:04] LABS: Glucose Point of Care 142 mg/dl (65-105)
[2025-01-21] MEDS: MEMANTINE 10 MG TABLET PO (09:15)
[2025-01-21] MEDS: PANTOPRAZOLE 40 MG TABLET PO (09:15)
[2025-01-21] MEDS: FERROUS SULFATE 325 MG TABLET DR PO (09:15)
[2025-01-21] MEDS: EUCERIN CREAM 120 GM JAR 1 APPLIC TOPICAL (09:15)
--- NOTE | 2025-01-21 09:17 | P.PNIM_ITS ---
Progress Note: A&P Assessment and Plan (1) Iron deficiency anemia: Qualifiers: Iron deficiency anemia type: unspecified iron deficiency Qualified Code(s): D50.9 - Iron deficiency anemia, unspecified Code(s): D50.9 - Iron deficiency anemia, unspecified Status: Acute Assessment and Plan: Improved this a.m. no signs of acute bleeding 1 unit PRBC 01/19 H&H q.6 Continue iron He was previously on Eliquis but was taken off due to anemia and he also had refractory nose bleeds. (2) Pleural effusion: Code(s): J90 - Pleural effusion, not elsewhere classified Status: Acute Assessment and Plan: Seen on CT Repeat chest x ray-stable (3) Pneumonia: Qualifiers: Aspiration pneumonia type: unspecified Laterality: unspecified laterality Lung location: unspecified part of lung Pneumonia type: aspiration pneumonia Qualified Code(s): J69.0 - Pneumonitis due to inhalation of food and vomit Code(s): J18.9 - Pneumonia, unspecified organism Status: Acute Assessment and Plan: Azithromycin and Rocephin Incentive spirometer (4) Dementia, unspecified, without behavioral disturbance: Code(s): F03.90 - Unspecified dementia, unspecified severity, without behavioral disturbance, psychotic disturbance, mood disturbance, and anxiety Status: Acute Assessment and Plan: Continue Namenda (5) Chronic kidney disease, stage 4 (severe): Code(s): N18.4 - Chronic kidney disease, stage 4 (severe) Status: Acute Assessment and Plan: Stable Creatinine on admission is 2.15 (6) Afib: Code(s): I48.91 - Unspecified atrial fibrillation Status: Acute Assessment and Plan: Was taken off Eliquis and started aspirin. Will hold aspirin for now but can restarted if hemoglobin remains stable tomorrow. (7) Diabetes mellitus with chronic kidney disease: Qualifiers: Diabetes mellitus type: type 2 Diabetes mellitus superintendent container terminal insulin use: without superintendent container terminal use Chronic kidney disease stage: stage 4 (severe) Qualified Code(s): E11.22 - Type 2 diabetes mellitus with diabetic chronic kidney disease; N18.4 - Chronic kidney disease, stage 4 (severe) Code(s): E11.22 - Type 2 diabetes mellitus with diabetic chronic kidney disease Status: Acute Assessment and Plan: Dustin VELAZQUEZ Plan Patient wishes to be DNR. Subjective Date/time seen: 01/21/25 09:17 Interval history: 84-year-old male past medical history of severe dementia hypertension, hyperlipidemia, atrial fibrillation, and [id number] diabetes mellitus presents the hospital hypoxia. 01/21/2025 Review of Systems Review of Systems: All systems reviewed & are unremarkable except as noted in HPI and below (HPI) Exam Narrative: General: well appearing, appears stated age. HEENT: normocephalic, atraumatic. Mucous membranes moist. EOMI, PERRLA, bilateral sclera anicteric, no conjunctival injection. Neck supple without JVD, lymphadenopathy, or bruit. Respiratory: clear to ascultation bilaterally. No rales/rhonic/wheezes. Cardiovascular: Regular rate and rhythm, normal S1-S2 upon ascultation. No murmurs, rubs, or clicks. PMI is nondisplaced, capillary refill less than 3 second. Abdomen: Soft, round, no pulsatile masses, nondistended and nontender. No rebound, no guarding. No CVA tenderness, no hepatosplenomegaly. Bowel sounds present to all four quadrants. No high pitch or tinkling sounds, resonant to percussion. Extremities: No cyanosis, clubbing, or edema present. Pulses are palpable 2/2. Active ROM to all four extremities. Neuro: Alert and orientated x 4. PERRLA. Cranial nerves 2-12 intact without focal deficit. Skin: Warm, dry, and intact, without rash, erythema, or lesion. Psych: pleasant, cooperative, normal speech, normal affect, no hallucinations, no dysarthia . Const: General: comfortable and no acute distress Other: A&O x1. Pleasantly confused HENMT: Mouth: Yes moist mucous membranes Eyes: Pupils: Equal, round and reactive pupils present Neck: Neck: supple Resp: Other: Limited participation. Diminished lung sounds right lung field. Scant rhonchi Cardio: Rate: regular rate Rhythm: regular rhythm Neuro: Cranial nerves: Yes Equal, round and reactive pupils present Extrem: General: edema (1+ pitting edema) Objective Data Vital Signs Vital Signs: Vital Signs - 24 hr 01/20/25 14:00 01/20/25 14:06 01/20/25 14:06 Temperature 97.9 F Pulse Rate 95 55 L Respiratory Rate 18 24 H Blood Pressure 106/73 Pulse Oximetry 95 99 Oxygen Delivery Room Air Fraction of Inspired Oxygen 01/20/25 14:16 01/20/25 20:00 01/20/25 20:07 Temperature Pulse Rate 68 69 Respiratory Rate 24 H 22 H Blood Pressure Pulse Oximetry Oxygen Delivery Room Air Fraction of Inspired Oxygen 01/20/25 20:08 01/20/25 20:17 01/20/25 22:00 Temperature 98.2 F Pulse Rate 63 56 L Respiratory Rate 22 H 20 Blood Pressure 152/74 H Pulse Oximetry 97 97 Oxygen Delivery Room Air Fraction of Inspired Oxygen 01/21/25 01:48 01/21/25 01:55 01/21/25 06:00 Temperature 98.3 F Pulse Rate 60 63 68 Respiratory Rate 20 20 20 Blood Pressure 131/82 Pulse Oximetry 93 Oxygen Delivery Fraction of Inspired Oxygen 01/21/25 08:00 01/21/25 09:01 01/21/25 09:01 Temperature Pulse Rate 79 Respiratory Rate 20 Blood Pressure Pulse Oximetry 97 Oxygen Delivery Room Air Room Air Fraction of Inspired Oxygen 01/21/25 09:09 Temperature Pulse Rate 103 H Respiratory Rate 20 Blood Pressure Pulse Oximetry Oxygen Delivery Fraction of Inspired Oxygen Intake/Output Intake/Output: Intake & Output 01/18/25 01/19/25 01/20/25 01/21/25 23:59 23:59 23:59 23:59 Intake Total 350 1770 0 Output Total 300 Balance 350 1770 -300 Meds/Results Medications: Active Medications Generic Name Dose Route Start Last Admin Trade Name Freq PRN Reason Stop Dose Admin Acetaminophen 650 mg 01/19/25 21:04 Acetaminophen 325 Mg Tablet PO Q4H PRN Mild Pain (1-3) or Fever Albuterol/Ipratropium 3 ml 01/20/25 14:00 01/21/25 09:00 Ipratropium 0.5 Mg/Albuterol Sulfate 2.5 Mg Ampul.Neb 3 Ml INHALATION 3 ml Q6HRT [facility] Administration Aspirin 81 mg 01/22/25 09:00 Aspirin 81 Mg Enteric Tablet PO DAILY [facility] Dextrose 12.5 gm 01/20/25 11:24 Dextrose 50% 25 Gm/50 Ml Syringe IV PUSH PRN PRN Hypoglycemia Protocol Ferrous Sulfate 325 mg 01/20/25 09:00 01/21/25 09:15 Ferrous Sulfate [address] PO 325 mg DAILY [facility] Administration Glucagon 1 mg 01/20/25 11:24 Glucagon For Inj 1 Mg Vial IM PRN PRN Hypoglycemia Protocol Glucose 15 gm 01/20/25 11:24 Glucose Oral Gel 15 Gm Of Glucse In 37.5 Gm Tube PO PRN PRN Hypoglycemia Protocol Dextrose 1,000 mls @ 100 mls/hr 01/20/25 11:24 Dextrose 5% 1,000 Ml IVPB PRN PRN Hypoglycemia Protocol Azithromycin 500 mg in 250 mls @ 250 mls/hr 01/21/25 09:15 Zithromax IVPB Q24H [facility] Ceftriaxone Sodium 1 gm in 50 mls @ 100 mls/hr 01/21/25 09:20 Rocephin 1 Gm/Ns 50 Ml IVPB Q24H [facility] Insulin Aspart 2 - 5 units 01/20/25 12:00 01/21/25 08:01 Insulin Aspart (*Bkc) 100 Units/Ml SUB-Q Not Given TIDWM [facility] Protocol Insulin Aspart 1 - 2 units 01/20/25 21:00 01/20/25 22:05 Insulin Aspart (*Bkc) 100 Units/Ml SUB-Q Not Given HS [facility] Protocol Memantine 10 mg 01/20/25 09:00 01/21/25 09:15 Memantine 10 Mg Tablet PO 10 mg Q12HR [facility] Administration Multi-Ingred Cream/Lotion/Oil/Oint 1 applic 01/20/25 09:00 01/21/25 09:15 Eucerin Cream 120 Gm Jar TOPICAL 1 applic DAILY [facility] Administration Pantoprazole Sodium 40 mg 01/20/25 09:00 01/21/25 09:15 Pantoprazole 40 Mg Tablet PO 40 mg DAILY [facility] Administration Radiology Results: ITS Impressions Hand X-Ray 01/19/25 16:57 IMPRESSION: 1. 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 No acute osseous abnormality. Atypical predominance at the wrist and second and third metacarpophalangeal joints resupply possibility of secondary osteoarthritis in the setting of calcium pyrophosphate deposition (CPPD) disease. Chest/Abdomen/Pelvis CTA 01/19/25 18:46 IMPRESSION: No CT evidence of acute pulmonary embolus. Pulmonary opacities in the right lung concerning for infection. Moderate simple right pleural effusion. Mild pulmonary edema. Cardiomegaly with right atrial enlargement. Cystitis. Moderate body wall edema. Venous Doppler Study 01/19/25 20:00 IMPRESSION: No right upper extremity deep venous thrombosis. Chest X-Ray 01/20/25 09:34 Impression: 1: Bilateral perihilar and interstitial infiltrates, right greater than left, most likely edema versus atypical pneumonia. Labs Labs: Laboratory Results - last 24 hr 01/20/25 01/20/25 01/20/25 11:23 12:40 16:44 WBC 8.0 RBC 3.99 L Hgb 8.6 L Hct 29.8 L MCV 74.7 L MCH 21.6 L D MCHC 28.9 L RDW 19.2 H Plt Count 194 MPV 10.0 Immature Gran % (Auto) 0.4 Neut % (Auto) 77.5 H Lymph % (Auto) 11.5 L [place] % (Auto) 9.3 H Eos % (Auto) 1.0 Baso % (Auto) 0.3 Lymph # (Auto) 0.92 [place] # (Auto) 0.7 H Eos # (Auto) 0.1 Baso # (Auto) 0.0 Abs Immat Gran (auto) 0.03 Absolute Neuts (auto) 6.2 Absolute Nucleated RBC 0.120 H Band Neutrophils % Not Reportable Nucleated RBC % 1.5 H Platelet Estimate Adequate Hypochromasia 1+ Anisocytosis 2+ Target Cells Tear Drop Cells Ovalocytes 1+ Crenated Cell Schistocytes None seen Sodium Potassium Chloride Carbon Dioxide Anion Gap BUN Creatinine Estim Creat Clear Calc Estimated GFR Glucose POC Capillary Glucose 235 H 240 H Calcium 01/20/25 01/20/25 01/21/25 18:23 21:30 05:54 WBC 8.6 RBC 3.80 L Hgb 8.7 L 8.1 L Hct 29.6 L 27.9 L MCV 73.4 L MCH 21.3 L MCHC 29.0 L RDW 20.0 H Plt Count 185 MPV 10.2 Immature Gran % (Auto) 0.6 H Neut % (Auto) 73.8 H Lymph % (Auto) 15.0 L [place] % (Auto) 8.7 H Eos % (Auto) 1.4 Baso % (Auto) 0.5 Lymph # (Auto) 1.29 [place] # (Auto) 0.8 H Eos # (Auto) 0.1 Baso # (Auto) 0.0 Abs Immat Gran (auto) 0.05 H Absolute Neuts (auto) 6.4 Absolute Nucleated RBC 0.040 H Band Neutrophils % Not Reportable Nucleated RBC % 0.5 H Platelet Estimate Adequate Hypochromasia 1+ Anisocytosis 1+ Target Cells 1+ Tear Drop Cells 1+ Ovalocytes 1+ Crenated Cell 1+ Schistocytes None seen Sodium 139 Potassium 4.1 Chloride 109 H Carbon Dioxide 20 L Anion Gap 10 BUN 41 H Creatinine 2.23 H Estim Creat Clear Calc 23 Estimated GFR 28 L Glucose 140 H POC Capillary Glucose 183 H Calcium 8.5 01/21/25 08:01 WBC RBC Hgb Hct MCV MCH MCHC RDW Plt Count MPV Immature Gran % (Auto) Neut % (Auto) Lymph % (Auto) [place] % (Auto) Eos % (Auto) Baso % (Auto) Lymph # (Auto) [place] # (Auto) Eos # (Auto) Baso # (Auto) Abs Immat Gran (auto) Absolute Neuts (auto) Absolute Nucleated RBC Band Neutrophils % Nucleated RBC % Platelet Estimate Hypochromasia Anisocytosis Target Cells Tear Drop Cells Ovalocytes Crenated Cell Schistocytes Sodium Potassium Chloride Carbon Dioxide Anion Gap BUN Creatinine Estim Creat Clear Calc Estimated GFR Glucose POC Capillary Glucose 142 H Calcium
[2025-01-21] MEDS: AZITHROMYCIN 500 MG/NS 250 ML 500 MG/250 ML BAG 250 MG IVPB (10:17)
--- NOTE | 2025-01-21 10:21 | PC.NURSE ---
Disoriented. Pulling at IV site. Gauze roll applied to protect IV site. Son at bedside.
[2025-01-21 11:48] LABS: Glucose Point of Care 211 mg/dl (65-105)
[2025-01-21] MEDS: INSULIN ASPART (*BKC) 100 UNITS/ML SUB-Q (11:55)
--- NOTE | 2025-01-21 14:43 | P.DS_ITS ---
DS: Admitting Diagnosis Discharge Date 01/21/2025 Admitting Diagnosis Iron deficiency anemia Pleural effusion Pneumonia DS: Discharge Diagnosis Discharge Diagnosis (1) Iron deficiency anemia: Qualifiers: Iron deficiency anemia type: unspecified iron deficiency Qualified Code(s): D50.9 - Iron deficiency anemia, unspecified Code(s): D50.9 - Iron deficiency anemia, unspecified Status: Acute (2) Pleural effusion: Code(s): J90 - Pleural effusion, not elsewhere classified Status: Acute (3) Pneumonia: Qualifiers: Aspiration pneumonia type: unspecified Laterality: unspecified laterality Lung location: unspecified part of lung Pneumonia type: aspiration pneumonia Qualified Code(s): J69.0 - Pneumonitis due to inhalation of food and vomit Code(s): J18.9 - Pneumonia, unspecified organism Status: Acute (4) Dementia, unspecified, without behavioral disturbance: Code(s): F03.90 - Unspecified dementia, unspecified severity, without behavioral disturbance, psychotic disturbance, mood disturbance, and anxiety Status: Acute (5) Chronic kidney disease, stage 4 (severe): Code(s): N18.4 - Chronic kidney disease, stage 4 (severe) Status: Acute (6) Afib: Code(s): I48.91 - Unspecified atrial fibrillation Status: Acute (7) Diabetes mellitus with chronic kidney disease: Qualifiers: Diabetes mellitus type: type 2 Diabetes mellitus long line teamster insulin use: without long line teamster use Chronic kidney disease stage: stage 4 (severe) Qualified Code(s): E11.22 - Type 2 diabetes mellitus with diabetic chronic kidney disease; N18.4 - Chronic kidney disease, stage 4 (severe) Code(s): E11.22 - Type 2 diabetes mellitus with diabetic chronic kidney disease Status: Acute DS: Summary Hospital Course Reason for hospitalization: Decreased oxygen saturation Hospital Course: 84-year-old male brought in by his 2 daughters. They are active in his care and the patient currently lives with his grandson and granddaughter. He has a history of severe dementia hypertension, hyperlipidemia, atrial fibrillation, mvb-[id number] diabetes mellitus. Patient was taken to his doctor's visit today and reportedly they could not get a pulse oximeter reading so he was brought to [facility] on 01/19/2025. Here he had adequate SpO2 greater than 92%. He did not appear short of breath. Daughters report he has had some congestion and a cough but no sputum production and no shortness of breath. Denies fever. Patient has chronic anemia. He was previously on Eliquis but was taken off due to anemia and he also had refractory nose bleeds. He has started baby aspirin in the past few weeks. Hemoglobin on arrival 6.6 and 1 unit PRBC was started. Family denies any overt bleeding or dark stool. D-dimer elevated at 1.32, chest abdomen pelvis CTA ordered which was negative for acute PE. Positive for moderate simple right pleural effusion and patchy opacities in the right lung. Patient was maintained on Azithromycin and Rocephin for pneumonia, and was able to work with the incentive spirometer throughout his stay. After receiving 1 unit of RBCs, hemoglobin remained stable. He is accompanied by his son, who states that the day discharge, the patient seemed to be at his baseline regards to mentation status. Patient did not have any complaints, including denying any shortness of breath, chest pain, nausea/vomiting pain. CBC remains stable. CMP continue elevated creatinine and BUN, but this is chronic and consistent with previous lab values. Physical exam remains unremarkable. Blood work otherwise unremarkable. After receiving additional doses of antibiotics patient was able to ambulate throughout the department without any difficulty. Patient otherwise stable for discharge with change to p.o. antibiotic coverage with Augmentin. Discussed this with patient and his son and son agrees that patient has back to his baseline and feels comfortable managing his care at home. Plan to discharge at this time. Status at Discharge Functional status at discharge: independent ambulation Overall status at discharge: patient is back to baseline Time Spent with Patient Time attestation: Total time spent providing and/or coordinating discharge services: 45 Exam Narrative: General: well appearing, appears stated age. HEENT: normocephalic, atraumatic. Mucous membranes moist. EOMI, PERRLA, bilateral sclera anicteric, no conjunctival injection. Neck supple without JVD, lymphadenopathy, or bruit. Respiratory: clear to ascultation bilaterally. No rales/rhonic/wheezes. Cardiovascular: Regular rate and rhythm, normal S1-S2 upon ascultation. No murmurs, rubs, or clicks. PMI is nondisplaced, capillary refill less than 3 second. Abdomen: Soft, round, no pulsatile masses, nondistended and nontender. No rebound, no guarding. No CVA tenderness, no hepatosplenomegaly. Bowel sounds present to all four quadrants. No high pitch or tinkling sounds, resonant to percussion. Extremities: No cyanosis, clubbing, or edema present. Pulses are palpable 2/2. Active ROM to all four extremities. Neuro: Alert and orientated x 1, baseline. PERRLA. Cranial nerves 2-12 intact without focal deficit. Skin: Warm, dry, and intact, without rash, erythema, or lesion. Psych: pleasant, cooperative, normal speech, normal affect, no hallucinations, no dysarthia . Const: Other: A&O x1. Pleasantly confused Resp: Other: Limited participation. Diminished lung sounds right lung field. Scant rhonchi DS: Data Data Completed and Pending Labs on day of discharge: Labs from last 24 hours 01/21/25 01/21/25 01/21/25 11:46 08:01 05:54 WBC 8.6 RBC 3.80 L Hgb 8.1 L Hct 27.9 L MCV 73.4 L MCH 21.3 L MCHC 29.0 L RDW 20.0 H Plt Count 185 MPV 10.2 Immature Gran % (Auto) 0.6 H Neut % (Auto) 73.8 H Lymph % (Auto) 15.0 L [place] % (Auto) 8.7 H Eos % (Auto) 1.4 Baso % (Auto) 0.5 Lymph # (Auto) 1.29 [place] # (Auto) 0.8 H Eos # (Auto) 0.1 Baso # (Auto) 0.0 Abs Immat Gran (auto) 0.05 H Absolute Neuts (auto) 6.4 Absolute Nucleated RBC 0.040 H Band Neutrophils % Not Reportable Nucleated RBC % 0.5 H Platelet Estimate Adequate Hypochromasia 1+ Anisocytosis 1+ Target Cells 1+ Tear Drop Cells 1+ Ovalocytes 1+ Crenated Cell 1+ Schistocytes None seen Sodium 139 Potassium 4.1 Chloride 109 H Carbon Dioxide 20 L Anion Gap 10 BUN 41 H Creatinine 2.23 H Estim Creat Clear Calc 23 Estimated GFR 28 L Glucose 140 H POC Capillary Glucose 211 H 142 H Calcium 8.5 01/20/25 01/20/25 01/20/25 21:30 18:23 16:44 WBC RBC Hgb 8.7 L Hct 29.6 L MCV MCH MCHC RDW Plt Count MPV Immature Gran % (Auto) Neut % (Auto) Lymph % (Auto) [place] % (Auto) Eos % (Auto) Baso % (Auto) Lymph # (Auto) [place] # (Auto) Eos # (Auto) Baso # (Auto) Abs Immat Gran (auto) Absolute Neuts (auto) Absolute Nucleated RBC Band Neutrophils % Nucleated RBC % Platelet Estimate Hypochromasia Anisocytosis Target Cells Tear Drop Cells Ovalocytes Crenated Cell Schistocytes Sodium Potassium Chloride Carbon Dioxide Anion Gap BUN Creatinine Estim Creat Clear Calc Estimated GFR Glucose POC Capillary Glucose 183 H 240 H Calcium Discharge Plan Discharge Attending physician on discharge: Hilario Fisher Discharging Clinician: Hilario Fisher Anticipated Discharge Date/Time: 01/21/25 14:41 Patient Disposition: Home Activity: as tolerated Diet: as tolerated Discharge Instructions: Discharge disposition: Stable Take medications as prescribed. You will be prescribed Augmentin for your pneumonia to take for 7 days. Monitor blood pressures Take caution while standing, rising, or moving Change positions slowly taking a break between each position change If you standing feel dizzy sit back down and take a break Encouraged to continue with yearly vaccinations Return to the emergency department if he developed sudden shortness of breath, chest pain, nausea, vomiting, upset stomach or intractable diarrhea Return to the emergency department if you develop fever greater than 101.5 Follow-up with the primary care physician within 1-2 weeks Thank you for [facility] for your healthcare needs Patient Instructions: Antibiotic Form Patient Language: Portuguese Stand Alone Forms: General Discharge Information Follow-up/Referrals: Kyle Howell MD [Primary Care Provider] - Discharge Medications: New amoxicillin-pot clavulanate 875-125 mg tablet 1 tablet PO Q12H 7 Days Qty: 14 0RF Continued cholecalciferol (vitamin D3) 25 mcg (1,000 unit) capsule 25 mcg PO DAILY aspirin 81 mg tablet,delayed release (DR/EC) 81 mg PO DAILY Qty: 90 0RF pantoprazole 40 mg tablet,delayed release (DR/EC) 40 mg PO DAILY Qty: 90 1RF memantine 10 mg tablet See Rx Instructions .ROUTE .COMPLEX Qty: 60 4RF Dose Instruction: Take 1 tablet by mouth twice daily Rx Instructions: Take 1 tablet by mouth twice daily Date of admission: 01/20/25 09:38 Primary Care Provider: Kyle Howell Admitting Provider: Mellissa Lopez Attending physician on admission: Hilario Fisher Condition: Guarded Prognosis
== END 2025-01-21 16:36 | disposition home or self-care (01) | DRG 811 ==
LOC: ANHED 19:05 → ANH3MEDSUR 21:39
PROVIDERS: Emergency Medicine; Nurse Practitioner Gerontology; Registered Nurse; Admitting Provider General Practice; Emergency Provider General Practice; PCP Family Medicine; Visit Provider Physician Assistant
DX: D50.9 Iron deficiency anemia, unspecified (principal); J18.9 Pneumonia, unspecified organism; N18.4 Chronic kidney disease, stage 4 (severe); I48.20 Chronic atrial fibrillation, unspecified; M47.12 Other spondylosis with myelopathy, cervical region; J90 Pleural effusion, not elsewhere classified; R09.02 Hypoxemia; E11.22 Type 2 diabetes mellitus with diabetic chronic kidney disease; I12.9 Hypertensive chronic kidney disease with stage 1 through stage 4 chronic kidney disease, or unspecified chronic kidney disease; M79.89 Other specified soft tissue disorders; F03.90 Unspecified dementia, unspecified severity, without behavioral disturbance, psychotic disturbance, mood disturbance, and anxiety; E78.2 Mixed hyperlipidemia; Z66 Do not resuscitate; Z90.49 Acquired absence of other specified parts of digestive tract; Z87.891 Personal history of nicotine dependence
CPT/HCPCS: 36415; 36430; 71045; 71046; 71275; 73130; 74177; 80048; 80053; 82948; 83605; 83880; 84484; 85014; 85018; 85025; 85380; 85610; 85730; 86850; 86900; 86901; 86923; 93005; 93971; 94640; 96361; 96374; 96375; 97116; 97162; 97165; 97530; 97535; 99285; A9270; G0378; J0456; J0696; J1815; J7050; P9016; Q9967

== ENCOUNTER 2025-05-01 11:10 | Outpatient (CLI) | payer MEDICARE, SELFPAY ==
--- OUTSIDE RECORDS SUMMARY | 2025-05-01 11:14 | XMS_ITS | Encounter Summary ---
Author Organization [facility] Address [address] [place] [address] Care Team Providers Care Process Consultant Name Role Phone Kyle Howell MD Primary Care Provider [phone] Encounter Details Date Type Department Care Team (Late st Contact Info) Description 10/04/2016 Orders Only [facility] ProviderLencho MD [address] [place] [address] Social History Tobacco Use Types Packs/Day Years Used Date Smoking Tobacco: Never Assessed Sex and Gender Information Value Date Recorded Sex Assigned at Not on file Legal Sex Male 4:21 AM BARIATRIC COORDINATOR Gender Identity Not on file Sexual [...] on filedocumented in this encounter Care Teams Process Consultant Relationship Specialty Start Date End Date Kyle Howell MD PCP - General 12/29/16 documented as of this encounter
--- OUTSIDE RECORDS SUMMARY | 2025-05-01 11:14 | XMS_ITS | Encounter Summary ---
Author Organization [facility] Address [address] [facility] [place] [address] Care Team Providers Care Commercial Artist Lettering Name Role Phone Unavailable Primary Care Provider Unavailabl e Encounter Details Date Type Department Care Team (Late st Contact Info) Description 11/09/2023 Lab Requisition [facility] - DermPath Lab [address] [place] [address] Kyle Howell MD [address] [place] [address] Social History Tobacco Use Types Packs/Day Years Used Date Smoking Tobacco: Never Assessed Sex and Gender Information Value Date Recorded Sex Assigned at Not on file Legal Sex Male 8:21 AM TELEPHONIC NURSE Gender Identity Not on file Sexual Orientation Not on file documented as of this encounter Plan of Treatment Not on file documented as of this encounter Procedures Procedure Name Priority Date/Time Associated Diagnosis Comments DERMATOPATHOLOGY Routine 11/07/2023 3:33 AM TELEPHONIC NURSE documented in this encounter Results * DERMATOPATHOLOGY (11/07/2023 3:33 AM TELEPHONIC NURSE) Case Report Dermatopathology Report Case: [id number] Authorizing Provider: Kyle Howell MD Collected: 11/07/2023 03:33 AM Ordering Location: [facility] DermPath Lab Received: 11/09/2023 08:39 AM Pathologist: Addie Murphy MD Specimen: Skin, right mid back 12:58 PM TELEPHONIC NURSE DERMATOPATHOLOGY LABORATORY Final Diagnosis Specimen A. SKIN, right mid back: BENIGN VERRUCOUS KERATOSIS (L82.1) EPIDERMAL NECROSIS SUGGESTIVE OF EXCORIATION (L98.499) PRESENT AT MARGIN 12:58 PM TELEPHONIC NURSE DERMATOPATHOLOGY LABORATORY at 1258 TELEPHONIC NURSE Clinical History Changing Lesion. Check margins. 12:[address] [facility] DERMATOPATHOLOGY LABORATORY Gross Description Specimen A: Received is one formalin filled container labeled with the patient's name and designated right mid back. The specimen consists of a shave biopsy measuring 8x5x3 mm. Jar 0. 12:[address] [facility] DERMATOPATHOLOGY LABORATORY Microscopic Description Specimen A. SKIN, right mid back: Sections show hyperkeratosis, papillomatosis, hypergranulosis, and acanthosis. These histological findings can be seen in a verruca vulgaris or a seborrheic keratosis. The epidermis is focally necrotic and covered with a scale-crust. There is fibrin at the base. This lesion is present at the margin of the specimen. 12:[address] [facility] DERMATOPATHOLOGY LABORATORY Disclaimer An external and internal positive and negative controls are appropriate for the histochemical, immunohistochemical and immunofluorescence stain(s) in this case (if any), except where stated explicitly. The performance characteristics of the stain(s) cited in this report were developed and its performance characteristic determined by the Dermatopathology Laboratory at [facility], directed by Dr. Pedro Borden. These tests need not be, and therefore are not, approved by the [place] Food and Drug Administration. The tests are used for clinical purposes. Billing Codes Specimen Charges Stain Charges 23255 1 12:[address] [facility] DERMATOPATHOLOGY LABORATORY Embedded Images 12:[address] [facility] DERMATOPATHOLOGY LABORATORY Pathology/Cytolo gy TISSUE SPECIMEN FROM SKIN / Unknown 11/07/2023 3:33 AM TELEPHONIC NURSE 11/09/2023 8:39 AM TELEPHONIC NURSE us Kyledov Howell MD LAB - PATHOLOGY/CYTOLOGY ALL CARL Final Result DERMATOPATHOLOGY LABORATORY [facility] - Department of Dermatology [address] [phone] documented in this encounter Visit Diagnoses Not on filedocumented in this encounter
--- OUTSIDE RECORDS SUMMARY | 2025-05-01 11:14 | XMS_ITS | Encounter Summary ---
Author Organization [facility] Healthcare Address [address] [place] [address] Care Team Providers Care Deck Worker Name Role Phone Kyle Howell MD Primary Care Provider [phone] Encounter Details Date Type Department Care Team (Late st Contact Info) Description 01/03/2017 Orders Only [facility] Health Information Management [address] [place] [id number] Scanning, Provider Social History Tobacco Use Types Packs/Day Years Used Date Smoking Tobacco: Former Cigarettes Q uit: 10/01/1987 Alcohol Use Standard Drinks/Week Comments Yes 0 (1 standard drink = 0.6 oz pur e alcohol) Sex and Gender Information Value Date Recorded Sex Assigned at Not on file 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 Gender Identity Not on file Sexual Orientation Not on file documented as of this encounter Plan of Treatment Not on file documented as of this encounter Procedures Procedure Name Priority Date/Time Associated Diagnosis Comments SCAN - RADIOLOGY/IMAGING 01/03/2017 documented in this encounter Results * SCAN - RADIOLOGY/IMAGING (01/03/2017) Anatomical Region Laterality Modality Other us Provider Scanning Final Result documented in this encounter Visit Diagnoses Not on filedocumented in this encounter Care Teams Deck Worker Relationship Specialty Start Date End Date Kyle Howell MD PCP - General 12/29/16 documented as of this encounter
--- OUTSIDE RECORDS SUMMARY | 2025-05-01 11:14 | XMS_ITS | Clinical Summary ---
Author Organization [facility] Address [address] [place] [address] Phone Care Team Providers Care Citizen Participation Specialist Name Role Phone Kyle Howell MD Primary Care Provider [phone] Allergies Active Allergy Reactions Criticality Noted Date [...] Comments Blood Pressure 128/80 08/28/2022 10:28 AM USER SUPPORT ANALYST Pulse 60 08/28/2022 10:28 AM USER SUPPORT ANALYST Temperature 35.7 C (96.2 F) 08/28/2022 10:28 AM USER SUPPORT ANALYST Respiratory Rate - - Oxygen Saturation - - Inhaled Oxygen Concentration - - Weight 73.9 kg (163 lb) 08/28/2022 10:28 AM USER SUPPORT ANALYST Height 165.1 cm (5' 5) 08/28/2022 10:28 AM USER SUPPORT ANALYST Body Mass Index 27.12 08/28/2022 10:28 AM USER SUPPORT ANALYST Plan of Treatment Health Maintenance Due Date Last Done Comments Pneumococcal PPSV23/PCV13 65 + Years / Low and Medium Risk (1 of 2 - PCV) 1992 COVID-19 Vaccine (2 - season) 2024 Influenza Vaccine (#1) 2025 , 07/25/2021, 07/10/2019 Insurance MEDICARE [facility] Care Teams Citizen Participation Specialist Relationship Specialty Start Date End Date Kyle Howell MD [address] [place] [address] PCP - General Family Medicine 12/30/18
--- OUTSIDE RECORDS SUMMARY | 2025-05-01 11:14 | XMS_ITS | Continuity of Care Document ---
Author Organization [facility] Address [address] [place] [address] Phone Care Team Providers Care Interactive Designer Name Role Phone Shikha Najera Unavailable Unavailable Advance Directives Directive Yes / No Effective Date File Name No Information Encounters Encounter Description Practice Location Reason(s) For Visit Diagnoses Date Provider Providers Copied on Encounter [facility], [address], [place], [place], [id number], [place] tel:[phone] [facility] No Information 8[address] Dania Trivedi. [address] , [address], [place], [address], [place]. tel:[phone] Referring Provider: Kyle Howell MD , [address] [place], [address]. tel:[phone] Family History Family Member Type Diagnosis Age At Onset No Information Payers Payer name Insurance type Covered alliance party ID Authoriza tilaci(s) [facility] CI [id number] Social History Type Description Quantity Date Captured [...]
--- OUTSIDE RECORDS SUMMARY | 2025-05-01 11:14 | XMS_ITS | Encounter Summary ---
Author Organization [facility] Healthcare Address [address] [place] [address] Care Team Providers Care Plastics Design Engineer Name Role Phone Kyle Howell MD Primary Care Provider [phone] Encounter Details Date Type Department Care Team (Late st Contact Info) Description 11/02/2016 Orders Only [facility] Health Information Management [address] [place] [address] Scanning, Provider Social History Tobacco Use Types Packs/Day Years Used Date Smoking Tobacco: Former Cigarettes Q uit: 10/01/1987 Alcohol Use Standard Drinks/Week Comments Yes 0 (1 standard drink = 0.6 oz pur e alcohol) Sex and Gender Information Value Date Recorded Sex Assigned at Not on file 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 Gender Identity Not on file Sexual Orientation Not on file documented as of this encounter Plan of Treatment Not on file documented as of this encounter Procedures Procedure Name Priority Date/Time Associated Diagnosis Comments CARDIOLOGY DOCUMENT SCAN 11/02/2016 documented in this encounter Results * Cardiology Document Scan (11/02/2016) Anatomical Region Laterality Modality Other us Provider Scanning CV CARDIAC SERVICES PROCEDURES Final Result documented in this encounter Visit Diagnoses Not on filedocumented in this encounter Care Teams Plastics Design Engineer Relationship Specialty Start Date End Date Kyle Howell MD PCP - General 12/29/16 documented as of this encounter
--- OUTSIDE RECORDS SUMMARY | 2025-05-01 11:14 | XMS_ITS | Encounter Summary ---
Author Organization [facility] Healthcare Address [address] [place] [address] Care Team Providers Care Peanut Picker Name Role Phone Kyle Howell MD Primary Care Provider Encounter Details Date Type Department Care Team (Late st Contact Info) Description 01/19/[address] 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 Gender Identity Not on file Sexual Orientation Not on file documented as of this encounter Plan of Treatment Not on file documented as of this encounter Procedures Procedure Name Priority Date/Time Associated Diagnosis Comments SCAN - RADIOLOGY/IMAGING 01/19/2017 documented in this encounter Results * SCAN - RADIOLOGY/IMAGING (01/19/2017) Anatomical Region Laterality Modality Other us Provider Scanning Final Result documented in this encounter Visit Diagnoses Not on filedocumented in this encounter Care Teams Peanut Picker Relationship Specialty Start Date End Date Kyle Howell MD PCP - General 12/29/16 documented as of this encounter
--- OUTSIDE RECORDS SUMMARY | 2025-05-01 11:14 | XMS_ITS | Encounter Summary ---
Author Organization [facility] Healthcare Address [address] [place] [address] Care Team Providers Care Manager Code Name Role Phone Kyle Howell MD Primary Care Provider Encounter Details Date Type Department Care Team (Late st Contact Info) Description 01/17/2017 Orders Only [facility] Health Information Management [address] [place] [phone] Scanning, Provider Social History Tobacco Use Types Packs/Day Years Used Date Smoking Tobacco: Former Cigarettes Q uit: 10/01/1987 Alcohol Use Standard Drinks/Week Comments Yes 0 (1 standard drink = 0.6 oz pur e alcohol) Sex and Gender Information Value Date Recorded Sex Assigned at Not on file 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
--- OUTSIDE RECORDS SUMMARY | 2025-05-01 11:14 | XMS_ITS | Encounter Summary ---
Author Organization [facility] Healthcare Address [address] [place] [address] Care Team Providers Care Table Lever Operator Name Role Phone Kyle Howell MD Primary Care Provider [phone] Encounter Details Date Type Department Care Team (Late st Contact Info) Description 04/08/2018 Orders Only [facility] Health Information Management [address] [place] [address] Scanning, Provider Social History Tobacco Use Types Packs/Day Years Used Date Smoking Tobacco: Former Smokeless Tobacco: Never Alcohol Use Standard Drinks/Week Comments Yes 0 (1 standard drink = 0.6 oz pur e alcohol) Sex and Gender Information Value Date Recorded Sex Assigned at Not on file 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 Male 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
--- OUTSIDE RECORDS SUMMARY | 2025-05-01 11:14 | XMS_ITS | Clinical Summary ---
Author Organization [facility] Address [address] [place] [address] Care Team Providers Care Foundry Engineer Name Role Phone Unavailable Primary Care Provider Unavailabl e Source Comments [facility],non-owned Affiliates and Associated Physician Practices is amultiple site organization consisting of ambulatory clinics and hospital sitesin [place], [place], [place] and [place]. This disclosure is being madepursuant to the Care Everywhere program and may not contain all information available regarding this patient. 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
--- OUTSIDE RECORDS SUMMARY | 2025-05-01 11:14 | XMS_ITS | Encounter Summary ---
Author Organization [facility] Healthcare Address [address] [place] [address] Care Team Providers Care President Educational Institution Name Role Phone Kyle Howell MD Primary Care Provider [phone] Encounter Details Date Type Department Care Team (Late st Contact Info) Description 10/04/2016 Orders Only [facility] Health Information Management [address] [place] [id number] Scanning, Provider Social History Tobacco Use Types Packs/Day Years Used Date Smoking Tobacco: Never Assessed Sex and Gender Information Value Date Recorded Sex Assigned at Not on file 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 Sex Male 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 Gender Identity Not on file Sexual Orientation Not on file documented as of this encounter Plan of Treatment Not on file documented as of this encounter Procedures Procedure Name Priority Date/Time Associated Diagnosis Comments CARDIOLOGY DOCUMENT SCAN 10/04/2016 documented in this encounter Results * Cardiology Document Scan (10/04/2016) Anatomical Region Laterality Modality Other us Provider Scanning CV CARDIAC SERVICES PROCEDURES Final Result documented in this encounter Visit Diagnoses Not on filedocumented in this encounter Care Teams President Educational Institution Relationship Specialty Start Date End Date Kyle Howell MD PCP - General 12/29/16 documented as of this encounter
--- OUTSIDE RECORDS SUMMARY | 2025-05-01 11:15 | XMS_ITS | Clinical Summary ---
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 Gender Identity Not on file Sexual Orientation [...] 69.9 kg (154 lb) 11/14/2022 3:01 PM STORAGE ARCHITECT Height 166.4 cm (5' 5.5) 11/14/2022 3:01 PM STORAGE ARCHITECT Body Mass Index 25.24 11/14/2022 3:01 PM STORAGE ARCHITECT Plan of Treatment Health Maintenance Due Date Last Done Comments Depression Screening 1942 Fall Risk Assessment 1942 DTaP/Tdap/Td Vaccine (1 - Tdap) 1953 Hepatitis B Screening 1960 Abdominal Aortic Aneurysm (A AA) Screen 2007 Well Visit 65+ 2007 Pneumococcal vaccine 65+ (2 of 2 - PPSV23) 07/27/2012 06/01/2012 Zoster Vaccine (2 of 3) 08/07/2015 06/12/2015 Influenza Vaccine (#1) 2025 2, 07/25/2021, 07/10/2019, Additional history exists Insurance MEDICARE RAILROAD MEDICARE RAILROAD [facility] MEDICARE SUPPLEMENT Care Teams Chief Operations Officer Relationship Specialty Start Date End Date Kyle Howell MD PCP - General 12/29/16
--- OUTSIDE RECORDS SUMMARY | 2025-05-01 11:15 | XMS_ITS | Referral Summary ---
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
[2025-05-01 12:04] LABS: Hematocrit 42.7 % (42.0-52.0); Hemoglobin 12.7 g/dL (14.0-18.0); Mean Corpuscular HGB Conc 29.7 g/dl (32-36); Mean Corpuscular Hemoglobin 23.7 pg (26-34); Mean Corpuscular Volume 79.8 fl (80-100); Platelet Count Result 184 k/mm3 (150-375); Red Blood Count 5.35 M/mm3 (4.6-6.20); White Blood Count 7.9 K/mm3 (4.5-10.0)
[2025-05-01 12:16] LABS: Anion Gap 8 mmol/L (4-12); Blood Urea Nitrogen 31 mg/dL (9-20); Calcium 9.4 mg/dL (8.4-10.2); Carbon Dioxide 26 mmol/L (22-30); Chloride 105 mmol/L (98-107); Estimated Glomerular Filt Rate 34; Glucose 194 mg/dL (65-110); Iron 50 ug/dL (49-181); Potassium 4.3 mmol/L (3.4-5.0); Sodium 139 mmol/L (137-145)
[2025-05-01 12:26] LABS: Percent Iron Saturation 15 % (20-50)
[2025-05-01 12:27] LABS: Hemoglobin A1C 7.0 % (<5.7)
[2025-05-01 12:28] LABS: MALB Creatinine Ratio 55.7 mg/g (0-30)
[2025-05-01 12:48] LABS: Thyroid Stimulating Hormone 1.270 uIU/mL (0.465-4.680)
== END 2025-05-01 11:11 | disposition home or self-care (01) ==
PROVIDERS: PCP Family Medicine; Visit Provider Family Medicine
DX: E11.22 Type 2 diabetes mellitus with diabetic chronic kidney disease (principal); I12.9 Hypertensive chronic kidney disease with stage 1 through stage 4 chronic kidney disease, or unspecified chronic kidney disease; N18.4 Chronic kidney disease, stage 4 (severe); D50.9 Iron deficiency anemia, unspecified
CPT/HCPCS: 36415; 80048; 82043; 83036; 83540; 83550; 84443; 85027

== ENCOUNTER 2025-08-24 11:12 | Inpatient (IN) | payer MEDICARE, SELFPAY ==
[2025-08-24] VITALS (21 sets, daily range): BP systolic 111–144; BP diastolic 58–92; PULSE 68–94; RESP 12–20; TEMP 34.2–36.9; O2SAT 96–98; BMI 23.6
--- NOTE | ~2025-08-24 | XR_ITS ---
Examination: XR chest 2V Clinical History: weakness Comparison: 01/20/2025 Technique: PA and Lateral Findings: Cardiomediastinal silhouette normal size and configuration. Lungs clear. No acute bony abnormality. IMPRESSION: No acute cardiopulmonary findings. Reviewed, dictated and finalized at location R. NER AND PREPARER
--- NOTE | ~2025-08-24 | US_ITS ---
EXAMINATION: Ultrasound kidneys, Limited: DATE: 08/24/2025. INDICATION: Acute on chronic kidney disease. TECHNIQUE: Ultrasound examination of both kidneys including color Doppler evaluation of ureteric jet were obtained. COMPARISON: None. FINDINGS: Kidneys are mildly atrophic in size measuring the length of 9.4 cm on the right and 9.9 cm on the left. Significantly increased echotexture intrarenal cortex suggesting severe medical renal changes. No focal lesions of the urinary bladder. Color jet is noted from both ureters. No free fluid. IMPRESSION: 1. Mildly atrophic kidneys. Severely increased echotexture of renal cortex due to significant medical renal changes. No obstructive lesions. 2. No focal lesions of the urinary bladder. Color jet from the ureters are noted from both sides into the urinary bladder. No free fluid. Reviewed, dictated and finalized at location T. ERY HELPER IMPRESSION: 1. Mildly atrophic kidneys. Severely increased echotexture of renal cortex due to significant medical renal changes. No obstructive lesions. 2. No focal lesions of the urinary bladder. Color jet from the ureters are note d from both sides into the urinary bladder. No free fluid.
--- NOTE | ~2025-08-24 | CT_ITS ---
EXAMINATION: CT brain wo ernestina, 08/24/2025 12:45 DOMAIN ARCHITECT HISTORY: AMS COMPARISON: No comparisons available. Technique: Axial images obtained of the brain without contrast. One or more of the following dose reduction techniques were used: automated exposure control, adjustment of the mA and/or kV according to patient size, use of iterative reconstruction technique. Findings: No acute infarct or parenchymal hemorrhage. No abnormal mass or mass effect. No midline shift. No extra-axial fluid collections. No hydrocephalus. Mastoid air cells unremarkable. Sinuses and orbits unremarkable. No acute fracture. No significant facial or scalp soft tissue swelling evident. No radiopaque foreign body is seen. Impression: 1.No acute intracranial abnormality. Reviewed, dictated and finalized at location P. IN ARCHITECT Impression: 1.No acute intracranial abnormality.
--- NOTE | 2025-08-24 11:14 | ECG_ITS ---
Test Date: 2025-08-24 11:22:57 Measurements Intervals [place] Rate: 91 P: 0 SD: 0 QRS: 61 QRSD: 86 T: 59 QT: 357 QTc: 439 Interpretive Statements ATRIAL FIBRILLATION WITH ABERRANT CONDUCTION OR VENTRICULAR PREMATURE COMPLEXES MODERATE VOLTAGE CRITERIA FOR LVH, CONSIDER NORMAL VARIANT [MEETS CRITERIA IN ONE OF: R(aVL), S(V1), R(V5), R(V5/V6)+S(V1)] ABNORMAL ECG Compared to ECG 01/19/2025 16:33:52 Aberrant conduction of supraventricular beat(s) now present Electronically Signed On 08-24-2025 13:56:52 MICA BUILDER by Raphael Bills M.D.
[2025-08-24 12:03] LABS: Hematocrit 31.8 % (42.0-52.0); Hemoglobin 10.7 g/dL (14.0-18.0); Immature Granulocyte Percent A 0.8 % (0-0.5); Lymphocytes Absolute Auto 1.25 K/mm3 (0.9-3.2); Mean Corpuscular HGB Conc 33.6 g/dl (32-36); Mean Corpuscular Hemoglobin 26.6 pg (26-34); Mean Corpuscular Volume 79.1 fl (80-100); Nucleated Red Blood Cells Absolute Auto 0.000 K/mm3 (0.0-0.012); Nucleated Red Blood Cells Perc 0.0 % (0.0-0.2); Platelet Count Result 182 k/mm3 (150-375); Red Blood Count 4.02 M/mm3 (4.6-6.20); White Blood Count 19.1 K/mm3 (4.5-10.0)
[2025-08-24 12:17] LABS: Add Urine Microscopic? YES; Appearance Urine Cloudy (Clear); Glucose Urine UA Trace mg/dL (Negative); Leukocyte Esterase Ur 2+ LEU/UL (Negative); Need Manual Microscopic Reviewed; Nitrate Urine Negative (Negative); Specific Grav Ur 1.014 (1.001-1.035)
--- NOTE | 2025-08-24 12:26 | ED.GENADULT ---
HPI - General Adult General Chief complaint: Weakness Stated complaint: weakness x 2 weeks Time Seen by Provider: 08/24/25 11:44 History of Present Illness HPI narrative: 85-year-old male present to the emergency department for evaluation for slowly progressing altered mental status over the course of the last 2 weeks. Patient does live in his own home but does have family members that live with him and help care for him. They state over the last 2 weeks he has had decreased p.o. intake. Family states the patient has had no recent falls or injuries. Upon arrival emergency department patient is ill-appearing but does respond to voice. Patient denies any pain or complaints at this time. Related Data Home Medications ?Medication ?Instructions ?Recorded ?Confirmed ?Last Taken ?Type cholecalciferol (vitamin D3) 25 25 mcg PO DAILY 11/07/23 02/03/25 Unknown History mcg (1,000 unit) capsule Allergies Allergy/AdvReac Type Severity Reaction Status Date / Time No Known Allergies Allergy Verified 08/24/25 18:37 Review of Systems Review of Systems: All systems reviewed & are unremarkable except as noted in HPI and below PMFSH Past Medical History Medical History (Updated 08/24/25 @ 13:49 by Jose Roberto Villa MD) Senile debility Cataract Dysphagia Chronic atrial fibrillation Dementia, unspecified, without behavioral disturbance Essential (primary) hypertension Low kidney function Mixed hyperlipidemia Spondylosis of cervical joint with myelopathy Type 2 diabetes mellitus without complications Surgical History Surgical History H/O hernia repair Hx of cholecystectomy Family History Family History Mother Hypertension Family history of malignant neoplasm Arthritis H/O gallbladder cancer Father Cerebrovascular accident Family history of diabetes mellitus in first degree relative Diabetes mellitus Arthritis Pacemaker Sibling Arthritis Sibling Arthritis Social History Social History Smoking status: Former smoker Tobacco type: cigarettes and cigars Second hand tobacco smoke exposure: No Smoking end date: 10/01/11 Alcohol intake: unknown Substance use: never Substance use type: does not use Do You Feel Safe in your Home?: Yes Lack of Transportation: No Lack of Food: Never True Current Housing: I Have Housing Concerned About Future Housing: No Difficulty Paying Gas/Electric Bills: No Difficulty Paying for Meds: No Currently Unemployed: No Education: Grade School Difficulty w/ Childcare or Family Care: No Living arrangements: with family Additional living arrangements comments: grandson Occupation/Education: retired 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 EYES: PERRLA/EOMI, conjunctivae clear. NOSE: Normal no drainage EARS:TMS clear with good light reflex. THROAT: Pharynx clear, no exudate. NECK: Supple. No adenopathy, no masses. RESPIRATORY: Airway patent, respirations nonlabored. Clear to auscultation bilaterally, no rales, rhonchi, wheezing. CARDIOVASCULAR: Regular rate and rhythm without murmurs rubs or gallops. ABDOMINAL: Soft, nontender, nondistended, normal bowel sounds MUSCULOSKELETAL: Moves all extremities. Strength/ROM intact, No edema, No calf tenderness. NEURO: Alert. Moving all limbs equally SKIN: Warm, dry. Normal Color Course Vital Signs Vital signs: Vital Signs Temperature 97.3 F L 08/24/25 11:29 Pulse Rate 90 08/24/25 11:29 Respiratory Rate 19 08/24/25 11:29 Blood Pressure 113/58 L 08/24/25 11:29 Pulse Oximetry 97 08/24/25 11:29 Oxygen Delivery Room Air 08/24/25 11:29 Temperature 95.3 F L 08/24/25 18:24 Pulse Rate 76 08/24/25 17:40 Respiratory Rate 12 08/24/25 17:40 Blood Pressure 137/64 08/24/25 17:40 Pulse Oximetry 98 08/24/25 17:40 Oxygen Delivery Room Air 08/24/25 11:29 Medical Decision Making [facility] Narrative Medical decision making narrative: 85-year-old male present to the emergency department for evaluation for altered mental status and worsening generalized weakness. Patient is currently afebrile but does have a white blood cell count of 19.1 hemoglobin of 10.7. Patient has a potassium of 5 0.3. Patient's creatinine is 5.15 and patient's BUN is 200. Patient's urine was done as straight cath and he was drained until empty. UA was concerning for infection patient was started on Rocephin. Patient had a negative bedside bladder scan. Patient was treated with 1 L of lactated Ringer's and 1 L of normal saline and started on antibiotics and blood cultures are pending. Nephrology was consulted for the worsening kidney function. Patient was then started on 75 mls/hr of normal saline. Renal ultrasound was also ordered. Case discussed with hospitalist patient was accepted for admission. Patient family are also updated on the treatment plan. All questions concerns were addressed. Differential Diagnosis Differential Diagnosis: Obstructive uropathy, per renal kidney failure, acute on chronic kidney disease, dehydration, urinary tract infection, subdural hematoma, subarachnoid hemorrhage Vital Signs Vital Signs: Vital Signs Temperature 97.3 F L 08/24/25 11:29 Pulse Rate 90 08/24/25 11:29 Respiratory Rate 19 08/24/25 11:29 Blood Pressure 113/58 L 08/24/25 11:29 Pulse Oximetry 97 08/24/25 11:29 Oxygen Delivery Room Air 08/24/25 11:29 Temperature 95.3 F L 08/24/25 18:24 Pulse Rate 76 08/24/25 17:40 Respiratory Rate 12 08/24/25 17:40 Blood Pressure 137/64 08/24/25 17:40 Pulse Oximetry 98 08/24/25 17:40 Oxygen Delivery Room Air 08/24/25 11:29 Lab Data Lab results reviewed: Yes I reviewed the patient's lab results. 08/24/25 11:41 08/24/25 14:55 Labs: Lab Results 08/24/25 08/24/25 08/24/25 Range/Units 11:41 11:53 11:54 WBC 19.1 H (4.5-10.0) K/mm3 RBC 4.02 L (4.6-6.20) M/mm3 Hgb 10.7 L (14.0-18.0) g/dL Hct 31.8 L (42.0-52.0) % MCV 79.1 L (80-100) fl MCH 26.6 (26-34) pg MCHC 33.6 (32-36) g/dl RDW 17.0 H (11.5-14.5) % Plt Count 182 (150-375) k/mm3 MPV 9.5 (7.4-10.4) fl Immature Gran % (Auto) 0.8 H (0-0.5) % Neut % (Auto) 85.4 H (45.5-73.1) % Lymph % (Auto) 6.5 L (18.3-44.2) % Pima % (Auto) 6.8 (2.6-8.5) % Eos % (Auto) 0.3 (0-4.4) % Baso % (Auto) 0.2 (0.2-1.2) % Lymph # (Auto) 1.25 (0.9-3.2) K/mm3 Pima # (Auto) 1.3 H (0.1-0.6) K/mm3 Eos # (Auto) 0.1 (0-0.3) K/mm3 Baso # (Auto) 0.0 (0.0-0.1) K/mm3 Abs Immat Gran (auto) 0.15 H (0.00-0.031) K/mm3 Absolute Neuts (auto) 16.3 H (1.3-6.7) K/mm3 Absolute Nucleated RBC 0.000 (0.0-0.012) K/mm3 Nucleated RBC % 0.0 (0.0-0.2) % PT 19.4 H (11.1-14.7) Seconds INR 1.7 APTT 40.1 H (22.3-36.8) Seconds Sodium 143 (137-145) mmol/L Potassium 5.3 H (3.4-5.0) mmol/L Chloride 112 H (98-107) mmol/L Carbon Dioxide 7 L (22-30) mmol/L Anion Gap 24 H (4-12) mmol/L BUN 207 H* D (9-20) mg/dL Creatinine 15.50 H (0.7-1.3) mg/dL Estim Creat Clear Calc 3 ml/min Estimated GFR 3 L (59 - ) Glucose 160 H (65-110) mg/dL Lactic Acid (0.7-2.0) mmol/L Calcium 9.5 (8.4-10.2) mg/dL Total Bilirubin 0.7 (0.2-1.3) mg/dL AST 42 (17-59) U/L ALT 29 (6-50) U/L Alkaline Phosphatase 125 (38-126) U/L C-Reactive Protein 25.6 H (<1.0) mg/dL Total Protein 7.0 (6.3-8.2) g/dL Albumin 3.6 (3.5-5.1) g/dL Urine Color Yellow (Yellow) Urine Appearance Cloudy H (Clear) Urine pH 5.0 (5.0-9.0) Ur Specific [place] 1.014 (1.001-1.035) Urine Protein 1+ H (Negative) mg/dL Urine Glucose (UA) Trace H (Negative) mg/dL Urine Ketones Negative (Negative) mg/dL Ur Blood (Man) 1+ H (Negative) Urine Nitrate Negative (Negative) Urine Bilirubin Negative (Negative) Urine Urobilinogen 0.2 (<2.0) mg/dL Add Ur Microanalysis Reviewed Leukocyte Esterase Rfl 2+ H (Negative) SEBASTIÁN/UL Urine RBC 0-2 (0-2) /hpf Urine WBC 21-50 H (0-3) /hpf Ur Squamous Epith Cells Occasional (Few) /hpf Urine Bacteria None seen /hpf Urine Casts 11-20 Ur Random Sodium 50 meq/L Urine Creatinine 64.5 mg/dL 08/24/25 Range/Units 13:53 WBC (4.5-10.0) K/mm3 RBC (4.6-6.20) M/mm3 Hgb (14.0-18.0) g/dL Hct (42.0-52.0) % MCV (80-100) fl MCH (26-34) pg MCHC (32-36) g/dl RDW (11.5-14.5) % Plt Count (150-375) k/mm3 MPV (7.4-10.4) fl Immature Gran % (Auto) (0-0.5) % Neut % (Auto) (45.5-73.1) % Lymph % (Auto) (18.3-44.2) % Pima % (Auto) (2.6-8.5) % Eos % (Auto) (0-4.4) % Baso % (Auto) (0.2-1.2) % Lymph # (Auto) (0.9-3.2) K/mm3 Pima # (Auto) (0.1-0.6) K/mm3 Eos # (Auto) (0-0.3) K/mm3 Baso # (Auto) (0.0-0.1) K/mm3 Abs Immat Gran (auto) (0.00-0.031) K/mm3 Absolute Neuts (auto) (1.3-6.7) K/mm3 Absolute Nucleated RBC (0.0-0.012) K/mm3 Nucleated RBC % (0.0-0.2) % PT (11.1-14.7) Seconds INR APTT (22.3-36.8) Seconds Sodium (137-145) mmol/L Potassium (3.4-5.0) mmol/L Chloride (98-107) mmol/L Carbon Dioxide (22-30) mmol/L Anion Gap (4-12) mmol/L BUN (9-20) mg/dL Creatinine (0.7-1.3) mg/dL Estim Creat Clear Calc ml/min Estimated GFR (59 - ) Glucose (65-110) mg/dL Lactic Acid 1.8 (0.7-2.0) mmol/L Calcium (8.4-10.2) mg/dL Total Bilirubin (0.2-1.3) mg/dL AST (17-59) U/L ALT (6-50) U/L Alkaline Phosphatase (38-126) U/L C-Reactive Protein (<1.0) mg/dL Total Protein (6.3-8.2) g/dL Albumin (3.5-5.1) g/dL Urine Color (Yellow) Urine Appearance (Clear) Urine pH (5.0-9.0) Ur Specific [place] (1.001-1.035) Urine Protein (Negative) mg/dL Urine Glucose (UA) (Negative) mg/dL Urine Ketones (Negative) mg/dL Ur Blood (Man) (Negative) Urine Nitrate (Negative) Urine Bilirubin (Negative) Urine Urobilinogen (<2.0) mg/dL Add Ur Microanalysis Leukocyte Esterase Rfl (Negative) SEBASTIÁN/UL Urine RBC (0-2) /hpf Urine WBC (0-3) /hpf Ur Squamous Epith Cells (Few) /hpf Urine Bacteria /hpf Urine Casts Ur Random Sodium meq/L Urine Creatinine mg/dL Imaging Data Attestation: I personally reviewed and interpreted this imaging study as follows: My impression: Chest x-ray: No acute cardiopulmonary abnormality Radiologist's impression: Impressions Chest X-Ray 08/24/25 12:22 IMPRESSION: No acute cardiopulmonary findings. Head CT 08/24/25 13:03 Impression: 1.No acute intracranial abnormality. Discharge Plan Discharge Clinical Impression: Weakness, AMS (altered mental status), Acute UTI, Acute kidney injury superimposed on CKD Patient Disposition: Still a Patient Condition: Serious
[2025-08-24 12:39] LABS: Alanine Aminotransferase 29 U/L (6-50); Albumin Level 3.6 g/dL (3.5-5.1); Alkaline Phosphatase 125 U/L (38-126); Anion Gap 24 mmol/L (4-12); Aspartate Amino Transferase 42 U/L (17-59); Bilirubin,Total 0.7 mg/dL (0.2-1.3); Calcium 9.5 mg/dL (8.4-10.2); Carbon Dioxide 7 mmol/L (22-30); Chloride 112 mmol/L (98-107); Estimated CRCL calculation 3 ml/min; Estimated Glomerular Filt Rate 3; Glucose 160 mg/dL (65-110); Potassium 5.3 mmol/L (3.4-5.0); Sodium 143 mmol/L (137-145); Total Protein 7.0 g/dL (6.3-8.2)
[2025-08-24] MEDS: LACTATED RINGERS 1,000 ML 999 ML IV CONT (13:01)
[2025-08-24] MEDS: LACTATED RINGERS 900 ML 999 ML IV CONT (13:01)
[2025-08-24 13:07] LABS: Blood Urea Nitrogen 207 mg/dL (9-20)
--- OUTSIDE RECORDS SUMMARY | 2025-08-24 13:22 | XMS_ITS | Encounter Summary ---
Author Organization [facility] Address [address] [place] [address] Care Team Providers Care Television Camera Operator Name Role Phone Unavailable Primary Care Provider Unavailabl e Encounter Details Date Type Department Care Team (Late st Contact Info) Description 11/09/2023 Lab Requisition [facility] - DermPath Lab [address] [place] [address] Kyle Howell MD [address] [place] [address] Social History Tobacco Use Types Packs/Day Years Used Date Smoking Tobacco: Never Assessed Sex and Gender Information Value Date Recorded Sex Assigned at Not on file Legal Sex Male 8:21 AM SENIOR NET DEVELOPER Gender Identity Not on file Sexual Orientation Not on file documented as of this encounter Plan of Treatment Not on file documented as of this encounter Procedures Procedure Name Priority Date/Time Associated Diagnosis Comments DERMATOPATHOLOGY Routine 11/07/2023 3:33 AM SENIOR NET DEVELOPER documented in this encounter Results * DERMATOPATHOLOGY (11/07/2023 3:33 AM SENIOR NET DEVELOPER) Case Report Dermatopathology Report Case: [id number] Authorizing Provider: Kyle Howell MD Collected: 11/07/2023 03:33 AM Ordering Location: [facility] Derm[facility] Lab Received: 11/09/2023 08:39 AM Pathologist: Addie Murphy MD Specimen: Skin, right mid back 12:58 PM SENIOR NET DEVELOPER DERMATOPATHOLOGY LABORATORY Final Diagnosis Specimen A. SKIN, right mid back: BENIGN VERRUCOUS KERATOSIS (L82.1) EPIDERMAL NECROSIS SUGGESTIVE OF EXCORIATION (L98.499) PRESENT AT MARGIN 12:58 PM SENIOR NET DEVELOPER DERMATOPATHOLOGY LABORATORY at 1258 SENIOR NET DEVELOPER Clinical History Changing Lesion. Check margins. 12:58 PM [facility] DERMATOPATHOLOGY LABORATORY Gross Description Specimen A: Received is one formalin filled container labeled with the patient's name and designated right mid back. The specimen consists of a shave biopsy measuring 8x5x3 mm. Jar 0. 12:58 PM [facility] DERMATOPATHOLOGY LABORATORY Microscopic Description Specimen A. SKIN, right mid back: Sections show hyperkeratosis, papillomatosis, hypergranulosis, and acanthosis. These histological findings can be seen in a verruca vulgaris or a seborrheic keratosis. The epidermis is focally necrotic and covered with a scale-crust. There is fibrin at the base. This lesion is present at the margin of the specimen. 12:58 PM [facility] DERMATOPATHOLOGY LABORATORY Disclaimer An external and internal positive and negative controls are appropriate for the histochemical, immunohistochemical and immunofluorescence stain(s) in this case (if any), except where stated explicitly. The performance characteristics of the stain(s) cited in this report were developed and its performance characteristic determined by the Dermatopathology Laboratory at [facility], directed by Dr. Pedro Borden. These tests need not be, and therefore are not, approved by the [place] Food and Drug Administration. The tests are used for clinical purposes. Billing Codes Specimen Charges Stain Charges 82912 1 12:58 PM [facility] DERMATOPATHOLOGY LABORATORY Embedded Images 12:58 PM [facility] DERMATOPATHOLOGY LABORATORY Pathology/Cytolo gy TISSUE SPECIMEN FROM SKIN / Unknown 11/07/2023 3:33 AM SENIOR NET DEVELOPER 11/09/2023 8:39 AM SENIOR NET DEVELOPER us Kyledov Howell MD LAB - PATHOLOGY/CYTOLOGY ALL CARL Final Result DERMATOPATHOLOGY LABORATORY [facility] - Department of Dermatology [address] [phone] documented in this encounter Visit Diagnoses Not on filedocumented in this encounter
--- OUTSIDE RECORDS SUMMARY | 2025-08-24 13:22 | XMS_ITS | Clinical Summary ---
Author Organization [facility] Address [address] [place] [address] Care Team Providers Care Lithograph Operator Name Role Phone Unavailable Primary Care Provider Unavailabl e Source Comments [facility],non-owned Affiliates and Associated Physician Practices is amultiple site organization consisting of ambulatory clinics and hospital sitesin [place], [place], [place] and [place]. This disclosure is being madepursuant to the Care Everywhere program and may not contain all information available regarding this patient. 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
--- OUTSIDE RECORDS SUMMARY | 2025-08-24 13:22 | XMS_ITS | Clinical Summary ---
Author Organization [facility] [address] Address [address] [place] [address] Care Team Providers Care Raw Scales Operator Name Role Phone Kyle Howell MD [...] on file Legal Sex Male 4:21 AM INFORMATICA MDM ARCHITECT Gender Identity Not on file Sexual [...] 69.9 kg (154 lb) 11/14/2022 3:01 PM INFORMATICA MDM ARCHITECT Height 166.4 cm (5' 5.5) 11/14/2022 3:01 PM INFORMATICA MDM ARCHITECT Body Mass Index 25.24 11/14/2022 3:01 PM INFORMATICA MDM ARCHITECT Plan of Treatment Health Maintenance Due Date Last Done Comments Depression Screening 1942 Fall Risk Assessment 1942 DTaP/Tdap/Td Vaccine (1 - Tdap) 1953 Hepatitis B Screening 1960 Abdominal Aortic Aneurysm (A AA) Screen 2007 Well Visit 65+ 2007 Pneumococcal vaccine 65+ (2 of 2 - PPSV23, PCV20, or PCV21) 07/27/2012 06/01/2012 Zoster Vaccine (2 of 3) 08/07/2015 06/12/2015 Influenza Vaccine (#1) 2025 2, 07/25/2021, 07/10/2019, Additional history exists Insurance MEDICARE RAILROAD MEDICARE RAILROAD [facility] MEDICARE SUPPLEMENT Care Teams Raw Scales Operator Relationship Specialty Start Date End Date Kyle Howell MD PCP - General 12/29/16
--- OUTSIDE RECORDS SUMMARY | 2025-08-24 13:22 | XMS_ITS | Encounter Summary ---
Author Organization [facility] Healthcare Address [address] [place] [address] Care Team Providers Care Internet Security Specialist Name Role Phone Kyle Howell MD Primary Care Provider [phone] Encounter Details Date Type Department Care Team (Late st Contact Info) Description 01/03/2017 Orders Only [facility] [place] [address] [place] [id number] Scanning, Provider Social History Tobacco Use Types Packs/Day Years Used Date Smoking Tobacco: Former Cigarettes Q uit: 10/01/1987 Alcohol Use Standard Drinks/Week Comments Yes 0 (1 standard drink = 0.6 oz pur e alcohol) Sex and Gender Information Value Date Recorded Sex Assigned at Not on file Legal Sex Male 4:21 AM SENIOR POWER SCHEDULER Gender Identity Not on file Sexual Orientation [...] on filedocumented in this encounter Care Teams Internet Security Specialist Relationship Specialty Start Date End Date Kyle Howell MD PCP - General 12/29/16 documented as of this encounter
--- OUTSIDE RECORDS SUMMARY | 2025-08-24 13:22 | XMS_ITS | Encounter Summary ---
Author Organization [facility] Healthcare Address [address] [place] [address] Care Team Providers Care Employee Counselor Name Role Phone Kyle Howell MD Primary Care Provider [phone] Encounter Details Date Type Department Care Team (Late st Contact Info) Description 01/19/2017 Orders Only [facility] Health Information Management [address] [place] [id number] Scanning, Provider Social History Tobacco Use Types Packs/Day Years Used Date Smoking Tobacco: Former Cigarettes Q uit: 10/01/1987 Alcohol Use Standard Drinks/Week Comments Yes 0 (1 standard drink = 0.6 oz pur e alcohol) Sex and Gender Information Value Date Recorded Sex Assigned at Not on file Legal Sex Male 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
--- OUTSIDE RECORDS SUMMARY | 2025-08-24 13:22 | XMS_ITS | Encounter Summary ---
Author Organization [facility] Healthcare Address [address] [place] [address] Care Team Providers Care Flood Control Engineer Name Role Phone Kyle [place] MD Primary Care Provider [phone] Encounter Details Date Type Department Care Team (Late st Contact Info) Description 11/02/2016 Orders Only [facility] [place] Health Information Management [address] [place] [address] Scanning, Provider Social History Tobacco Use Types Packs/Day Years Used Date Smoking Tobacco: Former Cigarettes Q uit: 10/01/1987 Alcohol Use Standard Drinks/Week Comments Yes 0 (1 standard drink = 0.6 oz pur e alcohol) Sex and Gender Information Value Date Recorded Sex Assigned at Not on file Legal Sex Male 4:21 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
--- OUTSIDE RECORDS SUMMARY | 2025-08-24 13:22 | XMS_ITS | Encounter Summary ---
Author Organization [facility] Healthcare Address [address] [place] [address] Care Team Providers Care Information Technology Project Manager Name Role Phone Kyle [place] MD Primary Care Provider [phone] Encounter Details Date Type Department Care Team (Late st Contact Info) Description 10/04/2016 Orders Only [facility] [place] Health Information Management [address] [place] [address] Scanning, Provider Social History Tobacco Use Types Packs/Day Years Used Date Smoking Tobacco: Never Assessed Sex and Gender Information Value Date Recorded Sex Assigned at Not on file Legal Sex Male 4: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
--- OUTSIDE RECORDS SUMMARY | 2025-08-24 13:22 | XMS_ITS | Encounter Summary ---
Author Organization [facility] Healthcare Address [address] [place] [address] Care Team Providers Care Skilled Nursing Case Manager Name Role Phone Kyle [place] MD Primary Care Provider [phone] Encounter Details Date Type Department Care Team (Late st Contact Info) Description 04/08/2018 [place] Only [facility] [place] Management [address] [place] [address] Scanning, Provider Social History Tobacco Use Types Packs/Day Years Used Date Smoking Tobacco: Former Smokeless Tobacco: Never Alcohol Use Standard Drinks/Week Comments Yes 0 (1 standard drink = 0.6 oz pur e alcohol) Sex and Gender Information Value Date Recorded Sex Assigned at Not on file Legal Sex Male 4:21 AM TEST SPECIALIST Gender Identity Not on file Sexual Orientation [...] on filedocumented in this encounter Care Teams Skilled Nursing Case Manager Relationship Specialty Start Date End Date Kyle [place] MD PCP - General 12/29/16 documented as of this encounter
--- OUTSIDE RECORDS SUMMARY | 2025-08-24 13:22 | XMS_ITS | Encounter Summary ---
Author Organization [facility] Healthcare Address [address] [place] [address] Care Team Providers Care Passenger Car Cleaning Supervisor Name Role Phone Kyle [place] MD Primary Care Provider Encounter Details Date Type Department Care Team (Late st Contact Info) Description 01/17/2017 Orders Only [facility] [place] Health Information Management [address] [place] [address] Scanning, Provider Social History Tobacco Use Types Packs/Day Years Used Date Smoking Tobacco: Former Cigarettes Q uit: 10/01/1987 Alcohol Use Standard Drinks/Week Comments Yes 0 (1 standard drink = 0.6 oz pur e alcohol) Sex and Gender Information Value Date Recorded Sex Assigned at Not on file Legal Sex Male 4:21 AM COMMUNITY DIETITIAN Gender Identity Not on file Sexual Orientation [...] on filedocumented in this encounter Care Teams Passenger Car Cleaning Supervisor Relationship Specialty Start Date End Date Kyle [place] MD PCP - General 12/29/16 documented as of this encounter
--- OUTSIDE RECORDS SUMMARY | 2025-08-24 13:22 | XMS_ITS | Encounter Summary ---
Author Organization [facility] Address [address] [address] [place] [address] Care Team Providers Care Global Regulatory Lead Name Role Phone Kyle [place] MD Primary Care Provider Encounter Details Date Type Department Care Team (Late st Contact Info) Description 10/04/2016 Orders Only [facility] ProviderLencho MD [address] [place] [address] Social History Tobacco Use Types Packs/Day Years Used Date Smoking Tobacco: Never Assessed Sex and Gender Information Value Date Recorded Sex Assigned at Not on file Legal Sex Male 4:21 AM 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
[2025-08-24 13:50] LABS: INR 1.7; Prothrombin Time 19.4 Seconds (11.1-14.7)
[2025-08-24 13:51] LABS: Partial Thromboplastin Time 40.1 Seconds (22.3-36.8)
--- OUTSIDE RECORDS SUMMARY | 2025-08-24 13:54 | XMS_ITS | Encounter Summary ---
Author Organization [facility] Healthcare Address [address] [place] [address] Care Team Providers Care Wood Grainer Name Role Phone Kyle [place] MD Primary Care Provider [phone] Encounter Details Date Type Department Care Team (Late st Contact Info) Description 01/19/2017 Orders Only [facility] [place] Health Information Management [address] [place] [address] Scanning, Provider Social History Tobacco Use Types Packs/Day Years Used Date Smoking Tobacco: Former Cigarettes Q uit: 10/01/1987 Alcohol Use Standard Drinks/Week Comments Yes 0 (1 standard drink = 0.6 oz pur e alcohol) Sex and Gender Information Value Date Recorded Sex Assigned at Not on file Legal Sex Male 4:21 AM LIFE SCIENCE TECHNICAL OFFICER Gender Identity Not on file Sexual Orientation [...] on filedocumented in this encounter Care Teams Wood Grainer Relationship Specialty Start Date End Date Kyle [place] MD PCP - General 12/29/16 documented as of this encounter
--- OUTSIDE RECORDS SUMMARY | 2025-08-24 13:54 | XMS_ITS | Encounter Summary ---
Author Organization [facility] Healthcare Address [address] [place] [address] Care Team Providers Care Marketing Content Manager Name Role Phone Kyle [place] MD Primary Care Provider [phone] Encounter Details Date Type Department Care Team (Late st Contact Info) Description 01/03/2017 Orders Only [facility] [place] Information Management [address] [place] [address] Scanning, Provider Social History Tobacco Use Types Packs/Day Years Used Date Smoking Tobacco: Former Cigarettes Q uit: 10/01/1987 Alcohol Use Standard Drinks/Week Comments Yes 0 (1 standard drink = 0.6 oz pur e alcohol) Sex and Gender Information Value Date Recorded Sex Assigned at Not on file 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
--- OUTSIDE RECORDS SUMMARY | 2025-08-24 13:54 | XMS_ITS | Encounter Summary ---
Author Organization [facility] Address [address] [facility] [address] [place] [address] Care Team Providers Care Rn Lactation Consultant Name Role Phone Kyle [place] MD Primary Care Provider [phone] Encounter Details Date Type Department Care Team (Late st Contact Info) Description 10/04/2016 Orders Only [facility] ProviderLencho MD [address] [place] [address] Social History Tobacco Use Types Packs/Day Years Used Date Smoking Tobacco: Never Assessed Sex and Gender Information Value Date Recorded Sex Assigned at Not on file 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
--- OUTSIDE RECORDS SUMMARY | 2025-08-24 13:54 | XMS_ITS | Encounter Summary ---
Author Organization [facility] Healthcare Address [address] [place] [address] Care Team Providers Care Livestock Slaughterer Name Role Phone Kyle [place] MD Primary Care Provider [phone] Encounter Details Date Type Department Care Team (Late st Contact Info) Description 11/02/2016 Orders Only [facility] [place] Health Information Management [address] [place] [address] Scanning, Provider Social History Tobacco Use Types Packs/Day Years Used Date Smoking Tobacco: Former Cigarettes Q uit: 10/01/1987 Alcohol Use Standard Drinks/Week Comments Yes 0 (1 standard drink = 0.6 oz pur e alcohol) Sex and Gender Information Value Date Recorded Sex Assigned at Not on file 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
--- OUTSIDE RECORDS SUMMARY | 2025-08-24 13:54 | XMS_ITS | Encounter Summary ---
Author Organization [facility] Healthcare Address [address] [place] [address] Care Team Providers Care Chargeback Analyst Name Role Phone Kyle [place] MD Primary Care Provider [phone] Encounter Details Date Type Department Care Team (Late st Contact Info) Description 10/04/2016 Orders Only [facility] [place] Information Management [address] [place] [address] Scanning, Provider Social History Tobacco Use Types Packs/Day Years Used Date Smoking Tobacco: Never Assessed Sex and Gender Information Value Date Recorded Sex Assigned at Not on file 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
--- OUTSIDE RECORDS SUMMARY | 2025-08-24 13:54 | XMS_ITS | Encounter Summary ---
Author Organization [facility] Address [address] [place] [address] Care Team Providers Care Alarm Mechanism Adjuster Name Role Phone Unavailable Primary Care Provider Unavailabl e Encounter Details Date Type Department Care Team (Late st Contact Info) Description 11/09/2023 Lab Requisition [facility] - DermPath Lab [address] [place] [address] Kyle [place] MD [address] [place] [address] Social History Tobacco Use Types Packs/Day Years Used Date Smoking Tobacco: Never Assessed Sex and Gender Information Value Date Recorded Sex Assigned at Not on file 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 Sex Male 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 Gender Identity Not on file Sexual Orientation Not on file documented as of this encounter Plan of Treatment Not on file documented as of this encounter Procedures Procedure Name Priority Date/Time Associated Diagnosis Comments DERMATOPATHOLOGY Routine 11/07/2023 3:33 AM APPRENTICE PLANT ATTENDANT documented in this encounter Results * DERMATOPATHOLOGY (11/07/2023 3:33 AM APPRENTICE PLANT ATTENDANT) Case Report Dermatopathology Report Case: [id number] Authorizing Provider: Kyle [place] MD Collected: 11/07/2023 03:33 AM Ordering Location: [facility] DermPath Lab Received: 11/09/2023 08:39 AM Pathologist: Addie Murphy MD Specimen: Skin, right mid back 12:58 PM APPRENTICE PLANT ATTENDANT DERMATOPATHOLOGY LABORATORY Final Diagnosis Specimen A. SKIN, right mid back: BENIGN VERRUCOUS KERATOSIS (L82.1) EPIDERMAL NECROSIS SUGGESTIVE OF EXCORIATION (L98.499) PRESENT AT MARGIN 12:58 PM APPRENTICE PLANT ATTENDANT DERMATOPATHOLOGY LABORATORY at 1258 APPRENTICE PLANT ATTENDANT Clinical History Changing Lesion. Check margins. 12:58 PM [facility] DERMATOPATHOLOGY LABORATORY Gross Description Specimen A: Received is one formalin filled container labeled with the patient's name and designated right mid back. The specimen consists of a shave biopsy measuring 8x5x3 mm. Jar 0. 12:58 PM [facility] DERMATOPATHOLOGY LABORATORY Microscopic Description Specimen A. SKIN, right mid back: Sections show hyperkeratosis, papillomatosis, hypergranulosis, and acanthosis. These histological findings can be seen in a verruca vulgaris or a seborrheic keratosis. The epidermis is focally necrotic and covered with a scale-crust. There is fibrin at the base. This lesion is present at the margin of the specimen. 12:58 PM [facility] DERMATOPATHOLOGY LABORATORY Disclaimer An external and internal positive and negative controls are appropriate for the histochemical, immunohistochemical and immunofluorescence stain(s) in this case (if any), except where stated explicitly. The performance characteristics of the stain(s) cited in this report were developed and its performance characteristic determined by the Dermatopathology Laboratory at [facility], directed by Dr. Pedro Borden. These tests need not be, and therefore are not, approved by the [place] Food and Drug Administration. The tests are used for clinical purposes. Billing Codes Specimen Charges Stain Charges 05173 1 12:58 PM [facility] DERMATOPATHOLOGY LABORATORY Embedded Images 12:58 PM [facility] DERMATOPATHOLOGY LABORATORY Pathology/Cytolo gy TISSUE SPECIMEN FROM SKIN / Unknown 11/07/2023 3:33 AM APPRENTICE PLANT ATTENDANT 11/09/2023 8:39 AM APPRENTICE PLANT ATTENDANT us Kyledov [place] MD LAB - PATHOLOGY/CYTOLOGY ALL CARL Final Result DERMATOPATHOLOGY LABORATORY [facility] - Department of Dermatology [address] [phone] documented in this encounter Visit Diagnoses Not on filedocumented in this encounter
--- OUTSIDE RECORDS SUMMARY | 2025-08-24 13:54 | XMS_ITS | Clinical Summary ---
Author Organization [facility] Address [address] [place] [phone] Phone Care Team Providers Care Machine Pan Greaser Name Role Phone Kyle [place] MD Primary Care Provider [phone] Allergies Active Allergy Reactions Criticality Noted Date [...] Comments Blood Pressure 128/80 08/28/2022 10:28 AM GOVERNMENT OPERATIONS CONSULTANT Pulse 60 08/28/2022 10:28 AM GOVERNMENT OPERATIONS CONSULTANT Temperature 35.7 C (96.2 F) 08/28/2022 10:28 AM GOVERNMENT OPERATIONS CONSULTANT Respiratory Rate - - Oxygen Saturation - - Inhaled Oxygen Concentration - - Weight 73.9 kg (163 lb) 08/28/2022 10:28 AM GOVERNMENT OPERATIONS CONSULTANT Height 165.1 cm (5' 5) 08/28/2022 10:28 AM GOVERNMENT OPERATIONS CONSULTANT Body Mass Index 27.12 08/28/2022 10:28 AM GOVERNMENT OPERATIONS CONSULTANT Plan of Treatment Health Maintenance Due Date Last Done Comments Pneumococcal PPSV23/PCV13 65 + Years / Low and Medium Risk (1 of 2 - PCV) 1992 COVID-19 Vaccine (2 - 2024- season) 2025 Influenza Vaccine (#1) 2025 , 07/25/2021, 07/10/2019 [facility] Care Teams Machine Pan Greaser Relationship Specialty Start Date End Date Kyle [place] MD [address] [place] [address] PCP - General Family Medicine 12/30/18
--- OUTSIDE RECORDS SUMMARY | 2025-08-24 13:54 | XMS_ITS | Clinical Summary ---
Author Organization [facility] Address [address] [place] [address] Care Team Providers Care Administrative Representative Name Role Phone Unavailable Primary Care Provider Unavailabl e Source Comments [facility],non-owned Affiliates and Associated Physician Practices is amultiple site organization consisting of ambulatory clinics and hospital sitesin [place], [place], [place] and [place]. This disclosure is being madepursuant to the Care Everywhere program and may not contain all information available regarding this patient. 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
--- OUTSIDE RECORDS SUMMARY | 2025-08-24 13:54 | XMS_ITS | Encounter Summary ---
Author Organization [facility] Healthcare Address [address] [place] [address] Care Team Providers Care Food Service Tray Attendant Name Role Phone Kyle [place] MD Primary Care Provider [phone] Encounter Details Date Type Department Care Team (Late st Contact Info) Description 01/17/2017 Orders Only [facility] Health Information Management [address] [place] [address] Scanning, Provider Social History Tobacco Use Types Packs/Day Years Used Date Smoking Tobacco: Former Cigarettes Q uit: 10/01/1987 Alcohol Use Standard Drinks/Week Comments Yes 0 (1 standard drink = 0.6 oz pur e alcohol) Sex and Gender Information Value Date Recorded Sex Assigned at Not on file 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
--- OUTSIDE RECORDS SUMMARY | 2025-08-24 13:54 | XMS_ITS | Encounter Summary ---
Author Organization [facility] Healthcare Address [address] [place] [address] Care Team Providers Care Cut Off Saw Operator Name Role Phone Kyle [place] MD Primary Care Provider [phone] Encounter Details Date Type Department Care Team (Late st Contact Info) Description 04/08/2018 Orders Only [facility] [place] Health Information Management [address] [place] [address] Scanning, Provider Social History Tobacco Use Types Packs/Day Years Used Date Smoking Tobacco: Former Smokeless Tobacco: Never Alcohol Use Standard Drinks/Week Comments Yes 0 (1 standard drink = 0.6 oz pur e alcohol) Sex and Gender Information Value Date Recorded Sex Assigned at Not on file 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
--- OUTSIDE RECORDS SUMMARY | 2025-08-24 13:55 | XMS_ITS | Clinical Summary ---
Author Organization [facility] [address] Address [address] [place] [address] Care Team Providers Care Inspector Receiving Name Role Phone Kyle [place] MD Primary [...] on file Legal Sex Male 4:21 AM WET PAN OPERATOR Gender Identity Not on file Sexual [...] 69.9 kg (154 lb) 11/14/2022 3:01 PM WET PAN OPERATOR Height 166.4 cm (5' 5.5) 11/14/2022 3:01 PM WET PAN OPERATOR Body Mass Index 25.24 11/14/2022 3:01 PM WET PAN OPERATOR Plan of Treatment Health Maintenance Due [...] history exists Insurance MEDICARE RAILROAD MEDICARE RAILROAD [facility] MEDICARE SUPPLEMENT Care Teams Inspector Receiving Relationship Specialty Start Date End Date Kyle [place] MD PCP - General 12/29/16
[2025-08-24 14:08] LABS: CRP 25.6 mg/dL (<1.0)
[2025-08-24] MEDS: SODIUM CHLORIDE 0.9% IV 1,000 ML 999 ML IV CONT (14:11)
[2025-08-24] MEDS: cefTRIAXone 1 GM in SODIUM CHLORIDE 0.9% IV 50 ML 100 ML IVPB (14:11)
[2025-08-24] MEDS: SODIUM CHLORIDE 0.9% IV 1,000 ML 75 ML IV CONT (14:59)
[2025-08-24 15:22] LABS: Anion Gap 21 mmol/L (4-12); Calcium 8.8 mg/dL (8.4-10.2); Carbon Dioxide 8 mmol/L (22-30); Chloride 114 mmol/L (98-107); Estimated CRCL calculation 3 ml/min; Estimated Glomerular Filt Rate 4; Glucose 146 mg/dL (65-110); Potassium 5.4 mmol/L (3.4-5.0); Sodium 143 mmol/L (137-145)
[2025-08-24 15:23] LABS: Blood Urea Nitrogen 186 mg/dL (9-20)
--- NOTE | 2025-08-24 17:47 | WPCEDHO ---
ED Hand Off Checklist All vitals saved: YES IV Site documented: YES All med administrations documented: YES Triage Note Triage Note Pt to ED with family who reports 08/24/25 11:29 pt has been increasingly more weak over the last 2 weeks. Pt daughter states they are concerned for possible UTI. Pt eyes open to voice, non cooperative to verbal. Allergies No Known Allergies Allergy (Verified 08/24/25 11:33) Family History (Last Reviewed 05/18/25 @ 13:33 by Dia Shi) Mother Hypertension Family history of malignant neoplasm Arthritis H/O gallbladder cancer Father Cerebrovascular accident Family history of diabetes mellitus in first degree relative Diabetes mellitus Arthritis Pacemaker Sibling Arthritis Sibling Arthritis Active Medications including assessments/comments Sodium Chloride (Normal Saline Iv) 1,000 mls @ 75 mls/hr IV CONT .[id number] STA Stop: 08/25/25 03:17 Last Admin: 08/24/25 14:59 Dose: 75 mls/hr Documented By: TERI Infusion/Titration Document 08/24/25 14:59 TERI (Rec: 08/24/25 14:59 TERI [id number]) Intake IV Site Peripheral Access Left Wrist Container Volume 1,000 Waste Amount 0 Dosing Infusion Rate 75 Cumulative Dose Not Applicable Increase/Decrease Started Elapsed Time Elapsed Time ( 0m minutes) Administered/Completed Medications Discontinued Medications Lactated Ringer's (Lr - Lactated Ringers Iv) 1,000 mls @ 999 mls/hr IV CONT .Q1H1M STA Stop: 08/24/25 13:28 Last Infusion: 08/24/25 14:15 Dose: Infused Documented By: Admin: 08/24/25 13:01 Dose: 999 mls/hr Documented By: TERI Lactated Ringer's (Lr - Lactated Ringers Iv) 900 mls @ 999 mls/hr IV CONT .Q55M STA Stop: 08/24/25 13:22 Last Infusion: 08/24/25 14:15 Dose: Infused Documented By: Admin: 08/24/25 13:01 Dose: 999 mls/hr Documented By: TERI Ceftriaxone Sodium 1 gm/ (Sodium Chloride) 50 mls @ 100 mls/hr IVPB ONCE STA Stop: 08/24/25 12:58 Last Infusion: 08/24/25 14:50 Dose: Infused Documented By: Admin: 08/24/25 14:11 Dose: 100 mls/hr Documented By: TERI Sodium Chloride (Normal Saline Iv) 1,000 mls @ 999 mls/hr IV CONT .Q1H1M STA Stop: 08/24/25 15:06 Last Infusion: 08/24/25 14:55 Dose: Infused Documented By: Admin: 08/24/25 14:11 Dose: 999 mls/hr Documented By: TERI Interventions/Assessments Cardiac Monitoring Start: 08/24/25 11:12 Freq: Status: Active Protocol: Document 08/24/25 11:33 KED (Rec: 08/24/25 11:34 TERI [id number]) Provisioning Specialist Assessment Provisioning Specialist Yes Applied Pulse Rate (60-100) 87 EKG Rythm Atrial Fibrillation IV / Saline Lock, Insert Start: 08/24/25 11:12 Freq: Status: Active Protocol: Document 08/24/25 11:39 KED (Rec: 08/24/25 11:40 KETrino [id number]) IV Assessment Peripheral Access Left Wrist IV Catheter Access Initiated IV Insertion Date 08/24/25 IV Insertion Time 11:39 Catheter Gauge 18 IV Insertion 1 Attempts Ultrasound Used for No Placement IV Site Assessment WNL IV Care and WNL Maintenance PA: Cardiovascular Assessment Start: 08/24/25 11:12 Freq: Status: Active Protocol: Document 08/24/25 11:33 KED (Rec: 08/24/25 11:34 KETrino [id number]) Cardiovascular Assessment Cardiovascular None Symptoms PA: Genitourinary Assessment Start: 08/24/25 11:40 Freq: Status: Active Protocol: Document 08/24/25 11:40 KED (Rec: 08/24/25 11:41 KETrino [id number]) Assessment Genitourinary Incontinence Symptoms Voiding Method Brief/Diaper Genitourinary family reports hx of incontinence Comments PA: Neurological Assessment Start: 08/24/25 11:12 Freq: Status: Active Protocol: Document 08/24/25 11:33 KED (Rec: 08/24/25 11:34 KETrino [id number]) Neurological Assessment Level of Awake Consciousness Arousable to Verbal Orientation Unable to Assess Neurological Weakness, General Symptoms Additional Pt non cooperative, not answering this RN Neurological Comments Last Vital Signs Temperature 95.5 F L 08/24/25 17:40 Pulse Rate 76 08/24/25 17:40 Respiratory Rate 12 08/24/25 17:40 Pulse Oximetry 98 08/24/25 17:40 Blood Pressure 137/64 08/24/25 17:40 Blood Pressure Mean 88 08/24/25 17:40 Oxygen Delivery Room Air 08/24/25 11:29 Weight 60.6 kg 08/24/25 11:29 Last Result - Abnormals Only WBC 19.1 K/mm3 (4.5-10.0) H 08/24/25 11:41 RBC 4.02 M/mm3 (4.6-6.20) L 08/24/25 11:41 Hgb 10.7 g/dL (14.0-18.0) L 08/24/25 11:41 Hct 31.8 % (42.0-52.0) L 08/24/25 11:41 MCV 79.1 fl (80-100) L 08/24/25 11:41 RDW 17.0 % (11.5-14.5) H 08/24/25 11:41 Immature Gran % (Auto) 0.8 % (0-0.5) H 08/24/25 11:41 Neut % (Auto) 85.4 % (45.5-73.1) H 08/24/25 11:41 Lymph % (Auto) 6.5 % (18.3-44.2) L 08/24/25 11:41 Mcdonough # (Auto) 1.3 K/mm3 (0.1-0.6) H 08/24/25 11:41 Abs Immat Gran (auto) 0.15 K/mm3 (0.00-0.031) H 08/24/25 11:41 Absolute Neuts (auto) 16.3 K/mm3 (1.3-6.7) H 08/24/25 11:41 PT 19.4 Seconds (11.1-14.7) H 08/24/25 11:41 APTT 40.1 Seconds (22.3-36.8) H 08/24/25 11:41 Potassium 5.4 mmol/L (3.4-5.0) H 08/24/25 14:55 Chloride 114 mmol/L (98-107) H 08/24/25 14:55 Carbon Dioxide 8 mmol/L (22-30) L 08/24/25 14:55 Anion Gap 21 mmol/L (4-12) H 08/24/25 14:55 BUN 186 mg/dL (9-20) H* D 08/24/25 14:55 Creatinine 13.02 mg/dL (0.7-1.3) H 08/24/25 14:55 Estimated GFR 4 (59-) L 08/24/25 14:55 Glucose 146 mg/dL (65-110) H 08/24/25 14:55 C-Reactive Protein 25.6 mg/dL (<1.0) H 08/24/25 11:41 Urine Appearance Cloudy (Clear) H 08/24/25 11:54 Urine Protein 1+ mg/dL (Negative) H 08/24/25 11:54 Urine Glucose (UA) Trace mg/dL (Negative) H 08/24/25 11:54 Ur Blood (Man) 1+ (Negative) H 08/24/25 11:54 Leukocyte Esterase Rfl 2+ SEBASTIÁN/UL (Negative) H 08/24/25 11:54 Urine WBC 21-50 /hpf (0-3) H 08/24/25 11:54
--- NOTE | 2025-08-24 18:42 | PC.NURSE ---
Patient arrived on [facility] alert to 0. Admission done with son.
--- NOTE | 2025-08-24 18:46 | WNDPHOTO ---
PHOTO ONLY - See Nursing Notes and/ or assessments for documentation.
--- NOTE | 2025-08-24 19:23 | PM.IMHP ---
H&P: HPI History of Present Illness Date/Time: 08/24/25 19:23 Chief Complaint: Weakness Narrative: 85-year-old male past medical history of dementia, hyperlipidemia, AFib, HTN, CKD, dm 2 presents to the ED on 08/24/2025 with complaints of weakness per family. Family states the patient has been increasingly weaker over the past 2 weeks with decreased p.o. intake. Patient lives at home with family that provide 24 hour care for him. Patient unable to contribute to HPI due to dementia. Information obtained from chart review and discussions with staff. Initial vital signs 113/58, HR 90, respirations 19, temperature 97.3? F, 97% on room air. Labs revealed leukocytosis with WBC 19.1, stable anemia, PT 19.4, APTT 40.1. Potassium 5.3, chloride 112, carbon dioxide 7, anion gap 24, BUN 207, creatinine 15.5, glucose 160. CRP 25.6. UA with 1+ protein, trace glucose, 1+ blood, 2+ leukocyte Estrace, WBC 20 1-50. Urine random sodium 50, urine creatinine 64.5 EKG AFib with aberrant conduction or ventricular premature complexes. Chest x-ray with no acute cardiopulmonary findings. Head CT no acute intracranial abnormality. Renal ultrasound Mildly atrophic kidneys. Severely increased echotexture of renal cortex due to significant medical renal changes. No obstructive lesions. No focal lesions of the bladder. Review of Systems Review of Systems: All systems reviewed & are unremarkable except as noted in HPI and below PMFSH Past Medical History Medical History (Updated 08/25/25 @ 01:47 by Blank Iyer APRN) Senile debility Cataract Dysphagia Chronic atrial fibrillation Dementia, unspecified, without behavioral disturbance Essential (primary) hypertension Low kidney function Mixed hyperlipidemia Spondylosis of cervical joint with myelopathy Type 2 diabetes mellitus without complications Surgical History Surgical History H/O hernia repair Hx of cholecystectomy Family History Family History Mother Hypertension Family history of malignant neoplasm Arthritis H/O gallbladder cancer Father Cerebrovascular accident Family history of diabetes mellitus in first degree relative Diabetes mellitus Arthritis Pacemaker Sibling Arthritis Sibling Arthritis Social History Social History Smoking status: Former smoker Tobacco type: cigarettes and cigars Second hand tobacco smoke exposure: No Smoking end date: 10/01/11 Alcohol intake: former Substance use: never Substance use type: does not use Do You Feel Safe in your Home?: Yes Lack of Transportation: No Lack of Food: Never True Current Housing: I Have Housing Concerned About Future Housing: No Difficulty Paying Gas/Electric Bills: No Difficulty Paying for Meds: No Currently Unemployed: No Education: Grade School Difficulty w/ Childcare or Family Care: No Living arrangements: with family Additional living arrangements comments: grandson Occupation/Education: retired 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 Gender identity (if verbalized by the patient): Male Spiritual care concerns: No Meds Home Medications and Allergies Home Medications ?Medication ?Instructions ?Recorded ?Confirmed ?Type cholecalciferol (vitamin D3) 25 25 mcg PO DAILY 11/07/23 02/03/25 History mcg (1,000 unit) capsule aspirin 81 mg tablet,delayed 81 mg PO DAILY #90 tabs 01/08/25 02/03/25 Rx release nystatin 100,000 unit/gram topical 1 applic topical BID #60 grams 02/03/25 02/03/25 Rx powder memantine 10 mg tablet See Rx Instructions .Route 05/30/25 Rx .COMPLEX #60 tabs pantoprazole 40 mg tablet,delayed 40 mg PO DAILY #90 tabs 08/09/25 Rx release Allergies Allergy/AdvReac Type Severity Reaction Status Date / Time No Known Allergies Allergy Verified 08/24/25 18:37 Vital Signs Vital Signs - 24 hr 08/24/25 11:29 08/24/25 11:33 08/24/25 13:26 Temperature 97.3 F L Pulse Rate 90 87 80 Respiratory Rate 19 14 Blood Pressure 113/58 L 123/92 H Pulse Oximetry 97 96 Oxygen Delivery Room Air 08/24/25 14:12 08/24/25 15:06 08/24/25 16:27 Temperature Pulse Rate 76 86 68 Respiratory Rate 20 17 16 Blood Pressure 129/77 130/76 144/77 H Pulse Oximetry 97 97 97 Oxygen Delivery 08/24/25 17:40 08/24/25 18:24 08/24/25 19:04 Temperature 95.5 F L 95.3 F L 93.6 F L Pulse Rate 76 91 Respiratory Rate 12 20 Blood Pressure 137/64 111/60 Pulse Oximetry 98 97 Oxygen Delivery H&P: Results Labs Labs: Short CBC 08/24/25 Range/Units 11:41 WBC 19.1 H (4.5-10.0) K/mm3 Hgb 10.7 L (14.0-18.0) g/dL Hct 31.8 L (42.0-52.0) % Plt Count 182 (150-375) k/mm3 BMP 08/24/25 08/24/25 11:41 14:55 Sodium 143 143 Potassium 5.3 H 5.4 H Chloride 112 H 114 H Carbon Dioxide 7 L 8 L BUN 207 H* D 186 H* D Creatinine 15.50 H 13.02 H Glucose 160 H 146 H Calcium 9.5 8.8 Liver Function 08/24/25 Range/Units 11:41 Total Bilirubin 0.7 (0.2-1.3) mg/dL AST 42 (17-59) U/L ALT 29 (6-50) U/L Alkaline Phosphatase 125 (38-126) U/L Albumin 3.6 (3.5-5.1) g/dL Urine 08/24/25 Range/Units 11:54 Urine Color Yellow (Yellow) Urine Appearance Cloudy H (Clear) Urine pH 5.0 (5.0-9.0) Ur Specific Brohman 1.014 (1.001-1.035) Urine Protein 1+ H (Negative) mg/dL Urine Glucose (UA) Trace H (Negative) mg/dL Assessment and Plan Assessment and plan (1) Acute renal failure: Qualifiers: Acute renal failure type: unspecified Qualified Code(s): N17.9 - Acute kidney failure, unspecified Code(s): N17.9 - Acute kidney failure, unspecified Status: Acute Assessment and Plan: Patient with dementia presents with increased weakness and decreased p.o. intake over the past 2 weeks. Renal ultrasound Mildly atrophic kidneys. Severely increased echotexture of renal cortex due to significant medical renal changes. No obstructive lesions. No focal lesions of the bladder. Urine random sodium 50, urine creatinine 64.5. UA with 1+ protein, trace glucose, 1+ blood, 2+ leukocyte Estrace, WBC 20 1-50. Urine random sodium 50, urine creatinine 64.5. -Cr 15.5 on admission (baseline Cr: About 2.2) -s/p 2 L of IVF - NS @ 75 started 08/24 - Obrien catheter - monitor I&Os - Renal dose med, avoid nephrotoxins - nephrology consultation, awaiting recs - trend renal function - goals of care discussion needed with family. Patient unlikely to return to baseline post hospitalization. (2) Acute UTI: Code(s): N39.0 - Urinary tract infection, site not specified Status: Acute Assessment and Plan: UA with 1+ protein, trace glucose, 1+ blood, 2+ leukocyte Estrace, WBC 20 1-50. Urine random sodium 50, urine creatinine 64.5. 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: without senior care use Chronic kidney disease stage: stage 4 (severe) Qualified Code(s): E11.22 - Type 2 diabetes mellitus with diabetic chronic kidney disease; N18.4 - Chronic kidney disease, stage 4 (severe) Code(s): E11.22 - Type 2 diabetes mellitus with diabetic chronic kidney disease Status: Chronic Assessment and Plan: - hypoglycemia protocol - POC blood glucose ACHS - home medication: Unknown - correct regimen ordered: Low-dose sliding scale (4) Dementia with agitation: Qualifiers: Dementia type: Alzheimer's Alzheimer's disease onset: late onset Dementia severity: severe Qualified Code(s): G30.1 - Alzheimer's disease with late onset; F02.C11 - Dementia in other diseases classified elsewhere, severe, with agitation Code(s): F03.911 - Unspecified dementia, unspecified severity, with agitation Status: Chronic Assessment and Plan: Patient baseline A&O x2. Currently A&Ox0-1. Will look at you when you talk to him. Plan Diet: Renal GI prophylaxis: NA DVT prophylaxis: Heparin subcutaneous lines/drains: PIV, Obrien Fluids: s/p 2 L Code status: DNR Quality VTE Prophylaxis VTE prophylaxis: pharmacologic ordered med rec incomplete at this time. Family plans to bring in 08/25 for completion Hospitalist [facility] Advance Care Plan I have confirmed that the patient's Advanced Care Plan is present, code status is documented, or surrogate decision maker is listed in patient medical record.: Yes Medication Reconciliation I have utilized all available resources to obtain, update and review the patients current medications (includes all prescriptions, OTC, herbals, cannabis, and nutritional supplements).: Yes
[2025-08-24 22:56] LABS: Anion Gap 21 mmol/L (4-12); Calcium 8.8 mg/dL (8.4-10.2); Carbon Dioxide 7 mmol/L (22-30); Chloride 116 mmol/L (98-107); Estimated CRCL calculation 3 ml/min; Estimated Glomerular Filt Rate 4; Glucose 104 mg/dL (65-110); Potassium 5.3 mmol/L (3.4-5.0); Sodium 144 mmol/L (137-145)
[2025-08-24 23:08] LABS: Blood Urea Nitrogen 181 mg/dL (9-20)
[2025-08-25] VITALS (12 sets, daily range): BP systolic 127–154; BP diastolic 60–93; PULSE 75–104; RESP 16–21; TEMP 36.2–37.7; O2SAT 96–100
[2025-08-25] MEDS: SODIUM CHLORIDE 0.9% IV 1,000 ML 75 ML IV CONT (04:35)
[2025-08-25 04:38] LABS: Hematocrit 26.3 % (42.0-52.0); Hemoglobin 8.7 g/dL (14.0-18.0); Immature Granulocyte Percent A 0.5 % (0-0.5); Lymphocytes Absolute Auto 0.75 K/mm3 (0.9-3.2); Mean Corpuscular HGB Conc 33.1 g/dl (32-36); Mean Corpuscular Hemoglobin 26.2 pg (26-34); Mean Corpuscular Volume 79.2 fl (80-100); Nucleated Red Blood Cells Absolute Auto 0.000 K/mm3 (0.0-0.012); Nucleated Red Blood Cells Perc 0.0 % (0.0-0.2); Platelet Count Result 153 k/mm3 (150-375); Red Blood Count 3.32 M/mm3 (4.6-6.20); White Blood Count 13.4 K/mm3 (4.5-10.0)
[2025-08-25 05:08] LABS: Alanine Aminotransferase 22 U/L (6-50); Albumin Level 2.9 g/dL (3.5-5.1); Alkaline Phosphatase 98 U/L (38-126); Aspartate Amino Transferase 28 U/L (17-59); Bilirubin,Total 0.6 mg/dL (0.2-1.3); Calcium 9.1 mg/dL (8.4-10.2); Carbon Dioxide < 5 mmol/L (22-30); Chloride 117 mmol/L (98-107); Estimated CRCL calculation 3 ml/min; Estimated Glomerular Filt Rate 4; Glucose 61 mg/dL (65-110); Magnesium 2.0 mg/dL (1.6-2.3); Potassium 5.1 mmol/L (3.4-5.0); Sodium 144 mmol/L (137-145); Total Protein 5.9 g/dL (6.3-8.2)
[2025-08-25 05:54] LABS: Blood Urea Nitrogen 179 mg/dL (9-20)
[2025-08-25] MEDS: DEXTROSE 5% 1,000 ML 1,000 ML 100 ML IVPB (08:08)
--- NOTE | 2025-08-25 09:48 | P.CONNP_ITS ---
Assessment and Plan Assessment and plan (1) Acute kidney injury superimposed on CKD: Code(s): N17.9 - Acute kidney failure, unspecified; N18.9 - Chronic kidney disease, unspecified Status: Acute Assessment and Plan: The patient has acute kidney injury. Just 3 months ago his GFR was around 30 and now it is down to only 4. He was seen by Dr. Howell in May and as mentioned above his labs were stable. His blood pressure and diabetes were under good control. He did have some agitation and lack of motivation at home as result of his dementia. Ultrasound ruled out obstruction. He does have pyuria and so could have urosepsis. He has not been eating and drinking very well for 2 weeks so could be dehydrated. However urine electrolytes are non pre renal I suspect this is most likely due to dehydration and urosepsis There are other things such as glomerulonephritis (which would be unlikely in this clinical scenario), interstitial nephritis (but the patient has no rash nor eosinophilia or change in meds), rhabdomyolysis (will check a CK). I do not think this is simply progression of renal disease, however the ultrasound does look like severe CKD. The patient does not smoke or drink The patient's BUN and creatinine are very high. He is poorly responsive and not making much urine. Generally a I think these things would be an indication for dialysis. I tried calling his daughter, Kristin, but was unable to get through and a left voice mails for her. I did talk with his sister, Sandra Argueta. The patient had stopped following up in Nephrology office because of his advancing dementia. Recently the patient has not been able to recognize his daughter or sister although he knew their family the he did not know who they were exactly. He has been less and less communicative. He does have a living will and directive of care and Kristin is bring that up today. Sandra argueta does not think that Joe would want dialysis. Kristin will address this specifically when she comes in. So for now I will change his IV fluids to try to help his bicarb and continue to work on his dehydration in order to improve his BUN and creatinine. He will continue antibiotics and will see what cultures show. I agree that it would be very hard on Mr. Ortiz to do dialysis with his dementia. So we will not plan on doing this and less Kristin wishes us to proceed. Long discussion with the ER doctor last night and with Sandra Argueta today. (2) Acute UTI: Code(s): N39.0 - Urinary tract infection, site not specified Status: Acute Assessment and Plan: Patient had pyuria. Blood and urine cultures are pending The patient is on antibiotics. 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 insulin use: without assisted use Chronic kidney disease stage: stage 4 (severe) Qualified Code(s): E11.22 - Type 2 diabetes mellitus with diabetic chronic kidney disease; N18.4 - Chronic kidney disease, stage 4 (severe) Code(s): E11.22 - Type 2 diabetes mellitus with diabetic chronic kidney disease Status: Chronic Assessment and Plan: On Accu-Cheks and sliding scale insulin (5) Essential (primary) hypertension: Code(s): I10 - Essential (primary) hypertension Status: Acute Assessment and Plan: Blood pressure is running in the 110s to 150s (6) Chronic atrial fibrillation: Code(s): I48.20 - Chronic atrial fibrillation, unspecified Status: Acute Assessment and Plan: Heart rate is controlled. (7) Metabolic acidosis: Code(s): E87.20 - Acidosis, unspecified Status: Acute Assessment and Plan: CO2 is very low. Most likely due to the renal failure. History of Present Illness Reason for Consult Consult date: 08/25/25 Chief Complaint Chief complaint: urinary tract infection,altered mental status,acut History of Present Illness Narrative: Marko is a very pleasant 85-year-old gentleman who has chronic kidney disease stage IV, hypertension, diabetes, dementia, hyperlipidemia, who was last in my office in 2022 at which time his GFR was around 26. At that point I had suggested that he go to [facility] for education about kidney disease. He said he would consider it. He did not follow up after that. His kidney function since then however has stayed pretty stable in the high 20s and low 30s until May of this year. His family brought him to the emergency room. He has been gradually weak over the past couple of weeks, not eating or drinking very well. The patient lives at home alone however he has [facility] care and so is monitored. The patient came in the emergency room and he was unable to interact very much. Chest x-ray showed no pneumonia or fluid. Head CT was unremarkable. Renal ultrasound showed small very echogenic kidneys. His white count was a little bit high. He was a little bit anemic. BUN and creatinine were very high at 207 and 15.5. The potassium was slightly high at 5.3. His CO2 is very low. The patient was admitted. He was given D5W overnight. His BUN and creatinine came down to 179 and 13.1. He only made 100cc of urine overnight. The patient can not give a history. Review of Systems 2 Constitutional: Constitutional: Reports no additional constitutional complaints Eyes: Eyes: Reports no additional eye complaints ENT: Reports system reviewed and no additional complaints, except as documented Cardiovascular: Cardiovascular: Reports no additional cardiovascular complaints Respiratory: Respiratory: Reports no additional respiratory complaints Gastrointestinal: Gastrointestinal: Reports no additional gastrointestinal complaints Genitourinary: Genitourinary: Reports no additional male genitourinary complaints Musculoskeletal: Musculoskeletal: Reports no additional musculoskeletal complaints Integumentary/Breasts: Skin/Breast: Reports system reviewed and no additional complaints, except as docu Neurologic: Reports system reviewed and no additional complaints, except as documented Psychiatric: Psychiatric: Reports no additional psychiatric complaints Endocrine: Endocrine: Reports no additional endocrine complaints PMF Past Medical History Medical History Senile debility Cataract Dysphagia Chronic atrial fibrillation Dementia, unspecified, without behavioral disturbance Essential (primary) hypertension Low kidney function Mixed hyperlipidemia Spondylosis of cervical joint with myelopathy Type 2 diabetes mellitus without complications Surgical History Surgical History H/O hernia repair Hx of cholecystectomy Family History Family History Mother Hypertension Family history of malignant neoplasm Arthritis H/O gallbladder cancer Father Cerebrovascular accident Family history of diabetes mellitus in first degree relative Diabetes mellitus Arthritis Pacemaker Sibling Arthritis Sibling Arthritis Social History Social History Smoking status: Former smoker Tobacco type: cigarettes and cigars Second hand tobacco smoke exposure: No Smoking end date: 10/01/11 Alcohol intake: former Substance use: never Substance use type: does not use Do You Feel Safe in your Home?: Yes Lack of Transportation: No Lack of Food: Never True Current Housing: I Have Housing Concerned About Future Housing: No Difficulty Paying Gas/Electric Bills: No Difficulty Paying for Meds: No Currently Unemployed: No Education: Grade School Difficulty w/ Childcare or Family Care: No Living arrangements: with family Additional living arrangements comments: grandson Occupation/Education: retired 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 Gender identity (if verbalized by the patient): Male Spiritual care concerns: No Meds Home Medications and Allergies Home Medications ?Medication ?Instructions ?Recorded ?Confirmed ?Type cholecalciferol (vitamin D3) 25 25 mcg PO DAILY 02/03/25 History mcg (1,000 unit) capsule aspirin 81 mg tablet,delayed 81 mg PO DAILY #90 tabs 0 01/08/25 02/03/25 Rx release nystatin 100,000 unit/gram topical 1 applic topical BI D #60 grams 02/03/25 02/03/25 Rx powder memantine 10 mg tablet See Rx Instructions .Route 0 05/30/25 Rx .COMPLEX #60 tabs pantoprazole 40 mg tablet,delayed 40 mg PO DAILY #90 t abs 08/09/25 Rx release Allergies Allergy/AdvReac Type Severity Reaction Status Date / Time No Known Allergies Allergy Verified 08/24/25 18:37 Vital Signs Vital Signs - 24 hr 08/24/25 11:29 08/24/25 11:33 08/24/25 13:26 Temperature 97.3 F L Pulse Rate 90 87 80 Respiratory Rate 19 14 Blood Pressure 113/58 L 123/92 H Pulse Oximetry 97 96 Oxygen Delivery Room Air 08/24/25 14:12 08/24/25 15:06 08/24/25 16:27 Temperature Pulse Rate 76 86 68 Respiratory Rate 20 17 16 Blood Pressure 129/77 130/76 144/77 H Pulse Oximetry 97 97 97 Oxygen Delivery 08/24/25 17:40 08/24/25 18:24 08/24/25 19:00 Temperature 95.5 F L 95.3 F L 93.7 F L Pulse Rate 76 Respiratory Rate 12 Blood Pressure 137/64 Pulse Oximetry 98 Oxygen Delivery 08/24/25 19:04 08/24/25 19:30 08/24/25 19:45 Temperature 93.6 F L 94.0 F L 94.4 F L Pulse Rate 91 Respiratory Rate 20 Blood Pressure 111/60 Pulse Oximetry 97 Oxygen Delivery 08/24/25 20:00 08/24/25 20:00 08/24/25 20:00 Temperature 94.7 F L Pulse Rate 77 79 79 Respiratory Rate 14 14 Blood Pressure 136/82 Pulse Oximetry 97 97 Oxygen Delivery Room Air 08/24/25 20:15 08/24/25 20:30 08/24/25 20:45 Temperature 95.8 F L 95.9 F L 96.0 F L Pulse Rate Respiratory Rate Blood Pressure Pulse Oximetry Oxygen Delivery 08/24/25 21:00 08/24/25 21:08 08/24/25 21:30 Temperature 96.3 F L 96.3 F L 97 F L Pulse Rate Respiratory Rate Blood Pressure Pulse Oximetry Oxygen Delivery 08/24/25 21:30 08/24/25 22:00 08/24/25 22:00 Temperature 97.0 F L 97.8 F Pulse Rate 94 Respiratory Rate Blood Pressure Pulse Oximetry Oxygen Delivery 08/24/25 22:00 08/24/25 22:30 08/24/25 22:30 Temperature 97.8 F 98.4 F 98.4 F Pulse Rate Respiratory Rate Blood Pressure Pulse Oximetry Oxygen Delivery 08/25/25 00:00 08/25/25 00:00 08/25/25 00:00 Temperature 99 F 99 F Pulse Rate 101 H 96 Respiratory Rate 18 18 Blood Pressure 144/60 H Pulse Oximetry 97 97 Oxygen Delivery Room Air 08/25/25 00:00 08/25/25 02:00 08/25/25 04:00 Temperature 98.9 F Pulse Rate 96 100 86 Respiratory Rate 16 Blood Pressure 149/78 H Pulse Oximetry 97 Oxygen Delivery 08/25/25 04:00 08/25/25 04:00 08/25/25 06:00 Temperature Pulse Rate 88 88 101 H Respiratory Rate 16 Blood Pressure Pulse Oximetry 97 Oxygen Delivery Room Air 08/25/25 08:00 08/25/25 08:02 Temperature 99.8 F H Pulse Rate 103 H 95 Respiratory Rate 18 Blood Pressure 154/61 H Pulse Oximetry 97 Oxygen Delivery Exam 2 Narrative: Exam Narrative: Well developed well-nourished male, lying in bed poorly responsive in no acute distress, although a little agitated when I try to wake him up. Skin is warm and dry without rash Head normocephalic atraumatic Eyes normal sclerae and conjunctivae Mouth normal lips teeth and gums Neck no nodes no thyromegaly no carotid bruits Axillae no nodes Back no CVA tenderness Lungs symmetric and clear to auscultation and percussion Heart irregularly irregular rhythm and normal rate without cardiac rub or gallop Abdomen bowel sounds positive soft nontender, no HSM, masses, or bruits. Extremities no cyanosis, clubbing, or edema Pulses 2+ equal in radial arteries Psychological not anxious or depressed Neuro alert and oriented x3 motor 5/5 cranial nerves 2-12 intact reflexes 2+ and equal in the biceps and patellar tendons cerebellar normal rapid alternating movements Results Lab Results 08/25/25 03:58 08/25/25 03:58 Lab results: Most recent lab results Calcium 9.1 mg/dL (8.4-10.2) 08/25/25 03:58 Magnesium 2.0 mg/dL (1.6-2.3) 08/25/25 03:58 Urine Creatinine 64.5 mg/dL 08/24/25 11:53
--- NOTE | 2025-08-25 10:27 | PCSTNOTE ---
08/25 Attempted BSE. Patient unable to maintain alertness/respond to complete at this time will re-attempt at later time.
[2025-08-25] MEDS: SODIUM BICARBONATE 8.4% 150 MEQ in DEXTROSE 5% 1,000 ML 950 ML 100 MEQ IV CONT (11:08)
--- NOTE | 2025-08-25 15:15 | PM.IMPN ---
Progress Note: A&P Assessment and Plan (1) Acute renal failure: Qualifiers: Acute renal failure type: unspecified Qualified Code(s): N17.9 - Acute kidney failure, unspecified Code(s): N17.9 - Acute kidney failure, unspecified Status: Acute Assessment and Plan: Patient with dementia presents with increased weakness and decreased p.o. intake over the past 2 weeks. Renal ultrasound Mildly atrophic kidneys. Severely increased echotexture of renal cortex due to significant medical renal changes. No obstructive lesions. No focal lesions of the bladder. Urine random sodium 50, urine creatinine 64.5. UA with 1+ protein, trace glucose, 1+ blood, 2+ leukocyte Estrace, WBC 20 1-50. Urine random sodium 50, urine creatinine 64.5. -Cr 15.5 on admission (baseline Cr: About 2.2) -s/p 2 L of IVF - NS @ 75 started 08/24 - Obrien catheter - monitor I&Os - Renal dose med, avoid nephrotoxins - nephrology consultation, awaiting recs - trend renal function - goals of care discussion needed with family. Patient unlikely to return to baseline post hospitalization. (2) Acute UTI: Code(s): N39.0 - Urinary tract infection, site not specified Status: Acute Assessment and Plan: UA with 1+ protein, trace glucose, 1+ blood, 2+ leukocyte Estrace, WBC 20 1-50. Urine random sodium 50, urine creatinine 64.5. - UC pending - started on Ceftriaxone on 08/24 (3) Diabetes mellitus with chronic kidney disease: Qualifiers: Diabetes mellitus type: type 2 Diabetes mellitus bed bug exterminator insulin use: without bed bug exterminator use Chronic kidney disease stage: stage 4 (severe) Qualified Code(s): E11.22 - Type 2 diabetes mellitus with diabetic chronic kidney disease; N18.4 - Chronic kidney disease, stage 4 (severe) Code(s): E11.22 - Type 2 diabetes mellitus with diabetic chronic kidney disease Status: Chronic Assessment and Plan: - hypoglycemia protocol - POC blood glucose ACHS - home medication: Unknown - correct regimen ordered: Low-dose sliding scale (4) Dementia with agitation: Qualifiers: Dementia type: Alzheimer's Alzheimer's disease onset: late onset Dementia severity: severe Qualified Code(s): G30.1 - Alzheimer's disease with late onset; F02.C11 - Dementia in other diseases classified elsewhere, severe, with agitation Code(s): F03.911 - Unspecified dementia, unspecified severity, with agitation Status: Chronic Assessment and Plan: Patient baseline A&O x2. Currently A&Ox0-1. Will look at you when you talk to him. Plan Patient is now on comfort care. Awaiting discharge to Hospice care Subjective Date/time seen: 08/25/25 15:15 Interval history: Comfortable at bedside and patient has decided to transition to comfort care Review of Systems Review of Systems: All systems reviewed & are unremarkable except as noted in HPI and below Objective Data Vital Signs Vital Signs: Vital Signs - 24 hr 08/24/25 16:27 08/24/25 17:40 08/24/25 18:24 Temperature 95.5 F L 95.3 F L Pulse Rate 68 76 Respiratory Rate 16 12 Blood Pressure 144/77 H 137/64 Pulse Oximetry 97 98 Oxygen Delivery 08/24/25 19:00 08/24/25 19:04 08/24/25 19:30 Temperature 93.7 F L 93.6 F L 94.0 F L Pulse Rate 91 Respiratory Rate 20 Blood Pressure 111/60 Pulse Oximetry 97 Oxygen Delivery 08/24/25 19:45 08/24/25 20:00 08/24/25 20:00 Temperature 94.4 F L 94.7 F L Pulse Rate 77 79 Respiratory Rate 14 14 Blood Pressure 136/82 Pulse Oximetry 97 97 Oxygen Delivery Room Air 08/24/25 20:00 08/24/25 20:15 08/24/25 20:30 Temperature 95.8 F L 95.9 F L Pulse Rate 79 Respiratory Rate Blood Pressure Pulse Oximetry Oxygen Delivery 08/24/25 20:45 08/24/25 21:00 08/24/25 21:08 Temperature 96.0 F L 96.3 F L 96.3 F L Pulse Rate Respiratory Rate Blood Pressure Pulse Oximetry Oxygen Delivery 08/24/25 21:30 08/24/25 21:30 08/24/25 22:00 Temperature 97 F L 97.0 F L 97.8 F Pulse Rate Respiratory Rate Blood Pressure Pulse Oximetry Oxygen Delivery 08/24/25 22:00 08/24/25 22:00 08/24/25 22:30 Temperature 97.8 F 98.4 F Pulse Rate 94 Respiratory Rate Blood Pressure Pulse Oximetry Oxygen Delivery 08/24/25 22:30 08/25/25 00:00 08/25/25 00:00 Temperature 98.4 F 99 F 99 F Pulse Rate 101 H Respiratory Rate 18 Blood Pressure 144/60 H Pulse Oximetry 97 Oxygen Delivery 08/25/25 00:00 08/25/25 00:00 08/25/25 02:00 Temperature Pulse Rate 96 96 100 Respiratory Rate 18 Blood Pressure Pulse Oximetry 97 Oxygen Delivery Room Air 08/25/25 04:00 08/25/25 04:00 08/25/25 04:00 Temperature 98.9 F Pulse Rate 86 88 88 Respiratory Rate 16 16 Blood Pressure 149/78 H Pulse Oximetry 97 97 Oxygen Delivery Room Air 08/25/25 06:00 08/25/25 08:00 08/25/25 08:02 Temperature 99.8 F H Pulse Rate 101 H 103 H 95 Respiratory Rate 18 Blood Pressure 154/61 H Pulse Oximetry 97 Oxygen Delivery 08/25/25 10:00 08/25/25 12:00 08/25/25 12:16 Temperature 98.0 F Pulse Rate 104 H 100 86 Respiratory Rate 18 Blood Pressure 139/83 Pulse Oximetry 96 Oxygen Delivery 08/25/25 14:00 Temperature Pulse Rate 75 Respiratory Rate Blood Pressure Pulse Oximetry Oxygen Delivery Intake/Output Intake/Output: Intake & Output 08/22/25 08/23/25 08/24/25 08/25/25 23:59 23:59 23:59 23:59 Intake Total 2049 Output Total 50 100 Balance 1999 - Meds/Results Medications: Active Medications Generic Name Dose Route Start Last Admin Trade Name Freq PRN Reason Stop Dose Admin Dextrose 12.5 gm 08/25/25 01:45 Dextrose 50% 25 Gm/50 Ml Syringe IV PUSH PRN PRN Hypoglycemia Protocol Glucagon 1 mg 08/25/25 01:45 Glucagon For Inj 1 Mg Vial IM PRN PRN Hypoglycemia Protocol Glucose 15 gm 08/25/25 01:45 Glucose Oral Gel 15 Gm Of Glucse In 37.5 Gm Tube PO PRN PRN Hypoglycemia Protocol Heparin Sodium (Porcine) 5,000 units 08/25/25 06:00 08/25/25 04:35 Heparin Sodium 5,000 Units/Ml Vial SUB-Q 5,000 units Q8HR SANDRA Administration Ceftriaxone Sodium 1 gm/ 50 mls @ 100 mls/hr 08/25/25 14:00 Sodium Chloride IVPB Q24H SANDRA Sodium Chloride 1,000 mls @ 75 mls/hr 08/25/25 03:45 08/25/25 04:35 Normal Saline Iv IV CONT 75 mls/hr On Hold: 08/25/25 07:53 .[id number] SANDRA Administration Dextrose 1,000 mls @ 100 mls/hr 08/25/25 07:57 08/25/25 08:08 Dextrose 5% 1,000 Ml IVPB 100 mls/hr PRN PRN Administration Hypoglycemia Protocol Sodium Bicarbonate 150 meq/ 1,100 mls @ 100 mls/hr 08/25/25 11:00 08/25/25 11:08 Dextrose IV CONT 100 mls/hr .Q11H SANDRA Administration Insulin Aspart 2 - 5 units 08/25/25 08:00 08/25/25 10:25 Insulin Aspart (*Bkc) 100 Units/Ml SUB-Q Not Given TIDWM SANDRA Protocol Morphine Sulfate 2 mg 08/25/25 15:14 Morphine Sulfate (*Crx) 4 Mg/Ml Inj IV PUSH Q30M PRN COMFORT Morphine Sulfate 5 mg 08/25/25 15:14 Morphine Sulfate Inj (*Crx) 10 Mg/Ml Amp IV PUSH 08/25/25 15:15 ONCE ONE Radiology Results: ITS Impressions Chest X-Ray 08/24/25 12:22 IMPRESSION: No acute cardiopulmonary findings. Head CT 08/24/25 13:03 Impression: 1.No acute intracranial abnormality. Renal Ultrasound 08/24/25 14:58 IMPRESSION: 1. Mildly atrophic kidneys. Severely increased echotexture of renal cortex due to significant medical renal changes. No obstructive lesions. 2. No focal lesions of the urinary bladder. Color jet from the ureters are noted from both sides into the urinary bladder. No free fluid. Labs Labs: Laboratory Results - last 24 hr 08/24/25 08/24/25 08/25/25 14:55 22:24 03:58 WBC 13.4 H RBC 3.32 L Hgb 8.7 L Hct 26.3 L MCV 79.2 L MCH 26.2 MCHC 33.1 RDW 17.2 H Plt Count 153 MPV 9.6 Immature Gran % (Auto) 0.5 Neut % (Auto) 86.8 H Lymph % (Auto) 5.6 L Preston % (Auto) 6.1 Eos % (Auto) 0.8 Baso % (Auto) 0.2 Lymph # (Auto) 0.75 L Preston # (Auto) 0.8 H Eos # (Auto) 0.1 Baso # (Auto) 0.0 Abs Immat Gran (auto) 0.07 H Absolute Neuts (auto) 11.6 H Absolute Nucleated RBC 0.000 Nucleated RBC % 0.0 Sodium 143 144 144 Potassium 5.4 H 5.3 H 5.1 H Chloride 114 H 116 H 117 H Carbon Dioxide 8 L 7 L < 5 L Anion Gap 21 H 21 H BUN 186 H* D 181 H* 179 H* Creatinine 13.02 H 13.39 H 13.31 H Estim Creat Clear Calc 3 3 3 Estimated GFR 4 L 4 L 4 L Glucose 146 H 104 61 L POC Capillary Glucose Lactic Acid Calcium 8.8 8.8 9.1 Magnesium 2.0 Total Bilirubin 0.6 AST 28 ALT 22 Alkaline Phosphatase 98 Total Protein 5.9 L Albumin 2.9 L 08/25/25 08/25/25 08/25/25 07:48 09:45 10:33 WBC RBC Hgb Hct MCV MCH MCHC RDW Plt Count MPV Immature Gran % (Auto) Neut % (Auto) Lymph % (Auto) Preston % (Auto) Eos % (Auto) Baso % (Auto) Lymph # (Auto) Preston # (Auto) Eos # (Auto) Baso # (Auto) Abs Immat Gran (auto) Absolute Neuts (auto) Absolute Nucleated RBC Nucleated RBC % Sodium Potassium Chloride Carbon Dioxide Anion Gap BUN Creatinine Estim Creat Clear Calc Estimated GFR Glucose POC Capillary Glucose 70 95 Lactic Acid 0.6 L Calcium Magnesium Total Bilirubin AST ALT Alkaline Phosphatase Total Protein Albumin 08/25/25 11:00 WBC RBC Hgb Hct MCV MCH MCHC RDW Plt Count MPV Immature Gran % (Auto) Neut % (Auto) Lymph % (Auto) Preston % (Auto) Eos % (Auto) Baso % (Auto) Lymph # (Auto) Preston # (Auto) Eos # (Auto) Baso # (Auto) Abs Immat Gran (auto) Absolute Neuts (auto) Absolute Nucleated RBC Nucleated RBC % Sodium Potassium Chloride Carbon Dioxide Anion Gap BUN Creatinine Estim Creat Clear Calc Estimated GFR Glucose POC Capillary Glucose 115 H Lactic Acid Calcium Magnesium Total Bilirubin AST ALT Alkaline Phosphatase Total Protein Albumin Quality VTE Prophylaxis VTE prophylaxis: pharmacologic ordered
[2025-08-25] MEDS: MORPHINE SULFATE (*CRX) 4 MG/ML INJ 2 MG IV PUSH (17:39)
[2025-08-26 06:00] VITALS: BP 117/65; PULSE 52; RESP 16; TEMP 36.1; O2SAT 98
--- NOTE | 2025-08-26 10:42 | PM.IMPN ---
Progress Note: A&P Assessment and Plan (1) Acute renal failure: Qualifiers: Acute renal failure type: unspecified Qualified Code(s): N17.9 - Acute kidney failure, unspecified Code(s): N17.9 - Acute kidney failure, unspecified Status: Acute Assessment and Plan: Patient with dementia presents with increased weakness and decreased p.o. intake over the past 2 weeks. Renal ultrasound Mildly atrophic kidneys. Severely increased echotexture of renal cortex due to significant medical renal changes. No obstructive lesions. No focal lesions of the bladder. Urine random sodium 50, urine creatinine 64.5. UA with 1+ protein, trace glucose, 1+ blood, 2+ leukocyte Estrace, WBC 20 1-50. Urine random sodium 50, urine creatinine 64.5. -Cr 15.5 on admission (baseline Cr: About 2.2) -s/p 2 L of IVF - NS @ 77 started 08/24 - Obrien catheter - monitor I&Os - Renal dose med, avoid nephrotoxins - nephrology consultation, awaiting recs - trend renal function - goals of care discussion needed with family. Patient unlikely to return to baseline post hospitalization. 08/26/2025 Patient and family agreed for hospice care, will continue with comfort care (2) Acute UTI: Code(s): N39.0 - Urinary tract infection, site not specified Status: Acute Assessment and Plan: UA with 1+ protein, trace glucose, 1+ blood, 2+ leukocyte Estrace, WBC 20 1-50. Urine random sodium 50, urine creatinine 64.5. -comfort care. (3) Diabetes mellitus with chronic kidney disease: Qualifiers: Diabetes mellitus type: type 2 Diabetes mellitus nursing home insulin use: without intermodal truck driver use Chronic kidney disease stage: stage 4 (severe) Qualified Code(s): E11.22 - Type 2 diabetes mellitus with diabetic chronic kidney disease; N18.4 - Chronic kidney disease, stage 4 (severe) Code(s): E11.22 - Type 2 diabetes mellitus with diabetic chronic kidney disease Status: Chronic Assessment and Plan: - hypoglycemia protocol - POC blood glucose ACHS - home medication: Unknown - correct regimen ordered: Low-dose sliding scale (4) Dementia with agitation: Qualifiers: Dementia type: Alzheimer's Alzheimer's disease onset: late onset Dementia severity: severe Qualified Code(s): G30.1 - Alzheimer's disease with late onset; F02.C11 - Dementia in other diseases classified elsewhere, severe, with agitation Code(s): F03.911 - Unspecified dementia, unspecified severity, with agitation Status: Chronic Assessment and Plan: Patient baseline A&O x2. Currently A&Ox0-1. Will look at you when you talk to him. Plan Patient is now on comfort care. Awaiting discharge to Hospice care Subjective Date/time seen: 08/26/25 10:42 Interval history: Patient was seen during the morning rounds today. Family bedside. Patient is comfortable. Review of Systems Review of Systems: All systems reviewed & are unremarkable except as noted in HPI and below Objective Data Vital Signs Vital Signs: Vital Signs - 24 hr 08/25/25 12:00 08/25/25 12:16 08/25/25 14:00 Temperature 36.7 C Pulse Rate 100 86 75 Respiratory Rate 18 Blood Pressure 139/83 Pulse Oximetry 96 Oxygen Delivery 08/25/25 16:00 08/25/25 20:00 08/25/25 22:00 Temperature 36.5 C 36.2 C L Pulse Rate 87 76 Respiratory Rate 21 H 16 Blood Pressure 144/74 H 127/93 H Pulse Oximetry 100 100 Oxygen Delivery Room Air 08/26/25 06:00 Temperature 36.1 C L Pulse Rate 52 L Respiratory Rate 16 Blood Pressure 117/65 Pulse Oximetry 98 Oxygen Delivery Intake/Output Intake/Output: Intake & Output 08/23/25 08/24/25 08/25/25 08/26/25 23:59 23:59 23:59 23:59 Intake Total 2049 Output Total 50 100 800 Balance 2000 -100 -800 Meds/Results Medications: Active Medications Generic Name Dose Route Start Last Admin Trade Name Freq PRN Reason Stop Dose Admin Morphine Sulfate 5 mg 08/26/25 09:01 Morphine Sulfate Oral Conc Noemi (*Crx) 10 Mg/0.5 Ml Syringe PO Q4H PRN Pain Radiology Results: ITS Impressions Chest X-Ray 08/24/25 12:22 IMPRESSION: No acute cardiopulmonary findings. Head CT 08/24/25 13:03 Impression: 1.No acute intracranial abnormality. Renal Ultrasound 08/24/25 14:58 IMPRESSION: 1. Mildly atrophic kidneys. Severely increased echotexture of renal cortex due to significant medical renal changes. No obstructive lesions. 2. No focal lesions of the urinary bladder. Color jet from the ureters are noted from both sides into the urinary bladder. No free fluid. Labs Labs: Laboratory Results - last 24 hr 08/25/25 08/25/25 08/25/25 10:33 11:00 15:14 POC Capillary Glucose 115 H 145 H Lactic Acid 0.6 L Quality VTE Prophylaxis VTE prophylaxis: pharmacologic ordered
[2025-08-26 14:00] VITALS: BP 146/114; PULSE 82; RESP 16; TEMP 36.3; O2SAT 99
[2025-08-26] MEDS: MORPHINE SULFATE ORAL CONC SOL (*CRX) 10 MG/0.5 ML SYRINGE 5 MG PO ×2 (15:17→20:09)
[2025-08-26 18:11] VITALS: BP 151/84
[2025-08-26 21:33] VITALS: BP 163/96; PULSE 101; RESP 16; TEMP 36.1; O2SAT 100
[2025-08-27 06:00] VITALS: BP 134/98; PULSE 63; RESP 16; TEMP 36.1; O2SAT 97
[2025-08-27] MEDS: MORPHINE SULFATE ORAL CONC SOL (*CRX) 10 MG/0.5 ML SYRINGE 5 MG PO (06:01)
--- NOTE | 2025-08-27 11:05 | P.PNIM_ITS ---
Progress Note: A&P Assessment and Plan (1) Acute renal failure: Qualifiers: Acute renal failure type: unspecified Qualified Code(s): N17.9 - Acute kidney failure, unspecified Code(s): N17.9 - Acute kidney failure, unspecified Status: Acute Assessment and Plan: Patient with dementia presents with increased weakness and decreased p.o. intake over the past 2 weeks. Renal ultrasound Mildly atrophic kidneys. Severely increased echotexture of renal cortex due to significant medical renal changes. No obstructive lesions. No focal lesions of the bladder. Urine random sodium 50, urine creatinine 64.5. UA with 1+ protein, trace glucose, 1+ blood, 2+ leukocyte Estrace, WBC 20 1-50. Urine random sodium 50, urine creatinine 64.5. -Cr 15.5 on admission (baseline Cr: About 2.2) -s/p 2 L of IVF - NS @ 77 started 08/24 - Obrien catheter - monitor I&Os - Renal dose med, avoid nephrotoxins - nephrology consultation, awaiting recs - trend renal function - goals of care discussion needed with family. Patient unlikely to return to baseline post hospitalization. 08/26/2025 Patient and family agreed for hospice care, will continue with comfort care (2) Acute UTI: Code(s): N39.0 - Urinary tract infection, site not specified Status: Acute Assessment and Plan: UA with 1+ protein, trace glucose, 1+ blood, 2+ leukocyte Estrace, WBC 20 1-50. Urine random sodium 50, urine creatinine 64.5. -comfort care. (3) Diabetes mellitus with chronic kidney disease: Qualifiers: Diabetes mellitus type: type 2 Diabetes mellitus shelter insulin use: without superintendent container terminal use Chronic kidney disease stage: stage 4 (severe) Qualified Code(s): E11.22 - Type 2 diabetes mellitus with diabetic chronic kidney disease; N18.4 - Chronic kidney disease, stage 4 (severe) Code(s): E11.22 - Type 2 diabetes mellitus with diabetic chronic kidney disease Status: Chronic Assessment and Plan: - hypoglycemia protocol - POC blood glucose ACHS - home medication: Unknown - correct regimen ordered: Low-dose sliding scale (4) Dementia with agitation: Qualifiers: Dementia type: Alzheimer's Alzheimer's disease onset: late onset Dementia severity: severe Qualified Code(s): G30.1 - Alzheimer's disease with late onset; F02.C11 - Dementia in other diseases classified elsewhere, severe, with agitation Code(s): F03.911 - Unspecified dementia, unspecified severity, with agitation Status: Chronic Assessment and Plan: Patient baseline A&O x2. Currently A&Ox0-1. Will look at you when you talk to him. Plan Patient is now on comfort care. Awaiting discharge to Hospice care Subjective Date/time seen: 08/27/25 11:05 Interval history: Patient was seen during the morning rounds today. Family bedside. Patient is comfortable. Review of Systems Review of Systems: All systems reviewed & are unremarkable except as noted in HPI and below Objective Data Vital Signs Vital Signs: Vital Signs - 24 hr 08/26/25 14:00 08/26/25 18:11 08/26/25 21:33 Temperature 36.3 C L 36.1 C L Pulse Rate 82 101 H Respiratory Rate 16 16 Blood Pressure 146/114 H 151/84 H 163/96 H Pulse Oximetry 99 100 Oxygen Delivery 08/27/25 06:00 08/27/25 08:00 Temperature 36.1 C L Pulse Rate 63 Respiratory Rate 16 Blood Pressure 134/98 H Pulse Oximetry 97 Oxygen Delivery Room Air Intake/Output Intake/Output: Intake & Output 08/24/25 08/25/25 08/26/25 08/27/25 23:59 23:59 23:59 23:59 Intake Total 0 1197 120 Output Total 50 100 1100 800 Balance 1999 97 -680 Meds/Results Medications: Active Medications Generic Name Dose Route Start Last Admin Trade Name Freq PRN Reason Stop Dose Admin Morphine Sulfate 5 mg 08/26/25 09:01 08/27/25 06:01 Morphine Sulfate Oral Conc Noemi (*Crx) 10 Mg/0.5 Ml Syringe PO 5 mg Q4H PRN Administration Pain Radiology Results: ITS Impressions Chest X-Ray 08/24/25 12:22 IMPRESSION: No acute cardiopulmonary findings. Head CT 08/24/25 13:03 Impression: 1.No acute intracranial abnormality. Renal Ultrasound 08/24/25 14:58 IMPRESSION: 1. Mildly atrophic kidneys. Severely increased echotexture of renal cortex due to significant medical renal changes. No obstructive lesions. 2. No focal lesions of the urinary bladder. Color jet from the ureters are noted from both sides into the urinary bladder. No free fluid. Quality VTE Prophylaxis VTE prophylaxis: pharmacologic ordered
[2025-08-27 14:00] VITALS: BP 134/88; PULSE 75; RESP 16; TEMP 36.3; O2SAT 99
[2025-08-27 22:00] VITALS: BP 114/72; PULSE 74; RESP 20; TEMP 36.5; O2SAT 94
[2025-08-28 04:24] VITALS: BP 133/80; PULSE 52; RESP 16; TEMP 36.5; O2SAT 93
[2025-08-28 07:48] VITALS: O2SAT 94
--- NOTE | 2025-08-28 08:50 | PM.DS ---
DS: Admitting Diagnosis Discharge Date 08/28/2025 Admitting Diagnosis Renal failure DS: Discharge Diagnosis Discharge Diagnosis Plan Renal failure DS: Summary Hospital Course Reason for hospitalization: Renal failure Hospital Course: 85 years old male was admitted for renal failure, patient and family decided they did not want dialysis. They preferred comfort measures. Hospice was consulted. And patient was discharged home with [facility]. Hospice will manage medication and comfort measures. Status at Discharge Cognitive/behavioral status at discharge: Stable Time Spent with Patient Time attestation: Total time spent providing and/or coordinating discharge services: 30 minutes DS: Data Data Completed and Pending Labs on day of discharge: Preliminary micro results at discharge 08/24/25 13:53 Blood Culture - Preliminary Blood 08/24/25 13:22 Blood Culture - Preliminary Blood Discharge Plan Discharge Attending physician on discharge: David Benson Consulting providers: Khari Kingsley Discharging Clinician: David Benson Patient Disposition: Home Activity: as tolerated Diet: as tolerated Patient Instructions: Antibiotic Form Patient Language: Yakut Stand Alone Forms: General Discharge Information Follow-up/Referrals: Kyle Howell MD [Primary Care Provider, [facility]] Discharge Medications: Discontinued cholecalciferol (vitamin D3) 25 mcg (1,000 unit) capsule 25 mcg PO DAILY aspirin 81 mg tablet,delayed release (DR/EC) 81 mg PO DAILY Qty: 90 0RF nystatin 100,000 unit/gram powder 1 applic topical BID Qty: 60 1RF memantine 10 mg tablet See Rx Instructions .ROUTE .COMPLEX Qty: 60 4RF Dose Instruction: Take 1 tablet by mouth twice daily Rx Instructions: Take 1 tablet by mouth twice daily pantoprazole 40 mg tablet,delayed release (DR/EC) 40 mg PO DAILY Qty: 90 1RF Date of admission: 08/25/25 10:16 Primary Care Provider: Kyle Howell Admitting Provider: Jonatan Jaffe Attending physician on admission: Jonatan Jaffe Condition: Serious
[2025-08-28] MEDS: MORPHINE SULFATE ORAL CONC SOL (*CRX) 10 MG/0.5 ML SYRINGE 5 MG PO (14:00)
== END 2025-08-28 14:05 | disposition hospice, home (50) | DRG 683 ==
LOC: ANHED 11:58 → ANHIMU 17:17 → ANH3MED 08-25 17:55
PROVIDERS: Internal Medicine Nephrology; Nurse Practitioner Adult Health; Admitting Provider Internal Medicine; Emergency Provider Emergency Medicine; PCP Family Medicine; Visit Provider Internal Medicine
DX: N17.9 Acute kidney failure, unspecified (principal); E87.20 Acidosis, unspecified; F02.C11 Dementia in other diseases classified elsewhere, severe, with agitation; I48.20 Chronic atrial fibrillation, unspecified; N39.0 Urinary tract infection, site not specified; E11.22 Type 2 diabetes mellitus with diabetic chronic kidney disease; E78.2 Mixed hyperlipidemia; E86.0 Dehydration; G30.9 Alzheimer's disease, unspecified; I48.91 Unspecified atrial fibrillation; I12.9 Hypertensive chronic kidney disease with stage 1 through stage 4 chronic kidney disease, or unspecified chronic kidney disease; M47.812 Spondylosis without myelopathy or radiculopathy, cervical region; N18.4 Chronic kidney disease, stage 4 (severe); Z90.49 Acquired absence of other specified parts of digestive tract; Z87.891 Personal history of nicotine dependence
CPT/HCPCS: 36415; 70450; 71046; 76770; 80048; 80053; 81001; 82570; 82948; 83605; 83735; 84300; 85025; 85610; 85730; 86140; 87040; 87086; 93005; 96365; 99212; 99285; A9270; G0378; G0463; J0696; J1644; J2270; J7030; J7070; J7120